=== PATIENT | male | born 1930 | race Caucasian/White ===

== ENCOUNTER 2018-08-14 20:34 | Inpatient (IN) | payer MEDICARE, MEDICAID ==
[~2018-08-14] VITALS: Ht 170.2 cm; Wt 67.6 kg
[2018-08-14] MEDS ORDERED: Cefepime HCl 2 GM in NS 110 ML IV SCH (20:45)
--- NOTE | 2018-08-14 20:48 | NUR ---
ED Nurse Note: Pt brought in by [facility] c/o increase sob and resp distress from home. pt family states he was recenty discharged from [facility] for UTI, pt o2sat 88% on field. Pt AA&ox1, confused, paralyzed on right side, -n/v/d, on bedrest, noted redness on posterior back, posterior buttock, and penile area. pt rec temp 101.8, ERMD notified, verbal order for tylenol 650mg suppository order received. Cooling measures done and pt cleaned and changed, will cont monitor. RT contacted.
[2018-08-14 21:00] VITALS: BP 129/87
[2018-08-14 21:10] LABS: APPEARANCE,URINE CLEAR; BILIRUBIN, URINE NEGATIVE (NEGATIVE); COLOR,URINE PALE YELLOW; GLUCOSE, URINE (UA) NEGATIVE (NEGATIVE); KETONES,URINE NEGATIVE (NEGATIVE); LEUKOCYTE ESTERASE ,URINE 2+ (NEGATIVE); NITRITE,URINE NEGATIVE (NEGATIVE); PH,URINE 5 (4.5-8.0); PROTEIN,URINE 3+ (NEGATIVE); UROBILINOGEN,URINE NORMAL MG/DL (0.0-1.0)
[2018-08-14 21:11] LABS: HEMATOCRIT 30.2 % (42.0-52.0); HEMOGLOBIN 9.6 G/DL (14.2-18.0); MEAN CORPUSCULAR VOLUME 90 FL (80-99); PLATELET COUNT 398 K/UL (150-450); RED BLOOD COUNT 3.37 M/UL (4.70-6.10); RED CELL DISTRIBUTION WIDTH 15.3 % (11.6-14.8); WHITE BLOOD COUNT 11.3 K/UL (4.8-10.8)
[2018-08-14 21:23] LABS: ANION GAP 11 mmol/L (5-15); BLOOD UREA NITROGEN 89 mg/dL (7-18); CARBON DIOXIDE 21 MMOL/L (21-32); CHLORIDE 101 MMOL/L (98-107); CREATININE 2.6 MG/DL (0.55-1.30); POTASSIUM 3.9 MMOL/L (3.5-5.1); SODIUM 133 MMOL/L (136-145)
[2018-08-14] MEDS ORDERED: Acetaminophen 650 MG SUPP RECTAL ONE (21:33)
[2018-08-14 22:00] VITALS: BP 130/67
--- NOTE | 2018-08-14 22:00 | NUR ---
ED Nurse Note: Pt o2sat 100% on CPAP. EPAP 5 IPAP 12 Rate 22 O2 100% PIP 12.
[2018-08-14 22:07] LABS: ALANINE AMINOTRANSFERASE 6 U/L (12-78); ALBUMIN 2.2 G/DL (3.4-5.0); ALBUMIN/GLOBULIN RATIO 0.5 (1.0-2.7); ALKALINE PHOSPHATASE 73 U/L (46-116); ASPARTATE AMINO TRANSFERASE 19 U/L (15-37); BILIRUBIN,TOTAL 0.2 MG/DL (0.2-1.0); CKMB 1.5 NG/ML (0.0-3.6); CREATINE KINASE 72 U/L (26-308); PHOSPHORUS 4.4 MG/DL (2.5-4.9)
[2018-08-14] MEDS ORDERED: Miralax 17gm pkt ORAL PRN (22:30)
[2018-08-14] MEDS ORDERED: Promethazine/Codeine 5ml UD ORAL PRN (22:30)
[2018-08-14] MEDS ORDERED: Nitroglycerin Subl 0.4mg tab SL PRN (22:30)
[2018-08-14] MEDS ORDERED: Mylanta II UD 30ml ORAL PRN (22:30)
[2018-08-14] MEDS ORDERED: Albuterol/Ipratropium 3ml neb HHN PRN (22:30)
--- NOTE | 2018-08-14 22:48 | NUR ---
ED Nurse Note: pt came with buckner cath.
--- NOTE | 2018-08-14 22:49 | Emergency Room Report ---
History of Present Illness General Chief Complaint: Dyspnea/Respdistress Source: EMS Present Illness HPI Patient is an 88-year-old female who presented after increased shortness of breath. Patient was noted to have increased fever starting today. Patient had been having some increased upper respiratory congestion for several days. Patient recently been released from the hospital after catheter associated urinary tract infection. Patient had been having increased nonproductive cough and had been noted to have some difficulty with swallowing. Patient's was concerned that he may have aspirated.Patient was noted to have fever up to 102 degrees. Patient was noted to have coronary chronic indwelling Isaac catheter. Allergies: Coded Allergies: No Known Allergies (Unverified , 08/14/18) Patient History Past Medical History: see triage record Reviewed Nursing Documentation: PMH: Agreed; PSxH: Agreed Nursing Documentation-PMH Past Medical History: No History, Except For Hx Diabetes: Yes Hx Cerebrovascular Accident: Yes - right side deficit Review of Systems All Other Systems: negative except mentioned in HPI Physical Exam Vital Signs Date Time Temp Pulse Resp B/P (MAP) Pulse Ox O2 Delivery O2 Flow Rate FiO2 08/14/18 20:27 103 24 115/63 90 Non-Rebreather 08/14/18 20:33 100 Sp02 EP Interpretation: abnormal General Appearance: alert, thin, Chronically Ill Head: normocephalic ENT: moist mucus membranes Neck: limited range of motion Respiratory: respiratory distress, decreased breath sounds - left side, right side crackles Cardiovascular #1: normal inspection, normal peripheral pulses, regular rate, rhythm Gastrointestinal: soft, no guarding Musculoskeletal: decreased range of motion, other - motor weakness Neurologic: alert, motor weakness Psychiatric: depressed affect Skin: other Procedures Critical Care Time Critical Care Time Patient had a critical medical condition which untreated could potentially result in life or limb threatening injury. Total critical care time excluding procedures approximately 45 minutes. Medical Decision Making Diagnostic Impression: Primary Impression: Acute respiratory failure Additional Impressions: Aspiration pneumonia Renal insufficiency ER Course Patient presented for shortness of breath. Differential included but was not limited to anemia, pneumonia, pneumothorax, myocardial infarction, pericardial effusion, congestive heart failure, acidosis. Because of complexity of patient' s case laboratory testing and imaging studies were ordered. Patient is noted to be markedly short of breath. Patient was initially on CPAP by EMS. Patient was started on BiPAP with improvement in his respiratory status. Chest x-ray 1 view interpreted by me showed pulmonary infiltrate in left lung with normal mediastinum and slight cardiomegaly. Patient was given IV antibiotics he was started on IV fluid. Laboratory testing was notable for slightly elevated white blood count as well as negative influenza study. Patient was noted to have fever and presumably septic. Patient was noted to have a chronic indwelling Isaac catheter. Dr. Madhu Juarez was contacted for inpatient management due to primary care. Labs Test 08/14/18 20:55 08/14/18 21:00 08/14/18 22:00 08/15/18 03:50 White Blood Count 11.3 K/UL (4.8-10.8) Red Blood Count 3.37 M/UL (4.70-6.10) Hemoglobin 9.6 G/DL (14.2-18.0) Hematocrit 30.2 % (42.0-52.0) Mean Corpuscular Volume 90 FL (80-99) Mean Corpuscular Hemoglobin 28.5 PG (27.0-31.0) Mean Corpuscular Hemoglobin Concent 31.9 G/DL (32.0-36.0) Red Cell Distribution Width 15.3 % (11.6-14.8) Platelet Count 398 K/UL (150-450) Mean Platelet Volume 7.0 FL (6.5-10.1) Neutrophils (%) (Auto) % (45.0-75.0) Lymphocytes (%) (Auto) % (20.0-45.0) Monocytes (%) (Auto) % (1.0-10.0) Eosinophils (%) (Auto) % (0.0-3.0) Basophils (%) (Auto) % (0.0-2.0) Differential Total Cells Counted 100 Neutrophils % (Manual) 80 % (45-75) Lymphocytes % (Manual) 9 % (20-45) Monocytes % (Manual) 6 % (1-10) Eosinophils % (Manual) 0 % (0-3) Basophils % (Manual) 0 % (0-2) Band Neutrophils 5 % (0-8) Platelet Estimate Adequate Platelet Morphology Normal Hypochromasia 1+ Anisocytosis 1+ Prothrombin Time 10.5 SEC (9.30-11.50) Prothromb Time International Ratio 1.0 (0.9-1.1) Activated Partial Thromboplast Time 33 SEC (23-33) Sodium Level 133 MMOL/L (136-145) Potassium Level 3.9 MMOL/L (3.5-5.1) Chloride Level 101 MMOL/L (98-107) Carbon Dioxide Level 21 MMOL/L (21-32) Anion Gap 11 mmol/L (5-15) Blood Urea Nitrogen 89 mg/dL (7-18) Creatinine 2.6 MG/DL (0.55-1.30) Estimat Glomerular Filtration Rate mL/min (>60) Glucose Level 189 MG/DL (74-106) Lactic Acid Level 1.40 mmol/L (0.4-2.0) Calcium Level 9.0 MG/DL (8.5-10.1) Phosphorus Level 4.4 MG/DL (2.5-4.9) Magnesium Level 2.5 MG/DL (1.8-2.4) Total Bilirubin 0.2 MG/DL (0.2-1.0) Aspartate Amino Transf (AST/SGOT) 19 U/L (15-37) Alanine Aminotransferase (ALT/SGPT) 6 U/L (12-78) Alkaline Phosphatase 73 U/L (46-116) Total Creatine Kinase 72 U/L (26-308) Creatine Kinase MB 1.5 NG/ML (0.0-3.6) Creatine Kinase MB Relative Index 2.0 Troponin I 0.128 ng/mL (0.000-0.056) Pro-B-Type Natriuretic Peptide 3210 pg/mL (0-125) Total Protein 6.6 G/DL (6.4-8.2) Albumin 2.2 G/DL (3.4-5.0) Globulin 4.4 g/dL Albumin/Globulin Ratio 0.5 (1.0-2.7) Urine Color Pale yellow Urine Appearance Slightly cloudy Urine pH 5 (4.5-8.0) Urine Specific [place] 1.020 (1.005-1.035) Urine Protein 3+ (NEGATIVE) Urine Glucose (UA) Negative (NEGATIVE) Urine Ketones Negative (NEGATIVE) Urine Blood 4+ (NEGATIVE) Urine Nitrite Negative (NEGATIVE) Urine Bilirubin Negative (NEGATIVE) Urine Urobilinogen Normal MG/DL (0.0-1.0) Urine Leukocyte Esterase 2+ (NEGATIVE) Urine RBC 20-30 /HPF (0 - 0) Urine WBC 10-15 /HPF (0 - 0) Urine Squamous Epithelial Cells None /LPF (NONE/OCC) Urine Amorphous Sediment Moderate /LPF (NONE) Urine Bacteria Moderate /HPF (NONE) Urine Coarse Granular Casts 2-4 /LPF (NONE) Urine Yeast Moderate /HPF (NONE) Urine Eosinophils Few seen (NONE SEEN) Urine Random Sodium < 20 mmol/L (20-110) Urine Creatinine 70.7 MG/DL (30.0-125.0) Urine Potassium Timed 24 mmol/L (12-62) Arterial Blood pH 7.313 (7.350-7.450) Arterial Blood Partial Pressure CO2 37.6 mmHg (35.0-45.0) Arterial Blood Partial Pressure O2 266.7 mmHg (75.0-100.0) Arterial Blood HCO3 18.8 mmol/L (22.0-26.0) Arterial Blood Oxygen Saturation 99.0 % (95-100) Arterial Blood Base Excess -6.7 (-2-2) Cole Test Positive Other Cell Type Erythrocyte Sedimentation Rate Reticulocyte Count Uric Acid Iron Level Total Iron Binding Capacity Percent Iron Saturation Unsaturated Iron Binding Lactate Dehydrogenase Vitamin B12 Level Folate Test 08/15/18 04:00 08/15/18 12:40 C-Reactive Protein, Quantitative 18.9 mg/dL (0.00-0.90) Urine Color Pale yellow Urine Appearance Clear Urine pH 5 (4.5-8.0) Urine Specific [place] 1.015 (1.005-1.035) Urine Protein 2+ (NEGATIVE) Urine Glucose (UA) Negative (NEGATIVE) Urine Ketones Negative (NEGATIVE) Urine Blood 3+ (NEGATIVE) Urine Nitrite Negative (NEGATIVE) Urine Bilirubin Negative (NEGATIVE) Urine Urobilinogen Normal MG/DL (0.0-1.0) Urine Leukocyte Esterase 2+ (NEGATIVE) Urine RBC 5-10 /HPF (0 - 0) Urine WBC 10-15 /HPF (0 - 0) Urine Squamous Epithelial Cells Occasional /LPF Urine Bacteria Occasional /HPF (NONE) Urine Yeast Occasional /HPF (NONE) Urine Eosinophils None seen (NONE SEEN) Urine Random Sodium 52 mmol/L (20-110) Urine Creatinine 36.4 MG/DL (30.0-125.0) Urine Potassium Timed 11 mmol/L (12-62) White Blood Count Red Blood Count Hemoglobin Hematocrit Mean Corpuscular Volume Mean Corpuscular Hemoglobin Mean Corpuscular Hemoglobin Concent Red Cell Distribution Width Platelet Count Mean Platelet Volume Neutrophils (%) (Auto) Lymphocytes (%) (Auto) Monocytes (%) (Auto) Eosinophils (%) (Auto) Basophils (%) (Auto) Sodium Level Potassium Level Chloride Level Carbon Dioxide Level Anion Gap Blood Urea Nitrogen Creatinine Estimat Glomerular Filtration Rate Glucose Level Hemoglobin A1c Uric Acid Calcium Level Phosphorus Level Magnesium Level Total Bilirubin Gamma Glutamyl Transpeptidase Aspartate Amino Transf (AST/SGOT) Alanine Aminotransferase (ALT/SGPT) Alkaline Phosphatase Ammonia Total Creatine Kinase Troponin I Pro-B-Type Natriuretic Peptide Total Protein Albumin Globulin Albumin/Globulin Ratio Triglycerides Level Cholesterol Level LDL Cholesterol HDL Cholesterol Cholesterol/HDL Ratio Vitamin B12 Level Thyroid Stimulating Hormone (TSH) Cortisol AM Sample Last Vital Signs Date Time Temp Pulse Resp B/P (MAP) Pulse Ox O2 Delivery O2 Flow Rate FiO2 08/14/18 20:33 95 36 100 Facial 100 08/14/18 20:27 115/63 Status: improved Disposition: ADMITTED INPATIENT Condition: Serious Referrals: Madhu Juarez MD (PCP) Marcus Heath MD Aug 14, 2018 22:49
[2018-08-14 23:00] VITALS: BP 131/70
[2018-08-15 00:26] LABS: BILIRUBIN, URINE NEGATIVE (NEGATIVE); COLOR,URINE PALE YELLOW; GLUCOSE, URINE (UA) NEGATIVE (NEGATIVE); KETONES,URINE NEGATIVE (NEGATIVE); NITRITE,URINE NEGATIVE (NEGATIVE); PH,URINE 5 (4.5-8.0); PROTEIN,URINE 3+ (NEGATIVE); UROBILINOGEN,URINE NORMAL MG/DL (0.0-1.0)
[2018-08-15 00:39] LABS: APPEARANCE,URINE SLIGHTLY CLOUDY
[2018-08-15 00:40] LABS: LEUKOCYTE ESTERASE ,URINE 2+ (NEGATIVE)
--- NOTE | 2018-08-15 01:09 | NUR ---
ED Nurse Note: Report given to RN Elvie to continue care, pt will be transferred to SDU.
--- NOTE | 2018-08-15 01:10 | NUR ---
ED Nurse Note: correction, LIA Darden.
[2018-08-15] MEDS ORDERED: VENLAFAXINE HCL75 M1 ORAL (01:13)
[2018-08-15] MEDS ORDERED: CELEXA10 MG ORAL (01:13)
[2018-08-15] MEDS ORDERED: METFORMIN HCL500 M3 ORAL (01:13)
[2018-08-15] MEDS ORDERED: SINEMET 25-1001 EAC1 ORAL (01:13)
[2018-08-15] MEDS ORDERED: NEURONTIN300 MG ORAL (01:13)
[2018-08-15] MEDS ORDERED: CLONAZEPAM0.5 MG PO (01:13)
[2018-08-15] MEDS ORDERED: QUETIAPINE FUM300 MG ORAL (01:13)
--- NOTE | 2018-08-15 01:15 | NUR ---
ED Nurse Note: pt transferred to SDU, no belongings. family at the bedside, vss, airway intact, o2sat 100% on cpap. RT at the bedside.
--- NOTE | 2018-08-15 01:23 | NUR ---
NURSE NOTES: Received a patient from ER from LIA Basilio.Patient stable,SR on director of cardiac rehabilitation,tolerated CPAP well,lungs diminished sound in an auscultation,BS active in all quadrants,IV asymptomatic,intact,bed secured ,call light within a reach,belongings list signed for no belongings,family at a bed side.Will continue to follow POC.
[2018-08-15] MEDS: Vancomycin 1gm in D5W 275ml IVPB SCH (02:20)
[2018-08-15 04:00] VITALS: BP 135/59
[2018-08-15 05:45] LABS: BASOPHILS % (AUTO) 0.5 % (0.0-2.0); EOSINOPHILS % (AUTO) 0.4 % (0.0-3.0); HEMATOCRIT 29.7 % (42.0-52.0); HEMOGLOBIN 9.3 G/DL (14.2-18.0); LYMPHOCYTES % (AUTO) 11.3 % (20.0-45.0); MEAN CORPUSCULAR VOLUME 89 FL (80-99); MONOCYTES % (AUTO) 4.7 % (1.0-10.0); NEUTROPHILS % (AUTO) 83.1 % (45.0-75.0); PLATELET COUNT 389 K/UL (150-450); RED BLOOD COUNT 3.34 M/UL (4.70-6.10); RED CELL DISTRIBUTION WIDTH 15.6 % (11.6-14.8); WHITE BLOOD COUNT 8.8 K/UL (4.8-10.8)
[2018-08-15 06:23] LABS: ANION GAP 12 mmol/L (5-15); BLOOD UREA NITROGEN 82 mg/dL (7-18); CALCIUM 8.8 MG/DL (8.5-10.1); CARBON DIOXIDE 20 MMOL/L (21-32); CHLORIDE 103 MMOL/L (98-107); CREATININE 2.3 MG/DL (0.55-1.30); PHOSPHORUS 3.9 MG/DL (2.5-4.9); POTASSIUM 3.2 MMOL/L (3.5-5.1); SODIUM 135 MMOL/L (136-145)
[2018-08-15 06:49] LABS: % IRON SATURATION 7 % (15-50); IRON 11 ug/dL (50-175); TOTAL IRON BINDING CAPACITY 164 ug/dL (250-450)
[2018-08-15 07:06] LABS: LACTATE DEHYDROGENASE 138 U/L (81-234)
--- NOTE | 2018-08-15 07:10 | NUR ---
HAND-OFF: Report given to LIA Agrawal.Patient stable.
--- NOTE | 2018-08-15 07:20 | NUR ---
HAND-OFF: Report given to LIA Viramontes Patient stable..
--- NOTE | 2018-08-15 07:43 | NUR ---
RESPIRATORY NOTE: Received pt. on BIPAP. BIPAP settings are: 12/5,PS, 7 rate of 16, FI02 50%. No respiratory distress noted, pt. Sp02 @ 100%. BIPAP plugged on red outlet. Ambu bag @ BS. Will continue to monitor pt.
--- NOTE | 2018-08-15 07:56 | NUR ---
NURSE NOTES: Report receive from LIA Darden. Observed patient in bed. Awake and verbally responsive. Family at bedside. On BIPAP with no acute distress noted. IV site intact and patent. No s/s of pain at this time. F/C intact and draining well. Bed in lowest position. Call light within reach. Will continue to monitor.
--- NOTE | 2018-08-15 07:58 | NUR ---
NURSE NOTES: Called and left message to Dr. Morgan regarding low potassium level. Awaiting for call back.
[2018-08-15 08:00] VITALS: BP 132/71
--- NOTE | 2018-08-15 08:29 | NUR ---
NURSE NOTES: Called back from Dr. Morgan and told me that he will come to see patient shortly.
--- NOTE | 2018-08-15 09:13 | NUR ---
ST NOTE: BEDSIDE SWALLOW EVAL RECEIVED BEDSIDE SWALLOW EVAL ORDER CHART REVIEWED PRIOR THE EVALUATION PT IS A 88-YEAR-OLD MALE WHO WAS ADMITTED DUE TO RESP DISTRESS. DYSPHAGIA RISK FACTORS: ADVANCED AGE, H/O CVA(7YRS AGO) W/ R-SIDED DEFICITS, RESP DISTRESS AND CONGESTION. PENDING CXR. PER ER REPORT: DECREASED BREATH SOUNDS ON BOTH SIDES. PT WAS ON BIPAP WITH FIO2: 50% AND RR: 26-32 PLOF: PT LIVES AT HOME WITH FAMILY. PER PT'S SON, PT WAS ABLE TO EAT/DRINK BY MOUTH. HOWEVER, PT'S DENTURES WERE NOT FIT VERY WELL. FOOD NEEDED TO BE BUT INTO SMALL PIECES. PER PT'S SON, NOT NOTICE ANY SWALLOWING DIFFICULTY. CURRENT STATUS: PT SEEN AT BEDSIDE IN AM. PT ALERT, TIRED. PT'S SON IS AT BEDSIDE. PT WITH VENTURI MASK(6L), OXYGEN LEVEL: 97-99. RR: 18. HOWEVER, SOME SHALLOW BREATHING WAS NOTED AND PT REQUIRED DEEP NASAL SUCTION TO CLEAR THE PHLEGM(MODERATE AMOUNT). 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 COMPLETED ORAL CARE. PT EDENTULOUS. PT REDUCED LARYNGEAL ELEVATION WHEN REQUESTED DRY SWALLOW RESPONSE. DUE TO PT HAS CURRENT RESP DISTRESS AND H/O CVA, PT HAS HIGH RISK FOR ASPIRATION. RECOMMENDATIONS: 1. STRICT NPO FOR NOW. 2. CONSIDER TEMPORARILY NONORAL FEEDING MEANS(PREFER 12 FR) TO MEET NUTRITION AND HYDRATION NEEDS AND MEDICATION PURPOSE. 3, ORAL CARE 4. VIDEOSWALLOW STUDY WHEN PT IS READY. D/W PT'S SON RE: PLAN OF CARE. PER SON, OKAY WITH NGT. POSTED NPO SIGN. D/W PT'S SON AND RN, QUANG AND NAPOLEON.
[2018-08-15] MEDS: Heparin 5000 units/ml inj SUBQ SCH ×2 (09:50→20:44)
--- NOTE | 2018-08-15 11:32 | History and Physical ---
History of Present Illness General Date patient seen: Aug 15, 2018 Reason for Hospitalization: Dyspnea/Respdistress Present Illness HPI 88-year-old male with hx of CVA 8 years ago, bed bound, residing at home who presented with CC of shortness of breath, nonproductive cough and fever for one day. Patient had been having some increased upper respiratory congestion for several days. He recently been released from the hospital after catheter associated urinary tract infection. Pt had a temperature of 101 in ER and had RLL infiltrate on CXR. He is admitted for further work up. Allergies: Coded Allergies: No Known Allergies (Unverified , 08/14/18) Medication History Scheduled Carbidopa/Levodopa 25-100 Mg* (Sinemet 25-100 Mg Tablet*), 1 TAB ORAL THREE TIMES A DAY, (Reported) Citalopram Hydrobromide (Celexa), Unknown Dose ORAL DAILY, (Reported) Metformin Hcl (Metformin Hcl Er), 850 MG ORAL DAILY, (Reported) Quetiapine Fumarate (Quetiapine Fumarate), Unknown Dose ORAL DAILY, (Reported) Venlafaxine Hcl* (Venlafaxine Hcl Er), 225 MG ORAL DAILY, (Reported) Miscellaneous Medications Clonazepam (Clonazepam), Unknown Dose PO, (Reported) Gabapentin (Neurontin), Unknown Dose ORAL, (Reported) Patient History Healthcare decision maker N/A Resuscitation status Full Code Advanced Directive on File No Past Medical/Surgical History Past Medical/Surgical History: (1) Family history of CVA (2) Parkinson disease (3) Diabetes mellitus Review of Systems Respiratory: Reports: shortness of breath, stridor Physical Exam General Appearance: cachetic Neck: non-tender, normal alignment Respiratory/Chest: chest wall non-tender, rhonchi - left, rhonchi - right Cardiovascular/Chest: normal peripheral pulses, normal rate Abdomen: non tender, no organomegaly Genitourinary/Rectal: normal genital exam Extremities: normal range of motion Last 24 Hour Vital Signs Date Time Temp Pulse Resp B/P (MAP) Pulse Ox O2 Delivery O2 Flow Rate FiO2 08/15/18 08:41 81 22 100 08/15/18 08:00 80 08/15/18 08:00 8.0 40 08/15/18 08:00 98.1 80 19 132/71 (91) 100 08/15/18 08:00 Venturi Mask 8.0 08/15/18 07:47 79 32 100 Facial 50 08/15/18 05:26 82 26 99 Facial 50 08/15/18 04:00 50 08/15/18 04:00 97.8 83 17 135/59 (84) 100 08/15/18 04:00 Bi-pap 08/15/18 03:55 80 08/15/18 03:28 81 21 100 Facial 50 08/15/18 02:30 Bi-pap 08/15/18 01:59 80 08/15/18 01:00 101.0 87 18 108/70 96 Bi-pap 08/15/18 00:55 84 21 99 Facial 50 08/14/18 23:00 99.9 87 20 131/70 98 Bi-pap 08/14/18 22:40 86 22 98 Facial 60 08/14/18 22:00 101.8 82 30 130/67 100 Bi-pap 100 08/14/18 21:00 101.8 103 36 129/87 100 Bi-pap 100 08/14/18 20:45 95 36 Bi-pap 100 08/14/18 20:33 95 36 100 Facial 100 08/14/18 20:27 103 24 115/63 90 Non-Rebreather Intake and Output 08/14/18 08/15/18 19:00 07:00 Output Total 600 ml Balance -600 ml Output Urine Total 600 ml Laboratory Tests Test 08/14/18 20:55 08/14/18 21:00 08/14/18 22:00 08/15/18 03:50 White Blood Count 11.3 K/UL (4.8-10.8) H 8.8 K/UL (4.8-10.8) Red Blood Count 3.37 M/UL (4.70-6.10) L 3.34 M/UL (4.70-6.10) L Hemoglobin 9.6 G/DL (14.2-18.0) L 9.3 G/DL (14.2-18.0) L Hematocrit 30.2 % (42.0-52.0) L 29.7 % (42.0-52.0) L Mean Corpuscular Volume 90 FL (80-99) 89 FL (80-99) Mean Corpuscular Hemoglobin 28.5 PG (27.0-31.0) 27.7 PG (27.0-31.0) Mean Corpuscular Hemoglobin Concent 31.9 G/DL (32.0-36.0) L 31.2 G/DL (32.0-36.0) L Red Cell Distribution Width 15.3 % (11.6-14.8) H 15.6 % (11.6-14.8) H Platelet Count 398 K/UL (150-450) 389 K/UL (150-450) Mean Platelet Volume 7.0 FL (6.5-10.1) 7.4 FL (6.5-10.1) Neutrophils (%) (Auto) % (45.0-75.0) 83.1 % (45.0-75.0) H Lymphocytes (%) (Auto) % (20.0-45.0) 11.3 % (20.0-45.0) L Monocytes (%) (Auto) % (1.0-10.0) 4.7 % (1.0-10.0) Eosinophils (%) (Auto) % (0.0-3.0) 0.4 % (0.0-3.0) Basophils (%) (Auto) % (0.0-2.0) 0.5 % (0.0-2.0) Differential Total Cells Counted 100 100 Neutrophils % (Manual) 80 % (45-75) H 78 % (45-75) H Lymphocytes % (Manual) 9 % (20-45) L 12 % (20-45) L Monocytes % (Manual) 6 % (1-10) 10 % (1-10) Eosinophils % (Manual) 0 % (0-3) 0 % (0-3) Basophils % (Manual) 0 % (0-2) 0 % (0-2) Band Neutrophils 5 % (0-8) 0 % (0-8) Platelet Estimate Adequate Adequate Platelet Morphology Normal Normal Hypochromasia 1+ 1+ Anisocytosis 1+ 1+ Prothrombin Time 10.5 SEC (9.30-11.50) 10.6 SEC (9.30-11.50) Prothromb Time International Ratio 1.0 (0.9-1.1) 1.0 (0.9-1.1) Activated Partial Thromboplast Time 33 SEC (23-33) 34 SEC (23-33) H Sodium Level 133 MMOL/L (136-145) L 135 MMOL/L (136-145) L Potassium Level 3.9 MMOL/L (3.5-5.1) 3.2 MMOL/L (3.5-5.1) L Chloride Level 101 MMOL/L (98-107) 103 MMOL/L (98-107) Carbon Dioxide Level 21 MMOL/L (21-32) 20 MMOL/L (21-32) L Anion Gap 11 mmol/L (5-15) 12 mmol/L (5-15) Blood Urea Nitrogen 89 mg/dL (7-18) H 82 mg/dL (7-18) H Creatinine 2.6 MG/DL (0.55-1.30) H 2.3 MG/DL (0.55-1.30) H Estimat Glomerular Filtration Rate mL/min (>60) mL/min (>60) Glucose Level 189 MG/DL (74-106) H 191 MG/DL (74-106) H Lactic Acid Level 1.40 mmol/L (0.4-2.0) Calcium Level 9.0 MG/DL (8.5-10.1) 8.8 MG/DL (8.5-10.1) Phosphorus Level 4.4 MG/DL (2.5-4.9) 3.9 MG/DL (2.5-4.9) Magnesium Level 2.5 MG/DL (1.8-2.4) H Total Bilirubin 0.2 MG/DL (0.2-1.0) Aspartate Amino Transf (AST/SGOT) 19 U/L (15-37) Alanine Aminotransferase (ALT/SGPT) 6 U/L (12-78) L Alkaline Phosphatase 73 U/L (46-116) Total Creatine Kinase 72 U/L (26-308) Creatine Kinase MB 1.5 NG/ML (0.0-3.6) Creatine Kinase MB Relative Index 2.0 Troponin I 0.128 ng/mL (0.000-0.056) Pro-B-Type Natriuretic Peptide 3210 pg/mL (0-125) H Total Protein 6.6 G/DL (6.4-8.2) Albumin 2.2 G/DL (3.4-5.0) L 2.0 G/DL (3.4-5.0) L Globulin 4.4 g/dL Albumin/Globulin Ratio 0.5 (1.0-2.7) L Urine Color Pale yellow Urine Appearance Slightly cloudy Urine pH 5 (4.5-8.0) Urine Specific [place] 1.020 (1.005-1.035) Urine Protein 3+ (NEGATIVE) H Urine Glucose (UA) Negative (NEGATIVE) Urine Ketones Negative (NEGATIVE) Urine Blood 4+ (NEGATIVE) H Urine Nitrite Negative (NEGATIVE) Urine Bilirubin Negative (NEGATIVE) Urine Urobilinogen Normal MG/DL (0.0-1.0) Urine Leukocyte Esterase 2+ (NEGATIVE) H Urine RBC 20-30 /HPF (0 - 0) H Urine WBC 10-15 /HPF (0 - 0) H Urine Squamous Epithelial Cells None /LPF (NONE/OCC) Urine Amorphous Sediment Moderate /LPF (NONE) H Urine Bacteria Moderate /HPF (NONE) H Urine Coarse Granular Casts 2-4 /LPF (NONE) H Urine Yeast Moderate /HPF (NONE) H Urine Eosinophils Few seen (NONE SEEN) Urine Random Creatinine Pending Urine Random Microalbumin Pending Urine Random Sodium < 20 mmol/L (20-110) L Urine Creatinine 70.7 MG/DL (30.0-125.0) Urine Microalbumin/Creatinine Ratio Pending Urine Potassium Timed 24 mmol/L (12-62) Arterial Blood pH 7.313 (7.350-7.450) Arterial Blood Partial Pressure CO2 37.6 mmHg (35.0-45.0) Arterial Blood Partial Pressure O2 266.7 mmHg (75.0-100.0) H Arterial Blood HCO3 18.8 mmol/L (22.0-26.0) L Arterial Blood Oxygen Saturation 99.0 % (95-100) Arterial Blood Base Excess -6.7 (-2-2) L Cole Test Positive Erythrocyte Sedimentation Rate 80 MM/HR (0-20) H Reticulocyte Count Pending Iron Level 11 ug/dL (50-175) L Total Iron Binding Capacity 164 ug/dL (250-450) L Percent Iron Saturation 7 % (15-50) L Unsaturated Iron Binding 153 ug/dL (112-346) Lactate Dehydrogenase 138 U/L (81-234) Carcinoembryonic Antigen Pending Vitamin B12 Level 912 PG/ML (193-986) Folate 50.6 NG/ML (8.6-58.9) Microbiology Date/Time Source Procedure Growth Status 08/14/18 22:35 Nasal Nares Influenza Types A,B Antigen (KYARA) - Final Complete 08/14/18 21:00 Urine,Clean Catch Urine Culture - Preliminary NO GROWTH Resulted Height (Feet): 5 Height (Inches): 7.00 Weight (Pounds): 122 Medications Current Medications Medications (Trade) Dose Ordered Sig/Jese Route PRN Reason Start Time Stop Time Status Last Admin Dose Admin Acetaminophen (Tylenol) 650 mg Q4H PRN ORAL fever 08/14/18 22:30 09/13/18 22:29 Al Hydroxide/Mg Hydroxide (Mylanta II) 30 ml Q6H PRN ORAL dyspepsia 08/14/18 22:30 09/13/18 22:29 Albuterol/ Ipratropium (Albuterol/ Ipratropium) 3 ml Q4H PRN HHN Shortness of Breath 08/14/18 22:30 08/19/18 22:29 Cefepime HCl 1 gm/ Dextrose 55 ml @ 110 mls/hr Q24H IV 08/15/18 21:00 08/22/18 20:59 Heparin Sodium (Porcine) (Heparin 5000 units/ml) 5,000 units EVERY 12 HOURS SUBQ 08/15/18 09:00 09/14/18 08:59 08/15/18 09:50 Nitroglycerin (Ntg) 0.4 mg Q5M PRN SL Prn Chest Pain 08/14/18 22:30 09/13/18 22:29 Ondansetron HCl (Zofran) 4 mg Q6H PRN IVP Nausea & Vomiting 08/14/18 22:30 09/13/18 22:29 Polyethylene Glycol (Miralax) 17 gm DAILYPRN PRN ORAL Constipation 08/14/18 22:30 09/13/18 22:29 Promethazine HCl/ Codeine (Phenergan with Codeine) 5 ml Q4H PRN ORAL For Cough 08/14/18 22:30 09/13/18 22:29 Temazepam (Restoril) 15 mg HSPRN PRN ORAL Insomnia 08/14/18 22:30 08/21/18 22:29 Vancomycin HCl (Vanco rx to dose) 1 ea DAILY PRN MISC Per rx protocol 08/14/18 22:30 09/13/18 22:29 Vancomycin HCl 1 gm/Dextrose 275 ml @ 183.708 mls/hr Q24H IVPB 08/15/18 02:00 08/20/18 01:59 08/15/18 02:20 Assessment/Plan Problem List: (1) Acute respiratory failure ICD Codes: J96.00 - Acute respiratory failure, unspecified whether with hypoxia or hypercapnia SNOMED: 94676554 (2) Aspiration pneumonia ICD Codes: J69.0 - Pneumonitis due to inhalation of food and vomit SNOMED: 006611629 (3) ATN (acute tubular necrosis) ICD Codes: N17.0 - Acute kidney failure with tubular necrosis SNOMED: 20375718 Assessment/Plan respiratory treatment titrate fio2 to sat of 92% check sputum iv abx check electrolytes renal studies and electrolytes echocardiogram f/u on increased troponin dvt prophylaxis Sade Morgan MD Aug 15, 2018 11:32
[2018-08-15 11:39] LABS: CREATINE KINASE 89 U/L (26-308)
[2018-08-15 12:00] VITALS: BP 156/80
--- NOTE | 2018-08-15 12:28 | NUR ---
RD ASSESSMENT & RECOMMENDATIONS SEE CARE ACTIVITY FOR COMPLETE ASSESSMENT DAILY ESTIMATED NEEDS: Needs based on Pulmonary, underweight 55.5kg 30-35 kcals/kg 1202-1974 total kcals 1-1.5 g protein/kg 56-83 g total protein 25-30ml/kcal mL/kg 4328-5633 total fluid mLs NUTRITION DIAGNOSIS: 1) Increased kcal and protein needs r/t underweight status as evidenced by pt w/ generalized moderate wasting, currently 82% of Idal Body Weight. 2) Swallowing difficulty r/t clinical status cardiac history as evidenced by pt w/ PNA, h/o CVA, seen by [employer] w/ recs for temp non oral feeds. CURRENT DIET: NPO ENTERAL NUTRITION RECOMMENDATIONS: Glucerna 1.2 @58ml/hr x24 hrs to provide 1392ml, 1670 kcal, 84g prot, 1121ml free H2O - If indicated, obtain GI access, initiate Glucerna 1.2 @18ml/hr for 6 hrs - Advance as tolerated 10ml/hr q4-6 hrs to goal - Flush per MD. HOB over 30 degrees ADDITIONAL RECOMMENDATIONS: 1) Weekly weights 2) NGT recs as above as needed 3) Monitor lytes, BG daily 4) Hypoglycemics PRN 5) Monitor renal labs/ need for TF recs change 6) F/up w/ WC eval
--- NOTE | 2018-08-15 12:33 | NUR ---
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 101.8 HR 103 RR 24 B/P 115/83 BIPAP FIO2 100% PH 7.313 PCO2 37.6 PO2 266.7 HCO3 18.8 02 SAT 99.0 BE -6.7 WBC 11.3 NA 133 BUN 89 CR 2.6 MG 2.5 TROP 0.125 BNP 3210 UA+ PROTEIN,BLOOD,LEUKOCYTE ESTERASE,RBC,WBC,BACTERIA IS: IV BOLUS NS X 1 LITER FLAGYL IV CEFEPIME IV ADMITTED TO STEP DOWN @ 0115 STEP DOWN STATUS DCP PENDING HOSPITAL STAY
--- NOTE | 2018-08-15 13:14 | Diagnostic Imaging Report ---
Indication: Shortness of breath Technique: One view of the chest Comparison: none Findings: Patient is rotated to the right. There is some atelectasis and infiltrate at the right lung base and in the right perihilar region. There is probably a small amount of pleural fluid on the right. There is chronic appearing interstitial prominence and central bronchial wall thickening bilaterally. The left lung and pleural spaces are otherwise clear. The heart size is upper limits normal. Impression: Right basilar infiltrate, atelectasis, and likely pleural fluid Other findings as noted
--- NOTE | 2018-08-15 14:50 | Consultation ---
Consult Note Consult Note asked to eval for renal failure HPI Patient is an 88-year-old female who presented after increased shortness of breath. Patient was noted to have increased fever starting today. Patient had been having some increased upper respiratory congestion for several days. Patient recently been released from the hospital after catheter associated urinary tract infection. Patient had been having increased nonproductive cough and had been noted to have some difficulty with swallowing. Patient's was concerned that he may have aspirated.Patient was noted to have fever up to 102 degrees. Patient was noted to have coronary chronic indwelling Isaac catheter. No Known Allergies (Unverified , 08/14/18) Past Medical History: No History, Except For Hx Diabetes: Yes Hx Cerebrovascular Accident: Yes - right side deficit examined data reviewed discussed with son . Assessment/Plan 88 Y old male, presents with resp distress and aspiration pneumonia Renal failure, Mainly dehydration ? Underlying CKD Low K , Low Na , Low Alb Parkinsons DM NPO Isaac Hydrate 2D Echo Antibiotics Avoid Nephrotoxics Per orders Hudson Huntley MD Aug 15, 2018 14:50
[2018-08-15 14:51] LABS: APPEARANCE,URINE CLEAR; BILIRUBIN, URINE NEGATIVE (NEGATIVE); COLOR,URINE PALE YELLOW; GLUCOSE, URINE (UA) NEGATIVE (NEGATIVE); KETONES,URINE NEGATIVE (NEGATIVE); LEUKOCYTE ESTERASE ,URINE 2+ (NEGATIVE); NITRITE,URINE NEGATIVE (NEGATIVE); PH,URINE 5 (4.5-8.0); PROTEIN,URINE 2+ (NEGATIVE); UROBILINOGEN,URINE NORMAL MG/DL (0.0-1.0)
--- NOTE | 2018-08-15 15:40 | Consultation ---
History of Present Illness General Date patient seen: Aug 15, 2018 Chief Complaint: Dyspnea/Respdistress Present Illness HPI 88 y/o M with hx of Dm2, CVA w/ R side deficit, bedbound, Parkinson's disease presented to ED on 08/14 with increased SOB, fever, congestion, dysphagia and non productive cough. Fever up to 102. Allergies: Coded Allergies: No Known Allergies (Unverified , 08/14/18) Medication History Scheduled Carbidopa/Levodopa 25-100 Mg* (Sinemet 25-100 Mg Tablet*), 1 TAB ORAL THREE TIMES A DAY, (Reported) Citalopram Hydrobromide (Celexa), Unknown Dose ORAL DAILY, (Reported) Clonazepam (Clonazepam), Unknown Dose PO EVERY 12 HOURS, (Reported) Quetiapine Fumarate (Quetiapine Fumarate), Unknown Dose ORAL QHS, (Reported) Venlafaxine Hcl* (Venlafaxine Hcl Er), 225 MG ORAL DAILY, (Reported) Miscellaneous Medications Gabapentin (Neurontin), Unknown Dose ORAL, (Reported) Discontinued Medications Metformin Hcl (Metformin Hcl Er), 850 MG ORAL DAILY, (Reported) Discontinued Reason: MD discontinued med Patient History Healthcare decision maker N/A Resuscitation status Full Code Advanced Directive on File No Patient History Narrative Pmhx: as above Shx: reviewed Fhx: non contributory Review of Systems All Other Systems: negative except mentioned in HPI Physical Exam Physical Exam Narrative General Appearance: alert, thin, Chronically Ill ENT: moist mucus membranes Neck: limited range of motion Respiratory: decreased breath sounds - left side, right side crackles Cardiovascular #1: normal inspection, normal peripheral pulses, regular rate, rhythm Musculoskeletal: decreased range of motion, other - motor weakness Neurologic: alert, motor weakness Psychiatric: depressed affect Skin: other Last 24 Hour Vital Signs Date Time Temp Pulse Resp B/P (MAP) Pulse Ox O2 Delivery O2 Flow Rate FiO2 08/15/18 12:00 Venturi Mask 8.0 08/15/18 12:00 87 08/15/18 12:00 8.0 40 08/15/18 12:00 98.1 88 24 156/80 (105) 97 08/15/18 08:41 81 22 100 08/15/18 08:00 80 08/15/18 08:00 8.0 40 08/15/18 08:00 98.1 80 19 132/71 (91) 100 08/15/18 08:00 Venturi Mask 8.0 08/15/18 07:47 79 32 100 Facial 50 08/15/18 05:26 82 26 99 Facial 50 08/15/18 04:00 50 08/15/18 04:00 97.8 83 17 135/59 (84) 100 08/15/18 04:00 Bi-pap 08/15/18 03:55 80 08/15/18 03:28 81 21 100 Facial 50 08/15/18 02:30 Bi-pap 08/15/18 01:59 80 08/15/18 01:00 101.0 87 18 108/70 96 Bi-pap 08/15/18 00:55 84 21 99 Facial 50 08/14/18 23:00 99.9 87 20 131/70 98 Bi-pap 08/14/18 22:40 86 22 98 Facial 60 08/14/18 22:00 101.8 82 30 130/67 100 Bi-pap 100 08/14/18 21:00 101.8 103 36 129/87 100 Bi-pap 100 08/14/18 20:45 95 36 Bi-pap 100 08/14/18 20:33 95 36 100 Facial 100 08/14/18 20:27 103 24 115/63 90 Non-Rebreather Intake and Output 08/14/18 08/15/18 19:00 07:00 Output Total 600 ml Balance -600 ml Output Urine Total 600 ml Laboratory Tests Test 08/14/18 20:55 08/14/18 21:00 08/14/18 22:00 08/15/18 03:50 White Blood Count 11.3 K/UL (4.8-10.8) H 8.8 K/UL (4.8-10.8) Red Blood Count 3.37 M/UL (4.70-6.10) L 3.34 M/UL (4.70-6.10) L Hemoglobin 9.6 G/DL (14.2-18.0) L 9.3 G/DL (14.2-18.0) L Hematocrit 30.2 % (42.0-52.0) L 29.7 % (42.0-52.0) L Mean Corpuscular Volume 90 FL (80-99) 89 FL (80-99) Mean Corpuscular Hemoglobin 28.5 PG (27.0-31.0) 27.7 PG (27.0-31.0) Mean Corpuscular Hemoglobin Concent 31.9 G/DL (32.0-36.0) L 31.2 G/DL (32.0-36.0) L Red Cell Distribution Width 15.3 % (11.6-14.8) H 15.6 % (11.6-14.8) H Platelet Count 398 K/UL (150-450) 389 K/UL (150-450) Mean Platelet Volume 7.0 FL (6.5-10.1) 7.4 FL (6.5-10.1) Neutrophils (%) (Auto) % (45.0-75.0) 83.1 % (45.0-75.0) H Lymphocytes (%) (Auto) % (20.0-45.0) 11.3 % (20.0-45.0) L Monocytes (%) (Auto) % (1.0-10.0) 4.7 % (1.0-10.0) Eosinophils (%) (Auto) % (0.0-3.0) 0.4 % (0.0-3.0) Basophils (%) (Auto) % (0.0-2.0) 0.5 % (0.0-2.0) Differential Total Cells Counted 100 100 Neutrophils % (Manual) 80 % (45-75) H 78 % (45-75) H Lymphocytes % (Manual) 9 % (20-45) L 12 % (20-45) L Monocytes % (Manual) 6 % (1-10) 10 % (1-10) Eosinophils % (Manual) 0 % (0-3) 0 % (0-3) Basophils % (Manual) 0 % (0-2) 0 % (0-2) Band Neutrophils 5 % (0-8) 0 % (0-8) Platelet Estimate Adequate Adequate Platelet Morphology Normal Normal Hypochromasia 1+ 1+ Anisocytosis 1+ 1+ Prothrombin Time 10.5 SEC (9.30-11.50) 10.6 SEC (9.30-11.50) Prothromb Time International Ratio 1.0 (0.9-1.1) 1.0 (0.9-1.1) Activated Partial Thromboplast Time 33 SEC (23-33) 34 SEC (23-33) H Sodium Level 133 MMOL/L (136-145) L 135 MMOL/L (136-145) L Potassium Level 3.9 MMOL/L (3.5-5.1) 3.2 MMOL/L (3.5-5.1) L Chloride Level 101 MMOL/L (98-107) 103 MMOL/L (98-107) Carbon Dioxide Level 21 MMOL/L (21-32) 20 MMOL/L (21-32) L Anion Gap 11 mmol/L (5-15) 12 mmol/L (5-15) Blood Urea Nitrogen 89 mg/dL (7-18) H 82 mg/dL (7-18) H Creatinine 2.6 MG/DL (0.55-1.30) H 2.3 MG/DL (0.55-1.30) H Estimat Glomerular Filtration Rate mL/min (>60) mL/min (>60) Glucose Level 189 MG/DL (74-106) H 191 MG/DL (74-106) H Lactic Acid Level 1.40 mmol/L (0.4-2.0) Calcium Level 9.0 MG/DL (8.5-10.1) 8.8 MG/DL (8.5-10.1) Phosphorus Level 4.4 MG/DL (2.5-4.9) 3.9 MG/DL (2.5-4.9) Magnesium Level 2.5 MG/DL (1.8-2.4) H Total Bilirubin 0.2 MG/DL (0.2-1.0) Aspartate Amino Transf (AST/SGOT) 19 U/L (15-37) Alanine Aminotransferase (ALT/SGPT) 6 U/L (12-78) L Alkaline Phosphatase 73 U/L (46-116) Total Creatine Kinase 72 U/L (26-308) 89 U/L (26-308) Creatine Kinase MB 1.5 NG/ML (0.0-3.6) Creatine Kinase MB Relative Index 2.0 Troponin I 0.128 ng/mL (0.000-0.056) Pro-B-Type Natriuretic Peptide 3210 pg/mL (0-125) H Total Protein 6.6 G/DL (6.4-8.2) Albumin 2.2 G/DL (3.4-5.0) L 2.0 G/DL (3.4-5.0) L Globulin 4.4 g/dL Albumin/Globulin Ratio 0.5 (1.0-2.7) L Urine Color Pale yellow Urine Appearance Slightly cloudy Urine pH 5 (4.5-8.0) Urine Specific [place] 1.020 (1.005-1.035) Urine Protein 3+ (NEGATIVE) H Urine Glucose (UA) Negative (NEGATIVE) Urine Ketones Negative (NEGATIVE) Urine Blood 4+ (NEGATIVE) H Urine Nitrite Negative (NEGATIVE) Urine Bilirubin Negative (NEGATIVE) Urine Urobilinogen Normal MG/DL (0.0-1.0) Urine Leukocyte Esterase 2+ (NEGATIVE) H Urine RBC 20-30 /HPF (0 - 0) H Urine WBC 10-15 /HPF (0 - 0) H Urine Squamous Epithelial Cells None /LPF (NONE/OCC) Urine Amorphous Sediment Moderate /LPF (NONE) H Urine Bacteria Moderate /HPF (NONE) H Urine Coarse Granular Casts 2-4 /LPF (NONE) H Urine Yeast Moderate /HPF (NONE) H Urine Eosinophils Few seen (NONE SEEN) Urine Random Creatinine Pending Urine Random Microalbumin Pending Urine Random Sodium < 20 mmol/L (20-110) L Urine Creatinine 70.7 MG/DL (30.0-125.0) Urine Microalbumin/Creatinine Ratio Pending Urine Potassium Timed 24 mmol/L (12-62) Arterial Blood pH 7.313 (7.350-7.450) Arterial Blood Partial Pressure CO2 37.6 mmHg (35.0-45.0) Arterial Blood Partial Pressure O2 266.7 mmHg (75.0-100.0) H Arterial Blood HCO3 18.8 mmol/L (22.0-26.0) L Arterial Blood Oxygen Saturation 99.0 % (95-100) Arterial Blood Base Excess -6.7 (-2-2) L Cole Test Positive Erythrocyte Sedimentation Rate 80 MM/HR (0-20) H Reticulocyte Count 1.4 % (0.0-2.0) Uric Acid 5.4 MG/DL (2.6-7.2) Iron Level 11 ug/dL (50-175) L Total Iron Binding Capacity 164 ug/dL (250-450) L Percent Iron Saturation 7 % (15-50) L Unsaturated Iron Binding 153 ug/dL (112-346) Lactate Dehydrogenase 138 U/L (81-234) Carcinoembryonic Antigen Pending Vitamin B12 Level 912 PG/ML (193-986) Folate 50.6 NG/ML (8.6-58.9) Test 08/15/18 04:00 08/15/18 12:40 C-Reactive Protein, Quantitative Pending Urine Color Pale yellow Urine Appearance Clear Urine pH 5 (4.5-8.0) Urine Specific [place] 1.015 (1.005-1.035) Urine Protein 2+ (NEGATIVE) H Urine Glucose (UA) Negative (NEGATIVE) Urine Ketones Negative (NEGATIVE) Urine Blood 3+ (NEGATIVE) H Urine Nitrite Negative (NEGATIVE) Urine Bilirubin Negative (NEGATIVE) Urine Urobilinogen Normal MG/DL (0.0-1.0) Urine Leukocyte Esterase 2+ (NEGATIVE) H Urine RBC 5-10 /HPF (0 - 0) H Urine WBC 10-15 /HPF (0 - 0) H Urine Squamous Epithelial Cells Occasional /LPF Urine Bacteria Occasional /HPF (NONE) Urine Yeast Occasional /HPF (NONE) H Urine Eosinophils Pending Urine Random Creatinine Pending Urine Random Microalbumin Pending Urine Random Sodium 52 mmol/L (20-110) Urine Creatinine 36.4 MG/DL (30.0-125.0) Urine Microalbumin/Creatinine Ratio Pending Urine Potassium Timed 11 mmol/L (12-62) L Microbiology Date/Time Source Procedure Growth Status 08/14/18 22:35 Nasal Nares Influenza Types A,B Antigen (KYARA) - Final Complete 08/14/18 21:00 Urine,Clean Catch Urine Culture - Preliminary NO GROWTH Resulted Height (Feet): 5 Height (Inches): 7.00 Weight (Pounds): 122 Medications Current Medications Medications (Trade) Dose Ordered Sig/Jese Route PRN Reason Start Time Stop Time Status Last Admin Dose Admin Acetaminophen (Tylenol) 650 mg Q4H PRN ORAL fever 08/14/18 22:30 09/13/18 22:29 Albuterol/ Ipratropium (Albuterol/ Ipratropium) 3 ml Q4H PRN HHN Shortness of Breath 08/14/18 22:30 08/19/18 22:29 Cefepime HCl 1 gm/ Dextrose 55 ml @ 110 mls/hr Q24H IV 08/15/18 21:00 08/22/18 20:59 Dextrose/ Electrolytes 1,000 ml @ 75 mls/hr [id number] IV 08/15/18 13:00 09/14/18 12:59 08/15/18 12:40 Heparin Sodium (Porcine) (Heparin 5000 units/ml) 5,000 units EVERY 12 HOURS SUBQ 08/15/18 09:00 09/14/18 08:59 08/15/18 09:50 Nitroglycerin (Ntg) 0.4 mg Q5M PRN SL Prn Chest Pain 08/14/18 22:30 09/13/18 22:29 Ondansetron HCl (Zofran) 4 mg Q6H PRN IVP Nausea & Vomiting 08/14/18 22:30 09/13/18 22:29 Pantoprazole (Protonix) 40 mg EVERY 12 HOURS IVP 08/15/18 21:00 09/14/18 20:59 Polyethylene Glycol (Miralax) 17 gm DAILYPRN PRN ORAL Constipation 08/14/18 22:30 09/13/18 22:29 Promethazine HCl/ Codeine (Phenergan with Codeine) 5 ml Q4H PRN ORAL For Cough 08/14/18 22:30 09/13/18 22:29 Temazepam (Restoril) 15 mg HSPRN PRN ORAL Insomnia 08/14/18 22:30 08/21/18 22:29 Vancomycin HCl (Vanco rx to dose) 1 ea DAILY PRN MISC Per rx protocol 08/14/18 22:30 09/13/18 22:29 Vancomycin HCl 1 gm/Dextrose 275 ml @ 183.708 mls/hr Q24H IVPB 08/15/18 02:00 08/20/18 01:59 08/15/18 02:20 Assessment/Plan Assessment/Plan Abx: IV Vancomycin 08/14- Cefepime 08/14- Flagyl x1 08/14 Assessment: Sepsis 2ry to PNA, ?FLu (despite neg screening test) -CXR: Right basilar infiltrate, atelectasis, and likely pleural fluid -sp cx p -u/a wbc 10-15, nit neg, leuk +2; ucx NTD -Bcx p -influenza sc neg Fever Leukocytosis, SP TONIO Hyponatremia/hypokalemia Dm2 CVA w/ R side deficit bedbound Parkinson's disease Plan: -Continue empiric IV Vancomycin and Cefepime -Add Tamiflu and Azithromycin for influenza and atypical coverage -f/u cx -Monitor CBC/CMP, temperatures -legionella ag urine -EKG am -aspiration precautions Thank you for your consultation. Will continue to follow along with you. Discussed with LIA. Nuria Marte M.D. Aug 15, 2018 15:40
[2018-08-15 16:00] VITALS: BP 139/83
--- NOTE | 2018-08-15 19:05 | NUR ---
HAND-OFF: Report given to LIA Darden. Stable condition.
--- NOTE | 2018-08-15 19:06 | NUR ---
NURSE NOTES: Received bedside report from LIA Viramontes.Patient stable,A&Ox1-2,confused,tolerated Ventury mask 40% 8 L,NPO,f/cath in place running toward gravity,BS active in all quadrants,IV asymptomatic,intact on L hand 20G running with D 5 NS w/20 KCL @75 ml/hr,no c/o pain,no respiratory distress noted,bed secured,call light within a reach,family at bedside.Will continue to monitor and follow POC.
--- NOTE | 2018-08-15 19:19 | History & Physical ---
History and Physical History & Physicial Dictated for Int Med-Dr Juarez no. [id number]. Jeremi Hayden MD Aug 15, 2018 19:19
[2018-08-15 20:00] VITALS: BP 137/60
[2018-08-15] MEDS: Pantoprazole Inj IVP SCH (20:43)
[2018-08-15] MEDS: Cefepime HCl 1 GM in D5W 55 ML IV SCH (20:43)
--- NOTE | 2018-08-15 21:45 | History and Physical Report ---
DATE OF ADMISSION: 08/14/2018 CHIEF COMPLAINT: The patient is an 88-year-old white male, presents with a chief complaint of shortness of breath and fever. HISTORY OF PRESENT ILLNESS: The patient has been having cough and increased congestion for several days. The patient began to have increasing shortness of breath. The patient was noted to have fever of 102 degrees Fahrenheit at home. The patient presented to [place] emergency room. The patient is admitted for shortness of breath and fever to rule out aspiration pneumonia. REVIEW OF SYSTEMS: CONSTITUTIONAL: The patient denies weight loss or weight gain. The patient denies fevers or chills. HEENT: The patient denies ear or throat pain. The patient denies headache. CARDIOVASCULAR: The patient denies palpitations or chest pain. CHEST: The patient complains of cough and congestion as above. The patient complains of shortness of breath as above. ABDOMEN: The patient denies nausea, vomiting, diarrhea, or constipation. GENITOURINARY: The patient denies dysuria or increased frequency of urination. NEUROMUSCULAR: The patient denies seizures or generalized weakness. PAST MEDICAL HISTORY: Significant for: 1. Diabetes type 2. 2. Parkinson disease. 3. Cerebrovascular disease, status post cerebrovascular accident in 2010. PAST SURGICAL HISTORY: The patient denies. CURRENT MEDICATIONS: 1. Sinemet 25/100 one tablet p.o. three times daily. 2. Celexa 10 mg p.o. daily. 3. Klonopin 0.5 mg p.o. twice daily. 4. Gabapentin 300 mg p.o. three times daily. 5. Seroquel 300 mg p.o. nightly. 6. Venlafaxine ER 225 mg p.o. daily. ALLERGIES: No known drug allergies. SOCIAL HISTORY: The patient is single. The patient denies tobacco or alcohol use. PHYSICAL EXAMINATION: VITAL SIGNS: Temperature febrile at 101.8, pulse 103, blood pressure 129/87, and respiratory rate 36. The patient is currently on BiPAP. GENERAL: The patient is well-developed and well-nourished thin-appearing white male, who is currently on BiPAP. HEENT: Eyes - pupils are equal and responsive to light and accommodation. Extraocular movements are intact. NECK: Supple without lymphadenopathy. CHEST: Crackles bilaterally with expiratory wheezes. ABDOMEN: Soft, nontender, and nondistended. Positive bowel sounds. No evidence of hepatosplenomegaly. Currently, no rebound or guarding noted. EXTREMITIES: Negative for clubbing, cyanosis, or edema. RECTAL/GENITAL: Not performed. NEUROLOGIC: Cranial nerves II through XII are grossly intact without focal deficits. LABORATORY AND DIAGNOSTIC DATA: WBC 11.3, hemoglobin 9.6, hematocrit 30.2, platelets 298,000. Sodium 135, potassium 3.3, chloride 103, CO2 20, BUN 82, creatinine 2.3, and glucose 191. Urinalysis showed 3+ blood, leukocyte esterase 2+, rbc's 5 to 10, and wbc's 10 to 15. Chest x-ray revealed right lower lobe infiltrate. ASSESSMENT: This is an 88-year-old white male. 1. Right lower lobe pneumonia. 2. Shortness of breath. 3. Fever. 4. Cerebrovascular disease. 5. Diabetes. 6. Parkinson disease. TREATMENT: 1. Right lower lobe pneumonia/shortness of breath. A Pulmonary consultation has been obtained with Dr. Sade Morgan. The patient has been started empirically on cefepime and azithromycin. The patient has also been started on vancomycin. An Infectious Disease consultation has been obtained with Dr. Marte. 2. History of cerebrovascular disease. Continue aspirin as above. 3. Diabetes type 2. The patient has been started on NovoLog sliding scale. 4. Parkinson disease. Continue Sinemet as above. Jeremi Hayden M.D. DR: LEATHA JOB#: [id number] CC:
[2018-08-16] VITALS: BP 145/71
[2018-08-16] MEDS: Vancomycin 1gm in D5W 275ml IVPB SCH (02:49)
[2018-08-16 04:00] VITALS: BP 155/72
[2018-08-16 06:15] LABS: BASOPHILS % (AUTO) 0.6 % (0.0-2.0); EOSINOPHILS % (AUTO) 0.2 % (0.0-3.0); HEMATOCRIT 32.4 % (42.0-52.0); HEMOGLOBIN 10.5 G/DL (14.2-18.0); LYMPHOCYTES % (AUTO) 9.5 % (20.0-45.0); MEAN CORPUSCULAR VOLUME 88 FL (80-99); MONOCYTES % (AUTO) 6.4 % (1.0-10.0); NEUTROPHILS % (AUTO) 83.3 % (45.0-75.0); PLATELET COUNT 440 K/UL (150-450); RED BLOOD COUNT 3.69 M/UL (4.70-6.10); RED CELL DISTRIBUTION WIDTH 15.8 % (11.6-14.8); WHITE BLOOD COUNT 9.1 K/UL (4.8-10.8)
[2018-08-16 06:39] LABS: CREATINE KINASE 93 U/L (26-308); GAMMA GLUTAMYL TRANSPEPTIDASE 13 U/L (5-85); PHOSPHORUS 2.6 MG/DL (2.5-4.9)
[2018-08-16 06:57] LABS: AMMONIA 41 umol/L (11-32)
--- NOTE | 2018-08-16 07:14 | NUR ---
HAND-OFF: Report given to LIA Viramontes.Patient stable.
--- NOTE | 2018-08-16 07:20 | NUR ---
NURSE NOTES: Received Pt from Nicolasa Jain RN. Pt is AAOx2. On Venturi mask with 8L O2 SaO2 94%. No cardiopulmonary distress noted. Pt is SR hooked to monitor. F/C noted draining urine. Skin alterations noted. 20 g L forearm IV noted running at 75 mL/hr. Bed in lowest position. Side rails up x 2. Call light within reach. Will continue to monitor pt.
[2018-08-16 07:24] LABS: ALANINE AMINOTRANSFERASE 9 U/L (12-78); ALBUMIN 1.9 G/DL (3.4-5.0); ALBUMIN/GLOBULIN RATIO 0.4 (1.0-2.7); ALKALINE PHOSPHATASE 68 U/L (46-116); ANION GAP 15 mmol/L (5-15); ASPARTATE AMINO TRANSFERASE 14 U/L (15-37); BILIRUBIN,TOTAL 0.3 MG/DL (0.2-1.0); BLOOD UREA NITROGEN 53 mg/dL (7-18); CALCIUM 8.7 MG/DL (8.5-10.1); CARBON DIOXIDE 17 MMOL/L (21-32); CHLORIDE 111 MMOL/L (98-107); CHOLESTEROL 113 MG/DL (< 200); CREATININE 1.4 MG/DL (0.55-1.30); HDL CHOLESTEROL 45 MG/DL (40-60); POTASSIUM 2.8 MMOL/L (3.5-5.1); SODIUM 143 MMOL/L (136-145); TRIGLYCERIDES 97 MG/DL (30-150)
[2018-08-16 08:00] VITALS: BP 162/75
[2018-08-16] MEDS ORDERED: Azithromycin 250mg tab ORAL SCH (09:00)
[2018-08-16] MEDS: Pantoprazole Inj IVP SCH ×2 (09:09→21:00)
[2018-08-16] MEDS: Heparin 5000 units/ml inj SUBQ SCH ×2 (09:09→21:11)
--- NOTE | 2018-08-16 09:39 | NUR ---
RADIOLOGY DEPT CHEST X-RAY DONE.-P.DYE
--- NOTE | 2018-08-16 11:07 | Pulmonology Progress Note ---
Assessment/Plan Problems: (1) Acute respiratory failure (2) Aspiration pneumonia (3) ATN (acute tubular necrosis) Assessment/Plan improving bun/creatine decreasing didn't pass swallow study start NG tube feeding check electrolytes respiratory treatment check echocardiogram f/u troponin level Subjective Interval Events: on nasal cannula now, didn't pass swallow study Allergies: Coded Allergies: No Known Allergies (Unverified , 08/14/18) Objective Last 24 Hour Vital Signs Date Time Temp Pulse Resp B/P (MAP) Pulse Ox O2 Delivery O2 Flow Rate FiO2 08/16/18 08:00 98.2 83 22 162/75 (104) 93 08/16/18 08:00 4.0 08/16/18 08:00 84 08/16/18 08:00 Nasal Cannula 4.0 08/16/18 04:00 Venturi Mask 8.0 08/16/18 04:00 8.0 40 08/16/18 04:00 98.4 94 20 155/72 (99) 98 08/16/18 03:40 84 08/16/18 00:00 8.0 40 08/16/18 00:00 99.0 85 21 145/71 (95) 91 08/16/18 00:00 Venturi Mask 8.0 08/15/18 23:36 86 08/15/18 20:00 Venturi Mask 8.0 08/15/18 20:00 8.0 40 08/15/18 20:00 98.8 90 21 137/60 (85) 94 08/15/18 19:29 92 20 97 14.0 08/15/18 19:09 93 08/15/18 16:00 Venturi Mask 8.0 08/15/18 16:00 98.7 91 23 139/83 (101) 95 08/15/18 16:00 8.0 40 08/15/18 16:00 93 08/15/18 12:00 Venturi Mask 8.0 08/15/18 12:00 87 08/15/18 12:00 8.0 40 08/15/18 12:00 98.1 88 24 156/80 (105) 97 Intake and Output 08/15/18 08/16/18 19:00 07:00 Intake Total 525 ml 1037.387 ml Output Total 950 ml 1100 ml Balance -425 ml -62.613 ml Intake IV Total 525 ml 1037.387 ml Output Urine Total 950 ml 1100 ml # Bowel Movements 2 2 General Appearance: cachetic HEENT: normocephalic, atraumatic Respiratory/Chest: chest wall non-tender, normal breath sounds Cardiovascular: normal peripheral pulses, normal rate Abdomen: normal bowel sounds, soft, non tender Genitourinary: normal external genitalia Extremities: no cyanosis Skin: no rash Neurologic/Psychiatric: lye boiler II-XII grossly normal Lymphatic: no neck adenopathy Microbiology Date/Time Source Procedure Growth Status 08/14/18 22:35 Blood Blood Culture - Preliminary Resulted 08/14/18 22:30 Blood Blood Culture - Preliminary NO GROWTH AFTER 24 HOURS Resulted 08/14/18 22:35 Nasal Nares Influenza Types A,B Antigen (KYARA) - Final Complete 08/15/18 12:40 Urine,Clean Catch Urine Culture - Preliminary NO GROWTH Resulted 08/14/18 21:00 Urine,Clean Catch Urine Culture - Final NO GROWTH AFTER 48 HOURS Complete Laboratory Tests 08/15/18 12:40: Urine Color Pale yellow, Urine Appearance Clear, Urine pH 5, Urine Specific [place] 1.015, Urine Protein 2+H, Urine Glucose (UA) Negative, Urine Ketones Negative, Urine Blood 3+H, Urine Nitrite Negative, Urine Bilirubin Negative, Urine Urobilinogen Normal, Urine Leukocyte Esterase 2+H, Urine RBC 5-10H, Urine WBC 10-15H, Urine Squamous Epithelial Cells Occasional, Urine Bacteria Occasional, Urine Yeast OccasionalH, Urine Eosinophils None seen, Urine Random Creatinine [Pending], Urine Random Microalbumin [Pending], Urine Random Sodium 52, Urine Creatinine 36.4, Urine Microalbumin/Creatinine Ratio [Pending], Urine Potassium Timed 11L, Urine Legionella Antigen [Pending] 08/16/18 03:20: White Blood Count 9.1, Red Blood Count 3.69L, Hemoglobin 10.5L, Hematocrit 32.4L , Mean Corpuscular Volume 88, Mean Corpuscular Hemoglobin 28.4, Mean Corpuscular Hemoglobin Concent 32.4, Red Cell Distribution Width 15.8H, Platelet Count 440, Mean Platelet Volume 7.1, Neutrophils (%) (Auto) 83.3H, Lymphocytes (%) (Auto) 9.5L, Monocytes (%) (Auto) 6.4, Eosinophils (%) (Auto) 0.2, Basophils (%) (Auto) 0.6, Sodium Level 143, Potassium Level 2.8L, Chloride Level 111H, Carbon Dioxide Level 17L, Anion Gap 15, Blood Urea Nitrogen 53H, Creatinine 1.4H, Estimat Glomerular Filtration Rate , Glucose Level 190H, Hemoglobin A1c 6.0, Uric Acid 7.8H, Calcium Level 8.7, Phosphorus Level 2.6, Magnesium Level 2.0, Total Bilirubin 0.3, Gamma Glutamyl Transpeptidase 13, Aspartate Amino Transf (AST/SGOT) 14L, Alanine Aminotransferase (ALT/SGPT) 9L, Alkaline Phosphatase 68, Ammonia 41H, Total Creatine Kinase 93, Troponin I 0.101H, Pro-B-Type Natriuretic Peptide 94235Q, Total Protein 6.2L, Albumin 1.9L , Globulin 4.3, Albumin/Globulin Ratio 0.4L, Triglycerides Level 97, Cholesterol Level 113, LDL Cholesterol 47, HDL Cholesterol 45, Cholesterol/HDL Ratio 2.5L, Vitamin B12 Level 1073H, Thyroid Stimulating Hormone (TSH) 0.036L, Cortisol AM Sample [Pending] Current Medications Medications (Trade) Dose Ordered Sig/Jese Route PRN Reason Start Time Stop Time Status Last Admin Dose Admin Acetaminophen (Tylenol) 650 mg Q4H PRN ORAL fever 08/14/18 22:30 09/13/18 22:29 Albuterol/ Ipratropium (Albuterol/ Ipratropium) 3 ml Q4H PRN HHN Shortness of Breath 08/14/18 22:30 08/19/18 22:29 Azithromycin 500 mg/Dextrose 275 ml @ 275 mls/hr Q24H IV 08/16/18 09:00 08/22/18 09:59 Cefepime HCl 1 gm/ Dextrose 55 ml @ 110 mls/hr Q24H IV 08/15/18 21:00 08/22/18 20:59 08/15/18 20:43 Dextrose/ Electrolytes 1,000 ml @ 75 mls/hr [id number] IV 08/15/18 13:00 09/14/18 12:59 08/16/18 02:48 Heparin Sodium (Porcine) (Heparin 5000 units/ml) 5,000 units EVERY 12 HOURS SUBQ 08/15/18 09:00 09/14/18 08:59 08/16/18 09:09 Nitroglycerin (Ntg) 0.4 mg Q5M PRN SL Prn Chest Pain 08/14/18 22:30 09/13/18 22:29 Ondansetron HCl (Zofran) 4 mg Q6H PRN IVP Nausea & Vomiting 08/14/18 22:30 09/13/18 22:29 Oseltamivir Phosphate (Tamiflu) 30 mg DAILY ORAL 08/16/18 09:00 08/21/18 08:59 Pantoprazole (Protonix) 40 mg EVERY 12 HOURS IVP 08/15/18 21:00 09/14/18 20:59 08/16/18 09:09 Polyethylene Glycol (Miralax) 17 gm DAILYPRN PRN ORAL Constipation 08/14/18 22:30 09/13/18 22:29 Potassium Chloride 100 ml @ 100 mls/hr Q1HR IVPB 08/16/18 10:00 08/16/18 13:59 08/16/18 09:22 Promethazine HCl/ Codeine (Phenergan with Codeine) 5 ml Q4H PRN ORAL For Cough 08/14/18 22:30 09/13/18 22:29 Temazepam (Restoril) 15 mg HSPRN PRN ORAL Insomnia 08/14/18 22:30 08/21/18 22:29 Vancomycin HCl (Vanco rx to dose) 1 ea DAILY PRN MISC Per rx protocol 08/14/18 22:30 09/13/18 22:29 Vancomycin HCl 1 gm/Dextrose 275 ml @ 183.708 mls/hr Q24H IVPB 08/15/18 02:00 08/20/18 01:59 08/16/18 02:49 Sade Morgan MD Aug 16, 2018 11:07
[2018-08-16] MEDS: Azithromycin 500 MG in D5W 275 ML IV SCH (11:36)
--- NOTE | 2018-08-16 11:46 | NUR ---
ST NOTE: MODIFIED BARIUM SWALLOW STUDY COMPLETED BARIUM SWALLOW STUDY FULL REPORT WILL FOLLOW UNDER ST NOTE IN CARE ACTIVITY PT ALERT, COOPERATIVE, FOLLOW SIMPLE DIRECTIONS INCONSISTENTLY. PT WITH NC(4L). 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 THIN LIQUIDS: TRACE AUDIBLE ASPIRATION WITH THIN(STRAW) DURING THE SWALLOW NOT EJECTED DESPITE EFFORT SECONDARY TO DELAYED SWALLOW, REDUCED TONGUE BASE RETRACTION, REDUCED HYO-LARYNGEAL ELEVATION; AND INCOMPLETE LARYNGEAL VESTIBULE CLOSURE. DEEP TRACE SILENT LARYNGEAL PENETRATION(LP) AFTER SWALLOW WITH THIN(TSP), CONTACTED THE VOCAL FOLDS AND NOT EJECTED DUE TO SPILLAGE FROM PYRIFORM SINUSES. NECTAR THICK: TRACE SILENT LP AT TSP AND MED CUP LEVEL DURING SWALLOW, CONTACTED THE VOCAL FOLDS AND EJECTED DUE TO DELAYED SWALLOW, REDUCED TONGUE BASE RETRACTION, REDUCED/INADEQUATE HYO-LARYNGEAL ELEVATION; AND INCOMPLETE LARYNGEAL VESTIBULE CLOSURE. NO SIGNIFICANT ASPIRATION WAS NOTED. MILD TO MODERATE TONGUE BASE AND VALLECULAR RESIDUE DUE TO REDUCED TONGUE BASE RETRACTION. REDUCED/INADEQUATE HYO-LARYNGEAL ELEVATION WAS NOTED RESULTING IN PYRIFORM SINUSES RESIDUE. POOR PHARYNGEAL SENSATION AND PT INCREASED DIFFICULTY FOR A DRY SWALLOW(WITH CUES) TO CLEAR PHARYNGEAL RESIDUE. PT HAS HIGH RISK FOR CHRONIC ASPIRATION IF PO IS GIVEN AT THIS TIME. ORAL AND OROPHARYNGEAL SUCTION WAS PERFORMED THE END OF VIDEOSWALLOW STUDY. RECOMMENDATIONS: 1. CONTINUE STRICT NPO WITH ORAL CARE 2. SLOWLY INITIATE TEMPORARILY NONORAL FEEDING MEANS(NGT) TO MEET NUTRITION AND HYDRATION NEEDS. 3. SWALLOW TX AND WILL RE-ASSESS PT'S SWALLOWING FUNCTION D/W PT'S AND RN, QUANG; , DR. YEAGER WAS INFORMED.
[2018-08-16 12:00] VITALS: BP 167/89
--- NOTE | 2018-08-16 12:00 | NUR ---
Called Dr. Robles to inform him about positive blood culture. Left message with Rosa. Awaiting call back.
--- NOTE | 2018-08-16 12:13 | Diagnostic Imaging Report ---
Indication: Dyspnea Comparison: 08/14/2018 A single view chest radiograph was obtained. Findings: Patchy infiltrates demonstrated bilaterally. This may be slightly worse compared to the previous study. Correlate clinically. The heart is enlarged. IMPRESSION: Slightly worsening patchy bilateral infiltrates.
--- NOTE | 2018-08-16 12:30 | NUR ---
NURSE NOTES: Pt pulled out IV from L hand. IV restarted in R hand by Roxy Soliman RN. IV was flushed and patent, reconnected to IV fluids. IV site wrapped with krilix to avoid pt removal. Pt is in no cardiopulmonary distress. Repositioned and cleaned pt. Notified Dr. Massey about pt's blood pressure. Instructed to wait until NGT is inserted for a BP med order. is at the bed with pt at the moment. Pt is stable. bed in lowest position. Side rails up x 3. Call light within reach. Will continue to monitor pt. Awaiting NGT from central supply.
--- NOTE | 2018-08-16 13:56 | Internal Med Progress Note ---
Subjective Physician Name Madhu Juarez Attending Physician Madhu Juarez MD Current Medications Medications (Trade) Dose Ordered Sig/Jese Route PRN Reason Start Time Stop Time Status Last Admin Dose Admin Acetaminophen (Tylenol) 650 mg Q4H PRN ORAL fever 08/14/18 22:30 09/13/18 22:29 Albuterol/ Ipratropium (Albuterol/ Ipratropium) 3 ml Q4H PRN HHN Shortness of Breath 08/14/18 22:30 08/19/18 22:29 Azithromycin 500 mg/Dextrose 275 ml @ 275 mls/hr Q24H IV 08/16/18 09:00 08/22/18 09:59 08/16/18 11:36 Cefepime HCl 1 gm/ Dextrose 55 ml @ 110 mls/hr Q24H IV 08/15/18 21:00 08/22/18 20:59 08/15/18 20:43 Dextrose/ Electrolytes 1,000 ml @ 75 mls/hr [id number] IV 08/15/18 13:00 09/14/18 12:59 08/16/18 02:48 Heparin Sodium (Porcine) (Heparin 5000 units/ml) 5,000 units EVERY 12 HOURS SUBQ 08/15/18 09:00 09/14/18 08:59 08/16/18 09:09 Nitroglycerin (Ntg) 0.4 mg Q5M PRN SL Prn Chest Pain 08/14/18 22:30 09/13/18 22:29 Ondansetron HCl (Zofran) 4 mg Q6H PRN IVP Nausea & Vomiting 08/14/18 22:30 09/13/18 22:29 Oseltamivir Phosphate (Tamiflu) 30 mg DAILY ORAL 08/16/18 09:00 08/21/18 08:59 Pantoprazole (Protonix) 40 mg EVERY 12 HOURS IVP 08/15/18 21:00 09/14/18 20:59 08/16/18 09:09 Polyethylene Glycol (Miralax) 17 gm DAILYPRN PRN ORAL Constipation 08/14/18 22:30 09/13/18 22:29 Potassium Chloride 100 ml @ 100 mls/hr Q1HR IVPB 08/16/18 10:00 08/16/18 13:59 08/16/18 13:26 Promethazine HCl/ Codeine (Phenergan with Codeine) 5 ml Q4H PRN ORAL For Cough 08/14/18 22:30 09/13/18 22:29 Temazepam (Restoril) 15 mg HSPRN PRN ORAL Insomnia 08/14/18 22:30 08/21/18 22:29 Vancomycin HCl (Vanco rx to dose) 1 ea DAILY PRN MISC Per rx protocol 08/14/18 22:30 09/13/18 22:29 Vancomycin HCl 1 gm/Dextrose 275 ml @ 183.708 mls/hr Q24H IVPB 08/15/18 02:00 08/20/18 01:59 08/16/18 02:49 Allergies: Coded Allergies: No Known Allergies (Unverified , 08/14/18) Subjective Awake, responsive, no acute distress, in AILEEN is at the bedside, denies any chest pain, denies any shortness of breath. Objective Last Vital Signs Date Time Temp Pulse Resp B/P (MAP) Pulse Ox O2 Delivery O2 Flow Rate FiO2 08/16/18 12:00 Nasal Cannula 4.0 08/16/18 12:00 97.9 88 24 167/89 (115) 97 08/16/18 04:00 40 Laboratory Tests Test 08/16/18 03:20 White Blood Count 9.1 K/UL (4.8-10.8) Red Blood Count 3.69 M/UL (4.70-6.10) L Hemoglobin 10.5 G/DL (14.2-18.0) L Hematocrit 32.4 % (42.0-52.0) L Mean Corpuscular Volume 88 FL (80-99) Mean Corpuscular Hemoglobin 28.4 PG (27.0-31.0) Mean Corpuscular Hemoglobin Concent 32.4 G/DL (32.0-36.0) Red Cell Distribution Width 15.8 % (11.6-14.8) H Platelet Count 440 K/UL (150-450) Mean Platelet Volume 7.1 FL (6.5-10.1) Neutrophils (%) (Auto) 83.3 % (45.0-75.0) H Lymphocytes (%) (Auto) 9.5 % (20.0-45.0) L Monocytes (%) (Auto) 6.4 % (1.0-10.0) Eosinophils (%) (Auto) 0.2 % (0.0-3.0) Basophils (%) (Auto) 0.6 % (0.0-2.0) Sodium Level 143 MMOL/L (136-145) Potassium Level 2.8 MMOL/L (3.5-5.1) L Chloride Level 111 MMOL/L (98-107) H Carbon Dioxide Level 17 MMOL/L (21-32) L Anion Gap 15 mmol/L (5-15) Blood Urea Nitrogen 53 mg/dL (7-18) H Creatinine 1.4 MG/DL (0.55-1.30) H Estimat Glomerular Filtration Rate mL/min (>60) Glucose Level 190 MG/DL (74-106) H Hemoglobin A1c 6.0 % (4.3-6.0) Uric Acid 7.8 MG/DL (2.6-7.2) H Calcium Level 8.7 MG/DL (8.5-10.1) Phosphorus Level 2.6 MG/DL (2.5-4.9) Magnesium Level 2.0 MG/DL (1.8-2.4) Total Bilirubin 0.3 MG/DL (0.2-1.0) Gamma Glutamyl Transpeptidase 13 U/L (5-85) Aspartate Amino Transf (AST/SGOT) 14 U/L (15-37) L Alanine Aminotransferase (ALT/SGPT) 9 U/L (12-78) L Alkaline Phosphatase 68 U/L (46-116) Ammonia 41 umol/L (11-32) H Total Creatine Kinase 93 U/L (26-308) Troponin I 0.101 ng/mL (0.000-0.056) Pro-B-Type Natriuretic Peptide 21953 pg/mL (0-125) H Total Protein 6.2 G/DL (6.4-8.2) L Albumin 1.9 G/DL (3.4-5.0) L Globulin 4.3 g/dL Albumin/Globulin Ratio 0.4 (1.0-2.7) L Triglycerides Level 97 MG/DL (30-150) Cholesterol Level 113 MG/DL (< 200) LDL Cholesterol 47 mg/dL (<100) HDL Cholesterol 45 MG/DL (40-60) Cholesterol/HDL Ratio 2.5 (3.3-4.4) L Vitamin B12 Level 1073 PG/ML (193-986) H Thyroid Stimulating Hormone (TSH) 0.036 uiU/mL (0.358-3.740) Cortisol AM Sample Pending Microbiology Date/Time Source Procedure Growth Status 08/14/18 22:35 Blood Blood Culture - Preliminary Resulted 08/14/18 22:30 Blood Blood Culture - Preliminary NO GROWTH AFTER 24 HOURS Resulted 08/14/18 22:35 Nasal Nares Influenza Types A,B Antigen (KYARA) - Final Complete 08/15/18 12:40 Urine,Clean Catch Urine Culture - Preliminary NO GROWTH Resulted 08/14/18 21:00 Urine,Clean Catch Urine Culture - Final NO GROWTH AFTER 48 HOURS Complete Intake and Output 08/15/18 08/16/18 19:00 07:00 Intake Total 525 ml 1037.387 ml Output Total 950 ml 1100 ml Balance -425 ml -62.613 ml Intake IV Total 525 ml 1037.387 ml Output Urine Total 950 ml 1100 ml # Bowel Movements 2 2 Objective General: No acute distress, awake and alert HEENT: NCAT, sclera anicteric, PERRL, EOMI. Neck: Supple, no significant jugular venous distention, Lungs: Fair inspiratory effort, decreased bilateral air entry in the bases, clear to auscultation bilaterally, no Wheeze or Rales. Heart: Regular rate and rhythm, normal S1/S2, no murmurs/gallops Abdomen: soft, nontender, nondistended. Normoactive bowel sounds. : Isaac cath Extremities: No Cyanosis , clubbing or edema. Neuro: A&O x 3, Able to move all extremities Skin: warm, no rashes. Assessment/Plan Assessment/Plan 1. Aspiration pneumonia with right lower lobe pneumonia. 2. Dehydration 3. Acute kidney injury 4. 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 5. Diabetes type II. 6. Parkinson disease. 7. History of C. diff colitis. 8. BPH. TREATMENT: 1. Right lower lobe pneumonia/Aspiration Pneumonia. A Pulmonary consultation has been obtained with Dr. Sade Morgan. Abx: cefepime and azithromycin, Start Flagyl. An Infectious Disease consultation has been obtained with Dr. Marte. 2. History of cerebrovascular disease. Continue aspirin as above. 3. Diabetes type 2. The patient has been started on NovoLog sliding scale. 4. Parkinson disease. Continue Sinemet as above. The swallow study considered to start the patient on NG tube placement feeding, discussed with the extensively at the bedside. Will monitor laboratory as well as culture. CODE STATUS is full code, DVT prophylaxis heparin subcu. Madhu Juarez MD Aug 16, 2018 13:56
--- NOTE | 2018-08-16 15:38 | Nephrology Progress Note ---
Assessment/Plan Problem List: (1) ATN (acute tubular necrosis) (2) Acute respiratory failure (3) Diabetes mellitus (4) Parkinson disease (5) Respiratory distress (6) Aspiration pneumonia Assessment 88 Y old male, presents with resp distress and aspiration pneumonia Renal failure, Mainly dehydration resolving ? Underlying CKD Low K , Low Na , Low Alb Parkinsons DM Plan NPO NGT Isaac Hydrate 2D Echo pending Antibiotics Avoid Nephrotoxics Per orders Subjective ROS Limited/Unobtainable: Yes Objective Objective Last 24 Hour Vital Signs Date Time Temp Pulse Resp B/P (MAP) Pulse Ox O2 Delivery O2 Flow Rate FiO2 08/16/18 12:00 Nasal Cannula 4.0 08/16/18 12:00 97.9 88 24 167/89 (115) 97 08/16/18 12:00 82 08/16/18 12:00 4.0 08/16/18 08:00 98.2 83 22 162/75 (104) 93 08/16/18 08:00 4.0 08/16/18 08:00 84 08/16/18 08:00 Nasal Cannula 4.0 08/16/18 04:00 Venturi Mask 8.0 08/16/18 04:00 8.0 40 08/16/18 04:00 98.4 94 20 155/72 (99) 98 08/16/18 03:40 84 08/16/18 00:00 8.0 40 08/16/18 00:00 99.0 85 21 145/71 (95) 91 08/16/18 00:00 Venturi Mask 8.0 08/15/18 23:36 86 08/15/18 20:00 Venturi Mask 8.0 08/15/18 20:00 8.0 40 08/15/18 20:00 98.8 90 21 137/60 (85) 94 08/15/18 19:29 92 20 97 14.0 08/15/18 19:09 93 08/15/18 16:00 Venturi Mask 8.0 08/15/18 16:00 98.7 91 23 139/83 (101) 95 08/15/18 16:00 8.0 40 08/15/18 16:00 93 Intake and Output 08/15/18 08/16/18 19:00 07:00 Intake Total 525 ml 1037.387 ml Output Total 950 ml 1100 ml Balance -425 ml -62.613 ml Intake IV Total 525 ml 1037.387 ml Output Urine Total 950 ml 1100 ml # Bowel Movements 2 2 Laboratory Tests 08/16/18 03:20: White Blood Count 9.1, Red Blood Count 3.69L, Hemoglobin 10.5L, Hematocrit 32.4L , Mean Corpuscular Volume 88, Mean Corpuscular Hemoglobin 28.4, Mean Corpuscular Hemoglobin Concent 32.4, Red Cell Distribution Width 15.8H, Platelet Count 440, Mean Platelet Volume 7.1, Neutrophils (%) (Auto) 83.3H, Lymphocytes (%) (Auto) 9.5L, Monocytes (%) (Auto) 6.4, Eosinophils (%) (Auto) 0.2, Basophils (%) (Auto) 0.6, Sodium Level 143, Potassium Level 2.8L, Chloride Level 111H, Carbon Dioxide Level 17L, Anion Gap 15, Blood Urea Nitrogen 53H, Creatinine 1.4H, Estimat Glomerular Filtration Rate , Glucose Level 190H, Hemoglobin A1c 6.0, Uric Acid 7.8H, Calcium Level 8.7, Phosphorus Level 2.6, Magnesium Level 2.0, Total Bilirubin 0.3, Gamma Glutamyl Transpeptidase 13, Aspartate Amino Transf (AST/SGOT) 14L, Alanine Aminotransferase (ALT/SGPT) 9L, Alkaline Phosphatase 68, Ammonia 41H, Total Creatine Kinase 93, Troponin I 0.101H, Pro-B-Type Natriuretic Peptide 12316L, Total Protein 6.2L, Albumin 1.9L , Globulin 4.3, Albumin/Globulin Ratio 0.4L, Triglycerides Level 97, Cholesterol Level 113, LDL Cholesterol 47, HDL Cholesterol 45, Cholesterol/HDL Ratio 2.5L, Vitamin B12 Level 1073H, Thyroid Stimulating Hormone (TSH) 0.036L, Cortisol AM Sample 23.5 Height (Feet): 5 Height (Inches): 7.00 Weight (Pounds): 122 General Appearance: mild distress Respiratory/Chest: decreased breath sounds, rhonchi - bilaterally Abdomen: soft, distended Hudson Huntley MD Aug 16, 2018 15:38
[2018-08-16 16:00] VITALS: BP 150/79
[2018-08-16] MEDS: Nitroglycerin Patch 0.4mg TDERMAL SCH (16:48)
--- NOTE | 2018-08-16 18:03 | NUR ---
NURSE NOTES: Total of 4 bags of Potassium was ordered. Last bag was scheduled for 1300 but was delayed because ABX in between potassium doses. Informed Alexander, Pharmacist, and was instructed to input non-admin for 1300 potassium order and put in a one time order for Potassium at this time.
--- NOTE | 2018-08-16 18:05 | Infectious Diseases Prog Note ---
Assessment/Plan Assessment/Plan Abx: IV Vancomycin 08/14- Cefepime 08/14- Flagyl x1 08/14 Assessment: Sepsis 2ry to PNA, ?FLu (despite neg screening test) -CXR: Right basilar infiltrate, atelectasis, and likely pleural fluid -sp cx p -u/a wbc 10-15, nit neg, leuk +2; ucx NTD -influenza sc neg Gram positive bacteremia- contaminant vs real -08/14 Bcx 1/4 GPC clusters Fever, improving Leukocytosis, SP TONIO, improving Hyponatremia/hypokalemia Dm2 CVA w/ R side deficit bedbound Parkinson's disease Plan: -Continue empiric IV Vancomycin and Cefepime #3 -08/14 SP Flagyl x1 -Continue Tamiflu and Azithromycin #2 for influenza and atypical coverage -f/u cx -Monitor CBC/CMP, temperatures -f/u legionella ag urine -aspiration precautions Thank you for your consultation. Will continue to follow along with you. Discussed with RN. Subjective Allergies: Coded Allergies: No Known Allergies (Unverified , 08/14/18) Subjective afebrile 36hrs leukocytosis rseolved bacteremic Objective Vital Signs Last 24 Hour Vital Signs Date Time Temp Pulse Resp B/P (MAP) Pulse Ox O2 Delivery O2 Flow Rate FiO2 08/16/18 16:48 150/79 08/16/18 16:00 97.7 83 18 150/79 (102) 97 08/16/18 16:00 4.0 08/16/18 16:00 83 08/16/18 16:00 Nasal Cannula 4.0 08/16/18 12:00 Nasal Cannula 4.0 08/16/18 12:00 97.9 88 24 167/89 (115) 97 08/16/18 12:00 82 08/16/18 12:00 4.0 08/16/18 08:00 98.2 83 22 162/75 (104) 93 08/16/18 08:00 4.0 08/16/18 08:00 84 08/16/18 08:00 Nasal Cannula 4.0 08/16/18 04:00 Venturi Mask 8.0 08/16/18 04:00 8.0 40 08/16/18 04:00 98.4 94 20 155/72 (99) 98 08/16/18 03:40 84 08/16/18 00:00 8.0 40 08/16/18 00:00 99.0 85 21 145/71 (95) 91 08/16/18 00:00 Venturi Mask 8.0 08/15/18 23:36 86 08/15/18 20:00 Venturi Mask 8.0 08/15/18 20:00 8.0 40 08/15/18 20:00 98.8 90 21 137/60 (85) 94 08/15/18 19:29 92 20 97 14.0 08/15/18 19:09 93 Height (Feet): 5 Height (Inches): 7.00 Weight (Pounds): 122 Objective General Appearance: alert, thin, Chronically Ill ENT: moist mucus membranes Neck: limited range of motion Respiratory: decreased breath sounds - left side, right side crackles Cardiovascular #1: normal inspection, normal peripheral pulses, regular rate, rhythm Musculoskeletal: decreased range of motion, other - motor weakness Neurologic: alert, motor weakness Psychiatric: depressed affect Skin: other Microbiology Date/Time Source Procedure Growth Status 08/14/18 22:35 Blood Blood Culture - Preliminary Resulted 08/14/18 22:30 Blood Blood Culture - Preliminary NO GROWTH AFTER 24 HOURS Resulted 08/14/18 22:35 Nasal Nares Influenza Types A,B Antigen (KYARA) - Final Complete 08/15/18 12:40 Urine,Clean Catch Urine Culture - Preliminary NO GROWTH Resulted 08/14/18 21:00 Urine,Clean Catch Urine Culture - Final NO GROWTH AFTER 48 HOURS Complete Laboratory Tests Test 08/16/18 03:20 White Blood Count 9.1 K/UL (4.8-10.8) Red Blood Count 3.69 M/UL (4.70-6.10) L Hemoglobin 10.5 G/DL (14.2-18.0) L Hematocrit 32.4 % (42.0-52.0) L Mean Corpuscular Volume 88 FL (80-99) Mean Corpuscular Hemoglobin 28.4 PG (27.0-31.0) Mean Corpuscular Hemoglobin Concent 32.4 G/DL (32.0-36.0) Red Cell Distribution Width 15.8 % (11.6-14.8) H Platelet Count 440 K/UL (150-450) Mean Platelet Volume 7.1 FL (6.5-10.1) Neutrophils (%) (Auto) 83.3 % (45.0-75.0) H Lymphocytes (%) (Auto) 9.5 % (20.0-45.0) L Monocytes (%) (Auto) 6.4 % (1.0-10.0) Eosinophils (%) (Auto) 0.2 % (0.0-3.0) Basophils (%) (Auto) 0.6 % (0.0-2.0) Sodium Level 143 MMOL/L (136-145) Potassium Level 2.8 MMOL/L (3.5-5.1) L Chloride Level 111 MMOL/L (98-107) H Carbon Dioxide Level 17 MMOL/L (21-32) L Anion Gap 15 mmol/L (5-15) Blood Urea Nitrogen 53 mg/dL (7-18) H Creatinine 1.4 MG/DL (0.55-1.30) H Estimat Glomerular Filtration Rate mL/min (>60) Glucose Level 190 MG/DL (74-106) H Hemoglobin A1c 6.0 % (4.3-6.0) Uric Acid 7.8 MG/DL (2.6-7.2) H Calcium Level 8.7 MG/DL (8.5-10.1) Phosphorus Level 2.6 MG/DL (2.5-4.9) Magnesium Level 2.0 MG/DL (1.8-2.4) Total Bilirubin 0.3 MG/DL (0.2-1.0) Gamma Glutamyl Transpeptidase 13 U/L (5-85) Aspartate Amino Transf (AST/SGOT) 14 U/L (15-37) L Alanine Aminotransferase (ALT/SGPT) 9 U/L (12-78) L Alkaline Phosphatase 68 U/L (46-116) Ammonia 41 umol/L (11-32) H Total Creatine Kinase 93 U/L (26-308) Troponin I 0.101 ng/mL (0.000-0.056) Pro-B-Type Natriuretic Peptide 99661 pg/mL (0-125) H Total Protein 6.2 G/DL (6.4-8.2) L Albumin 1.9 G/DL (3.4-5.0) L Globulin 4.3 g/dL Albumin/Globulin Ratio 0.4 (1.0-2.7) L Triglycerides Level 97 MG/DL (30-150) Cholesterol Level 113 MG/DL (< 200) LDL Cholesterol 47 mg/dL (<100) HDL Cholesterol 45 MG/DL (40-60) Cholesterol/HDL Ratio 2.5 (3.3-4.4) L Vitamin B12 Level 1073 PG/ML (193-986) H Thyroid Stimulating Hormone (TSH) 0.036 uiU/mL (0.358-3.740) Cortisol AM Sample 23.5 UG/DL Current Medications Medications (Trade) Dose Ordered Sig/Jese Route PRN Reason Start Time Stop Time Status Last Admin Dose Admin Acetaminophen (Tylenol) 650 mg Q4H PRN ORAL fever 08/14/18 22:30 09/13/18 22:29 Albuterol/ Ipratropium (Albuterol/ Ipratropium) 3 ml Q4H PRN HHN Shortness of Breath 08/14/18 22:30 08/19/18 22:29 Amlodipine Besylate (Norvasc) 5 mg BID NG 08/16/18 18:00 09/15/18 17:59 Azithromycin 500 mg/Dextrose 275 ml @ 275 mls/hr Q24H IV 08/16/18 09:00 08/22/18 09:59 08/16/18 11:36 Cefepime HCl 1 gm/ Dextrose 55 ml @ 110 mls/hr Q24H IV 08/15/18 21:00 08/22/18 20:59 08/15/18 20:43 Dextrose/ Electrolytes 1,000 ml @ 50 mls/hr Q20H IV 08/16/18 16:00 09/15/18 15:59 Heparin Sodium (Porcine) (Heparin 5000 units/ml) 5,000 units EVERY 12 HOURS SUBQ 08/15/18 09:00 09/14/18 08:59 08/16/18 09:09 Metronidazole 100 ml @ 100 mls/hr Q8HR IVPB 08/16/18 15:00 08/23/18 14:59 08/16/18 16:48 Nitroglycerin (Ntg) 0.4 mg Q5M PRN SL Prn Chest Pain 08/14/18 22:30 09/13/18 22:29 Nitroglycerin (Ntg) 1 patch Q24H TDERMAL 08/16/18 16:00 09/15/18 15:59 08/16/18 16:48 Ondansetron HCl (Zofran) 4 mg Q6H PRN IVP Nausea & Vomiting 08/14/18 22:30 09/13/18 22:29 Oseltamivir Phosphate (Tamiflu) 30 mg DAILY ORAL 08/16/18 09:00 08/21/18 08:59 Pantoprazole (Protonix) 40 mg EVERY 12 HOURS IVP 08/15/18 21:00 09/14/18 20:59 08/16/18 09:09 Polyethylene Glycol (Miralax) 17 gm DAILYPRN PRN ORAL Constipation 08/14/18 22:30 09/13/18 22:29 Promethazine HCl/ Codeine (Phenergan with Codeine) 5 ml Q4H PRN ORAL For Cough 08/14/18 22:30 09/13/18 22:29 Temazepam (Restoril) 15 mg HSPRN PRN ORAL Insomnia 08/14/18 22:30 08/21/18 22:29 Vancomycin HCl (Vanco rx to dose) 1 ea DAILY PRN MISC Per rx protocol 08/14/18 22:30 09/13/18 22:29 Vancomycin HCl 1 gm/Dextrose 275 ml @ 183.708 mls/hr Q24H IVPB 08/15/18 02:00 08/20/18 01:59 08/16/18 02:49 Nuria Marte M.D. Aug 16, 2018 18:05
--- NOTE | 2018-08-16 19:18 | NUR ---
HAND-OFF: Copy of the report handed to Nghia, charge nurse. Stable condition.
[2018-08-16 20:00] VITALS: BP 147/84
[2018-08-16] MEDS ORDERED: Tubing IV Secondary IV ONE (20:21)
[2018-08-16] MEDS ORDERED: NS 275ml ONE (20:21)
[2018-08-16] MEDS ORDERED: D5W 275ml ONE (20:21)
[2018-08-16] MEDS: Cefepime HCl 1 GM in D5W 55 ML IV SCH (21:09)
[2018-08-17] VITALS: BP 149/79
[2018-08-17] MEDS: Vancomycin 1gm in D5W 275ml IVPB SCH (02:01)
[2018-08-17 04:00] VITALS: BP 153/87
[2018-08-17 07:05] LABS: BASOPHILS % (AUTO) 0.5 % (0.0-2.0); EOSINOPHILS % (AUTO) 0.6 % (0.0-3.0); HEMATOCRIT 34.2 % (42.0-52.0); HEMOGLOBIN 10.8 G/DL (14.2-18.0); LYMPHOCYTES % (AUTO) 14.3 % (20.0-45.0); MEAN CORPUSCULAR VOLUME 88 FL (80-99); MONOCYTES % (AUTO) 5.2 % (1.0-10.0); NEUTROPHILS % (AUTO) 79.3 % (45.0-75.0); PLATELET COUNT 452 K/UL (150-450); RED BLOOD COUNT 3.87 M/UL (4.70-6.10); RED CELL DISTRIBUTION WIDTH 15.6 % (11.6-14.8); WHITE BLOOD COUNT 8.8 K/UL (4.8-10.8)
--- NOTE | 2018-08-17 07:28 | NUR ---
HAND-OFF: Report given to LIA Blanco.
--- NOTE | 2018-08-17 07:29 | NUR ---
NURSE NOTES: RECEIVED PATIENT FROM Don LAGUNA RN. PATIENT IS LYING IN BED, AWAKE BUT CONFUSED. HOOKED TO MACHINE [employer]. ON 3L NC. NO SIGNS OF DISTRESS. NGT ON R NARE WITH TUBE FEEDING RUNNING GLUCERNA 1.2 AT 38CC/HR. LANTIGUA FOR RETENTION. ON OVERLAY MATTRESS. IV ON L FA G20 WITH IVF RUNNING D5 NS + 20MEQS KCL AT 50CC/HR. CALL LIGHT WITHIN REACH. BED AT LOWEST POSITION. SIDE RAILS UP. WILL CONTINUE TO MONITOR.
[2018-08-17 07:32] LABS: ALANINE AMINOTRANSFERASE 12 U/L (12-78); ALBUMIN 2.1 G/DL (3.4-5.0); ALBUMIN/GLOBULIN RATIO 0.5 (1.0-2.7); ALKALINE PHOSPHATASE 73 U/L (46-116); ANION GAP 11 mmol/L (5-15); ASPARTATE AMINO TRANSFERASE 12 U/L (15-37); BILIRUBIN,TOTAL 0.2 MG/DL (0.2-1.0); BLOOD UREA NITROGEN 35 mg/dL (7-18); CALCIUM 9.5 MG/DL (8.5-10.1); CARBON DIOXIDE 22 MMOL/L (21-32); CHLORIDE 113 MMOL/L (98-107); CREATININE 1.2 MG/DL (0.55-1.30); PHOSPHORUS 1.8 MG/DL (2.5-4.9); POTASSIUM 2.9 MMOL/L (3.5-5.1); SODIUM 146 MMOL/L (136-145)
--- NOTE | 2018-08-17 07:33 | Pulmonology Progress Note ---
Assessment/Plan Assessment/Plan ASSESSMENT Sepsis likely due to PNA Acute resp failure Aspiration pneumonia Bacteremia GPC Dysphagia with high aspiration risk TONIO likely due to dehydration, ? CKD Hx of CVA with RSW DM type 2 BPH Parkinson disease Hx of C dif colitis PLAN OF CARE AILEEN titrate O2 to keep pulse os above 92%, pulmonary toilet prn fup with CXR abx as per ID recs urine cx negative, blood cx 1 out of 4 staph coag negative, real vs contaminant? influenza negative , however patient started on Tamiflu despite negative rapid influenza test as per ID recs repeated urine cx negative leukocytosis resolved, remains afebrile failed BSSE and VSSE, NG tube feeding with strict aspiration precaution DVT prophylaxis antitussive prn BP management with CCB and optimize as needed TONIO resolved , creat down to normal, likely due to dehydration monitor renal parameters and electrolytes , replace electrolytes as needed / today replaceK and P, avoid nephrotoxic pain management bowel regimen supportive care GI prophylaxis monitor blood sugar, hemoglobin A1c 6.0, SSI prn case discussed and evaluated by supervising physician Subjective Allergies: Coded Allergies: No Known Allergies (Unverified , 08/14/18) Subjective leukocytosis resolved , remained afebrile K 2.9 Objective Last 24 Hour Vital Signs Date Time Temp Pulse Resp B/P (MAP) Pulse Ox O2 Delivery O2 Flow Rate FiO2 08/17/18 04:00 97.7 84 18 153/87 (109) 99 08/17/18 04:00 3.0 08/17/18 04:00 Nasal Cannula 4.0 Nasal Cannula 3.0 08/17/18 03:56 85 08/17/18 00:00 3.0 08/17/18 00:00 97.9 83 18 149/79 (102) 99 08/17/18 00:00 Nasal Cannula 4.0 Nasal Cannula 3.0 08/16/18 23:43 81 08/16/18 20:25 98 Nasal Cannula 3.0 32 08/16/18 20:25 Nasal Cannula 3.0 32 08/16/18 20:25 85 20 Nasal Cannula 3.0 32 08/16/18 20:00 3.0 08/16/18 20:00 Nasal Cannula 4.0 08/16/18 20:00 98.1 86 17 147/84 (105) 99 08/16/18 19:47 86 08/16/18 18:15 89 149/84 08/16/18 17:58 96 Nasal Cannula 3.0 32 08/16/18 17:58 Nasal Cannula 3.0 32 08/16/18 16:48 150/79 08/16/18 16:00 97.7 83 18 150/79 (102) 97 08/16/18 16:00 4.0 08/16/18 16:00 83 08/16/18 16:00 Nasal Cannula 4.0 08/16/18 12:00 Nasal Cannula 4.0 08/16/18 12:00 97.9 88 24 167/89 (115) 97 08/16/18 12:00 82 08/16/18 12:00 4.0 08/16/18 08:00 98.2 83 22 162/75 (104) 93 08/16/18 08:00 4.0 08/16/18 08:00 84 08/16/18 08:00 Nasal Cannula 4.0 Intake and Output 08/16/18 08/17/18 18:59 06:59 Intake Total 1219.25 ml 1418.000 ml Output Total 700 ml 700 ml Balance 519.25 ml 718.000 ml Intake Free Water 60 ml IV Total 1141.25 ml 1130.000 ml Tube Feeding 18 ml 288 ml Output Urine Total 700 ml 700 ml # Bowel Movements 4 2 General Appearance: no acute distress, other - bedridden, awake, confsued, responsive male HEENT: anicteric, other - O2 via NC , NGT with TF Respiratory/Chest: lungs clear, no accessory muscle use Cardiovascular: normal rate, regular rhythm - SR on tele Abdomen: soft, non tender, non distended Extremities: no edema, pedal pulses normal Neurologic/Psychiatric: abnormal gait - bedridden , other - awake, vwerbally responsive, confused Musculoskeletal: atrophy - BLE Microbiology Date/Time Source Procedure Growth Status 08/14/18 22:35 Blood Blood Culture - Preliminary Staphylococcus Sp Coag Neg Resulted 08/14/18 22:30 Blood Blood Culture - Preliminary NO GROWTH AFTER 48 HOURS Resulted 08/14/18 22:35 Nasal Nares MRSA Culture - Final NO METHICILLIN RESISTANT STAPH AUREUS... Complete 08/14/18 22:35 Nasal Nares Influenza Types A,B Antigen (KYARA) - Final Complete 08/15/18 12:40 Urine,Clean Catch Urine Culture - Final NO GROWTH AFTER 48 HOURS Complete 08/14/18 21:00 Urine,Clean Catch Urine Culture - Final NO GROWTH AFTER 48 HOURS Complete Laboratory Tests 08/17/18 03:45: White Blood Count 8.8, Red Blood Count 3.87L, Hemoglobin 10.8L, Hematocrit 34.2L , Mean Corpuscular Volume 88, Mean Corpuscular Hemoglobin 28.0, Mean Corpuscular Hemoglobin Concent 31.7L, Red Cell Distribution Width 15.6H, Platelet Count 452H, Mean Platelet Volume 7.1, Neutrophils (%) (Auto) 79.3H, Lymphocytes (%) (Auto) 14.3L, Monocytes (%) (Auto) 5.2, Eosinophils (%) (Auto) 0.6, Basophils (%) (Auto) 0.5, Sodium Level [Pending], Potassium Level [Pending] , Chloride Level [Pending], Carbon Dioxide Level [Pending], Blood Urea Nitrogen [Pending], Creatinine [Pending], Estimat Glomerular Filtration Rate [Pending], Glucose Level [Pending], Uric Acid [Pending], Calcium Level [Pending], Phosphorus Level [Pending], Magnesium Level [Pending], Total Bilirubin [Pending] , Aspartate Amino Transf (AST/SGOT) [Pending], Alanine Aminotransferase (ALT/ SGPT) [Pending], Alkaline Phosphatase [Pending], Troponin I [Pending], C- Reactive Protein, Quantitative [Pending], Pro-B-Type Natriuretic Peptide [ Pending], Total Protein [Pending], Albumin [Pending], Globulin [Pending] Current Medications Medications (Trade) Dose Ordered Sig/Jese Route PRN Reason Start Time Stop Time Status Last Admin Dose Admin Acetaminophen (Tylenol) 650 mg Q4H PRN ORAL fever 08/14/18 22:30 09/13/18 22:29 Albuterol/ Ipratropium (Albuterol/ Ipratropium) 3 ml Q4H PRN HHN Shortness of Breath 08/14/18 22:30 08/19/18 22:29 Amlodipine Besylate (Norvasc) 5 mg BID NG 08/16/18 18:00 09/15/18 17:59 08/16/18 18:15 Azithromycin 500 mg/Dextrose 275 ml @ 275 mls/hr Q24H IV 08/16/18 09:00 08/22/18 09:59 08/16/18 11:36 Cefepime HCl 1 gm/ Dextrose 55 ml @ 110 mls/hr Q24H IV 08/15/18 21:00 08/22/18 20:59 08/16/18 21:09 Dextrose/ Electrolytes 1,000 ml @ 50 mls/hr Q20H IV 08/16/18 16:00 09/15/18 15:59 08/16/18 18:20 Heparin Sodium (Porcine) (Heparin 5000 units/ml) 5,000 units EVERY 12 HOURS SUBQ 08/15/18 09:00 09/14/18 08:59 08/16/18 21:11 Metronidazole 100 ml @ 100 mls/hr Q8HR IVPB 08/16/18 15:00 08/23/18 14:59 08/17/18 05:05 Nitroglycerin (Ntg) 0.4 mg Q5M PRN SL Prn Chest Pain 08/14/18 22:30 09/13/18 22:29 Nitroglycerin (Ntg) 1 patch Q24H TDERMAL 08/16/18 16:00 09/15/18 15:59 08/16/18 16:48 Ondansetron HCl (Zofran) 4 mg Q6H PRN IVP Nausea & Vomiting 08/14/18 22:30 09/13/18 22:29 Oseltamivir Phosphate (Tamiflu) 30 mg DAILY ORAL 08/16/18 09:00 08/21/18 08:59 Pantoprazole (Protonix) 40 mg EVERY 12 HOURS IVP 08/15/18 21:00 09/14/18 20:59 08/16/18 21:00 Polyethylene Glycol (Miralax) 17 gm DAILYPRN PRN ORAL Constipation 08/14/18 22:30 09/13/18 22:29 Promethazine HCl/ Codeine (Phenergan with Codeine) 5 ml Q4H PRN ORAL For Cough 08/14/18 22:30 09/13/18 22:29 Temazepam (Restoril) 15 mg HSPRN PRN ORAL Insomnia 08/14/18 22:30 08/21/18 22:29 Vancomycin HCl (Vanco rx to dose) 1 ea DAILY PRN MISC Per rx protocol 08/14/18 22:30 09/13/18 22:29 Vancomycin HCl 1 gm/Dextrose 275 ml @ 183.708 mls/hr Q24H IVPB 08/15/18 02:00 08/20/18 01:59 08/17/18 02:01 Keily Masters NP Aug 17, 2018 07:33
[2018-08-17 08:00] VITALS: BP 136/66
[2018-08-17] MEDS: Pantoprazole Inj IVP SCH ×2 (08:16→21:16)
[2018-08-17] MEDS: Azithromycin 500 MG in D5W 275 ML IV SCH (08:16)
[2018-08-17] MEDS: Heparin 5000 units/ml inj SUBQ SCH ×2 (08:18→21:18)
--- NOTE | 2018-08-17 09:30 | NUR ---
NURSE NOTES: PATIENT NOTED TO BE PULLING OBJECT. NO SIGNS OF DISTRESS. WILL CONTINUE TO MONITOR.
[2018-08-17] MEDS ORDERED: Albuterol/Ipratropium 3ml neb HHN PRN (10:30)
--- NOTE | 2018-08-17 10:38 | Infectious Diseases Prog Note ---
Assessment/Plan Assessment/Plan Abx: IV Vancomycin 08/14- Cefepime 08/14- Flagyl x1 08/14 Assessment: Sepsis 2ry to PNA, ?FLu (despite neg screening test) -CXR: Right basilar infiltrate, atelectasis, and likely pleural fluid -sp cx p -u/a wbc 10-15, nit neg, leuk +2; ucx Neg -influenza sc neg Gram positive bacteremia- likely contaminant = -08/14 Bcx 1/4 CONS; 08/16 p Fever, improving Leukocytosis, SP TONIO, improving Hyponatremia/hypokalemia Dm2 CVA w/ R side deficit bedbound Parkinson's disease Plan: -Continue empiric IV Vancomycin and Cefepime #4 pending cultures -08/14 SP Flagyl x1 -Continue Tamiflu and Azithromycin #3/ for influenza and atypical coverage -f/u cx -Monitor CBC/CMP, temperatures -f/u legionella ag urine -aspiration precautions Thank you for your consultation. Will continue to follow along with you. Discussed with RN. Subjective Allergies: Coded Allergies: No Known Allergies (Unverified , 08/14/18) Subjective afebrile >48 hrs no leukocytosis bacteremic CONS; repeat Bcx p Objective Vital Signs Last 24 Hour Vital Signs Date Time Temp Pulse Resp B/P (MAP) Pulse Ox O2 Delivery O2 Flow Rate FiO2 08/17/18 08:21 87 136/66 08/17/18 08:00 85 08/17/18 08:00 97.7 84 15 136/66 (89) 98 89 08/17/18 08:00 Nasal Cannula 3.0 08/17/18 04:00 97.7 84 18 153/87 (109) 99 08/17/18 04:00 3.0 08/17/18 04:00 Nasal Cannula 4.0 Nasal Cannula 3.0 08/17/18 03:56 85 08/17/18 00:00 3.0 08/17/18 00:00 97.9 83 18 149/79 (102) 99 08/17/18 00:00 Nasal Cannula 4.0 Nasal Cannula 3.0 08/16/18 23:43 81 08/16/18 20:25 98 Nasal Cannula 3.0 32 08/16/18 20:25 Nasal Cannula 3.0 32 08/16/18 20:25 85 20 Nasal Cannula 3.0 32 08/16/18 20:00 3.0 08/16/18 20:00 Nasal Cannula 4.0 08/16/18 20:00 98.1 86 17 147/84 (105) 99 08/16/18 19:47 86 08/16/18 18:15 89 149/84 08/16/18 17:58 96 Nasal Cannula 3.0 32 08/16/18 17:58 Nasal Cannula 3.0 32 08/16/18 16:48 150/79 08/16/18 16:00 97.7 83 18 150/79 (102) 97 08/16/18 16:00 4.0 08/16/18 16:00 83 08/16/18 16:00 Nasal Cannula 4.0 08/16/18 12:00 Nasal Cannula 4.0 08/16/18 12:00 97.9 88 24 167/89 (115) 97 08/16/18 12:00 82 08/16/18 12:00 4.0 Height (Feet): 5 Height (Inches): 7.00 Weight (Pounds): 121 Objective General Appearance: alert, thin, Chronically Ill ENT: moist mucus membranes Neck: limited range of motion Respiratory: decreased breath sounds - left side, right side crackles Cardiovascular #1: normal inspection, normal peripheral pulses, regular rate, rhythm Musculoskeletal: decreased range of motion, other - motor weakness Neurologic: alert, motor weakness Psychiatric: depressed affect Skin: other Microbiology Date/Time Source Procedure Growth Status 08/14/18 22:35 Blood Blood Culture - Preliminary Staphylococcus Sp Coag Neg Resulted 08/14/18 22:30 Blood Blood Culture - Preliminary NO GROWTH AFTER 48 HOURS Resulted 08/14/18 22:35 Nasal Nares MRSA Culture - Final NO METHICILLIN RESISTANT STAPH AUREUS... Complete 08/14/18 22:35 Nasal Nares Influenza Types A,B Antigen (KYARA) - Final Complete 08/15/18 12:40 Urine,Clean Catch Urine Culture - Final NO GROWTH AFTER 48 HOURS Complete 08/14/18 21:00 Urine,Clean Catch Urine Culture - Final NO GROWTH AFTER 48 HOURS Complete 08/14/18 22:35 Rectum VRE Culture - Final NO VANCOMYCIN RESISTANT ENTEROCOCCUS ... Complete 08/14/18 22:25 Rectum - Final NO CARBAPENEM-RESISTANT ENTEROBACTERI... Complete Laboratory Tests Test 08/17/18 03:45 White Blood Count 8.8 K/UL (4.8-10.8) Red Blood Count 3.87 M/UL (4.70-6.10) L Hemoglobin 10.8 G/DL (14.2-18.0) L Hematocrit 34.2 % (42.0-52.0) L Mean Corpuscular Volume 88 FL (80-99) Mean Corpuscular Hemoglobin 28.0 PG (27.0-31.0) Mean Corpuscular Hemoglobin Concent 31.7 G/DL (32.0-36.0) L Red Cell Distribution Width 15.6 % (11.6-14.8) H Platelet Count 452 K/UL (150-450) H Mean Platelet Volume 7.1 FL (6.5-10.1) Neutrophils (%) (Auto) 79.3 % (45.0-75.0) H Lymphocytes (%) (Auto) 14.3 % (20.0-45.0) L Monocytes (%) (Auto) 5.2 % (1.0-10.0) Eosinophils (%) (Auto) 0.6 % (0.0-3.0) Basophils (%) (Auto) 0.5 % (0.0-2.0) Sodium Level 146 MMOL/L (136-145) H Potassium Level 2.9 MMOL/L (3.5-5.1) L Chloride Level 113 MMOL/L (98-107) H Carbon Dioxide Level 22 MMOL/L (21-32) Anion Gap 11 mmol/L (5-15) Blood Urea Nitrogen 35 mg/dL (7-18) H Creatinine 1.2 MG/DL (0.55-1.30) Estimat Glomerular Filtration Rate mL/min (>60) Glucose Level 221 MG/DL (74-106) H Uric Acid 6.6 MG/DL (2.6-7.2) Calcium Level 9.5 MG/DL (8.5-10.1) Phosphorus Level 1.8 MG/DL (2.5-4.9) L Magnesium Level 1.8 MG/DL (1.8-2.4) Total Bilirubin 0.2 MG/DL (0.2-1.0) Aspartate Amino Transf (AST/SGOT) 12 U/L (15-37) L Alanine Aminotransferase (ALT/SGPT) 12 U/L (12-78) Alkaline Phosphatase 73 U/L (46-116) Troponin I 0.028 ng/mL (0.000-0.056) C-Reactive Protein, Quantitative 13.0 mg/dL (0.00-0.90) H Pro-B-Type Natriuretic Peptide 80386 pg/mL (0-125) H Total Protein 6.7 G/DL (6.4-8.2) Albumin 2.1 G/DL (3.4-5.0) L Globulin 4.6 g/dL Albumin/Globulin Ratio 0.5 (1.0-2.7) L Current Medications Medications (Trade) Dose Ordered Sig/Jese Route PRN Reason Start Time Stop Time Status Last Admin Dose Admin Acetaminophen (Tylenol) 650 mg Q4H PRN ORAL fever 08/14/18 22:30 09/13/18 22:29 Albuterol/ Ipratropium (Albuterol/ Ipratropium) 3 ml Q4H PRN HHN Shortness of Breath 08/17/18 10:30 08/22/18 10:29 Amlodipine Besylate (Norvasc) 5 mg BID NG 08/16/18 18:00 09/15/18 17:59 08/17/18 08:21 Azithromycin 500 mg/Dextrose 275 ml @ 275 mls/hr Q24H IV 08/16/18 09:00 08/22/18 09:59 08/17/18 08:16 Cefepime HCl 1 gm/ Dextrose 55 ml @ 110 mls/hr Q24H IV 08/15/18 21:00 08/22/18 20:59 08/16/18 21:09 Dextrose/ Electrolytes 1,000 ml @ 50 mls/hr Q20H IV 08/16/18 16:00 09/15/18 15:59 08/16/18 18:20 Heparin Sodium (Porcine) (Heparin 5000 units/ml) 5,000 units EVERY 12 HOURS SUBQ 08/15/18 09:00 09/14/18 08:59 08/17/18 08:18 Metronidazole 100 ml @ 100 mls/hr Q8HR IVPB 08/16/18 15:00 08/23/18 14:59 08/17/18 05:05 Nitroglycerin (Ntg) 0.4 mg Q5M PRN SL Prn Chest Pain 08/14/18 22:30 09/13/18 22:29 Nitroglycerin (Ntg) 1 patch Q24H TDERMAL 08/16/18 16:00 09/15/18 15:59 08/16/18 16:48 Ondansetron HCl (Zofran) 4 mg Q6H PRN IVP Nausea & Vomiting 08/14/18 22:30 09/13/18 22:29 Oseltamivir Phosphate (Tamiflu) 30 mg DAILY ORAL 08/16/18 09:00 08/21/18 08:59 08/17/18 08:18 Pantoprazole (Protonix) 40 mg EVERY 12 HOURS IVP 08/15/18 21:00 09/14/18 20:59 08/17/18 08:16 Polyethylene Glycol (Miralax) 17 gm DAILYPRN PRN ORAL Constipation 08/14/18 22:30 09/13/18 22:29 Potassium Phosphate 30 mm/ Sodium Chloride 285 ml @ 47.5 mls/hr ONCE ONCE IV 08/17/18 11:30 08/17/18 17:29 Promethazine HCl/ Codeine (Phenergan with Codeine) 5 ml Q4H PRN ORAL For Cough 08/14/18 22:30 09/13/18 22:29 Temazepam (Restoril) 15 mg HSPRN PRN ORAL Insomnia 08/14/18 22:30 08/21/18 22:29 Vancomycin HCl (Vanco rx to dose) 1 ea DAILY PRN MISC Per rx protocol 08/14/18 22:30 09/13/18 22:29 Vancomycin HCl 1 gm/Dextrose 275 ml @ 183.708 mls/hr Q24H IVPB 08/15/18 02:00 08/20/18 01:59 08/17/18 02:01 Nuria Marte M.D. Aug 17, 2018 10:38
[2018-08-17] MEDS ORDERED: Potassium Phosphate 30 MM in NS 275 ML IV ONE (11:30)
[2018-08-17 12:00] VITALS: BP 159/80
[2018-08-17] MEDS: NovoLOG Insulin Flexpen SUBQ SCH ×3 (12:12→21:18)
--- NOTE | 2018-08-17 12:23 | NUR ---
CASE MANAGEMENT: REVIEW SI: SEPSIS 97.7 HR 84 RR 15 BP 153/87 SAT 99% NC/4L H/H 10.8/34.2 NA 146 CR 2.9 IS: TAMIFLU PO BID K-DUR NG TID K-PHOS IV @47.5ML/HR FLAGYL IV Q8HR STEP DOWN UNIT STATUS DCP: PATIENT IS FROM HOME
--- NOTE | 2018-08-17 14:00 | NUR ---
NURSE NOTES: SPOKE WITH DR MELVIN LANTIGUA. STILL WITH RESTRAINTS ON THE LEFT WRIST. NO SIGNS OF DISTRESS. WILL CONTINUE TO MONITOR.
--- NOTE | 2018-08-17 15:06 | Nephrology Progress Note ---
Assessment/Plan Problem List: (1) ATN (acute tubular necrosis) (2) Acute respiratory failure (3) Diabetes mellitus (4) Parkinson disease (5) Respiratory distress (6) Aspiration pneumonia Assessment 88 Y old male, presents with resp distress and aspiration pneumonia Renal failure, Mainly dehydration resolving ? Underlying CKD Low K , Low Na , Low Alb Parkinsons DM Plan NPO NGT Isaac Hydrate 2D Echo pending Antibiotics Avoid Nephrotoxics Per orders Objective Objective Last 24 Hour Vital Signs Date Time Temp Pulse Resp B/P (MAP) Pulse Ox O2 Delivery O2 Flow Rate FiO2 08/17/18 12:00 97.7 93 18 159/80 (106) 96 08/17/18 12:00 Nasal Cannula 3.0 08/17/18 08:21 87 136/66 08/17/18 08:00 85 08/17/18 08:00 97.7 89 15 136/66 (89) 98 08/17/18 08:00 Nasal Cannula 3.0 08/17/18 04:00 97.7 84 18 153/87 (109) 99 08/17/18 04:00 3.0 08/17/18 04:00 Nasal Cannula 4.0 Nasal Cannula 3.0 08/17/18 03:56 85 08/17/18 00:00 3.0 08/17/18 00:00 97.9 83 18 149/79 (102) 99 08/17/18 00:00 Nasal Cannula 4.0 Nasal Cannula 3.0 08/16/18 23:43 81 08/16/18 20:25 98 Nasal Cannula 3.0 32 08/16/18 20:25 Nasal Cannula 3.0 32 08/16/18 20:25 85 20 Nasal Cannula 3.0 32 08/16/18 20:00 3.0 08/16/18 20:00 Nasal Cannula 4.0 08/16/18 20:00 98.1 86 17 147/84 (105) 99 08/16/18 19:47 86 08/16/18 18:15 89 149/84 08/16/18 17:58 96 Nasal Cannula 3.0 32 08/16/18 17:58 Nasal Cannula 3.0 32 08/16/18 16:48 150/79 08/16/18 16:00 97.7 83 18 150/79 (102) 97 08/16/18 16:00 4.0 08/16/18 16:00 83 08/16/18 16:00 Nasal Cannula 4.0 Intake and Output 08/16/18 08/17/18 19:00 07:00 Intake Total 994.25 ml 1506.000 ml Output Total 700 ml 700 ml Balance 294.25 ml 806.000 ml Intake Free Water 60 ml IV Total 916.25 ml 1180.000 ml Tube Feeding 18 ml 326 ml Output Urine Total 700 ml 700 ml # Bowel Movements 4 2 Laboratory Tests 08/17/18 03:45: White Blood Count 8.8, Red Blood Count 3.87L, Hemoglobin 10.8L, Hematocrit 34.2L , Mean Corpuscular Volume 88, Mean Corpuscular Hemoglobin 28.0, Mean Corpuscular Hemoglobin Concent 31.7L, Red Cell Distribution Width 15.6H, Platelet Count 452H, Mean Platelet Volume 7.1, Neutrophils (%) (Auto) 79.3H, Lymphocytes (%) (Auto) 14.3L, Monocytes (%) (Auto) 5.2, Eosinophils (%) (Auto) 0.6, Basophils (%) (Auto) 0.5, Sodium Level 146H, Potassium Level 2.9L, Chloride Level 113H, Carbon Dioxide Level 22, Anion Gap 11, Blood Urea Nitrogen 35H, Creatinine 1.2, Estimat Glomerular Filtration Rate , Glucose Level 221H, Uric Acid 6.6, Calcium Level 9.5, Phosphorus Level 1.8L, Magnesium Level 1.8, Total Bilirubin 0.2, Aspartate Amino Transf (AST/SGOT) 12L, Alanine Aminotransferase (ALT/SGPT) 12, Alkaline Phosphatase 73, Troponin I 0.028, C- Reactive Protein, Quantitative 13.0H, Pro-B-Type Natriuretic Peptide 72992B, Total Protein 6.7, Albumin 2.1L, Globulin 4.6, Albumin/Globulin Ratio 0.5L Height (Feet): 5 Height (Inches): 7.00 Weight (Pounds): 121 Hudson Huntley MD Aug 17, 2018 15:06
--- NOTE | 2018-08-17 15:06 | Nephrology Progress Note ---
Assessment/Plan Problem List: (1) ATN (acute tubular necrosis) (2) Acute respiratory failure (3) Diabetes mellitus (4) Parkinson disease (5) Respiratory distress (6) Aspiration pneumonia Assessment 88 Y old male, presents with resp distress and aspiration pneumonia Renal failure, Mainly dehydration resolving ? Underlying CKD Low K , Low Na , Low Alb Parkinsons DM Plan NGT Isaac Hydrate 2D Echo pending Antibiotics Avoid Nephrotoxics Per orders Subjective ROS Limited/Unobtainable: No Constitutional: Reports: malaise, weakness Objective Objective Last 24 Hour Vital Signs Date Time Temp Pulse Resp B/P (MAP) Pulse Ox O2 Delivery O2 Flow Rate FiO2 08/17/18 12:00 97.7 93 18 159/80 (106) 96 08/17/18 12:00 Nasal Cannula 3.0 08/17/18 08:21 87 136/66 08/17/18 08:00 85 08/17/18 08:00 97.7 89 15 136/66 (89) 98 08/17/18 08:00 Nasal Cannula 3.0 08/17/18 04:00 97.7 84 18 153/87 (109) 99 08/17/18 04:00 3.0 08/17/18 04:00 Nasal Cannula 4.0 Nasal Cannula 3.0 08/17/18 03:56 85 08/17/18 00:00 3.0 08/17/18 00:00 97.9 83 18 149/79 (102) 99 08/17/18 00:00 Nasal Cannula 4.0 Nasal Cannula 3.0 08/16/18 23:43 81 08/16/18 20:25 98 Nasal Cannula 3.0 32 08/16/18 20:25 Nasal Cannula 3.0 32 08/16/18 20:25 85 20 Nasal Cannula 3.0 32 08/16/18 20:00 3.0 08/16/18 20:00 Nasal Cannula 4.0 08/16/18 20:00 98.1 86 17 147/84 (105) 99 08/16/18 19:47 86 08/16/18 18:15 89 149/84 08/16/18 17:58 96 Nasal Cannula 3.0 32 08/16/18 17:58 Nasal Cannula 3.0 32 08/16/18 16:48 150/79 08/16/18 16:00 97.7 83 18 150/79 (102) 97 08/16/18 16:00 4.0 08/16/18 16:00 83 08/16/18 16:00 Nasal Cannula 4.0 Intake and Output 08/16/18 08/17/18 19:00 07:00 Intake Total 994.25 ml 1506.000 ml Output Total 700 ml 700 ml Balance 294.25 ml 806.000 ml Intake Free Water 60 ml IV Total 916.25 ml 1180.000 ml Tube Feeding 18 ml 326 ml Output Urine Total 700 ml 700 ml # Bowel Movements 4 2 Laboratory Tests 08/17/18 03:45: White Blood Count 8.8, Red Blood Count 3.87L, Hemoglobin 10.8L, Hematocrit 34.2L , Mean Corpuscular Volume 88, Mean Corpuscular Hemoglobin 28.0, Mean Corpuscular Hemoglobin Concent 31.7L, Red Cell Distribution Width 15.6H, Platelet Count 452H, Mean Platelet Volume 7.1, Neutrophils (%) (Auto) 79.3H, Lymphocytes (%) (Auto) 14.3L, Monocytes (%) (Auto) 5.2, Eosinophils (%) (Auto) 0.6, Basophils (%) (Auto) 0.5, Sodium Level 146H, Potassium Level 2.9L, Chloride Level 113H, Carbon Dioxide Level 22, Anion Gap 11, Blood Urea Nitrogen 35H, Creatinine 1.2, Estimat Glomerular Filtration Rate , Glucose Level 221H, Uric Acid 6.6, Calcium Level 9.5, Phosphorus Level 1.8L, Magnesium Level 1.8, Total Bilirubin 0.2, Aspartate Amino Transf (AST/SGOT) 12L, Alanine Aminotransferase (ALT/SGPT) 12, Alkaline Phosphatase 73, Troponin I 0.028, C- Reactive Protein, Quantitative 13.0H, Pro-B-Type Natriuretic Peptide 70190H, Total Protein 6.7, Albumin 2.1L, Globulin 4.6, Albumin/Globulin Ratio 0.5L Height (Feet): 5 Height (Inches): 7.00 Weight (Pounds): 121 General Appearance: no apparent distress EENT: other - NGT Cardiovascular: tachycardia Respiratory/Chest: decreased breath sounds Abdomen: soft Hudson Huntley MD Aug 17, 2018 15:06
[2018-08-17 16:00] VITALS: BP 142/80
[2018-08-17] MEDS: Nitroglycerin Patch 0.4mg TDERMAL SCH (17:31)
--- NOTE | 2018-08-17 17:54 | Internal Med Progress Note ---
Subjective Date of Service: Aug 17, 2018 Physician Name Jeremi Hayden Attending Physician Madhu Juarez MD Current Medications Medications (Trade) Dose Ordered Sig/Jese Route PRN Reason Start Time Stop Time Status Last Admin Dose Admin Acetaminophen (Tylenol) 650 mg Q4H PRN ORAL fever 08/14/18 22:30 09/13/18 22:29 Albuterol/ Ipratropium (Albuterol/ Ipratropium) 3 ml Q4H PRN HHN Shortness of Breath 08/17/18 10:30 08/22/18 10:29 Amlodipine Besylate (Norvasc) 5 mg BID NG 08/16/18 18:00 09/15/18 17:59 08/17/18 17:31 Azithromycin 500 mg/Dextrose 275 ml @ 275 mls/hr Q24H IV 08/16/18 09:00 08/22/18 09:59 08/17/18 08:16 Cefepime HCl 1 gm/ Dextrose 55 ml @ 110 mls/hr Q24H IV 08/15/18 21:00 08/22/18 20:59 08/16/18 21:09 Dextrose (Dextrose 50%) 25 ml Q30M PRN IV Hypoglycemia 08/17/18 10:30 09/16/18 10:29 Dextrose (Dextrose 50%) 50 ml Q30M PRN IV Hypoglycemia 08/17/18 10:30 09/16/18 10:29 Dextrose/ Electrolytes 1,000 ml @ 50 mls/hr Q20H IV 08/16/18 16:00 09/15/18 15:59 08/17/18 12:11 Heparin Sodium (Porcine) (Heparin 5000 units/ml) 5,000 units EVERY 12 HOURS SUBQ 08/15/18 09:00 09/14/18 08:59 08/17/18 08:18 Insulin Aspart (NovoLOG) BEFORE MEALS AND HS SUBQ 08/17/18 11:30 09/16/18 11:29 08/17/18 17:34 Metronidazole 100 ml @ 100 mls/hr Q8HR IVPB 08/16/18 15:00 08/23/18 14:59 08/17/18 14:11 Nitroglycerin (Ntg) 0.4 mg Q5M PRN SL Prn Chest Pain 08/14/18 22:30 09/13/18 22:29 Nitroglycerin (Ntg) 1 patch Q24H TDERMAL 08/16/18 16:00 09/15/18 15:59 08/17/18 17:31 Ondansetron HCl (Zofran) 4 mg Q6H PRN IVP Nausea & Vomiting 08/14/18 22:30 09/13/18 22:29 Oseltamivir Phosphate (Tamiflu) 30 mg BID ORAL 08/17/18 18:00 08/21/18 09:01 08/17/18 17:31 Pantoprazole (Protonix) 40 mg EVERY 12 HOURS IVP 08/15/18 21:00 09/14/18 20:59 08/17/18 08:16 Polyethylene Glycol (Miralax) 17 gm DAILYPRN PRN ORAL Constipation 08/14/18 22:30 09/13/18 22:29 Potassium Chloride (K-Dur) 20 meq THREE TIMES A DAY NG 08/17/18 13:00 09/16/18 12:59 08/17/18 17:37 Promethazine HCl/ Codeine (Phenergan with Codeine) 5 ml Q4H PRN ORAL For Cough 08/14/18 22:30 09/13/18 22:29 Temazepam (Restoril) 15 mg HSPRN PRN ORAL Insomnia 08/14/18 22:30 08/21/18 22:29 Vancomycin HCl (Vanco rx to dose) 1 ea DAILY PRN MISC Per rx protocol 08/14/18 22:30 09/13/18 22:29 Vancomycin HCl 1 gm/Dextrose 275 ml @ 183.708 mls/hr Q24H IVPB 08/15/18 02:00 08/20/18 01:59 08/17/18 02:01 Allergies: Coded Allergies: No Known Allergies (Unverified , 08/14/18) ROS Limited/Unobtainable: Yes Subjective 88 YO M admitted with shortness of breath. Now aspiration pneumonia. Cover for Int Med-Dr Juarez. AILEEN. Tolerating nasal canula Objective Last Vital Signs Date Time Temp Pulse Resp B/P (MAP) Pulse Ox O2 Delivery O2 Flow Rate FiO2 08/17/18 17:31 142/80 08/17/18 17:31 96 08/17/18 16:00 98.1 22 99 08/17/18 16:00 Nasal Cannula 3.0 08/16/18 20:25 32 Laboratory Tests Test 08/17/18 03:45 White Blood Count 8.8 K/UL (4.8-10.8) Red Blood Count 3.87 M/UL (4.70-6.10) L Hemoglobin 10.8 G/DL (14.2-18.0) L Hematocrit 34.2 % (42.0-52.0) L Mean Corpuscular Volume 88 FL (80-99) Mean Corpuscular Hemoglobin 28.0 PG (27.0-31.0) Mean Corpuscular Hemoglobin Concent 31.7 G/DL (32.0-36.0) L Red Cell Distribution Width 15.6 % (11.6-14.8) H Platelet Count 452 K/UL (150-450) H Mean Platelet Volume 7.1 FL (6.5-10.1) Neutrophils (%) (Auto) 79.3 % (45.0-75.0) H Lymphocytes (%) (Auto) 14.3 % (20.0-45.0) L Monocytes (%) (Auto) 5.2 % (1.0-10.0) Eosinophils (%) (Auto) 0.6 % (0.0-3.0) Basophils (%) (Auto) 0.5 % (0.0-2.0) Sodium Level 146 MMOL/L (136-145) H Potassium Level 2.9 MMOL/L (3.5-5.1) L Chloride Level 113 MMOL/L (98-107) H Carbon Dioxide Level 22 MMOL/L (21-32) Anion Gap 11 mmol/L (5-15) Blood Urea Nitrogen 35 mg/dL (7-18) H Creatinine 1.2 MG/DL (0.55-1.30) Estimat Glomerular Filtration Rate mL/min (>60) Glucose Level 221 MG/DL (74-106) H Uric Acid 6.6 MG/DL (2.6-7.2) Calcium Level 9.5 MG/DL (8.5-10.1) Phosphorus Level 1.8 MG/DL (2.5-4.9) L Magnesium Level 1.8 MG/DL (1.8-2.4) Total Bilirubin 0.2 MG/DL (0.2-1.0) Aspartate Amino Transf (AST/SGOT) 12 U/L (15-37) L Alanine Aminotransferase (ALT/SGPT) 12 U/L (12-78) Alkaline Phosphatase 73 U/L (46-116) Troponin I 0.028 ng/mL (0.000-0.056) C-Reactive Protein, Quantitative 13.0 mg/dL (0.00-0.90) H Pro-B-Type Natriuretic Peptide 16501 pg/mL (0-125) H Total Protein 6.7 G/DL (6.4-8.2) Albumin 2.1 G/DL (3.4-5.0) L Globulin 4.6 g/dL Albumin/Globulin Ratio 0.5 (1.0-2.7) L Microbiology Date/Time Source Procedure Growth Status 08/14/18 22:35 Blood Blood Culture - Preliminary Staphylococcus Sp Coag Neg Resulted 08/14/18 22:30 Blood Blood Culture - Preliminary NO GROWTH AFTER 48 HOURS Resulted 08/14/18 22:35 Nasal Nares MRSA Culture - Final NO METHICILLIN RESISTANT STAPH AUREUS... Complete 08/14/18 22:35 Nasal Nares Influenza Types A,B Antigen (KYARA) - Final Complete 08/15/18 12:40 Urine,Clean Catch Urine Culture - Final NO GROWTH AFTER 48 HOURS Complete 08/14/18 21:00 Urine,Clean Catch Urine Culture - Final NO GROWTH AFTER 48 HOURS Complete 08/14/18 22:35 Rectum VRE Culture - Final NO VANCOMYCIN RESISTANT ENTEROCOCCUS ... Complete 08/14/18 22:25 Rectum - Final NO CARBAPENEM-RESISTANT ENTEROBACTERI... Complete Intake and Output 08/16/18 08/17/18 19:00 07:00 Intake Total 994.25 ml 1506.000 ml Output Total 700 ml 700 ml Balance 294.25 ml 806.000 ml Intake Free Water 60 ml IV Total 916.25 ml 1180.000 ml Tube Feeding 18 ml 326 ml Output Urine Total 700 ml 700 ml # Bowel Movements 4 2 Objective PHYSICAL EXAMINATION: GENERAL: The patient is well-developed and well-nourished thin-appearing white male, who is currently on BiPAP. HEENT: Eyes - pupils are equal and responsive to light and accommodation. Extraocular movements are intact. NECK: Supple without lymphadenopathy. CHEST: Crackles bilaterally with expiratory wheezes. ABDOMEN: Soft, nontender, and nondistended. Positive bowel sounds. No evidence of hepatosplenomegaly. Currently, no rebound or guarding noted. EXTREMITIES: Negative for clubbing, cyanosis, or edema. RECTAL/GENITAL: Not performed. NEUROLOGIC: Cranial nerves II through XII are grossly intact without focal deficits. Assessment/Plan Assessment/Plan ASSESSMENT: This is an 88-year-old white male. 1. Right lower lobe pneumonia. 2. Shortness of breath. 3. Fever. 4. Cerebrovascular disease. 5. Diabetes. 6. Parkinson disease. TREATMENT: 1. Right lower lobe pneumonia/shortness of breath. ?aspiration? A Pulmonary consultation has been obtained with Dr. Sade Morgan. Continue cefepime, flagyl and vancomycin per ID. See Infectious Disease consultation by Dr. Marte. 2. History of cerebrovascular disease. Continue aspirin as above. 3. Diabetes type 2. The patient has been started on NovoLog sliding scale. 4. Parkinson disease. Continue Sinemet as above. Jeremi Hayden MD Aug 17, 2018 17:54
--- NOTE | 2018-08-17 19:15 | NUR ---
HAND-OFF: Report given to Dno Verdugo RN.
--- NOTE | 2018-08-17 19:16 | NUR ---
NURSE NOTES: Received patient from LIA Blanco. Will continue plan of care.
[2018-08-17 20:00] VITALS: BP 143/76
[2018-08-17] MEDS: Cefepime HCl 1 GM in D5W 55 ML IV SCH (21:16)
--- NOTE | 2018-08-17 22:08 | Cardiology Progress Note ---
Subjective Subjective [id number] Objective Last 24 Hour Vital Signs Date Time Temp Pulse Resp B/P (MAP) Pulse Ox O2 Delivery O2 Flow Rate FiO2 08/17/18 20:05 98 Nasal Cannula 3.0 32 08/17/18 20:05 Nasal Cannula 3.0 32 08/17/18 20:05 81 20 Nasal Cannula 3.0 32 08/17/18 20:00 Nasal Cannula 3.0 08/17/18 20:00 97.2 93 18 143/76 (98) 97 08/17/18 19:42 96 08/17/18 17:31 142/80 08/17/18 17:31 96 142/80 08/17/18 16:00 98.1 96 22 142/80 (100) 99 08/17/18 16:00 84 08/17/18 16:00 Nasal Cannula 3.0 08/17/18 12:00 97.7 93 18 159/80 (106) 96 08/17/18 12:00 Nasal Cannula 3.0 08/17/18 12:00 91 08/17/18 08:21 87 136/66 08/17/18 08:00 85 08/17/18 08:00 97.7 89 15 136/66 (89) 98 08/17/18 08:00 Nasal Cannula 3.0 08/17/18 04:00 97.7 84 18 153/87 (109) 99 08/17/18 04:00 3.0 08/17/18 04:00 Nasal Cannula 4.0 Nasal Cannula 3.0 08/17/18 03:56 85 08/17/18 00:00 3.0 08/17/18 00:00 97.9 83 18 149/79 (102) 99 08/17/18 00:00 Nasal Cannula 4.0 Nasal Cannula 3.0 08/16/18 23:43 81 Intake and Output 08/16/18 08/17/18 19:00 07:00 Intake Total 994.25 ml 1506.000 ml Output Total 700 ml 700 ml Balance 294.25 ml 806.000 ml Intake Free Water 60 ml IV Total 916.25 ml 1180.000 ml Tube Feeding 18 ml 326 ml Output Urine Total 700 ml 700 ml # Bowel Movements 4 2 Laboratory Tests Test 08/17/18 03:45 White Blood Count 8.8 K/UL (4.8-10.8) Red Blood Count 3.87 M/UL (4.70-6.10) L Hemoglobin 10.8 G/DL (14.2-18.0) L Hematocrit 34.2 % (42.0-52.0) L Mean Corpuscular Volume 88 FL (80-99) Mean Corpuscular Hemoglobin 28.0 PG (27.0-31.0) Mean Corpuscular Hemoglobin Concent 31.7 G/DL (32.0-36.0) L Red Cell Distribution Width 15.6 % (11.6-14.8) H Platelet Count 452 K/UL (150-450) H Mean Platelet Volume 7.1 FL (6.5-10.1) Neutrophils (%) (Auto) 79.3 % (45.0-75.0) H Lymphocytes (%) (Auto) 14.3 % (20.0-45.0) L Monocytes (%) (Auto) 5.2 % (1.0-10.0) Eosinophils (%) (Auto) 0.6 % (0.0-3.0) Basophils (%) (Auto) 0.5 % (0.0-2.0) Sodium Level 146 MMOL/L (136-145) H Potassium Level 2.9 MMOL/L (3.5-5.1) L Chloride Level 113 MMOL/L (98-107) H Carbon Dioxide Level 22 MMOL/L (21-32) Anion Gap 11 mmol/L (5-15) Blood Urea Nitrogen 35 mg/dL (7-18) H Creatinine 1.2 MG/DL (0.55-1.30) Estimat Glomerular Filtration Rate mL/min (>60) Glucose Level 221 MG/DL (74-106) H Uric Acid 6.6 MG/DL (2.6-7.2) Calcium Level 9.5 MG/DL (8.5-10.1) Phosphorus Level 1.8 MG/DL (2.5-4.9) L Magnesium Level 1.8 MG/DL (1.8-2.4) Total Bilirubin 0.2 MG/DL (0.2-1.0) Aspartate Amino Transf (AST/SGOT) 12 U/L (15-37) L Alanine Aminotransferase (ALT/SGPT) 12 U/L (12-78) Alkaline Phosphatase 73 U/L (46-116) Troponin I 0.028 ng/mL (0.000-0.056) C-Reactive Protein, Quantitative 13.0 mg/dL (0.00-0.90) H Pro-B-Type Natriuretic Peptide 07617 pg/mL (0-125) H Total Protein 6.7 G/DL (6.4-8.2) Albumin 2.1 G/DL (3.4-5.0) L Globulin 4.6 g/dL Albumin/Globulin Ratio 0.5 (1.0-2.7) L Microbiology Date/Time Source Procedure Growth Status 08/14/18 22:35 Blood Blood Culture - Preliminary Staphylococcus Sp Coag Neg Resulted 08/14/18 22:30 Blood Blood Culture - Preliminary NO GROWTH AFTER 48 HOURS Resulted 08/14/18 22:35 Nasal Nares MRSA Culture - Final NO METHICILLIN RESISTANT STAPH AUREUS... Complete 08/14/18 22:35 Nasal Nares Influenza Types A,B Antigen (KYARA) - Final Complete 08/15/18 12:40 Urine,Clean Catch Urine Culture - Final NO GROWTH AFTER 48 HOURS Complete 08/14/18 22:35 Rectum VRE Culture - Final NO VANCOMYCIN RESISTANT ENTEROCOCCUS ... Complete 08/14/18 22:25 Rectum - Final NO CARBAPENEM-RESISTANT ENTEROBACTERI... Complete Ella Love MD Aug 17, 2018 22:08
--- NOTE | 2018-08-17 23:15 | Consultation ---
DATE OF CONSULTATION: 08/17/2018 CARDIOLOGY CONSULTATION This consultation is done as a coverage for Dr. Javier Corona. CONSULTING PHYSICIAN: Ella Love M.D. REFERRING PHYSICIAN: Madhu Juarez M.D. REASON FOR EVALUATION: Respiratory insufficiency. PATIENT IDENTIFICATION: This is 88-year-old male. HISTORY OF PRESENT ILLNESS: The patient came into emergency department with respiratory distress and fever. He had evidence of pneumonia and he was treated accordingly. He was admitted to telemetry bed. His condition slightly improved. The patient had history of hypertension and stroke in the past. He also has history of diabetes, Parkinson disease, and dementia. ALLERGIES: Not reported. HABITS: There is no history of drinking, smoking, or drug abuse. SOCIAL HISTORY: He lives at home. He is dependent after the stroke. REVIEW OF SYSTEMS: Partial as the patient is lethargic and he does not answer all the questions. PHYSICAL EXAMINATION: GENERAL: This is elderly gentleman, resting in bed. He is in mild respiratory distress. VITAL SIGNS: His blood pressure the last one was 140/80, his heart rate was 96, his temperature 98.1, and his oxygen saturation on 2 L of oxygen is 99%. HEENT: There is mild facial droop on the left. Pupils are equal to light and accommodation. NECK: Supple. Jugular venous pressure is not elevated. He has palpable carotid upstroke with a bruit, more on the left side. LUNGS: He has scattered rales and rhonchi. HEART: Regular with accentuated A2. ABDOMEN: Soft. Slightly distended. Positive bowel sounds. EXTREMITIES: Lower extremities, no edema and he has mild weakness on the right side. There is some muscle wasting noted on his lower extremities. LABORATORY AND DIAGNOSTIC DATA: His EKG shows sinus rhythm with evidence of LVH with strain. His chest x-ray revealed pneumonia. His laboratory data revealed elevated white count initially, but now it is normal. Hemoglobin 10.8 and platelets 452,000. His creatinine is 1.2, potassium today is 2.9, and sodium 146. His troponin was 0.101 and is down to 0.028. His urine output is noted. His echo showed LVH with preserved left ventricular function. IMPRESSION AND RECOMMENDATION: The patient has most likely aspiration pneumonia. He is on appropriate medications and his WBC is improving. His troponin could be elevated due to secondary damage with sepsis and fever. At present time, he is on appropriate medical management and the patient is on a blood pressure control medication. I would also recommend to start him on statin and aspirin because of history of stroke and hypertension. Coronary artery disease could be ruled out when his condition is more stable from pulmonary standpoint. Thank you very much for your consultation. I will follow this patient with you until Dr. Corona comes back. Ella Love M.D. DR: RANDOLPH JOB#: [id number] CC: EKN
[2018-08-18] VITALS: BP 144/77
[2018-08-18] MEDS: Vancomycin 1gm in D5W 275ml IVPB SCH (01:50)
[2018-08-18 04:00] VITALS: BP 152/80
[2018-08-18 04:51] LABS: BASOPHILS % (AUTO) 0.5 % (0.0-2.0); EOSINOPHILS % (AUTO) 0.8 % (0.0-3.0); HEMATOCRIT 29.4 % (42.0-52.0); HEMOGLOBIN 9.4 G/DL (14.2-18.0); LYMPHOCYTES % (AUTO) 13.1 % (20.0-45.0); MEAN CORPUSCULAR VOLUME 88 FL (80-99); MONOCYTES % (AUTO) 6.8 % (1.0-10.0); NEUTROPHILS % (AUTO) 78.9 % (45.0-75.0); PLATELET COUNT 411 K/UL (150-450); RED BLOOD COUNT 3.34 M/UL (4.70-6.10); RED CELL DISTRIBUTION WIDTH 16.1 % (11.6-14.8); WHITE BLOOD COUNT 9.9 K/UL (4.8-10.8)
[2018-08-18 05:04] LABS: ANION GAP 10 mmol/L (5-15); BLOOD UREA NITROGEN 29 mg/dL (7-18); CARBON DIOXIDE 23 MMOL/L (21-32); CHLORIDE 117 MMOL/L (98-107); CREATININE 1.1 MG/DL (0.55-1.30); POTASSIUM 3.4 MMOL/L (3.5-5.1); SODIUM 150 MMOL/L (136-145)
[2018-08-18] MEDS: NovoLOG Insulin Flexpen SUBQ SCH ×4 (05:45→20:59)
--- NOTE | 2018-08-18 07:09 | NUR ---
HAND-OFF: Report given to LIA Blanco and LIA Johnson.
--- NOTE | 2018-08-18 07:10 | NUR ---
NURSE NOTES: Received report from Sanaz Verdugo RN. Pt is AAOx2. No cardiopulmonary distress noted. Pt on 3L O2 NC. NGT noted in right nare running Glucerna 1.2 at 58 cc/Hr. F/C noted draining urine. L 20g forearm IV noted running fluids at 50 cc/Hr. Left soft wrist restraint noted. Pt reported to be pulling out IV. Skin color normal. L radial Pulse palpable. Pt is laying on over lay mattress. Skin alterations noted. Bed is in lowest position. Side rails up x 3. Call light within reach. Will continue to monitor pt.
[2018-08-18 08:00] VITALS: BP 158/79
[2018-08-18] MEDS: Pantoprazole Inj IVP SCH ×2 (08:11→20:57)
[2018-08-18] MEDS: Heparin 5000 units/ml inj SUBQ SCH ×2 (08:14→20:57)
--- NOTE | 2018-08-18 08:24 | Pulmonology Progress Note ---
Assessment/Plan Assessment/Plan ASSESSMENT Sepsis likely due to PNA Acute resp failure Aspiration pneumonia Bacteremia GPC Dysphagia with high aspiration risk TONIO likely due to dehydration, ? CKD Hx of CVA with RSW DM type 2 BPH Parkinson disease Hx of C dif colitis PLAN OF CARE AILEEN titrate O2 to keep pulse os above 92%, pulmonary toilet prn fup with CXR in am abx as per ID recs urine cx negative, blood cx 1 out of 4 staph coag negative, real vs contaminant? , repeated blood cx pending influenza negative , however patient started on Tamiflu despite negative rapid influenza test -as per ID recs repeated urine cx negative leukocytosis resolved, remains afebrile failed BSSE and VSSE, NG tube feeding with strict aspiration precaution consider GI eval if family desires G tube, full code - per PMD DVT prophylaxis antitussive prn BP management with CCB and optimize as needed TONIO resolved , creat down to normal, likely due to dehydration monitor renal parameters and electrolytes , replace electrolytes as needed, P stable after replacement, on routine K , avoid nephrotoxic pain management bowel regimen supportive care GI prophylaxis monitor blood sugar, hemoglobin A1c 6.0, SSI prn case discussed and evaluated by supervising physician Subjective Allergies: Coded Allergies: No Known Allergies (Unverified , 08/14/18) Subjective leukocytosis resolved , remained afebrile no signs of resp distress K- 3.4, Na up Objective Last 24 Hour Vital Signs Date Time Temp Pulse Resp B/P (MAP) Pulse Ox O2 Delivery O2 Flow Rate FiO2 08/18/18 08:00 98.1 91 15 158/79 (105) 91 08/18/18 04:00 Nasal Cannula 3.0 08/18/18 04:00 97.5 92 19 152/80 (104) 97 08/18/18 03:33 83 08/18/18 00:00 97.5 92 19 144/77 (99) 93 08/18/18 00:00 Nasal Cannula 3.0 08/17/18 23:41 86 08/17/18 20:05 98 Nasal Cannula 3.0 32 08/17/18 20:05 Nasal Cannula 3.0 32 08/17/18 20:05 81 20 Nasal Cannula 3.0 32 08/17/18 20:00 Nasal Cannula 3.0 08/17/18 20:00 97.2 93 18 143/76 (98) 97 08/17/18 19:42 96 08/17/18 17:31 142/80 08/17/18 17:31 96 142/80 08/17/18 16:00 98.1 96 22 142/80 (100) 99 08/17/18 16:00 84 08/17/18 16:00 Nasal Cannula 3.0 08/17/18 12:00 97.7 93 18 159/80 (106) 96 08/17/18 12:00 Nasal Cannula 3.0 08/17/18 12:00 91 Intake and Output 08/17/18 08/18/18 19:00 07:00 Intake Total 1941.0 ml 1926.000 ml Output Total 750 ml 950 ml Balance 1191.0 ml 976.000 ml Intake Free Water 90 ml 100 ml IV Total 1275.0 ml 1130.000 ml Tube Feeding 576 ml 696 ml Output Urine Total 750 ml 950 ml # Bowel Movements 1 4 Objective General Appearance: no acute distress, bedridden, awake, confused, responsive male HEENT: anicteric, O2 via NC , NGT with TF Respiratory/Chest: lungs clear, no accessory muscle use Cardiovascular: normal rate, regular rhythm - SR on tele Abdomen: soft, non tender, non distended Extremities: no edema, pedal pulses normal Neurologic/Psychiatric: abnormal gait - bedridden , wake, verbally responsive , confused Musculoskeletal: atrophy - BLE Microbiology Date/Time Source Procedure Growth Status 08/15/18 12:40 Urine,Clean Catch Urine Culture - Final NO GROWTH AFTER 48 HOURS Complete Laboratory Tests 08/17/18 20:15: Stool Occult Blood [Pending] 08/18/18 01:00: Vancomycin Level Trough 14.0H 08/18/18 04:05: White Blood Count 9.9, Red Blood Count 3.34L, Hemoglobin 9.4L, Hematocrit 29.4L , Mean Corpuscular Volume 88, Mean Corpuscular Hemoglobin 28.1, Mean Corpuscular Hemoglobin Concent 31.9L, Red Cell Distribution Width 16.1H, Platelet Count 411, Mean Platelet Volume 7.1, Neutrophils (%) (Auto) 78.9H, Lymphocytes (%) (Auto) 13.1L, Monocytes (%) (Auto) 6.8, Eosinophils (%) (Auto) 0.8, Basophils (%) (Auto) 0.5, Sodium Level 150H, Potassium Level 3.4L, Chloride Level 117H, Carbon Dioxide Level 23, Anion Gap 10, Blood Urea Nitrogen 29H, Creatinine 1.1, Estimat Glomerular Filtration Rate , Glucose Level 216H, Calcium Level 9.0, Phosphorus Level 4.0 Current Medications Medications (Trade) Dose Ordered Sig/Jese Route PRN Reason Start Time Stop Time Status Last Admin Dose Admin Acetaminophen (Tylenol) 650 mg Q4H PRN ORAL fever 08/14/18 22:30 09/13/18 22:29 Albuterol/ Ipratropium (Albuterol/ Ipratropium) 3 ml Q4H PRN HHN Shortness of Breath 08/17/18 10:30 08/22/18 10:29 Amlodipine Besylate (Norvasc) 5 mg BID NG 08/16/18 18:00 09/15/18 17:59 08/17/18 17:31 Azithromycin 500 mg/Dextrose 275 ml @ 275 mls/hr Q24H IV 08/16/18 09:00 08/22/18 09:59 08/17/18 08:16 Cefepime HCl 1 gm/ Dextrose 55 ml @ 110 mls/hr Q24H IV 08/15/18 21:00 08/22/18 20:59 08/17/18 21:16 Dextrose (Dextrose 50%) 25 ml Q30M PRN IV Hypoglycemia 08/17/18 10:30 09/16/18 10:29 Dextrose (Dextrose 50%) 50 ml Q30M PRN IV Hypoglycemia 08/17/18 10:30 09/16/18 10:29 Dextrose/ Electrolytes 1,000 ml @ 50 mls/hr Q20H IV 08/16/18 16:00 09/15/18 15:59 08/17/18 12:11 Heparin Sodium (Porcine) (Heparin 5000 units/ml) 5,000 units EVERY 12 HOURS SUBQ 08/15/18 09:00 09/14/18 08:59 08/17/18 21:18 Insulin Aspart (NovoLOG) BEFORE MEALS AND HS SUBQ 08/17/18 11:30 09/16/18 11:29 08/18/18 05:45 Metronidazole 100 ml @ 100 mls/hr Q8HR IVPB 08/16/18 15:00 08/23/18 14:59 08/18/18 05:44 Nitroglycerin (Ntg) 0.4 mg Q5M PRN SL Prn Chest Pain 08/14/18 22:30 09/13/18 22:29 Nitroglycerin (Ntg) 1 patch Q24H TDERMAL 08/16/18 16:00 09/15/18 15:59 08/17/18 17:31 Ondansetron HCl (Zofran) 4 mg Q6H PRN IVP Nausea & Vomiting 08/14/18 22:30 09/13/18 22:29 Oseltamivir Phosphate (Tamiflu) 30 mg BID ORAL 08/17/18 18:00 08/21/18 09:01 08/17/18 17:31 Pantoprazole (Protonix) 40 mg EVERY 12 HOURS IVP 08/15/18 21:00 09/14/18 20:59 08/17/18 21:16 Polyethylene Glycol (Miralax) 17 gm DAILYPRN PRN ORAL Constipation 08/14/18 22:30 09/13/18 22:29 Potassium Chloride (K-Dur) 20 meq THREE TIMES A DAY NG 08/17/18 13:00 09/16/18 12:59 08/17/18 17:37 Promethazine HCl/ Codeine (Phenergan with Codeine) 5 ml Q4H PRN ORAL For Cough 08/14/18 22:30 09/13/18 22:29 Temazepam (Restoril) 15 mg HSPRN PRN ORAL Insomnia 08/14/18 22:30 08/21/18 22:29 Vancomycin HCl (Vanco rx to dose) 1 ea DAILY PRN MISC Per rx protocol 08/14/18 22:30 09/13/18 22:29 Vancomycin HCl 1 gm/Dextrose 275 ml @ 183.708 mls/hr Q24H IVPB 08/15/18 02:00 08/20/18 01:59 08/18/18 01:50 Keily Masters NP Aug 18, 2018 08:24
[2018-08-18] MEDS: Azithromycin 500 MG in D5W 275 ML IV SCH (09:39)
[2018-08-18 12:00] VITALS: BP 142/87
[2018-08-18 16:00] VITALS: BP 155/82
[2018-08-18] MEDS: Nitroglycerin Patch 0.4mg TDERMAL SCH (17:03)
[2018-08-18] MEDS ORDERED: 1/2NS w/KCl 20mEq 1000ml 1,000 ML IV SCH (17:30)
--- NOTE | 2018-08-18 18:04 | Nephrology Progress Note ---
Assessment/Plan Problem List: (1) ATN (acute tubular necrosis) (2) Acute respiratory failure (3) Diabetes mellitus (4) Parkinson disease (5) Respiratory distress (6) Aspiration pneumonia Assessment 88 Y old male, presents with resp distress and aspiration pneumonia Renal failure, Mainly dehydration resolving ? Underlying CKD Low K , Low Na , Low Alb Parkinsons DM Plan repeat ua and u c/s discussed with Trial of DC buckner in am NGT Buckner Hydrate 2D Echo pending Antibiotics Avoid Nephrotoxics Per orders Subjective ROS Limited/Unobtainable: No Constitutional: Reports: malaise, weakness Objective Objective Last 24 Hour Vital Signs Date Time Temp Pulse Resp B/P (MAP) Pulse Ox O2 Delivery O2 Flow Rate FiO2 08/18/18 17:04 93 155/82 08/18/18 17:03 155/82 08/18/18 16:00 Nasal Cannula 3.0 08/18/18 16:00 98.1 93 18 155/82 (106) 98 08/18/18 16:00 94 08/18/18 12:00 Nasal Cannula 3.0 08/18/18 12:00 96 08/18/18 12:00 98.2 98 22 142/87 (105) 97 08/18/18 08:11 91 158/79 08/18/18 08:00 Nasal Cannula 3.0 08/18/18 08:00 105 08/18/18 08:00 98.1 91 15 158/79 (105) 91 08/18/18 07:50 98 Nasal Cannula 3.0 32 08/18/18 07:50 Nasal Cannula 3.0 32 08/18/18 07:50 84 20 Nasal Cannula 3.0 32 08/18/18 04:00 Nasal Cannula 3.0 08/18/18 04:00 97.5 92 19 152/80 (104) 97 08/18/18 03:33 83 08/18/18 00:00 97.5 92 19 144/77 (99) 93 08/18/18 00:00 Nasal Cannula 3.0 08/17/18 23:41 86 08/17/18 20:05 98 Nasal Cannula 3.0 32 08/17/18 20:05 Nasal Cannula 3.0 32 08/17/18 20:05 81 20 Nasal Cannula 3.0 32 08/17/18 20:00 Nasal Cannula 3.0 08/17/18 20:00 97.2 93 18 143/76 (98) 97 08/17/18 19:42 96 Intake and Output 08/17/18 08/18/18 19:00 07:00 Intake Total 1941.0 ml 1926.000 ml Output Total 750 ml 950 ml Balance 1191.0 ml 976.000 ml Intake Free Water 90 ml 100 ml IV Total 1275.0 ml 1130.000 ml Tube Feeding 576 ml 696 ml Output Urine Total 750 ml 950 ml # Bowel Movements 1 4 Laboratory Tests 08/17/18 20:15: Stool Occult Blood Positive 08/18/18 01:00: Vancomycin Level Trough 14.0H 08/18/18 04:05: White Blood Count 9.9, Red Blood Count 3.34L, Hemoglobin 9.4L, Hematocrit 29.4L , Mean Corpuscular Volume 88, Mean Corpuscular Hemoglobin 28.1, Mean Corpuscular Hemoglobin Concent 31.9L, Red Cell Distribution Width 16.1H, Platelet Count 411, Mean Platelet Volume 7.1, Neutrophils (%) (Auto) 78.9H, Lymphocytes (%) (Auto) 13.1L, Monocytes (%) (Auto) 6.8, Eosinophils (%) (Auto) 0.8, Basophils (%) (Auto) 0.5, Sodium Level 150H, Potassium Level 3.4L, Chloride Level 117H, Carbon Dioxide Level 23, Anion Gap 10, Blood Urea Nitrogen 29H, Creatinine 1.1, Estimat Glomerular Filtration Rate , Glucose Level 216H, Calcium Level 9.0, Phosphorus Level 4.0 Height (Feet): 5 Height (Inches): 7.00 Weight (Pounds): 121 EENT: other - NGT+ Cardiovascular: tachycardia Respiratory/Chest: decreased breath sounds Abdomen: soft Genitourinary/Rectal: other - Hudson Shelley MD Aug 18, 2018 18:04
--- NOTE | 2018-08-18 18:28 | Internal Med Progress Note ---
Subjective Date of Service: Aug 18, 2018 Physician Name HaydenJeremi zuñiga Attending Physician Madhu Juarez MD Current Medications Medications (Trade) Dose Ordered Sig/Jese Route PRN Reason Start Time Stop Time Status Last Admin Dose Admin Acetaminophen (Tylenol) 650 mg Q4H PRN ORAL fever 08/14/18 22:30 09/13/18 22:29 Albuterol/ Ipratropium (Albuterol/ Ipratropium) 3 ml Q4H PRN HHN Shortness of Breath 08/17/18 10:30 08/22/18 10:29 Amlodipine Besylate (Norvasc) 5 mg BID NG 08/16/18 18:00 09/15/18 17:59 08/18/18 17:04 Azithromycin 500 mg/Dextrose 275 ml @ 275 mls/hr Q24H IV 08/16/18 09:00 08/22/18 09:59 08/18/18 09:39 Cefepime HCl 1 gm/ Dextrose 55 ml @ 110 mls/hr Q24H IV 08/15/18 21:00 08/22/18 20:59 08/17/18 21:16 Dextrose (Dextrose 50%) 25 ml Q30M PRN IV Hypoglycemia 08/17/18 10:30 09/16/18 10:29 Dextrose (Dextrose 50%) 50 ml Q30M PRN IV Hypoglycemia 08/17/18 10:30 09/16/18 10:29 Heparin Sodium (Porcine) (Heparin 5000 units/ml) 5,000 units EVERY 12 HOURS SUBQ 08/15/18 09:00 09/14/18 08:59 08/18/18 08:14 Insulin Aspart (NovoLOG) BEFORE MEALS AND HS SUBQ 08/17/18 11:30 09/16/18 11:29 08/18/18 17:20 Metronidazole 100 ml @ 100 mls/hr Q8HR IVPB 08/16/18 15:00 08/23/18 14:59 08/18/18 14:03 Nitroglycerin (Ntg) 0.4 mg Q5M PRN SL Prn Chest Pain 08/14/18 22:30 09/13/18 22:29 Nitroglycerin (Ntg) 1 patch Q24H TDERMAL 08/16/18 16:00 09/15/18 15:59 08/18/18 17:03 Ondansetron HCl (Zofran) 4 mg Q6H PRN IVP Nausea & Vomiting 08/14/18 22:30 09/13/18 22:29 Oseltamivir Phosphate (Tamiflu) 30 mg BID ORAL 08/17/18 18:00 08/21/18 09:01 08/18/18 17:05 Pantoprazole (Protonix) 40 mg EVERY 12 HOURS IVP 08/15/18 21:00 09/14/18 20:59 08/18/18 08:11 Polyethylene Glycol (Miralax) 17 gm DAILYPRN PRN ORAL Constipation 08/14/18 22:30 09/13/18 22:29 Potassium Chloride (K-Dur) 20 meq THREE TIMES A DAY NG 08/17/18 13:00 09/16/18 12:59 08/18/18 17:04 Promethazine HCl/ Codeine (Phenergan with Codeine) 5 ml Q4H PRN ORAL For Cough 08/14/18 22:30 09/13/18 22:29 Sodium 1,000 ml @ 50 mls/hr Q20H IV 08/18/18 17:30 09/17/18 17:29 08/18/18 17:02 Temazepam (Restoril) 15 mg HSPRN PRN ORAL Insomnia 08/14/18 22:30 08/21/18 22:29 Vancomycin HCl (Vanco rx to dose) 1 ea DAILY PRN MISC Per rx protocol 08/14/18 22:30 09/13/18 22:29 Vancomycin HCl 1 gm/Dextrose 275 ml @ 183.708 mls/hr Q24H IVPB 08/15/18 02:00 08/20/18 01:59 08/18/18 01:50 Allergies: Coded Allergies: No Known Allergies (Unverified , 08/14/18) ROS Limited/Unobtainable: Yes Subjective 88 YO M admitted with shortness of breath. Now aspiration pneumonia. Cover for Int Med-Dr Juarez. AILEEN. Tolerating nasal canula Objective Last Vital Signs Date Time Temp Pulse Resp B/P (MAP) Pulse Ox O2 Delivery O2 Flow Rate FiO2 08/18/18 17:04 93 155/82 08/18/18 16:00 Nasal Cannula 3.0 08/18/18 16:00 98.1 18 98 08/18/18 07:50 32 Laboratory Tests Test 2/23/19 20:15 08/18/18 01:00 08/18/18 04:05 Stool Occult Blood Positive (NEGATIVE) Vancomycin Level Trough 14.0 ug/mL (5.0-12.0) H White Blood Count 9.9 K/UL (4.8-10.8) Red Blood Count 3.34 M/UL (4.70-6.10) L Hemoglobin 9.4 G/DL (14.2-18.0) L Hematocrit 29.4 % (42.0-52.0) L Mean Corpuscular Volume 88 FL (80-99) Mean Corpuscular Hemoglobin 28.1 PG (27.0-31.0) Mean Corpuscular Hemoglobin Concent 31.9 G/DL (32.0-36.0) L Red Cell Distribution Width 16.1 % (11.6-14.8) H Platelet Count 411 K/UL (150-450) Mean Platelet Volume 7.1 FL (6.5-10.1) Neutrophils (%) (Auto) 78.9 % (45.0-75.0) H Lymphocytes (%) (Auto) 13.1 % (20.0-45.0) L Monocytes (%) (Auto) 6.8 % (1.0-10.0) Eosinophils (%) (Auto) 0.8 % (0.0-3.0) Basophils (%) (Auto) 0.5 % (0.0-2.0) Sodium Level 150 MMOL/L (136-145) H Potassium Level 3.4 MMOL/L (3.5-5.1) L Chloride Level 117 MMOL/L (98-107) H Carbon Dioxide Level 23 MMOL/L (21-32) Anion Gap 10 mmol/L (5-15) Blood Urea Nitrogen 29 mg/dL (7-18) H Creatinine 1.1 MG/DL (0.55-1.30) Estimat Glomerular Filtration Rate mL/min (>60) Glucose Level 216 MG/DL (74-106) H Calcium Level 9.0 MG/DL (8.5-10.1) Phosphorus Level 4.0 MG/DL (2.5-4.9) C-Reactive Protein, Quantitative Pending Intake and Output 08/17/18 08/18/18 19:00 07:00 Intake Total 1941.0 ml 1926.000 ml Output Total 750 ml 950 ml Balance 1191.0 ml 976.000 ml Intake Free Water 90 ml 100 ml IV Total 1275.0 ml 1130.000 ml Tube Feeding 576 ml 696 ml Output Urine Total 750 ml 950 ml # Bowel Movements 1 4 Objective PHYSICAL EXAMINATION: GENERAL: The patient is well-developed and well-nourished thin-appearing white male, who is currently tolerating nasal canula. HEENT: Eyes - pupils are equal and responsive to light and accommodation. Extraocular movements are intact. NECK: Supple without lymphadenopathy. CHEST: Crackles bilaterally with expiratory wheezes. ABDOMEN: Soft, nontender, and nondistended. Positive bowel sounds. No evidence of hepatosplenomegaly. Currently, no rebound or guarding noted. EXTREMITIES: Negative for clubbing, cyanosis, or edema. RECTAL/GENITAL: Not performed. NEUROLOGIC: Cranial nerves II through XII are grossly intact without focal deficits. Assessment/Plan Assessment/Plan ASSESSMENT: This is an 88-year-old white male. 1. Right lower lobe pneumonia. 2. Shortness of breath. 3. Fever. 4. Cerebrovascular disease. 5. Diabetes. 6. Parkinson disease. TREATMENT: 1. Right lower lobe pneumonia/shortness of breath. ?aspiration? A Pulmonary consultation has been obtained with Dr. Sade Morgan. Continue cefepime, flagyl and vancomycin per ID. See Infectious Disease consultation by Dr. Marte. 2. History of cerebrovascular disease. Continue aspirin as above. 3. Diabetes type 2. The patient has been started on NovoLog sliding scale. 4. Parkinson disease. Continue Sinemet as above. Jeremi Hayden MD Aug 18, 2018 18:28
--- NOTE | 2018-08-18 18:54 | Cardiology Progress Note ---
Assessment/Plan Assessment/Plan history of stroke pneumonia hypertension, abx for pneumonia, cardiac stable Subjective Subjective the patient is not verbal, no communication, slighlty more agitated Objective Last 24 Hour Vital Signs Date Time Temp Pulse Resp B/P (MAP) Pulse Ox O2 Delivery O2 Flow Rate FiO2 08/18/18 17:04 93 155/82 08/18/18 17:03 155/82 08/18/18 16:00 Nasal Cannula 3.0 08/18/18 16:00 98.1 93 18 155/82 (106) 98 08/18/18 16:00 94 08/18/18 12:00 Nasal Cannula 3.0 08/18/18 12:00 96 08/18/18 12:00 98.2 98 22 142/87 (105) 97 08/18/18 08:11 91 158/79 08/18/18 08:00 Nasal Cannula 3.0 08/18/18 08:00 105 08/18/18 08:00 98.1 91 15 158/79 (105) 91 08/18/18 07:50 98 Nasal Cannula 3.0 32 08/18/18 07:50 Nasal Cannula 3.0 32 08/18/18 07:50 84 20 Nasal Cannula 3.0 32 08/18/18 04:00 Nasal Cannula 3.0 08/18/18 04:00 97.5 92 19 152/80 (104) 97 08/18/18 03:33 83 08/18/18 00:00 97.5 92 19 144/77 (99) 93 08/18/18 00:00 Nasal Cannula 3.0 08/17/18 23:41 86 08/17/18 20:05 98 Nasal Cannula 3.0 32 08/17/18 20:05 Nasal Cannula 3.0 32 08/17/18 20:05 81 20 Nasal Cannula 3.0 32 08/17/18 20:00 Nasal Cannula 3.0 08/17/18 20:00 97.2 93 18 143/76 (98) 97 08/17/18 19:42 96 General Appearance: agitated EENT: PERRL/EOMI Neck: no JVD Rhythm: NSR Cardiovascular: normal rate Respiratory/Chest: rhonchi - right Abdomen: soft Extremities: other Neurologic: aphasia, other - right hemiplegia Intake and Output 08/17/18 08/18/18 19:00 07:00 Intake Total 1941.0 ml 1926.000 ml Output Total 750 ml 950 ml Balance 1191.0 ml 976.000 ml Intake Free Water 90 ml 100 ml IV Total 1275.0 ml 1130.000 ml Tube Feeding 576 ml 696 ml Output Urine Total 750 ml 950 ml # Bowel Movements 1 4 Laboratory Tests Test 08/17/18 20:15 08/18/18 01:00 08/18/18 04:05 Stool Occult Blood Positive (NEGATIVE) Vancomycin Level Trough 14.0 ug/mL (5.0-12.0) H White Blood Count 9.9 K/UL (4.8-10.8) Red Blood Count 3.34 M/UL (4.70-6.10) L Hemoglobin 9.4 G/DL (14.2-18.0) L Hematocrit 29.4 % (42.0-52.0) L Mean Corpuscular Volume 88 FL (80-99) Mean Corpuscular Hemoglobin 28.1 PG (27.0-31.0) Mean Corpuscular Hemoglobin Concent 31.9 G/DL (32.0-36.0) L Red Cell Distribution Width 16.1 % (11.6-14.8) H Platelet Count 411 K/UL (150-450) Mean Platelet Volume 7.1 FL (6.5-10.1) Neutrophils (%) (Auto) 78.9 % (45.0-75.0) H Lymphocytes (%) (Auto) 13.1 % (20.0-45.0) L Monocytes (%) (Auto) 6.8 % (1.0-10.0) Eosinophils (%) (Auto) 0.8 % (0.0-3.0) Basophils (%) (Auto) 0.5 % (0.0-2.0) Sodium Level 150 MMOL/L (136-145) H Potassium Level 3.4 MMOL/L (3.5-5.1) L Chloride Level 117 MMOL/L (98-107) H Carbon Dioxide Level 23 MMOL/L (21-32) Anion Gap 10 mmol/L (5-15) Blood Urea Nitrogen 29 mg/dL (7-18) H Creatinine 1.1 MG/DL (0.55-1.30) Estimat Glomerular Filtration Rate mL/min (>60) Glucose Level 216 MG/DL (74-106) H Calcium Level 9.0 MG/DL (8.5-10.1) Phosphorus Level 4.0 MG/DL (2.5-4.9) C-Reactive Protein, Quantitative 6.0 mg/dL (0.00-0.90) H Ella Love MD Aug 18, 2018 18:54
[2018-08-18 18:59] LABS: APPEARANCE,URINE CLOUDY; BILIRUBIN, URINE NEGATIVE (NEGATIVE); COLOR,URINE PALE YELLOW; GLUCOSE, URINE (UA) NEGATIVE (NEGATIVE); KETONES,URINE NEGATIVE (NEGATIVE); LEUKOCYTE ESTERASE ,URINE 3+ (NEGATIVE); NITRITE,URINE NEGATIVE (NEGATIVE); PH,URINE 5 (4.5-8.0); PROTEIN,URINE 2+ (NEGATIVE); UROBILINOGEN,URINE NORMAL MG/DL (0.0-1.0)
--- NOTE | 2018-08-18 19:34 | NUR ---
HAND-OFF: Report given to Radha Ellis RN. Pt in stable condition. No cardiopulmonary distress noted. Pt cleaned and turned. Oral care performed. Pt stable at this time. Bed in lowest position. Side rails up x 3. Call light within reach.
--- NOTE | 2018-08-18 19:40 | NUR ---
NURSE NOTES: Report received from LIA Donis. Pt A/Ox1. composition instructor shows SR. Pt currently on 3LNC. Shows no signs of cardiac or respiratory distress. Pt has an NGT present on the R nare with glucerna 1.2 running at 58 ml/hr. Isaac catheter present for retention, patent and draining appropriately. Accuchecks ACHS. See WCP for skin alteration. Pt has a LH20g with 1/2 [id number] running at 50 ml/hr. Left wrist restraints present. Skin is intact around area and no swelling or redness noted. Bed in lowest position, bed alarms placed, call light within reach. Will continue to monitor and with patients plan of care.
[2018-08-18 20:00] VITALS: BP 160/100
[2018-08-18] MEDS: Cefepime HCl 1 GM in D5W 55 ML IV SCH (20:57)
[2018-08-19] VITALS: BP 153/85
[2018-08-19] MEDS: Vancomycin 1gm in D5W 275ml IVPB SCH (01:08)
[2018-08-19 04:00] VITALS: BP 147/92
[2018-08-19 04:48] LABS: BASOPHILS % (AUTO) 0.6 % (0.0-2.0); HEMATOCRIT 27.9 % (42.0-52.0); HEMOGLOBIN 8.6 G/DL (14.2-18.0); LYMPHOCYTES % (AUTO) 13.6 % (20.0-45.0); MEAN CORPUSCULAR VOLUME 89 FL (80-99); MONOCYTES % (AUTO) 6.5 % (1.0-10.0); NEUTROPHILS % (AUTO) 78.2 % (45.0-75.0); PLATELET COUNT 343 K/UL (150-450); RED BLOOD COUNT 3.14 M/UL (4.70-6.10); WHITE BLOOD COUNT 11.2 K/UL (4.8-10.8)
[2018-08-19 05:27] LABS: ALANINE AMINOTRANSFERASE 18 U/L (12-78); ALBUMIN/GLOBULIN RATIO 0.5 (1.0-2.7); ALKALINE PHOSPHATASE 61 U/L (46-116); ANION GAP 7 mmol/L (5-15); ASPARTATE AMINO TRANSFERASE 23 U/L (15-37); BILIRUBIN,TOTAL 0.2 MG/DL (0.2-1.0); BLOOD UREA NITROGEN 27 mg/dL (7-18); CALCIUM 8.9 MG/DL (8.5-10.1); CARBON DIOXIDE 25 MMOL/L (21-32); CHLORIDE 118 MMOL/L (98-107); PHOSPHORUS 2.1 MG/DL (2.5-4.9); POTASSIUM 3.5 MMOL/L (3.5-5.1); SODIUM 150 MMOL/L (136-145)
[2018-08-19] MEDS: NovoLOG Insulin Flexpen SUBQ SCH ×4 (05:32→20:27)
--- NOTE | 2018-08-19 07:20 | NUR ---
NURSE NOTES: RECEIVED PATIENT FROM Elda WHITE RN. PATIENT IS LYING IN BED, AWAKE BUT CONFUSED. HOOKED TO FRONT OFFICE SUPERVISOR. ON 3L NC. NO SIGNS OF DISTRESS. NGT ON R NARE WITH TUBE FEEDING RUNNING GLUCERNA 1.2 AT 58CC/HR. LANTIGUA FOR RETENTION. ON OVERLAY MATTRESS. IV ON L FA G20 WITH IVF RUNNING 1/2NS + 20MEQS KCL AT 50CC/HR. CALL LIGHT WITHIN REACH. BED AT LOWEST POSITION. SIDE RAILS UP. WILL CONTINUE TO MONITOR.
[2018-08-19 08:00] VITALS: BP 146/81
[2018-08-19] MEDS: Pantoprazole Inj IVP SCH ×2 (08:06→20:24)
[2018-08-19] MEDS: Azithromycin 500 MG in D5W 275 ML IV SCH (08:06)
[2018-08-19] MEDS: Heparin 5000 units/ml inj SUBQ SCH (08:07)
--- NOTE | 2018-08-19 09:00 | NUR ---
NURSE NOTES: SEEN AND EXAMINED BY DR CHARLES AND DR YEAGER WITH NEW ORDERS. WILL CONTINUE TO MONITOR.
--- NOTE | 2018-08-19 10:28 | NUR ---
RADIOLOGY DEPT CHEST X-RAY DONE.-P.DYE
[2018-08-19] MEDS ORDERED: Potassium Phosphate 20 MM in NS 275 ML IV ONE ×2 (11:00→14:00)
--- NOTE | 2018-08-19 11:08 | Pulmonology Progress Note ---
Assessment/Plan Problems: (1) Acute respiratory failure (2) Aspiration pneumonia (3) ATN (acute tubular necrosis) Assessment/Plan improving bun/creatine decreasing, almost normal didn't pass swallow study continue NG tube feeding check electrolytes respiratory treatment check echocardiogram f/u troponin level failed swallow study, doesn't want Gtube GI called for positive OB Subjective ROS Limited/Unobtainable: Yes Interval Events: open eyes, comfortable, has NG tube feeding Allergies: Coded Allergies: No Known Allergies (Unverified , 08/14/18) Objective Last 24 Hour Vital Signs Date Time Temp Pulse Resp B/P (MAP) Pulse Ox O2 Delivery O2 Flow Rate FiO2 08/19/18 08:04 91 141/81 08/19/18 08:00 98.5 90 17 146/81 (102) 98 08/19/18 08:00 Nasal Cannula 3.0 08/19/18 06:48 99 Nasal Cannula 2.0 28 08/19/18 06:48 Nasal Cannula 2.0 28 08/19/18 06:48 94 18 Nasal Cannula 2.0 28 08/19/18 04:00 84 08/19/18 04:00 98.6 98 22 147/92 (110) 100 08/19/18 04:00 Nasal Cannula 3.0 08/19/18 00:00 96 08/19/18 00:00 Nasal Cannula 3.0 08/19/18 00:00 98.6 95 19 153/85 (107) 96 08/18/18 21:30 Nasal Cannula 3.0 32 08/18/18 21:29 79 20 Nasal Cannula 3.0 32 08/18/18 21:29 97 Nasal Cannula 3.0 32 08/18/18 20:00 98.1 93 26 160/100 (120) 98 08/18/18 20:00 94 08/18/18 20:00 Nasal Cannula 3.0 08/18/18 17:04 93 155/82 08/18/18 17:03 155/82 08/18/18 16:00 Nasal Cannula 3.0 08/18/18 16:00 98.1 93 18 155/82 (106) 98 08/18/18 16:00 94 08/18/18 12:00 Nasal Cannula 3.0 08/18/18 12:00 96 08/18/18 12:00 98.2 98 22 142/87 (105) 97 Intake and Output 08/18/18 08/19/18 19:00 07:00 Intake Total 1521 ml 1668.000 ml Output Total 850 ml 650 ml Balance 671 ml 1018.000 ml Intake Free Water 300 ml 100 ml IV Total 525 ml 930.000 ml Tube Feeding 696 ml 638 ml Output Urine Total 850 ml 650 ml # Bowel Movements 9 2 General Appearance: cachetic HEENT: normocephalic, atraumatic Respiratory/Chest: chest wall non-tender, lungs clear Cardiovascular: normal peripheral pulses, normal rate Abdomen: normal bowel sounds, soft, non tender Genitourinary: normal external genitalia Skin: no rash Neurologic/Psychiatric: director of respiratory therapy II-XII grossly normal Lymphatic: no neck adenopathy Microbiology Date/Time Source Procedure Growth Status 08/17/18 03:45 Blood Blood Culture - Preliminary NO GROWTH AFTER 24 HOURS Resulted 08/17/18 03:40 Blood Blood Culture - Preliminary NO GROWTH AFTER 24 HOURS Resulted 08/18/18 03:10 Sputum Gram Stain Pending Resulted 08/18/18 03:10 Sputum Culture - Preliminary Gram Negative Bacillus 1 Resulted 08/18/18 18:00 Indwelling Cath Urine Culture - Preliminary NO GROWTH Resulted Laboratory Tests 08/18/18 18:00: Urine Color Pale yellow, Urine Appearance Cloudy, Urine pH 5, Urine Specific [place] 1.015, Urine Protein 2+H, Urine Glucose (UA) Negative, Urine Ketones Negative, Urine Blood 3+H, Urine Nitrite Negative, Urine Bilirubin Negative, Urine Urobilinogen Normal, Urine Leukocyte Esterase 3+H, Urine RBC 0-2H, Urine WBC 30-40H, Urine Squamous Epithelial Cells Occasional, Urine Amorphous Sediment ManyH, Urine Bacteria Few, Urine Yeast ManyH 08/19/18 03:15: White Blood Count 11.2H, Red Blood Count 3.14L, Hemoglobin 8.6L, Hematocrit 27.9L, Mean Corpuscular Volume 89, Mean Corpuscular Hemoglobin 27.6, Mean Corpuscular Hemoglobin Concent 30.9L, Red Cell Distribution Width 16.0H, Platelet Count 343, Mean Platelet Volume 6.4L, Neutrophils (%) (Auto) 78.2H, Lymphocytes (%) (Auto) 13.6L, Monocytes (%) (Auto) 6.5, Eosinophils (%) (Auto) 1.0, Basophils (%) (Auto) 0.6, Sodium Level 150H, Potassium Level 3.5, Chloride Level 118H, Carbon Dioxide Level 25, Anion Gap 7, Blood Urea Nitrogen 27H, Creatinine 1.0, Estimat Glomerular Filtration Rate , Glucose Level 256H, Calcium Level 8.9, Phosphorus Level 2.1L, Magnesium Level 1.7L, Total Bilirubin 0.2, Aspartate Amino Transf (AST/SGOT) 23, Alanine Aminotransferase (ALT/SGPT) 18, Alkaline Phosphatase 61, Pro-B-Type Natriuretic Peptide 48441U, Total Protein 5.7L, Albumin 2.0L, Globulin 3.7, Albumin/Globulin Ratio 0.5L, Prostate Specific Antigen < 0.10L Current Medications Medications (Trade) Dose Ordered Sig/Jese Route PRN Reason Start Time Stop Time Status Last Admin Dose Admin Acetaminophen (Tylenol) 650 mg Q4H PRN ORAL fever 08/14/18 22:30 09/13/18 22:29 Albuterol/ Ipratropium (Albuterol/ Ipratropium) 3 ml Q4H PRN HHN Shortness of Breath 08/17/18 10:30 08/22/18 10:29 Amlodipine Besylate (Norvasc) 5 mg BID NG 08/16/18 18:00 09/15/18 17:59 08/19/18 08:04 Azithromycin 500 mg/Dextrose 275 ml @ 275 mls/hr Q24H IV 08/16/18 09:00 08/22/18 09:59 08/19/18 08:06 Cefepime HCl 1 gm/ Dextrose 55 ml @ 110 mls/hr Q24H IV 08/15/18 21:00 08/22/18 20:59 08/18/18 20:57 Dextrose (Dextrose 50%) 25 ml Q30M PRN IV Hypoglycemia 08/17/18 10:30 09/16/18 10:29 Dextrose (Dextrose 50%) 50 ml Q30M PRN IV Hypoglycemia 08/17/18 10:30 09/16/18 10:29 Heparin Sodium (Porcine) (Heparin 5000 units/ml) 5,000 units EVERY 12 HOURS SUBQ 08/15/18 09:00 09/14/18 08:59 08/18/18 08:14 Insulin Aspart (NovoLOG) BEFORE MEALS AND HS SUBQ 08/17/18 11:30 09/16/18 11:29 08/19/18 05:32 Magnesium Sulfate 100 ml @ 100 mls/hr Q1H IVPB 08/19/18 10:00 08/19/18 13:59 Metronidazole 100 ml @ 100 mls/hr Q8HR IVPB 08/16/18 15:00 08/23/18 14:59 08/19/18 05:30 Nitroglycerin (Ntg) 0.4 mg Q5M PRN SL Prn Chest Pain 08/14/18 22:30 09/13/18 22:29 Nitroglycerin (Ntg) 1 patch Q24H TDERMAL 08/16/18 16:00 09/15/18 15:59 08/18/18 17:03 Ondansetron HCl (Zofran) 4 mg Q6H PRN IVP Nausea & Vomiting 08/14/18 22:30 09/13/18 22:29 Oseltamivir Phosphate (Tamiflu) 30 mg BID ORAL 08/17/18 18:00 08/21/18 09:01 08/19/18 08:06 Pantoprazole (Protonix) 40 mg EVERY 12 HOURS IVP 08/15/18 21:00 09/14/18 20:59 08/19/18 08:06 Polyethylene Glycol (Miralax) 17 gm DAILYPRN PRN ORAL Constipation 08/14/18 22:30 09/13/18 22:29 Potassium Phosphate 20 mm/ Sodium Chloride 281.6667 ml @ 46.944 m... ONCE ONCE IV 08/19/18 11:00 08/19/18 16:59 Potassium Chloride (K-Dur) 20 meq THREE TIMES A DAY NG 08/17/18 13:00 09/16/18 12:59 08/19/18 08:06 Promethazine HCl/ Codeine (Phenergan with Codeine) 5 ml Q4H PRN ORAL For Cough 08/14/18 22:30 09/13/18 22:29 Sodium 1,000 ml @ 50 mls/hr Q20H IV 08/18/18 17:30 09/17/18 17:29 08/18/18 17:02 Temazepam (Restoril) 15 mg HSPRN PRN ORAL Insomnia 08/14/18 22:30 08/21/18 22:29 Vancomycin HCl (Vanco rx to dose) 1 ea DAILY PRN MISC Per rx protocol 08/14/18 22:30 09/13/18 22:29 Vancomycin HCl 1 gm/Dextrose 275 ml @ 183.708 mls/hr Q24H IVPB 08/15/18 02:00 08/20/18 23:59 08/19/18 01:08 Sade Morgan MD Aug 19, 2018 11:08
--- NOTE | 2018-08-19 11:51 | NUR ---
RD ASSESSMENT & RECOMMENDATIONS SEE CARE ACTIVITY FOR COMPLETE ASSESSMENT DAILY ESTIMATED NEEDS: Needs based on Pulmonary, underweight 55.5kg 30-35 kcals/kg 1758-5677 total kcals 1-1.5 g protein/kg 56-83 g total protein 25-30ml/kcal mL/kg 9556-4355 total fluid mLs NUTRITION DIAGNOSIS: 1) Increased kcal and protein needs r/t underweight status as evidenced by pt w/ generalized moderate wasting, currently 82% of Idal Body Weight. 2) Swallowing difficulty r/t clinical status cardiac history as evidenced by pt w/ PNA, h/o CVA, seen by OIL HOUSE ATTENDANT w/ recs for temp non oral feeds, on NGT feeding. 3) Altered nutrition related lab values R/T clinical condition, h/o DM as evidenced by elev Na (150), elev BNP (22821), low phos (2.1), low mag (1.7), elev BGs (200's). CURRENT TF:Glucerna 1.2 @58ml/hr x24 hrs ENTERAL NUTRITION RECOMMENDATIONS: Glucerna 1.2 @58ml/hr x24 hrs to provide 1392ml, 1670 kcal, 84g prot, 1121ml free H2O - Maintain current TF order - Flush per MD. HOB over 30 degrees ADDITIONAL RECOMMENDATIONS: 1) Weekly weights 2) Rec long acting insulin for improved BG control (BGs in 200's) 3) Monitor lytes, replete as needed (low K and mag) 4) Rec to DC 1/2NS IVF-> NA trending up .
--- NOTE | 2018-08-19 11:57 | NUR ---
NURSE NOTES:WOUND CARE NOTES:Pt noted to have incontinence associated dermatitis; Erythema with scattered satellite lesions and moisture denudements noted to suprapubis, scrotum and cleft of buttocks. Both heels are dry and easily blanchable.Pt is frail and all wound prevention protocols have been initiated.Pt has an APM with Paulette mattress on his bed .Positioned with pillows in bed with heels floated. Tx.Plan:Apply Triad to suprapubic area,scrotum and buttocks with each perineal care. Apply Moisture barrier paste to sacrum .Cover with Optifoam drsg .Change Q3days and prn. Apply Cavilon SKin Barrier to Thoracic Spine. Cover with Optifoam drsg Q7days and prn. Apply CavilonSkin Barrier to Heels.Cover with Optifoam drsg Q7days and prn. Reposition at least every 2hours or as tolerated. Off-load heels with pillow. APM/PAULETTE mattress.
[2018-08-19 12:00] VITALS: BP 155/89
--- NOTE | 2018-08-19 12:35 | Diagnostic Imaging Report ---
Indication: NG tube placement Comparison: None Single view of the abdomen obtained Findings: The proximal port and tip of the NG tube are both projected over the stomach lumen. Bowel gas pattern appears nonspecific. IMPRESSION: NG tube satisfactory position
--- NOTE | 2018-08-19 12:46 | NUR ---
TRANSFER TO FLOOR: Patient transferred to [facility] [place]. Report given to LIA Montero. No belongings and medications given to NOD. is seen at the bedside. Still with restraints on L wrist. No signs of distress. All questions answered. Endorsed accordingly.
--- NOTE | 2018-08-19 12:51 | Nephrology Progress Note ---
Assessment/Plan Problem List: (1) ATN (acute tubular necrosis) (2) Acute respiratory failure (3) Diabetes mellitus (4) Parkinson disease (5) Respiratory distress (6) Aspiration pneumonia Assessment 88 Y old male, presents with resp distress and aspiration pneumonia Renal failure, Mainly dehydration resolving ? Underlying CKD Low K , Low Na , Low Alb Parkinsons DM Plan Uro eval and trial to DC buckner? repeat ua and u c/s discussed with NGT Hydrate 2D Echo pending Antibiotics Avoid Nephrotoxics Per orders Subjective ROS Limited/Unobtainable: No Constitutional: Reports: malaise Objective Objective Last 24 Hour Vital Signs Date Time Temp Pulse Resp B/P (MAP) Pulse Ox O2 Delivery O2 Flow Rate FiO2 08/19/18 08:04 91 141/81 08/19/18 08:00 98.5 90 17 146/81 (102) 98 08/19/18 08:00 Nasal Cannula 3.0 08/19/18 06:48 99 Nasal Cannula 2.0 28 08/19/18 06:48 Nasal Cannula 2.0 28 08/19/18 06:48 94 18 Nasal Cannula 2.0 28 08/19/18 04:00 84 08/19/18 04:00 98.6 98 22 147/92 (110) 100 08/19/18 04:00 Nasal Cannula 3.0 08/19/18 00:00 96 08/19/18 00:00 Nasal Cannula 3.0 08/19/18 00:00 98.6 95 19 153/85 (107) 96 08/18/18 21:30 Nasal Cannula 3.0 32 08/18/18 21:29 79 20 Nasal Cannula 3.0 32 08/18/18 21:29 97 Nasal Cannula 3.0 32 08/18/18 20:00 98.1 93 26 160/100 (120) 98 08/18/18 20:00 94 08/18/18 20:00 Nasal Cannula 3.0 08/18/18 17:04 93 155/82 08/18/18 17:03 155/82 08/18/18 16:00 Nasal Cannula 3.0 08/18/18 16:00 98.1 93 18 155/82 (106) 98 08/18/18 16:00 94 Intake and Output 08/18/18 08/19/18 18:59 06:59 Intake Total 1571 ml 1726.000 ml Output Total 850 ml 650 ml Balance 721 ml 1076.000 ml Intake Free Water 300 ml 100 ml IV Total 575 ml 930.000 ml Tube Feeding 696 ml 696 ml Output Urine Total 850 ml 650 ml # Bowel Movements 9 2 Laboratory Tests 08/18/18 18:00: Urine Color Pale yellow, Urine Appearance Cloudy, Urine pH 5, Urine Specific [place] 1.015, Urine Protein 2+H, Urine Glucose (UA) Negative, Urine Ketones Negative, Urine Blood 3+H, Urine Nitrite Negative, Urine Bilirubin Negative, Urine Urobilinogen Normal, Urine Leukocyte Esterase 3+H, Urine RBC 0-2H, Urine WBC 30-40H, Urine Squamous Epithelial Cells Occasional, Urine Amorphous Sediment ManyH, Urine Bacteria Few, Urine Yeast ManyH 08/19/18 03:15: White Blood Count 11.2H, Red Blood Count 3.14L, Hemoglobin 8.6L, Hematocrit 27.9L, Mean Corpuscular Volume 89, Mean Corpuscular Hemoglobin 27.6, Mean Corpuscular Hemoglobin Concent 30.9L, Red Cell Distribution Width 16.0H, Platelet Count 343, Mean Platelet Volume 6.4L, Neutrophils (%) (Auto) 78.2H, Lymphocytes (%) (Auto) 13.6L, Monocytes (%) (Auto) 6.5, Eosinophils (%) (Auto) 1.0, Basophils (%) (Auto) 0.6, Sodium Level 150H, Potassium Level 3.5, Chloride Level 118H, Carbon Dioxide Level 25, Anion Gap 7, Blood Urea Nitrogen 27H, Creatinine 1.0, Estimat Glomerular Filtration Rate , Glucose Level 256H, Calcium Level 8.9, Phosphorus Level 2.1L, Magnesium Level 1.7L, Total Bilirubin 0.2, Aspartate Amino Transf (AST/SGOT) 23, Alanine Aminotransferase (ALT/SGPT) 18, Alkaline Phosphatase 61, Pro-B-Type Natriuretic Peptide 40393J, Total Protein 5.7L, Albumin 2.0L, Globulin 3.7, Albumin/Globulin Ratio 0.5L, Prostate Specific Antigen < 0.10L Height (Feet): 5 Height (Inches): 7.00 Weight (Pounds): 121 General Appearance: no apparent distress Cardiovascular: tachycardia Respiratory/Chest: decreased breath sounds Abdomen: distended Hudson Huntley MD Aug 19, 2018 12:51
--- NOTE | 2018-08-19 12:52 | Infectious Diseases Prog Note ---
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 Will continue to follow along with you. Discussed with RN. Subjective Allergies: Coded Allergies: No Known Allergies (Unverified , 08/14/18) Subjective afebrile >48 hrs no leukocytosis bacteremic CONS; repeat Bcx p Objective Vital Signs Last 24 Hour Vital Signs Date Time Temp Pulse Resp B/P (MAP) Pulse Ox O2 Delivery O2 Flow Rate FiO2 08/19/18 08:04 91 141/81 08/19/18 08:00 98.5 90 17 146/81 (102) 98 08/19/18 08:00 Nasal Cannula 3.0 08/19/18 06:48 99 Nasal Cannula 2.0 28 08/19/18 06:48 Nasal Cannula 2.0 28 08/19/18 06:48 94 18 Nasal Cannula 2.0 28 08/19/18 04:00 84 08/19/18 04:00 98.6 98 22 147/92 (110) 100 08/19/18 04:00 Nasal Cannula 3.0 08/19/18 00:00 96 08/19/18 00:00 Nasal Cannula 3.0 08/19/18 00:00 98.6 95 19 153/85 (107) 96 08/18/18 21:30 Nasal Cannula 3.0 32 08/18/18 21:29 79 20 Nasal Cannula 3.0 32 08/18/18 21:29 97 Nasal Cannula 3.0 32 08/18/18 20:00 98.1 93 26 160/100 (120) 98 08/18/18 20:00 94 08/18/18 20:00 Nasal Cannula 3.0 08/18/18 17:04 93 155/82 08/18/18 17:03 155/82 08/18/18 16:00 Nasal Cannula 3.0 08/18/18 16:00 98.1 93 18 155/82 (106) 98 08/18/18 16:00 94 Height (Feet): 5 Height (Inches): 7.00 Weight (Pounds): 121 Objective General Appearance: alert, thin, Chronically Ill ENT: moist mucus membranes Neck: limited range of motion Respiratory: decreased breath sounds - left side, right side crackles Cardiovascular #1: normal inspection, normal peripheral pulses, regular rate, rhythm Musculoskeletal: decreased range of motion, other - motor weakness Neurologic: alert, motor weakness Psychiatric: depressed affect Skin: other Microbiology Date/Time Source Procedure Growth Status 08/17/18 03:45 Blood Blood Culture - Preliminary NO GROWTH AFTER 24 HOURS Resulted 08/17/18 03:40 Blood Blood Culture - Preliminary NO GROWTH AFTER 24 HOURS Resulted 08/18/18 03:10 Sputum Gram Stain Pending Resulted 08/18/18 03:10 Sputum Culture - Preliminary Gram Negative Bacillus 1 Resulted 08/18/18 18:00 Indwelling Cath Urine Culture - Preliminary NO GROWTH Resulted Laboratory Tests Test 08/18/18 18:00 08/19/18 03:15 Urine Color Pale yellow Urine Appearance Cloudy Urine pH 5 (4.5-8.0) Urine Specific [place] 1.015 (1.005-1.035) Urine Protein 2+ (NEGATIVE) H Urine Glucose (UA) Negative (NEGATIVE) Urine Ketones Negative (NEGATIVE) Urine Blood 3+ (NEGATIVE) H Urine Nitrite Negative (NEGATIVE) Urine Bilirubin Negative (NEGATIVE) Urine Urobilinogen Normal MG/DL (0.0-1.0) Urine Leukocyte Esterase 3+ (NEGATIVE) H Urine RBC 0-2 /HPF (0 - 0) H Urine WBC 30-40 /HPF (0 - 0) H Urine Squamous Epithelial Cells Occasional /LPF Urine Amorphous Sediment Many /LPF (NONE) H Urine Bacteria Few /HPF (NONE) Urine Yeast Many /HPF (NONE) H White Blood Count 11.2 K/UL (4.8-10.8) H Red Blood Count 3.14 M/UL (4.70-6.10) L Hemoglobin 8.6 G/DL (14.2-18.0) L Hematocrit 27.9 % (42.0-52.0) L Mean Corpuscular Volume 89 FL (80-99) Mean Corpuscular Hemoglobin 27.6 PG (27.0-31.0) Mean Corpuscular Hemoglobin Concent 30.9 G/DL (32.0-36.0) L Red Cell Distribution Width 16.0 % (11.6-14.8) H Platelet Count 343 K/UL (150-450) Mean Platelet Volume 6.4 FL (6.5-10.1) L Neutrophils (%) (Auto) 78.2 % (45.0-75.0) H Lymphocytes (%) (Auto) 13.6 % (20.0-45.0) L Monocytes (%) (Auto) 6.5 % (1.0-10.0) Eosinophils (%) (Auto) 1.0 % (0.0-3.0) Basophils (%) (Auto) 0.6 % (0.0-2.0) Sodium Level 150 MMOL/L (136-145) H Potassium Level 3.5 MMOL/L (3.5-5.1) Chloride Level 118 MMOL/L (98-107) H Carbon Dioxide Level 25 MMOL/L (21-32) Anion Gap 7 mmol/L (5-15) Blood Urea Nitrogen 27 mg/dL (7-18) H Creatinine 1.0 MG/DL (0.55-1.30) Estimat Glomerular Filtration Rate mL/min (>60) Glucose Level 256 MG/DL (74-106) H Calcium Level 8.9 MG/DL (8.5-10.1) Phosphorus Level 2.1 MG/DL (2.5-4.9) L Magnesium Level 1.7 MG/DL (1.8-2.4) L Total Bilirubin 0.2 MG/DL (0.2-1.0) Aspartate Amino Transf (AST/SGOT) 23 U/L (15-37) Alanine Aminotransferase (ALT/SGPT) 18 U/L (12-78) Alkaline Phosphatase 61 U/L (46-116) Pro-B-Type Natriuretic Peptide 50206 pg/mL (0-125) H Total Protein 5.7 G/DL (6.4-8.2) L Albumin 2.0 G/DL (3.4-5.0) L Globulin 3.7 g/dL Albumin/Globulin Ratio 0.5 (1.0-2.7) L Prostate Specific Antigen < 0.10 ng/mL (0.13-4.0) L Current Medications Medications (Trade) Dose Ordered Sig/Jese Route PRN Reason Start Time Stop Time Status Last Admin Dose Admin Acetaminophen (Tylenol) 650 mg Q4H PRN ORAL fever 08/14/18 22:30 09/13/18 22:29 Albuterol/ Ipratropium (Albuterol/ Ipratropium) 3 ml Q4H PRN HHN Shortness of Breath 08/17/18 10:30 08/22/18 10:29 Amlodipine Besylate (Norvasc) 5 mg BID NG 08/16/18 18:00 09/15/18 17:59 08/19/18 08:04 Azithromycin 500 mg/Dextrose 275 ml @ 275 mls/hr Q24H IV 08/16/18 09:00 08/22/18 09:59 08/19/18 08:06 Cefepime HCl 1 gm/ Dextrose 55 ml @ 110 mls/hr Q24H IV 08/15/18 21:00 08/22/18 20:59 08/18/18 20:57 Dextrose (Dextrose 50%) 25 ml Q30M PRN IV Hypoglycemia 08/17/18 10:30 09/16/18 10:29 Dextrose (Dextrose 50%) 50 ml Q30M PRN IV Hypoglycemia 08/17/18 10:30 09/16/18 10:29 Insulin Aspart (NovoLOG) BEFORE MEALS AND HS SUBQ 08/17/18 11:30 09/16/18 11:29 08/19/18 12:07 Magnesium Sulfate 100 ml @ 100 mls/hr Q1H IVPB 08/19/18 10:00 08/19/18 13:59 08/19/18 11:55 Metronidazole 100 ml @ 100 mls/hr Q8HR IVPB 08/16/18 15:00 08/23/18 14:59 08/19/18 05:30 Nitroglycerin (Ntg) 1 patch Q24H TDERMAL 08/16/18 16:00 09/15/18 15:59 08/18/18 17:03 Ondansetron HCl (Zofran) 4 mg Q6H PRN IVP Nausea & Vomiting 08/14/18 22:30 09/13/18 22:29 Oseltamivir Phosphate (Tamiflu) 30 mg BID ORAL 08/17/18 18:00 08/21/18 09:01 08/19/18 08:06 Pantoprazole (Protonix) 40 mg EVERY 12 HOURS IVP 08/15/18 21:00 09/14/18 20:59 08/19/18 08:06 Potassium Phosphate 20 mm/ Sodium Chloride 281.6667 ml @ 46.944 m... ONCE ONCE IV 08/19/18 14:00 08/19/18 19:59 Potassium Chloride (K-Dur) 20 meq THREE TIMES A DAY NG 08/17/18 13:00 09/16/18 12:59 08/19/18 12:03 Sodium 1,000 ml @ 50 mls/hr Q20H IV 08/18/18 17:30 09/17/18 17:29 08/18/18 17:02 Vancomycin HCl (Vanco rx to dose) 1 ea DAILY PRN MISC Per rx protocol 08/14/18 22:30 09/13/18 22:29 Vancomycin HCl 1 gm/Dextrose 275 ml @ 183.708 mls/hr Q24H IVPB 08/15/18 02:00 08/20/18 23:59 08/19/18 01:08 Nuria Marte M.D. Aug 19, 2018 12:52
--- NOTE | 2018-08-19 13:04 | Diagnostic Imaging Report ---
Indication: Dyspnea Comparison: 08/16/2018 A single view chest radiograph was obtained. Findings: Lung volumes are low. Patchy interstitial pneumonitis versus interstitial edema demonstrated. Heart size is stable. NG tube is in the midesophagus and the tube should be removed or advanced into the stomach. There is an old fracture of the right humerus. IMPRESSION: Interstitial edema versus pneumonitis. Nasogastric tube is in the midesophagus and should be removed
--- NOTE | 2018-08-19 13:07 | NUR ---
NURSE NOTES: Patient transferred from [facility]. Report received from [facility]. Patient has no belongings. Patient is on p200 mattress. HOB is elevated. Tube feeding is at goal rate 58 ml/hr. Will continue to monitor.
[2018-08-19] MEDS ORDERED: Albuterol/Ipratropium 3ml neb HHN PRN (13:12)
--- NOTE | 2018-08-19 14:35 | NUR ---
NURSE NOTES: Patient noted to have left soft wrist restraint r/t patient trying to remove NG tube and IV catheter.
--- NOTE | 2018-08-19 14:50 | GI Initial Consult Note ---
History of Present Illness General Date patient seen: Aug 19, 2018 Time patient seen: 14:45 Reason for Hospitalization: Dyspnea/Respdistress Referring physician: CLAUDIA HARTLEY Reason for Consultation: OB STOOL POSITIVE Present Illness HPI The patient is an 88-year-old white male, presents with a chief complaint of shortness of breath and fever. The patient has been having cough and increased congestion for several days. The patient began to have increasing shortness of breath. The patient was noted to have fever of 102 degrees Fahrenheit at home. The patient presented to [place] emergency room. The patient is admitted for shortness of breath and fever to rule out aspiration pneumonia. GI consulted for occult blood stool positive. Patient seen, awake alert no apparent distress with no active signs or symptoms of nausea or vomiting. Patient currently on nasal cannula. Labs are reviewed, the patient presents with normocytic anemia with hemoglobin 8.6. Has been downtrending for the past couple days, hemoglobin 10.5 approximately 3 days ago. Unknown history of endoscopic or colonoscopy at this time. Home Meds Reported Medications Venlafaxine Hcl* (VENLAFAXINE HCL ER) 75 Mg Cap.er.24h, 225 MG ORAL DAILY, CAP 08/15/18 Quetiapine Fumarate (QUETIAPINE FUMARATE) 300 Mg Tablet, ORAL QHS, TAB 08/15/18 Carbidopa/Levodopa 25-100 Mg* (SINEMET 25-100 MG TABLET*) 1 Each Tablet, 1 TAB ORAL THREE TIMES A DAY, TAB 08/15/18 Citalopram Hydrobromide (CELEXA) 10 Mg Tablet, ORAL DAILY, TAB 08/15/18 Clonazepam (CLONAZEPAM) 0.5 Mg Tablet, PO EVERY 12 HOURS, TAB 08/15/18 Gabapentin (Neurontin) 300 Mg Capsule, ORAL, #7 CAP 0 Refills 08/15/18 Discontinued Reported Medications Metformin Hcl (METFORMIN HCL ER) 500 Mg Tab.er.24h, 850 MG ORAL DAILY, TAB 08/15/18 Allergies: Coded Allergies: No Known Allergies (Unverified , 08/14/18) Patient History History Provided By: Patient, Medical Record [facility] Narrative PAST MEDICAL HISTORY: Significant for: 1. Diabetes type 2. 2. Parkinson disease. 3. Cerebrovascular disease, status post cerebrovascular accident in 2010. PAST SURGICAL HISTORY: The patient denies. Social History: Denies: smoking, alcohol use, drug use, other Review of Systems All Other Systems: limited Physical Exam Vital Signs Date Time Temp Pulse Resp B/P (MAP) Pulse Ox O2 Delivery O2 Flow Rate FiO2 08/15/18 07:47 79 32 100 Facial 50 08/15/18 08:00 8.0 08/15/18 08:00 98.1 132/71 (91) Sp02 EP Interpretation: reviewed, normal Labs Laboratory Tests Test 08/18/18 18:00 08/19/18 03:15 Urine Color Pale yellow Urine Appearance Cloudy Urine pH 5 (4.5-8.0) Urine Specific [place] 1.015 (1.005-1.035) Urine Protein 2+ (NEGATIVE) H Urine Glucose (UA) Negative (NEGATIVE) Urine Ketones Negative (NEGATIVE) Urine Blood 3+ (NEGATIVE) H Urine Nitrite Negative (NEGATIVE) Urine Bilirubin Negative (NEGATIVE) Urine Urobilinogen Normal MG/DL (0.0-1.0) Urine Leukocyte Esterase 3+ (NEGATIVE) H Urine RBC 0-2 /HPF (0 - 0) H Urine WBC 30-40 /HPF (0 - 0) H Urine Squamous Epithelial Cells Occasional /LPF Urine Amorphous Sediment Many /LPF (NONE) H Urine Bacteria Few /HPF (NONE) Urine Yeast Many /HPF (NONE) H White Blood Count 11.2 K/UL (4.8-10.8) H Red Blood Count 3.14 M/UL (4.70-6.10) L Hemoglobin 8.6 G/DL (14.2-18.0) L Hematocrit 27.9 % (42.0-52.0) L Mean Corpuscular Volume 89 FL (80-99) Mean Corpuscular Hemoglobin 27.6 PG (27.0-31.0) Mean Corpuscular Hemoglobin Concent 30.9 G/DL (32.0-36.0) L Red Cell Distribution Width 16.0 % (11.6-14.8) H Platelet Count 343 K/UL (150-450) Mean Platelet Volume 6.4 FL (6.5-10.1) L Neutrophils (%) (Auto) 78.2 % (45.0-75.0) H Lymphocytes (%) (Auto) 13.6 % (20.0-45.0) L Monocytes (%) (Auto) 6.5 % (1.0-10.0) Eosinophils (%) (Auto) 1.0 % (0.0-3.0) Basophils (%) (Auto) 0.6 % (0.0-2.0) Sodium Level 150 MMOL/L (136-145) H Potassium Level 3.5 MMOL/L (3.5-5.1) Chloride Level 118 MMOL/L (98-107) H Carbon Dioxide Level 25 MMOL/L (21-32) Anion Gap 7 mmol/L (5-15) Blood Urea Nitrogen 27 mg/dL (7-18) H Creatinine 1.0 MG/DL (0.55-1.30) Estimat Glomerular Filtration Rate mL/min (>60) Glucose Level 256 MG/DL (74-106) H Calcium Level 8.9 MG/DL (8.5-10.1) Phosphorus Level 2.1 MG/DL (2.5-4.9) L Magnesium Level 1.7 MG/DL (1.8-2.4) L Total Bilirubin 0.2 MG/DL (0.2-1.0) Aspartate Amino Transf (AST/SGOT) 23 U/L (15-37) Alanine Aminotransferase (ALT/SGPT) 18 U/L (12-78) Alkaline Phosphatase 61 U/L (46-116) Pro-B-Type Natriuretic Peptide 97103 pg/mL (0-125) H Total Protein 5.7 G/DL (6.4-8.2) L Albumin 2.0 G/DL (3.4-5.0) L Globulin 3.7 g/dL Albumin/Globulin Ratio 0.5 (1.0-2.7) L Prostate Specific Antigen < 0.10 ng/mL (0.13-4.0) L General Appearance: well appearing, no apparent distress, alert Head: normocephalic EENT: PERRL/EOMI, normal ENT inspection Neck: supple Respiratory: normal breath sounds, no respiratory distress Cardiovascular: normal rate Gastrointestinal: normal inspection, non tender, soft, normal bowel sounds, non -distended Rectal: deferred Genitourinary: deferred Musculoskeletal: normal inspection, back normal Neurologic: normal inspection, alert, oriented x3, responsive Psychiatric: normal inspection, judgement/insight normal, memory normal Skin: normal inspection, normal color, no rash, warm/dry, palpation normal, well hydrated Lymphatic: normal inspection, no adenopathy Current Medications Current Medications Medications (Trade) Dose Ordered Sig/Jese Route PRN Reason Start Time Stop Time Status Last Admin Dose Admin Acetaminophen (Tylenol) 650 mg Q4H PRN ORAL fever 08/19/18 13:11 09/13/18 13:10 Albuterol/ Ipratropium (Albuterol/ Ipratropium) 3 ml Q4H PRN HHN Shortness of Breath 08/19/18 13:12 08/22/18 13:11 Amlodipine Besylate (Norvasc) 5 mg BID NG 08/19/18 18:00 09/15/18 17:59 Azithromycin 500 mg/Dextrose 275 ml @ 275 mls/hr Q24H IV 08/20/18 09:00 08/22/18 09:59 Cefepime HCl 1 gm/ Dextrose 55 ml @ 110 mls/hr Q24H IV 08/19/18 21:00 08/22/18 20:59 Dextrose (Dextrose 50%) 25 ml Q30M PRN IV Hypoglycemia 08/19/18 13:00 09/16/18 10:29 Dextrose (Dextrose 50%) 50 ml Q30M PRN IV Hypoglycemia 08/19/18 13:00 09/16/18 10:29 Insulin Aspart (NovoLOG) BEFORE MEALS AND HS SUBQ 08/19/18 16:30 09/16/18 11:29 Magnesium Sulfate 100 ml @ 100 mls/hr Q1H IVPB 08/19/18 13:30 08/19/18 15:29 08/19/18 14:29 Metronidazole 100 ml @ 100 mls/hr Q8HR IVPB 08/19/18 14:00 08/23/18 14:59 Nitroglycerin (Ntg) 1 patch Q24H TDERMAL 08/19/18 16:00 09/15/18 15:59 Ondansetron HCl (Zofran) 4 mg Q6H PRN IVP Nausea & Vomiting 08/19/18 16:30 09/13/18 22:29 Oseltamivir Phosphate (Tamiflu) 30 mg BID ORAL 08/19/18 18:00 08/21/18 09:01 Pantoprazole (Protonix) 40 mg EVERY 12 HOURS IVP 08/19/18 21:00 09/14/18 20:59 Potassium Phosphate 20 mm/ Sodium Chloride 281.6667 ml @ 46.944 m... ONCE IV 08/19/18 18:00 08/19/18 23:59 Potassium Chloride (K-Dur) 20 meq THREE TIMES A DAY NG 08/19/18 18:00 09/16/18 17:59 Sodium 1,000 ml @ 50 mls/hr Q20H IV 08/19/18 13:00 09/17/18 17:29 Vancomycin HCl (Vanco rx to dose) 1 ea DAILY PRN MISC Per rx protocol 08/20/18 09:00 09/19/18 08:59 Vancomycin HCl 1 gm/Dextrose 275 ml @ 183.708 mls/hr Q24H IVPB 08/20/18 02:00 08/25/18 01:59 GI: Plan Problems: (1) Anemia (2) Family history of CVA (3) GI bleed Plan anemia work up reviewed EGD scheduled for tomorrow given positive occult blood stool and downtrending hemoglobin. Maintain the patient n.p.o. at midnight Hold all blood thinners tonight ST evaluation to remove NGT monitor H&H, prn transfusions bowel regime ppi fu labs We will follow with additional recommendations postprocedure Discussed with Dr. Og. Thank you for this patient referral, we will follow. The patient was seen and examined at bedside and all new and available data was reviewed in the patients chart. I agree with the above findings, impression and plan. (Patient seen earlier today. Signature stamp does not reflect patient encounter time.). - MD Hannah Hernandez,[facility] Aug 19, 2018 14:50
--- NOTE | 2018-08-19 15:33 | NUR ---
P.T Note: P.T evaluation completed and treatment initiated. Please refer to P.T evaluation for current functional status. Pt is alert, expressively aphasic, inconsistently follow simple one step commands with demonstrational cues. 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 Pt required MAX A X 2 to bed mobilities and sit to/from stand transfer mobility. Pt able to sit min MOD support and able to partially stand with MAX support x 2. Skilled P.T service is warranted to improve strength, balance, endurance to improve increase activity tolerance, safety and mobility independence. Recommend DC to SNF for further rehab or home with home P.T and 24 hr CG at DC. Thank you for this referral.
[2018-08-19 16:00] VITALS: BP 154/69
--- NOTE | 2018-08-19 17:04 | NUR ---
NURSE NOTES: Patient pulled NGT out. Michael CAMPAIGN COORDINATOR notified, no need to reinsert. New diet order received.
--- NOTE | 2018-08-19 17:21 | NUR ---
CASE MANAGEMENT: REVIEW 08/19/2018 SI: SEPSIS T 98.5 HR 93 RR 18 B/P 155/89 SATS 98% ON 3L/NC WBC 11.2 NA 150 CL 118 BUN 27 GLU 256 PHOS 2.1 MG 1.7 IS: TAMIFLU PO BID K-DUR NG TID K-PHOS IV @47.5ML/HR FLAGYL IV Q8HR STEP DOWN UNIT STATUS DCP: PATIENT IS FROM HOME
[2018-08-19] MEDS: 1/2NS w/KCl 20mEq 1000ml 1,000 ML IV SCH (17:43)
[2018-08-19] MEDS: Nitroglycerin Patch 0.4mg TDERMAL SCH (17:52)
[2018-08-19] MEDS ORDERED: Potassium Phosphate 20 MM in NS 275 ML IV SCH (18:00)
--- NOTE | 2018-08-19 19:17 | Internal Med Progress Note ---
Subjective Date of Service: Aug 19, 2018 Physician Name Jeremi Hayden Attending Physician Madhu Juarez MD Current Medications Medications (Trade) Dose Ordered Sig/Jese Route PRN Reason Start Time Stop Time Status Last Admin Dose Admin Acetaminophen (Tylenol) 650 mg Q4H PRN ORAL fever 08/19/18 13:11 09/13/18 13:10 Albuterol/ Ipratropium (Albuterol/ Ipratropium) 3 ml Q4H PRN HHN Shortness of Breath 08/19/18 13:12 08/22/18 13:11 Amlodipine Besylate (Norvasc) 5 mg BID NG 08/19/18 18:00 09/15/18 17:59 08/19/18 17:52 Azithromycin 500 mg/Dextrose 275 ml @ 275 mls/hr Q24H IV 08/20/18 09:00 08/22/18 09:59 Cefepime HCl 1 gm/ Dextrose 55 ml @ 110 mls/hr Q24H IV 08/19/18 21:00 08/22/18 20:59 Dextrose (Dextrose 50%) 25 ml Q30M PRN IV Hypoglycemia 08/19/18 13:00 09/16/18 10:29 Dextrose (Dextrose 50%) 50 ml Q30M PRN IV Hypoglycemia 08/19/18 13:00 09/16/18 10:29 Insulin Aspart (NovoLOG) BEFORE MEALS AND HS SUBQ 08/19/18 16:30 09/16/18 11:29 Metronidazole 100 ml @ 100 mls/hr Q8HR IVPB 08/19/18 14:00 08/23/18 14:59 08/19/18 17:42 Nitroglycerin (Ntg) 1 patch Q24H TDERMAL 08/19/18 16:00 09/15/18 15:59 08/19/18 17:52 Ondansetron HCl (Zofran) 4 mg Q6H PRN IVP Nausea & Vomiting 08/19/18 16:30 09/13/18 22:29 Oseltamivir Phosphate (Tamiflu) 30 mg BID ORAL 08/19/18 18:00 08/21/18 09:01 08/19/18 17:50 Pantoprazole (Protonix) 40 mg EVERY 12 HOURS IVP 08/19/18 21:00 09/14/18 20:59 Potassium Phosphate 20 mm/ Sodium Chloride 281.6667 ml @ 46.944 m... ONCE IV 08/19/18 18:00 08/19/18 23:59 08/19/18 18:52 Potassium Chloride (K-Dur) 20 meq THREE TIMES A DAY NG 08/19/18 18:00 09/16/18 17:59 08/19/18 17:50 Sodium 1,000 ml @ 50 mls/hr Q20H IV 08/19/18 13:00 09/17/18 17:29 08/19/18 17:43 Vancomycin HCl (Vanco rx to dose) 1 ea DAILY PRN MISC Per rx protocol 08/20/18 09:00 09/19/18 08:59 Vancomycin HCl 1 gm/Dextrose 275 ml @ 183.708 mls/hr Q24H IVPB 08/20/18 02:00 08/25/18 01:59 Allergies: Coded Allergies: No Known Allergies (Unverified , 08/14/18) ROS Limited/Unobtainable: Yes Subjective 88 YO M admitted with shortness of breath. Now aspiration pneumonia. Cover for Int Med-Dr Juarez. Tolerating nasal canula Objective Last Vital Signs Date Time Temp Pulse Resp B/P (MAP) Pulse Ox O2 Delivery O2 Flow Rate FiO2 08/19/18 17:52 146/77 08/19/18 17:52 86 08/19/18 16:00 97.1 20 97 08/19/18 12:00 Nasal Cannula 3.0 08/19/18 06:48 28 Laboratory Tests Test 08/19/18 03:15 White Blood Count 11.2 K/UL (4.8-10.8) H Red Blood Count 3.14 M/UL (4.70-6.10) L Hemoglobin 8.6 G/DL (14.2-18.0) L Hematocrit 27.9 % (42.0-52.0) L Mean Corpuscular Volume 89 FL (80-99) Mean Corpuscular Hemoglobin 27.6 PG (27.0-31.0) Mean Corpuscular Hemoglobin Concent 30.9 G/DL (32.0-36.0) L Red Cell Distribution Width 16.0 % (11.6-14.8) H Platelet Count 343 K/UL (150-450) Mean Platelet Volume 6.4 FL (6.5-10.1) L Neutrophils (%) (Auto) 78.2 % (45.0-75.0) H Lymphocytes (%) (Auto) 13.6 % (20.0-45.0) L Monocytes (%) (Auto) 6.5 % (1.0-10.0) Eosinophils (%) (Auto) 1.0 % (0.0-3.0) Basophils (%) (Auto) 0.6 % (0.0-2.0) Sodium Level 150 MMOL/L (136-145) H Potassium Level 3.5 MMOL/L (3.5-5.1) Chloride Level 118 MMOL/L (98-107) H Carbon Dioxide Level 25 MMOL/L (21-32) Anion Gap 7 mmol/L (5-15) Blood Urea Nitrogen 27 mg/dL (7-18) H Creatinine 1.0 MG/DL (0.55-1.30) Estimat Glomerular Filtration Rate mL/min (>60) Glucose Level 256 MG/DL (74-106) H Calcium Level 8.9 MG/DL (8.5-10.1) Phosphorus Level 2.1 MG/DL (2.5-4.9) L Magnesium Level 1.7 MG/DL (1.8-2.4) L Total Bilirubin 0.2 MG/DL (0.2-1.0) Aspartate Amino Transf (AST/SGOT) 23 U/L (15-37) Alanine Aminotransferase (ALT/SGPT) 18 U/L (12-78) Alkaline Phosphatase 61 U/L (46-116) Pro-B-Type Natriuretic Peptide 61198 pg/mL (0-125) H Total Protein 5.7 G/DL (6.4-8.2) L Albumin 2.0 G/DL (3.4-5.0) L Globulin 3.7 g/dL Albumin/Globulin Ratio 0.5 (1.0-2.7) L Prostate Specific Antigen < 0.10 ng/mL (0.13-4.0) L Microbiology Date/Time Source Procedure Growth Status 08/17/18 03:45 Blood Blood Culture - Preliminary NO GROWTH AFTER 24 HOURS Resulted 08/17/18 03:40 Blood Blood Culture - Preliminary NO GROWTH AFTER 24 HOURS Resulted 08/18/18 03:10 Sputum Gram Stain - Final Resulted 08/18/18 03:10 Sputum Culture - Preliminary Gram Negative Bacillus 1 Resulted 08/18/18 18:00 Indwelling Cath Urine Culture - Preliminary NO GROWTH Resulted Intake and Output 08/18/18 08/19/18 18:59 06:59 Intake Total 1571 ml 1726.000 ml Output Total 850 ml 650 ml Balance 721 ml 1076.000 ml Intake Free Water 300 ml 100 ml IV Total 575 ml 930.000 ml Tube Feeding 696 ml 696 ml Output Urine Total 850 ml 650 ml # Bowel Movements 9 2 Objective PHYSICAL EXAMINATION: GENERAL: The patient is well-developed and well-nourished thin-appearing white male, who is currently tolerating nasal canula. HEENT: Eyes - pupils are equal and responsive to light and accommodation. Extraocular movements are intact. NECK: Supple without lymphadenopathy. CHEST: Crackles bilaterally with expiratory wheezes. ABDOMEN: Soft, nontender, and nondistended. Positive bowel sounds. No evidence of hepatosplenomegaly. Currently, no rebound or guarding noted. EXTREMITIES: Negative for clubbing, cyanosis, or edema. RECTAL/GENITAL: Not performed. NEUROLOGIC: Cranial nerves II through XII are grossly intact without focal deficits. Assessment/Plan Assessment/Plan ASSESSMENT: This is an 88-year-old white male. 1. Right lower lobe pneumonia. 2. Shortness of breath. 3. Fever. 4. Cerebrovascular disease. 5. Diabetes. 6. Parkinson disease. TREATMENT: 1. Right lower lobe pneumonia/shortness of breath. ?aspiration? A Pulmonary consultation has been obtained with Dr. Sade Morgan. Continue cefepime, flagyl and vancomycin per ID. See Infectious Disease consultation by Dr. Marte. 2. History of cerebrovascular disease. Continue aspirin as above. 3. Diabetes type 2. The patient has been started on NovoLog sliding scale. 4. Parkinson disease. Continue Sinemet as above. Jeremi Hayden MD Aug 19, 2018 19:17
--- NOTE | 2018-08-19 19:31 | NUR ---
HAND-OFF: Report given to LIA Ordoñez.
--- NOTE | 2018-08-19 19:40 | NUR ---
NURSE NOTES: patient received. patient in no acute distress at this time. patient appears to be in no pain at this time. patient resting. patient confused. non verbal. IV intact and asymptomatic. Isaac draining and intact. soft restraint on left wrist and renewal was done. patient NPO after midnight. sign was put above bed. bed in lowest position and locked. call light within reach. will continue to monitor.
[2018-08-19 20:00] VITALS: BP 132/80
[2018-08-19] MEDS ORDERED: Cefepime HCl 1 GM in D5W 55 ML IV SCH (21:00)
--- NOTE | 2018-08-19 22:00 | Consultation ---
DATE OF CONSULTATION: 08/19/2018 CONSULTING PHYSICIAN: Salbador Yanez M.D. REFERRING PHYSICIANS: 1. Madhu Juarez M.D. 2. Hudson Huntley M.D. REASON FOR CONSULTATION: For evaluation of Isaac catheter. HISTORY OF PRESENT ILLNESS: This is an 88-year-old male. He was admitted to the hospital originally because of shortness of breath and fever. The patient has a history of BPH with indwelling Isaac and Urology evaluation was requested. Apparently, he has been followed at [facility] by another urologist and the patient does have a history of urethral stricture disease and difficult catheterization earlier this month. He had to have cystoscopy with dilation and placement of a Isaac in the hospital, which was apparently very difficult. Most of the history was obtained from the chart. PAST MEDICAL HISTORY: Significant for diabetes, Parkinson disease, and CVA. PAST SURGICAL HISTORY: Unknown. CURRENT MEDICATIONS: Here in the hospital, the patient is on azithromycin, vancomycin, cefepime, Protonix, potassium, Norvasc, Tamiflu, K-Dur, NovoLog, Zofran, nitroglycerin, metronidazole, albuterol, Tylenol, and dextrose. ALLERGIES: No known drug allergies. SOCIAL HISTORY: Smoking history is unknown. FAMILY HISTORY: Unable to obtain. PHYSICAL EXAMINATION: GENERAL: An elderly male. He does not appear in acute distress and nonverbal. VITAL SIGNS: Temperature is 97.1 and blood pressure 146/77. HEENT: Normocephalic. NECK: Supple. ABDOMEN: Soft. Isaac is in place. There is a 16-Croatian Isaac, appears to be a Councill tip catheter. Urine is grossly yellow with some debris. LABORATORY DATA: His last UA showed 2+ protein, 5 to 10 rbc's, 10 to 15 wbc's. His urine culture from 08/18/2018 was negative at 24 hours. His white count is 11.2, hemoglobin 8.6, and platelets are 343,000. BUN is 27 and creatinine 1.0. DIAGNOSTIC IMAGING STUDIES: The patient had an abdominal x-ray and chest x-ray, which were reviewed. IMPRESSION: 1. Urinary retention. 2. Benign prostatic hypertrophy history. 3. Probable neurogenic bladder. 4. History of urethral stricture and difficult catheterization. 5. Proteinuria. 6. Hematuria. 7. Pyuria. PLAN AND DISCUSSION: Again as noted above, the patient does have a chronic Isaac. Apparently, he has a very difficult catheterization with urethral stricture disease, which required dilation recently. At this time, I will start him on Flomax and Proscar with hopefully a voiding trial in the near future. Ideally, I would prefer for him to have a voiding trial as an outpatient on the controlled settings where he can have a cystoscopy if needed and to place the Isaac back if needed. I will discuss this with the primary service and the family. Thank you for this consultation. Salbador Yanez M.D. DR: AYAN JOB#: [id number] CC:
[2018-08-20] VITALS: BP 124/74
[2018-08-20] MEDS ORDERED: Vancomycin 1 GM in D5W 275 ML IVPB SCH (02:00)
[2018-08-20 04:00] VITALS: BP 160/80
[2018-08-20] MEDS: NovoLOG Insulin Flexpen SUBQ SCH ×4 (06:06→20:55)
[2018-08-20 06:54] LABS: INR 1.1 (0.9-1.1)
[2018-08-20 07:23] LABS: ALANINE AMINOTRANSFERASE 37 U/L (12-78); ALBUMIN 2.3 G/DL (3.4-5.0); ALBUMIN/GLOBULIN RATIO 0.6 (1.0-2.7); ALKALINE PHOSPHATASE 60 U/L (46-116); ANION GAP 8 mmol/L (5-15); ASPARTATE AMINO TRANSFERASE 58 U/L (15-37); BILIRUBIN,TOTAL 0.2 MG/DL (0.2-1.0); BLOOD UREA NITROGEN 24 mg/dL (7-18); CALCIUM 8.8 MG/DL (8.5-10.1); CARBON DIOXIDE 26 MMOL/L (21-32); CHLORIDE 117 MMOL/L (98-107); PHOSPHORUS 2.6 MG/DL (2.5-4.9); POTASSIUM 3.5 MMOL/L (3.5-5.1); SODIUM 151 MMOL/L (136-145)
--- NOTE | 2018-08-20 07:23 | NUR ---
HAND-OFF: Report given to oscar alfaro.
[2018-08-20 07:44] LABS: BASOPHILS % (AUTO) 0.6 % (0.0-2.0); EOSINOPHILS % (AUTO) 1.6 % (0.0-3.0); HEMATOCRIT 31.9 % (42.0-52.0); HEMOGLOBIN 9.9 G/DL (14.2-18.0); LYMPHOCYTES % (AUTO) 15.6 % (20.0-45.0); MEAN CORPUSCULAR VOLUME 90 FL (80-99); MONOCYTES % (AUTO) 6.2 % (1.0-10.0); PLATELET COUNT 325 K/UL (150-450); RED BLOOD COUNT 3.56 M/UL (4.70-6.10); RED CELL DISTRIBUTION WIDTH 16.1 % (11.6-14.8); WHITE BLOOD COUNT 13.2 K/UL (4.8-10.8)
[2018-08-20 08:00] VITALS: BP 153/89
[2018-08-20] MEDS ORDERED: clonazePAM 0.5mg tab ORAL PRN (08:30)
[2018-08-20] MEDS: Azithromycin 500 MG in D5W 275 ML IV SCH (08:49)
[2018-08-20] MEDS: Pantoprazole Inj IVP SCH ×2 (08:51→20:24)
[2018-08-20] MEDS: 1/2NS w/KCl 20mEq 1000ml 1,000 ML IV SCH ×2 (09:00→20:24)
--- NOTE | 2018-08-20 10:42 | Consultation ---
History of Present Illness General Chief Complaint: Dyspnea/Respdistress Reason for Consultation: OB STOOL POSITIVE Present Illness HPI 88-year-old male, with hx of mmp and bipolar do who presents with a chief complaint of shortness of breath and fever. The pt pw more confusion and altered consciousness. The pt has been agitated and is currently in soft restraints. the pts was in the room and reported that the pt has been agitated and pulled out his NG. the pts family asking to restart all meds. the family was explained about the aspiration risk and benzodiazepines. the pts family insists to restart meds. the pt was arousable however was disoriented to date. The pts has fed him last night and this morning. the pt is currently calm. Allergies: Coded Allergies: No Known Allergies (Unverified , 08/14/18) Medication History Scheduled Carbidopa/Levodopa 25-100 Mg* (Sinemet 25-100 Mg Tablet*), 1 TAB ORAL THREE TIMES A DAY, (Reported) Citalopram Hydrobromide (Celexa), Unknown Dose ORAL DAILY, (Reported) Clonazepam (Clonazepam), Unknown Dose PO EVERY 12 HOURS, (Reported) Quetiapine Fumarate (Quetiapine Fumarate), Unknown Dose ORAL QHS, (Reported) Venlafaxine Hcl* (Venlafaxine Hcl Er), 225 MG ORAL DAILY, (Reported) Miscellaneous Medications Gabapentin (Neurontin), Unknown Dose ORAL, (Reported) Discontinued Medications Metformin Hcl (Metformin Hcl Er), 850 MG ORAL DAILY, (Reported) Discontinued Reason: MD discontinued med Patient History Limited by: medical condition History Provided By: Family Member, Medical Record, PMD Healthcare decision maker N/A Resuscitation status Full Code Advanced Directive on File No Past Medical/Surgical History Past Medical/Surgical History: (1) Anemia (2) Respiratory distress (3) Diabetes mellitus (4) Parkinson disease (5) ATN (acute tubular necrosis) (6) Renal insufficiency (7) Acute respiratory failure (8) Aspiration pneumonia (9) GI bleed Review of Systems Psychiatric: Reports: prior hx, anxiety, depressed feelings, emotional problems , hallucinations Physical Exam General Appearance: WD/WN, no apparent distress, alert, agitated Last 24 Hour Vital Signs Date Time Temp Pulse Resp B/P (MAP) Pulse Ox O2 Delivery O2 Flow Rate FiO2 08/20/18 08:51 87 153/89 08/20/18 08:00 Nasal Cannula 3.0 08/20/18 08:00 97.7 87 18 153/89 (110) 96 08/20/18 06:45 80 16 Room Air 21 08/20/18 06:45 99 Room Air 21 08/20/18 06:45 Room Air 21 08/20/18 04:00 98.8 88 16 160/80 (106) 96 08/20/18 00:00 98.6 62 18 124/74 (91) 99 08/19/18 21:12 92 18 Nasal Cannula 3.0 32 08/19/18 21:12 97 Nasal Cannula 3.0 32 08/19/18 21:12 Nasal Cannula 2.0 28 08/19/18 21:00 Nasal Cannula 3.0 08/19/18 20:00 97.9 90 18 132/80 (97) 95 08/19/18 17:52 146/77 08/19/18 17:52 86 146/77 08/19/18 16:00 97.1 84 20 154/69 (97) 97 08/19/18 12:00 98.5 93 15 155/89 (111) 98 08/19/18 12:00 Nasal Cannula 3.0 08/19/18 12:00 93 Intake and Output 08/19/18 08/20/18 19:00 07:00 Intake Total 1065 ml Output Total 350 ml 2000 ml Balance 715 ml -2000 ml Intake Free Water 50 ml IV Total 725 ml Tube Feeding 290 ml Output Urine Total 350 ml 2000 ml # Bowel Movements 4 1 Laboratory Tests Test 08/20/18 05:35 White Blood Count 13.2 K/UL (4.8-10.8) H Red Blood Count 3.56 M/UL (4.70-6.10) L Hemoglobin 9.9 G/DL (14.2-18.0) L Hematocrit 31.9 % (42.0-52.0) L Mean Corpuscular Volume 90 FL (80-99) Mean Corpuscular Hemoglobin 27.9 PG (27.0-31.0) Mean Corpuscular Hemoglobin Concent 31.1 G/DL (32.0-36.0) L Red Cell Distribution Width 16.1 % (11.6-14.8) H Platelet Count 325 K/UL (150-450) Mean Platelet Volume 6.5 FL (6.5-10.1) Neutrophils (%) (Auto) 76.0 % (45.0-75.0) H Lymphocytes (%) (Auto) 15.6 % (20.0-45.0) L Monocytes (%) (Auto) 6.2 % (1.0-10.0) Eosinophils (%) (Auto) 1.6 % (0.0-3.0) Basophils (%) (Auto) 0.6 % (0.0-2.0) Prothrombin Time 12.0 SEC (9.30-11.50) H Prothromb Time International Ratio 1.1 (0.9-1.1) Activated Partial Thromboplast Time 27 SEC (23-33) Sodium Level 151 MMOL/L (136-145) H Potassium Level 3.5 MMOL/L (3.5-5.1) Chloride Level 117 MMOL/L (98-107) H Carbon Dioxide Level 26 MMOL/L (21-32) Anion Gap 8 mmol/L (5-15) Blood Urea Nitrogen 24 mg/dL (7-18) H Creatinine 1.0 MG/DL (0.55-1.30) Estimat Glomerular Filtration Rate mL/min (>60) Glucose Level 170 MG/DL (74-106) H Calcium Level 8.8 MG/DL (8.5-10.1) Phosphorus Level 2.6 MG/DL (2.5-4.9) Magnesium Level 2.4 MG/DL (1.8-2.4) Total Bilirubin 0.2 MG/DL (0.2-1.0) Aspartate Amino Transf (AST/SGOT) 58 U/L (15-37) H Alanine Aminotransferase (ALT/SGPT) 37 U/L (12-78) Alkaline Phosphatase 60 U/L (46-116) Total Protein 6.1 G/DL (6.4-8.2) L Albumin 2.3 G/DL (3.4-5.0) L Globulin 3.8 g/dL Albumin/Globulin Ratio 0.6 (1.0-2.7) L Height (Feet): 5 Height (Inches): 7.00 Weight (Pounds): 121 Medications Current Medications Medications (Trade) Dose Ordered Sig/Jese Route PRN Reason Start Time Stop Time Status Last Admin Dose Admin Acetaminophen (Tylenol) 650 mg Q4H PRN ORAL fever 08/19/18 13:11 09/13/18 13:10 Albuterol/ Ipratropium (Albuterol/ Ipratropium) 3 ml Q4H PRN HHN Shortness of Breath 08/19/18 13:12 08/22/18 13:11 Amlodipine Besylate (Norvasc) 5 mg BID NG 08/19/18 18:00 09/15/18 17:59 08/20/18 08:51 Azithromycin 500 mg/Dextrose 275 ml @ 275 mls/hr Q24H IV 08/20/18 09:00 08/22/18 09:59 08/20/18 08:49 Cefepime HCl 1 gm/ Dextrose 55 ml @ 110 mls/hr Q24H IV 08/19/18 21:00 08/22/18 20:59 08/19/18 20:24 Clonazepam (KlonoPIN) 0.5 mg Q12H PRN ORAL For Anxiety 08/20/18 08:30 08/27/18 08:29 08/20/18 08:51 Dextrose (Dextrose 50%) 25 ml Q30M PRN IV Hypoglycemia 08/19/18 13:00 09/16/18 10:29 Dextrose (Dextrose 50%) 50 ml Q30M PRN IV Hypoglycemia 08/19/18 13:00 09/16/18 10:29 Finasteride (Proscar) 5 mg DAILY ORAL 08/20/18 09:00 09/19/18 08:59 08/20/18 08:50 Insulin Aspart (NovoLOG) BEFORE MEALS AND HS SUBQ 08/19/18 16:30 09/16/18 11:29 08/20/18 06:06 Metronidazole 100 ml @ 100 mls/hr Q8HR IVPB 08/19/18 14:00 08/23/18 14:59 08/20/18 05:58 Nitroglycerin (Ntg) 1 patch Q24H TDERMAL 08/19/18 16:00 09/15/18 15:59 08/19/18 17:52 Ondansetron HCl (Zofran) 4 mg Q6H PRN IVP Nausea & Vomiting 08/19/18 16:30 09/13/18 22:29 Oseltamivir Phosphate (Tamiflu) 30 mg BID ORAL 08/19/18 18:00 08/21/18 09:01 08/20/18 08:51 Pantoprazole (Protonix) 40 mg EVERY 12 HOURS IVP 08/19/18 21:00 09/14/18 20:59 08/20/18 08:51 Potassium Chloride (K-Dur) 20 meq THREE TIMES A DAY NG 08/19/18 18:00 09/16/18 17:59 08/20/18 08:51 Sodium 1,000 ml @ 50 mls/hr Q20H IV 08/19/18 13:00 09/17/18 17:29 08/19/18 17:43 Tamsulosin HCl (Flomax) 0.4 mg BEDTIME ORAL 08/20/18 21:00 09/19/18 20:59 Vancomycin HCl (Vanco rx to dose) 1 ea DAILY PRN MISC Per rx protocol 08/20/18 09:00 09/19/18 08:59 Vancomycin HCl 1 gm/Dextrose 275 ml @ 183.708 mls/hr Q24H IVPB 08/20/18 02:00 08/25/18 01:59 08/20/18 02:00 Assessment/Plan Problem List: (1) Acute metabolic encephalopathy ICD Codes: G93.41 - Metabolic encephalopathy SNOMED: 44055005, 003587811 (2) Major depressive disorder, recurrent ICD Codes: F33.9 - Major depressive disorder, recurrent, unspecified SNOMED: 67847945 (3) Anxiety disorder ICD Codes: F41.9 - Anxiety disorder, unspecified SNOMED: 877770598 Assessment/Plan Klonopin .5mg po qhs Klonopin .5mg po qam Seroquel 50mg po qhs will restart ad when pts ms is improved farideh rn and Jorge Mars MD Aug 20, 2018 10:42
--- NOTE | 2018-08-20 11:22 | Urology Progress Note ---
Assessment/Plan Assessment/Plan 1. Urinary retention. 2. Benign prostatic hypertrophy history. 3. Probable neurogenic bladder. 4. History of urethral stricture and difficult catheterization. 5. Proteinuria. 6. Hematuria. 7. Pyuria. monitor clinically cedars recs reviewed hx of diff cath, requiring cysto case d/w pt's family: , daughter and son they want to keep buckner indwelling for now flomax and proscar added voiding trial later, preferably as outpt in the office abx as ordered d/w 'chaz Juarez and [place] Subjective Allergies: Coded Allergies: No Known Allergies (Unverified , 08/14/18) Subjective all noted, looks comfortable Objective Last 24 Hour Vital Signs Date Time Temp Pulse Resp B/P (MAP) Pulse Ox O2 Delivery O2 Flow Rate FiO2 08/20/18 08:51 87 153/89 08/20/18 08:00 Nasal Cannula 3.0 08/20/18 08:00 97.7 87 18 153/89 (110) 96 08/20/18 06:45 80 16 Room Air 21 08/20/18 06:45 99 Room Air 21 08/20/18 06:45 Room Air 21 08/20/18 04:00 98.8 88 16 160/80 (106) 96 08/20/18 00:00 98.6 62 18 124/74 (91) 99 08/19/18 21:12 92 18 Nasal Cannula 3.0 32 08/19/18 21:12 97 Nasal Cannula 3.0 32 08/19/18 21:12 Nasal Cannula 2.0 28 08/19/18 21:00 Nasal Cannula 3.0 08/19/18 20:00 97.9 90 18 132/80 (97) 95 08/19/18 17:52 146/77 08/19/18 17:52 86 146/77 08/19/18 16:00 97.1 84 20 154/69 (97) 97 08/19/18 12:00 98.5 93 15 155/89 (111) 98 08/19/18 12:00 Nasal Cannula 3.0 08/19/18 12:00 93 Intake and Output 08/19/18 08/20/18 19:00 07:00 Intake Total 1065 ml Output Total 350 ml 2000 ml Balance 715 ml -2000 ml Intake Free Water 50 ml IV Total 725 ml Tube Feeding 290 ml Output Urine Total 350 ml 2000 ml # Bowel Movements 4 1 Microbiology Date/Time Source Procedure Growth Status 08/17/18 03:45 Blood Blood Culture - Preliminary NO GROWTH AFTER 48 HOURS Resulted 08/18/18 03:10 Sputum Gram Stain - Final Complete 08/18/18 03:10 Sputum Culture - Final Klebsiella Pneumoniae Usual Respiratory Yoselin Complete 08/18/18 18:00 Indwelling Cath Urine Culture - Preliminary Resulted 08/14/18 22:35 Rectum VRE Culture - Final NO VANCOMYCIN RESISTANT ENTEROCOCCUS ... Complete Current Medications Medications (Trade) Dose Ordered Sig/Jese Route PRN Reason Start Time Stop Time Status Last Admin Dose Admin Acetaminophen (Tylenol) 650 mg Q4H PRN ORAL fever 08/19/18 13:11 09/13/18 13:10 Albuterol/ Ipratropium (Albuterol/ Ipratropium) 3 ml Q4H PRN HHN Shortness of Breath 08/19/18 13:12 08/22/18 13:11 Amlodipine Besylate (Norvasc) 5 mg BID NG 08/19/18 18:00 09/15/18 17:59 08/20/18 08:51 Azithromycin 500 mg/Dextrose 275 ml @ 275 mls/hr Q24H IV 08/20/18 09:00 08/22/18 09:59 08/20/18 08:49 Cefepime HCl 1 gm/ Dextrose 55 ml @ 110 mls/hr Q24H IV 08/19/18 21:00 08/22/18 20:59 08/19/18 20:24 Clonazepam (KlonoPIN) 0.25 mg DAILY ORAL 08/21/18 09:00 08/28/18 08:59 UNV Clonazepam (KlonoPIN) 0.5 mg BEDTIME ORAL 08/20/18 21:00 08/27/18 20:59 UNV Dextrose (Dextrose 50%) 25 ml Q30M PRN IV Hypoglycemia 08/19/18 13:00 09/16/18 10:29 Dextrose (Dextrose 50%) 50 ml Q30M PRN IV Hypoglycemia 08/19/18 13:00 09/16/18 10:29 Finasteride (Proscar) 5 mg DAILY ORAL 08/20/18 09:00 09/19/18 08:59 08/20/18 08:50 Insulin Aspart (NovoLOG) BEFORE MEALS AND HS SUBQ 08/19/18 16:30 09/16/18 11:29 08/20/18 06:06 Metronidazole 100 ml @ 100 mls/hr Q8HR IVPB 08/19/18 14:00 08/23/18 14:59 08/20/18 05:58 Nitroglycerin (Ntg) 1 patch Q24H TDERMAL 08/19/18 16:00 09/15/18 15:59 08/19/18 17:52 Ondansetron HCl (Zofran) 4 mg Q6H PRN IVP Nausea & Vomiting 08/19/18 16:30 09/13/18 22:29 Oseltamivir Phosphate (Tamiflu) 30 mg BID ORAL 08/19/18 18:00 08/21/18 09:01 08/20/18 08:51 Pantoprazole (Protonix) 40 mg EVERY 12 HOURS IVP 08/19/18 21:00 09/14/18 20:59 08/20/18 08:51 Potassium Chloride (K-Dur) 20 meq THREE TIMES A DAY NG 08/19/18 18:00 09/16/18 17:59 08/20/18 08:51 Quetiapine Fumarate (SEROquel) 25 mg EVERY 6 HOURS PRN ORAL agitation 08/20/18 11:00 09/19/18 10:59 UNV Quetiapine Fumarate (SEROquel) 50 mg BEDTIME ORAL 08/20/18 21:00 09/19/18 20:59 UNV Sodium 1,000 ml @ 50 mls/hr Q20H IV 08/19/18 13:00 09/17/18 17:29 08/19/18 17:43 Tamsulosin HCl (Flomax) 0.4 mg BEDTIME ORAL 08/20/18 21:00 09/19/18 20:59 Vancomycin HCl (Vanco rx to dose) 1 ea DAILY PRN MISC Per rx protocol 08/20/18 09:00 09/19/18 08:59 Vancomycin HCl 1 gm/Dextrose 275 ml @ 183.708 mls/hr Q24H IVPB 08/20/18 02:00 08/25/18 01:59 08/20/18 02:00 Laboratory Tests 08/20/18 05:35: White Blood Count 13.2H, Red Blood Count 3.56L, Hemoglobin 9.9L, Hematocrit 31.9L, Mean Corpuscular Volume 90, Mean Corpuscular Hemoglobin 27.9, Mean Corpuscular Hemoglobin Concent 31.1L, Red Cell Distribution Width 16.1H, Platelet Count 325, Mean Platelet Volume 6.5, Neutrophils (%) (Auto) 76.0H, Lymphocytes (%) (Auto) 15.6L, Monocytes (%) (Auto) 6.2, Eosinophils (%) (Auto) 1.6, Basophils (%) (Auto) 0.6, Prothrombin Time 12.0H, Prothromb Time International Ratio 1.1, Activated Partial Thromboplast Time 27, Sodium Level 151H, Potassium Level 3.5, Chloride Level 117H, Carbon Dioxide Level 26, Anion Gap 8, Blood Urea Nitrogen 24H, Creatinine 1.0, Estimat Glomerular Filtration Rate , Glucose Level 170H, Calcium Level 8.8, Phosphorus Level 2.6, Magnesium Level 2.4, Total Bilirubin 0.2, Aspartate Amino Transf (AST/SGOT) 58H, Alanine Aminotransferase (ALT/SGPT) 37, Alkaline Phosphatase 60, Total Protein 6.1L, Albumin 2.3L, Globulin 3.8, Albumin/Globulin Ratio 0.6L Height (Feet): 5 Height (Inches): 7.00 Weight (Pounds): 121 Objective exam stable, urine venu Bamshad,Salbador Lvoing MD Aug 20, 2018 11:22
--- NOTE | 2018-08-20 11:41 | GI Progress Note ---
Assessment/Plan Problems: (1) GI bleed ICD Codes: K92.2 - Gastrointestinal hemorrhage, unspecified SNOMED: 07628893 (2) Anemia ICD Codes: D64.9 - Anemia, unspecified SNOMED: 555548325 Status: stable Status Narrative Discussed with Dr. Og. Assessment/Plan anemia work up reviewed patient removed NGT stable H&H today advanced to puree diet, tolerating EGD if family agrees Maintain the patient n.p.o. at midnight monitor H&H, prn transfusions bowel regime ppi fu labs The patient was seen and examined at bedside and all new and available data was reviewed in the patients chart. I agree with the above findings, impression and plan. (Patient seen earlier today. Signature stamp does not reflect patient encounter time.). - Antnoy Og MD Subjective Subjective Tolerating pured diet Objective Last 24 Hour Vital Signs Date Time Temp Pulse Resp B/P (MAP) Pulse Ox O2 Delivery O2 Flow Rate FiO2 08/20/18 08:51 87 153/89 08/20/18 08:00 Nasal Cannula 3.0 08/20/18 08:00 97.7 87 18 153/89 (110) 96 08/20/18 06:45 80 16 Room Air 21 08/20/18 06:45 99 Room Air 21 08/20/18 06:45 Room Air 21 08/20/18 04:00 98.8 88 16 160/80 (106) 96 08/20/18 00:00 98.6 62 18 124/74 (91) 99 08/19/18 21:12 92 18 Nasal Cannula 3.0 32 08/19/18 21:12 97 Nasal Cannula 3.0 32 08/19/18 21:12 Nasal Cannula 2.0 28 08/19/18 21:00 Nasal Cannula 3.0 08/19/18 20:00 97.9 90 18 132/80 (97) 95 08/19/18 17:52 146/77 08/19/18 17:52 86 146/77 08/19/18 16:00 97.1 84 20 154/69 (97) 97 08/19/18 12:00 98.5 93 15 155/89 (111) 98 08/19/18 12:00 Nasal Cannula 3.0 08/19/18 12:00 93 Intake and Output 08/19/18 08/20/18 19:00 07:00 Intake Total 1065 ml Output Total 350 ml 2000 ml Balance 715 ml -2000 ml Intake Free Water 50 ml IV Total 725 ml Tube Feeding 290 ml Output Urine Total 350 ml 2000 ml # Bowel Movements 4 1 Laboratory Tests Test 08/20/18 05:35 White Blood Count 13.2 K/UL (4.8-10.8) H Red Blood Count 3.56 M/UL (4.70-6.10) L Hemoglobin 9.9 G/DL (14.2-18.0) L Hematocrit 31.9 % (42.0-52.0) L Mean Corpuscular Volume 90 FL (80-99) Mean Corpuscular Hemoglobin 27.9 PG (27.0-31.0) Mean Corpuscular Hemoglobin Concent 31.1 G/DL (32.0-36.0) L Red Cell Distribution Width 16.1 % (11.6-14.8) H Platelet Count 325 K/UL (150-450) Mean Platelet Volume 6.5 FL (6.5-10.1) Neutrophils (%) (Auto) 76.0 % (45.0-75.0) H Lymphocytes (%) (Auto) 15.6 % (20.0-45.0) L Monocytes (%) (Auto) 6.2 % (1.0-10.0) Eosinophils (%) (Auto) 1.6 % (0.0-3.0) Basophils (%) (Auto) 0.6 % (0.0-2.0) Prothrombin Time 12.0 SEC (9.30-11.50) H Prothromb Time International Ratio 1.1 (0.9-1.1) Activated Partial Thromboplast Time 27 SEC (23-33) Sodium Level 151 MMOL/L (136-145) H Potassium Level 3.5 MMOL/L (3.5-5.1) Chloride Level 117 MMOL/L (98-107) H Carbon Dioxide Level 26 MMOL/L (21-32) Anion Gap 8 mmol/L (5-15) Blood Urea Nitrogen 24 mg/dL (7-18) H Creatinine 1.0 MG/DL (0.55-1.30) Estimat Glomerular Filtration Rate mL/min (>60) Glucose Level 170 MG/DL (74-106) H Calcium Level 8.8 MG/DL (8.5-10.1) Phosphorus Level 2.6 MG/DL (2.5-4.9) Magnesium Level 2.4 MG/DL (1.8-2.4) Total Bilirubin 0.2 MG/DL (0.2-1.0) Aspartate Amino Transf (AST/SGOT) 58 U/L (15-37) H Alanine Aminotransferase (ALT/SGPT) 37 U/L (12-78) Alkaline Phosphatase 60 U/L (46-116) Total Protein 6.1 G/DL (6.4-8.2) L Albumin 2.3 G/DL (3.4-5.0) L Globulin 3.8 g/dL Albumin/Globulin Ratio 0.6 (1.0-2.7) L Height (Feet): 5 Height (Inches): 7.00 Weight (Pounds): 121 General Appearance: WD/WN, no apparent distress, alert Cardiovascular: normal rate Respiratory/Chest: normal breath sounds, no respiratory distress Abdominal Exam: normal bowel sounds, non tender, soft Extremities: non-tender Lisa Young NP Aug 20, 2018 11:41
[2018-08-20 12:00] VITALS: BP 137/77
--- NOTE | 2018-08-20 13:34 | Pulmonology Progress Note ---
Assessment/Plan Problems: (1) Acute respiratory failure (2) Aspiration pneumonia (3) ATN (acute tubular necrosis) Assessment/Plan improving bun/creatine decreasing, almost normal didn't pass swallow study continue NG tube feeding check electrolytes respiratory treatment check echocardiogram f/u troponin level failed swallow study, doesn't want Gtube eating, family wants oral feeding Subjective Interval Events: pulled NG tube, eating well according to Allergies: Coded Allergies: No Known Allergies (Unverified , 08/14/18) Objective Last 24 Hour Vital Signs Date Time Temp Pulse Resp B/P (MAP) Pulse Ox O2 Delivery O2 Flow Rate FiO2 08/20/18 08:51 87 153/89 08/20/18 08:00 Nasal Cannula 3.0 08/20/18 08:00 97.7 87 18 153/89 (110) 96 08/20/18 06:45 80 16 Room Air 21 08/20/18 06:45 99 Room Air 21 08/20/18 06:45 Room Air 21 08/20/18 04:00 98.8 88 16 160/80 (106) 96 08/20/18 00:00 98.6 62 18 124/74 (91) 99 08/19/18 21:12 92 18 Nasal Cannula 3.0 32 08/19/18 21:12 97 Nasal Cannula 3.0 32 08/19/18 21:12 Nasal Cannula 2.0 28 08/19/18 21:00 Nasal Cannula 3.0 08/19/18 20:00 97.9 90 18 132/80 (97) 95 08/19/18 17:52 146/77 08/19/18 17:52 86 146/77 08/19/18 16:00 97.1 84 20 154/69 (97) 97 Intake and Output 08/19/18 08/20/18 19:00 07:00 Intake Total 1065 ml Output Total 350 ml 2000 ml Balance 715 ml -2000 ml Intake Free Water 50 ml IV Total 725 ml Tube Feeding 290 ml Output Urine Total 350 ml 2000 ml # Bowel Movements 4 1 Objective General Appearance: cachectic HEENT: normocephalic Respiratory/Chest: chest wall non-tender, lungs clear, normal breath sounds Breasts: no masses Cardiovascular: normal peripheral pulses, normal rate Abdomen: normal bowel sounds, soft, non tender Extremities: no cyanosis Skin: no rash General Appearance: cachetic HEENT: normocephalic Microbiology Date/Time Source Procedure Growth Status 08/18/18 03:10 Sputum Gram Stain - Final Complete 08/18/18 03:10 Sputum Culture - Final Klebsiella Pneumoniae Usual Respiratory Yoselin Complete 08/18/18 18:00 Indwelling Cath Urine Culture - Preliminary Resulted Laboratory Tests 08/20/18 05:35: White Blood Count 13.2H, Red Blood Count 3.56L, Hemoglobin 9.9L, Hematocrit 31.9L, Mean Corpuscular Volume 90, Mean Corpuscular Hemoglobin 27.9, Mean Corpuscular Hemoglobin Concent 31.1L, Red Cell Distribution Width 16.1H, Platelet Count 325, Mean Platelet Volume 6.5, Neutrophils (%) (Auto) 76.0H, Lymphocytes (%) (Auto) 15.6L, Monocytes (%) (Auto) 6.2, Eosinophils (%) (Auto) 1.6, Basophils (%) (Auto) 0.6, Prothrombin Time 12.0H, Prothromb Time International Ratio 1.1, Activated Partial Thromboplast Time 27, Sodium Level 151H, Potassium Level 3.5, Chloride Level 117H, Carbon Dioxide Level 26, Anion Gap 8, Blood Urea Nitrogen 24H, Creatinine 1.0, Estimat Glomerular Filtration Rate , Glucose Level 170H, Calcium Level 8.8, Phosphorus Level 2.6, Magnesium Level 2.4, Total Bilirubin 0.2, Aspartate Amino Transf (AST/SGOT) 58H, Alanine Aminotransferase (ALT/SGPT) 37, Alkaline Phosphatase 60, Total Protein 6.1L, Albumin 2.3L, Globulin 3.8, Albumin/Globulin Ratio 0.6L Current Medications Medications (Trade) Dose Ordered Sig/Jese Route PRN Reason Start Time Stop Time Status Last Admin Dose Admin Acetaminophen (Tylenol) 650 mg Q4H PRN ORAL fever 08/19/18 13:11 09/13/18 13:10 Albuterol/ Ipratropium (Albuterol/ Ipratropium) 3 ml Q4H PRN HHN Shortness of Breath 08/19/18 13:12 08/22/18 13:11 Amlodipine Besylate (Norvasc) 5 mg BID NG 08/19/18 18:00 09/15/18 17:59 08/20/18 08:51 Azithromycin 500 mg/Dextrose 275 ml @ 275 mls/hr Q24H IV 08/20/18 09:00 08/22/18 09:59 08/20/18 08:49 Cefepime HCl 1 gm/ Dextrose 55 ml @ 110 mls/hr Q24H IV 08/19/18 21:00 08/22/18 20:59 08/19/18 20:24 Clonazepam (KlonoPIN) 0.25 mg DAILY ORAL 08/21/18 09:00 08/28/18 08:59 Clonazepam (KlonoPIN) 0.5 mg BEDTIME ORAL 08/20/18 21:00 08/27/18 20:59 Dextrose (Dextrose 50%) 25 ml Q30M PRN IV Hypoglycemia 08/19/18 13:00 09/16/18 10:29 Dextrose (Dextrose 50%) 50 ml Q30M PRN IV Hypoglycemia 08/19/18 13:00 09/16/18 10:29 Finasteride (Proscar) 5 mg DAILY ORAL 08/20/18 09:00 09/19/18 08:59 08/20/18 08:50 Insulin Aspart (NovoLOG) BEFORE MEALS AND HS SUBQ 08/19/18 16:30 09/16/18 11:29 08/20/18 12:51 Metronidazole 100 ml @ 100 mls/hr Q8HR IVPB 08/19/18 14:00 08/23/18 14:59 08/20/18 05:58 Nitroglycerin (Ntg) 1 patch Q24H TDERMAL 08/19/18 16:00 09/15/18 15:59 08/19/18 17:52 Ondansetron HCl (Zofran) 4 mg Q6H PRN IVP Nausea & Vomiting 08/19/18 16:30 09/13/18 22:29 Oseltamivir Phosphate (Tamiflu) 30 mg BID ORAL 08/19/18 18:00 08/21/18 09:01 08/20/18 08:51 Pantoprazole (Protonix) 40 mg EVERY 12 HOURS IVP 08/19/18 21:00 09/14/18 20:59 08/20/18 08:51 Potassium Chloride (K-Dur) 20 meq THREE TIMES A DAY NG 08/19/18 18:00 09/16/18 17:59 08/20/18 12:52 Quetiapine Fumarate (SEROquel) 25 mg Q6H PRN ORAL agitation 08/20/18 11:00 09/19/18 10:59 Quetiapine Fumarate (SEROquel) 50 mg BEDTIME ORAL 08/20/18 21:00 09/19/18 20:59 Sodium 1,000 ml @ 50 mls/hr Q20H IV 08/19/18 13:00 09/17/18 17:29 08/19/18 17:43 Tamsulosin HCl (Flomax) 0.4 mg BEDTIME ORAL 08/20/18 21:00 09/19/18 20:59 Vancomycin HCl (Vanco rx to dose) 1 ea DAILY PRN MISC Per rx protocol 08/20/18 09:00 09/19/18 08:59 Vancomycin HCl 1 gm/Dextrose 275 ml @ 183.708 mls/hr Q24H IVPB 08/20/18 02:00 08/25/18 01:59 08/20/18 02:00 Sade Morgan MD Aug 20, 2018 13:34
--- NOTE | 2018-08-20 13:41 | Infectious Diseases Prog Note ---
Assessment/Plan Assessment/Plan Assessment: Sepsis 2ry to PNA, ?FLu (despite neg screening test) -08/19 CXR: Patchy interstitial pneumonitis versus interstitial edema demonstrated. 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 pna PNA -Flagyl #5/5 -Azithromycin resumed by pulm; abx d#6/7 -08/19 SP IV Vancomycin #6 , Tamiflu #5 -08/14 SP Flagyl x1 -f/u cx -Monitor CBC/CMP, temperatures -aspiration precautions -Cdiff Thank you for your consultation. Will continue to follow along with you. Discussed with RN. Subjective Allergies: Coded Allergies: No Known Allergies (Unverified , 08/14/18) Subjective afebrile leukocytosis increasing bacteremic CONS; repeat Bcx NTD Objective Vital Signs Last 24 Hour Vital Signs Date Time Temp Pulse Resp B/P (MAP) Pulse Ox O2 Delivery O2 Flow Rate FiO2 08/20/18 08:51 87 153/89 08/20/18 08:00 Nasal Cannula 3.0 08/20/18 08:00 97.7 87 18 153/89 (110) 96 08/20/18 06:45 80 16 Room Air 21 08/20/18 06:45 99 Room Air 21 08/20/18 06:45 Room Air 21 08/20/18 04:00 98.8 88 16 160/80 (106) 96 08/20/18 00:00 98.6 62 18 124/74 (91) 99 08/19/18 21:12 92 18 Nasal Cannula 3.0 32 08/19/18 21:12 97 Nasal Cannula 3.0 32 08/19/18 21:12 Nasal Cannula 2.0 28 08/19/18 21:00 Nasal Cannula 3.0 08/19/18 20:00 97.9 90 18 132/80 (97) 95 08/19/18 17:52 146/77 08/19/18 17:52 86 146/77 08/19/18 16:00 97.1 84 20 154/69 (97) 97 Height (Feet): 5 Height (Inches): 7.00 Weight (Pounds): 121 Objective General Appearance: alert, thin, Chronically Ill ENT: moist mucus membranes Neck: limited range of motion Respiratory: decreased breath sounds - left side, right side crackles Cardiovascular #1: normal inspection, normal peripheral pulses, regular rate, rhythm Musculoskeletal: decreased range of motion, other - motor weakness Neurologic: alert, motor weakness Psychiatric: depressed affect Skin: other Microbiology Date/Time Source Procedure Growth Status 08/18/18 03:10 Sputum Gram Stain - Final Complete 08/18/18 03:10 Sputum Culture - Final Klebsiella Pneumoniae Usual Respiratory Yoselin Complete 08/18/18 18:00 Indwelling Cath Urine Culture - Preliminary Resulted Laboratory Tests Test 08/20/18 05:35 White Blood Count 13.2 K/UL (4.8-10.8) H Red Blood Count 3.56 M/UL (4.70-6.10) L Hemoglobin 9.9 G/DL (14.2-18.0) L Hematocrit 31.9 % (42.0-52.0) L Mean Corpuscular Volume 90 FL (80-99) Mean Corpuscular Hemoglobin 27.9 PG (27.0-31.0) Mean Corpuscular Hemoglobin Concent 31.1 G/DL (32.0-36.0) L Red Cell Distribution Width 16.1 % (11.6-14.8) H Platelet Count 325 K/UL (150-450) Mean Platelet Volume 6.5 FL (6.5-10.1) Neutrophils (%) (Auto) 76.0 % (45.0-75.0) H Lymphocytes (%) (Auto) 15.6 % (20.0-45.0) L Monocytes (%) (Auto) 6.2 % (1.0-10.0) Eosinophils (%) (Auto) 1.6 % (0.0-3.0) Basophils (%) (Auto) 0.6 % (0.0-2.0) Prothrombin Time 12.0 SEC (9.30-11.50) H Prothromb Time International Ratio 1.1 (0.9-1.1) Activated Partial Thromboplast Time 27 SEC (23-33) Sodium Level 151 MMOL/L (136-145) H Potassium Level 3.5 MMOL/L (3.5-5.1) Chloride Level 117 MMOL/L (98-107) H Carbon Dioxide Level 26 MMOL/L (21-32) Anion Gap 8 mmol/L (5-15) Blood Urea Nitrogen 24 mg/dL (7-18) H Creatinine 1.0 MG/DL (0.55-1.30) Estimat Glomerular Filtration Rate mL/min (>60) Glucose Level 170 MG/DL (74-106) H Calcium Level 8.8 MG/DL (8.5-10.1) Phosphorus Level 2.6 MG/DL (2.5-4.9) Magnesium Level 2.4 MG/DL (1.8-2.4) Total Bilirubin 0.2 MG/DL (0.2-1.0) Aspartate Amino Transf (AST/SGOT) 58 U/L (15-37) H Alanine Aminotransferase (ALT/SGPT) 37 U/L (12-78) Alkaline Phosphatase 60 U/L (46-116) Total Protein 6.1 G/DL (6.4-8.2) L Albumin 2.3 G/DL (3.4-5.0) L Globulin 3.8 g/dL Albumin/Globulin Ratio 0.6 (1.0-2.7) L Current Medications Medications (Trade) Dose Ordered Sig/Jese Route PRN Reason Start Time Stop Time Status Last Admin Dose Admin Acetaminophen (Tylenol) 650 mg Q4H PRN ORAL fever 08/19/18 13:11 09/13/18 13:10 Albuterol/ Ipratropium (Albuterol/ Ipratropium) 3 ml Q4H PRN HHN Shortness of Breath 08/19/18 13:12 08/22/18 13:11 Amlodipine Besylate (Norvasc) 5 mg BID NG 08/19/18 18:00 09/15/18 17:59 08/20/18 08:51 Azithromycin 500 mg/Dextrose 275 ml @ 275 mls/hr Q24H IV 08/20/18 09:00 08/22/18 09:59 08/20/18 08:49 Cefepime HCl 1 gm/ Dextrose 55 ml @ 110 mls/hr Q24H IV 08/19/18 21:00 08/22/18 20:59 08/19/18 20:24 Clonazepam (KlonoPIN) 0.25 mg DAILY ORAL 08/21/18 09:00 08/28/18 08:59 Clonazepam (KlonoPIN) 0.5 mg BEDTIME ORAL 08/20/18 21:00 08/27/18 20:59 Dextrose (Dextrose 50%) 25 ml Q30M PRN IV Hypoglycemia 08/19/18 13:00 09/16/18 10:29 Dextrose (Dextrose 50%) 50 ml Q30M PRN IV Hypoglycemia 08/19/18 13:00 09/16/18 10:29 Finasteride (Proscar) 5 mg DAILY ORAL 08/20/18 09:00 09/19/18 08:59 08/20/18 08:50 Insulin Aspart (NovoLOG) BEFORE MEALS AND HS SUBQ 08/19/18 16:30 09/16/18 11:29 08/20/18 12:51 Metronidazole 100 ml @ 100 mls/hr Q8HR IVPB 08/19/18 14:00 08/23/18 14:59 08/20/18 05:58 Nitroglycerin (Ntg) 1 patch Q24H TDERMAL 08/19/18 16:00 09/15/18 15:59 08/19/18 17:52 Ondansetron HCl (Zofran) 4 mg Q6H PRN IVP Nausea & Vomiting 08/19/18 16:30 09/13/18 22:29 Oseltamivir Phosphate (Tamiflu) 30 mg BID ORAL 08/19/18 18:00 08/21/18 09:01 08/20/18 08:51 Pantoprazole (Protonix) 40 mg EVERY 12 HOURS IVP 08/19/18 21:00 09/14/18 20:59 08/20/18 08:51 Potassium Chloride (K-Dur) 20 meq THREE TIMES A DAY NG 08/19/18 18:00 09/16/18 17:59 08/20/18 12:52 Quetiapine Fumarate (SEROquel) 25 mg Q6H PRN ORAL agitation 08/20/18 11:00 09/19/18 10:59 Quetiapine Fumarate (SEROquel) 50 mg BEDTIME ORAL 08/20/18 21:00 09/19/18 20:59 Sodium 1,000 ml @ 50 mls/hr Q20H IV 08/19/18 13:00 09/17/18 17:29 08/19/18 17:43 Tamsulosin HCl (Flomax) 0.4 mg BEDTIME ORAL 08/20/18 21:00 09/19/18 20:59 Vancomycin HCl (Vanco rx to dose) 1 ea DAILY PRN MISC Per rx protocol 08/20/18 09:00 09/19/18 08:59 Vancomycin HCl 1 gm/Dextrose 275 ml @ 183.708 mls/hr Q24H IVPB 08/20/18 02:00 08/25/18 01:59 08/20/18 02:00 Nuria Marte M.D. Aug 20, 2018 13:41
--- NOTE | 2018-08-20 14:37 | NUR ---
BUSINESS DEVELOPMENT OFFICERSUPERVISOR PRE WAVE SI; GI BLEED,DYSPNEA T. 98.7 HR 87 RR 18 B/P 153/89 3L NC WBC 13.2 NA 151 BUN 24 IS: IVF NS @ 50ML/HR FLAGYL IV AZITHROMYCIN IV ROCEPHIN IV PROTONIX IV MED/SURG STATUS
--- NOTE | 2018-08-20 15:11 | NUR ---
NURSE NOTES: Patient received this AM. Son at bedside, requesting patient continue seroquel and Klonopin. Dr. Juarez notified. new order received and entered. Side rails up X2. Patient on p 200 mattress. Bed is in lowest position and call light is within reach. Will continue to monitor.
--- NOTE | 2018-08-20 15:47 | NUR ---
ST NOTE: SWALLOW STATUS FOLLOWED UP PT'S CONDITIONS. PER N.PMODESTO Dong, PT'S FAMILY DOESN'T WANT PEG PLACEMENT. AND PT WAS PUT BACK ON PUREE WITH HONEY THICK LIQUIDS DIET DUE TO PT PULLED OUT THE NGT. PER DUY FITZGERALD, PT ATE 100% DINNER YESTERDAY AND NO OVERT S/S OF ASPIRATION. PT'S SON IS ON BEDSIDE IN AM. PT IS RESTLESS, AND PENDING FOR HIS MEDICATION. DISCUSSED WITH PT'S SON RE:PT'S CONDITIONS. PER PT'S SON, PT DOESN'T HAVE PARKINSON'S DZ, HOWEVER, PT HAS BEEN TAKING ANTIPSYCHOTIC MEDICATION(SEROQUEL) AND PT DEVELOPED TARDIVE DYSKINESIA, THEREFORE, PT WAS PUT ON SINEMET MEDICATION. FOR QUALITY OF LIFE, CONTINUE MOIST PUREE WITH HONEY THICK LIQUIDS DIET WITH STRICT ASPIRATION PRECAUTIONS WITH [address] SERVICE TO FOLLOW UP D/W DUY FITZGERALD AND PT'S SON.
[2018-08-20 16:00] VITALS: BP 125/63
[2018-08-20] MEDS: Nitroglycerin Patch 0.4mg TDERMAL SCH (18:32)
--- NOTE | 2018-08-20 19:16 | Internal Med Progress Note ---
Subjective Date of Service: Aug 20, 2018 Physician Name Jeremi Hayden Attending Physician Madhu Juarez MD Current Medications Medications (Trade) Dose Ordered Sig/Jese Route PRN Reason Start Time Stop Time Status Last Admin Dose Admin Acetaminophen (Tylenol) 650 mg Q4H PRN ORAL fever 08/19/18 13:11 09/13/18 13:10 Albuterol/ Ipratropium (Albuterol/ Ipratropium) 3 ml Q4H PRN HHN Shortness of Breath 08/19/18 13:12 08/22/18 13:11 Amlodipine Besylate (Norvasc) 5 mg BID NG 08/19/18 18:00 09/15/18 17:59 08/20/18 18:32 Azithromycin 500 mg/Dextrose 275 ml @ 275 mls/hr Q24H IV 08/20/18 09:00 08/22/18 09:59 08/20/18 08:49 Ceftriaxone Sodium 1 gm/ Dextrose 55 ml @ 110 mls/hr Q24H IVPB 08/20/18 20:00 08/27/18 19:59 Clonazepam (KlonoPIN) 0.25 mg DAILY ORAL 08/21/18 09:00 08/28/18 08:59 Clonazepam (KlonoPIN) 0.5 mg BEDTIME ORAL 08/20/18 21:00 08/27/18 20:59 Dextrose (Dextrose 50%) 25 ml Q30M PRN IV Hypoglycemia 08/19/18 13:00 09/16/18 10:29 Dextrose (Dextrose 50%) 50 ml Q30M PRN IV Hypoglycemia 08/19/18 13:00 09/16/18 10:29 Diphenoxylate HCl/ Atropine (Lomotil) 2.5 mg Q4H PRN ORAL Diarrhea 08/20/18 13:45 09/19/18 13:44 Finasteride (Proscar) 5 mg DAILY ORAL 08/20/18 09:00 09/19/18 08:59 08/20/18 08:50 Insulin Aspart (NovoLOG) BEFORE MEALS AND HS SUBQ 08/19/18 16:30 09/16/18 11:29 08/20/18 18:30 Metronidazole 100 ml @ 100 mls/hr Q8HR IVPB 08/19/18 14:00 08/23/18 14:59 08/20/18 14:33 Nitroglycerin (Ntg) 1 patch Q24H TDERMAL 08/19/18 16:00 09/15/18 15:59 08/20/18 18:32 Ondansetron HCl (Zofran) 4 mg Q6H PRN IVP Nausea & Vomiting 08/19/18 16:30 09/13/18 22:29 Oseltamivir Phosphate (Tamiflu) 30 mg BID ORAL 08/19/18 18:00 08/21/18 09:01 08/20/18 18:30 Pantoprazole (Protonix) 40 mg EVERY 12 HOURS IVP 08/19/18 21:00 09/14/18 20:59 08/20/18 08:51 Potassium Chloride (K-Dur) 20 meq THREE TIMES A DAY NG 08/19/18 18:00 09/16/18 17:59 08/20/18 18:31 Quetiapine Fumarate (SEROquel) 25 mg Q6H PRN ORAL agitation 08/20/18 11:00 09/19/18 10:59 Quetiapine Fumarate (SEROquel) 50 mg BEDTIME ORAL 08/20/18 21:00 09/19/18 20:59 Sodium 1,000 ml @ 50 mls/hr Q20H IV 08/19/18 13:00 09/17/18 17:29 08/19/18 17:43 Tamsulosin HCl (Flomax) 0.4 mg BEDTIME ORAL 08/20/18 21:00 09/19/18 20:59 Allergies: Coded Allergies: No Known Allergies (Unverified , 08/14/18) ROS Limited/Unobtainable: Yes Subjective 88 YO M admitted with shortness of breath. Now aspiration pneumonia. Cover for Int Swapnil-Dr Juarez. Tolerating nasal canula Objective Last Vital Signs Date Time Temp Pulse Resp B/P (MAP) Pulse Ox O2 Delivery O2 Flow Rate FiO2 08/20/18 18:32 136/76 08/20/18 18:32 84 08/20/18 16:00 97.2 20 91 08/20/18 08:00 Nasal Cannula 3.0 08/20/18 06:45 21 Laboratory Tests Test 08/20/18 05:35 White Blood Count 13.2 K/UL (4.8-10.8) H Red Blood Count 3.56 M/UL (4.70-6.10) L Hemoglobin 9.9 G/DL (14.2-18.0) L Hematocrit 31.9 % (42.0-52.0) L Mean Corpuscular Volume 90 FL (80-99) Mean Corpuscular Hemoglobin 27.9 PG (27.0-31.0) Mean Corpuscular Hemoglobin Concent 31.1 G/DL (32.0-36.0) L Red Cell Distribution Width 16.1 % (11.6-14.8) H Platelet Count 325 K/UL (150-450) Mean Platelet Volume 6.5 FL (6.5-10.1) Neutrophils (%) (Auto) 76.0 % (45.0-75.0) H Lymphocytes (%) (Auto) 15.6 % (20.0-45.0) L Monocytes (%) (Auto) 6.2 % (1.0-10.0) Eosinophils (%) (Auto) 1.6 % (0.0-3.0) Basophils (%) (Auto) 0.6 % (0.0-2.0) Prothrombin Time 12.0 SEC (9.30-11.50) H Prothromb Time International Ratio 1.1 (0.9-1.1) Activated Partial Thromboplast Time 27 SEC (23-33) Sodium Level 151 MMOL/L (136-145) H Potassium Level 3.5 MMOL/L (3.5-5.1) Chloride Level 117 MMOL/L (98-107) H Carbon Dioxide Level 26 MMOL/L (21-32) Anion Gap 8 mmol/L (5-15) Blood Urea Nitrogen 24 mg/dL (7-18) H Creatinine 1.0 MG/DL (0.55-1.30) Estimat Glomerular Filtration Rate mL/min (>60) Glucose Level 170 MG/DL (74-106) H Calcium Level 8.8 MG/DL (8.5-10.1) Phosphorus Level 2.6 MG/DL (2.5-4.9) Magnesium Level 2.4 MG/DL (1.8-2.4) Total Bilirubin 0.2 MG/DL (0.2-1.0) Aspartate Amino Transf (AST/SGOT) 58 U/L (15-37) H Alanine Aminotransferase (ALT/SGPT) 37 U/L (12-78) Alkaline Phosphatase 60 U/L (46-116) Total Protein 6.1 G/DL (6.4-8.2) L Albumin 2.3 G/DL (3.4-5.0) L Globulin 3.8 g/dL Albumin/Globulin Ratio 0.6 (1.0-2.7) L Microbiology Date/Time Source Procedure Growth Status 08/18/18 03:10 Sputum Gram Stain - Final Complete 08/18/18 03:10 Sputum Culture - Final Klebsiella Pneumoniae Usual Respiratory Yoselin Complete 08/18/18 18:00 Indwelling Cath Urine Culture - Preliminary Resulted Intake and Output 08/19/18 08/20/18 18:59 06:59 Intake Total 1173 ml Output Total 350 ml 2000 ml Balance 823 ml -2000 ml Free Water 50 ml IV Total 775 ml Tube Feeding 348 ml Output Urine Total 350 ml 2000 ml # Bowel Movements 4 1 Objective PHYSICAL EXAMINATION: GENERAL: The patient is well-developed and well-nourished thin-appearing white male, who is currently tolerating nasal canula. HEENT: Eyes - pupils are equal and responsive to light and accommodation. Extraocular movements are intact. NECK: Supple without lymphadenopathy. CHEST: Crackles bilaterally with expiratory wheezes. ABDOMEN: Soft, nontender, and nondistended. Positive bowel sounds. No evidence of hepatosplenomegaly. Currently, no rebound or guarding noted. EXTREMITIES: Negative for clubbing, cyanosis, or edema. RECTAL/GENITAL: Not performed. NEUROLOGIC: Cranial nerves II through XII are grossly intact without focal deficits. Assessment/Plan Assessment/Plan ASSESSMENT: This is an 88-year-old white male. 1. Right lower lobe pneumonia. 2. Shortness of breath. 3. Fever. 4. Cerebrovascular disease. 5. Diabetes. 6. Parkinson disease. 7. Renal failure TREATMENT: 1. Right lower lobe pneumonia/shortness of breath. ?aspiration? A Pulmonary consultation has been obtained with Dr. Sade Morgan. Continue cefepime, flagyl and vancomycin per ID. See Infectious Disease consultation by Dr. Marte. 2. History of cerebrovascular disease. Continue aspirin as above. 3. Diabetes type 2. The patient has been started on NovoLog sliding scale. 4. Parkinson disease. Continue Sinemet as above. 5. See nephrology note. Jeremi Hayden MD Aug 20, 2018 19:16
--- NOTE | 2018-08-20 19:30 | NUR ---
HAND-OFF: Report given to LIA Carter.
--- NOTE | 2018-08-20 19:30 | NUR ---
NURSE NOTES: Received patient on bed awake, confused, no s/s of any distress, IV line patent and intact, FC patent and intact and draining to gravity, Bed in low position and locked, will continue to monitor. Addendum: 08/21/18 at 0138 by Marcelino Cuadra RN NURSE NOTES: Patient noted to have left soft wrist restraint related to pulling out IV line.
[2018-08-20 20:00] VITALS: BP 149/64
[2018-08-20] MEDS: clonazePAM 0.5mg tab ORAL SCH (20:24)
[2018-08-20] MEDS: Tamsulosin 0.4mg cap ORAL SCH (20:24)
[2018-08-20] MEDS: cefTRIAXone 1 GM in D5W 55 ML IVPB SCH (20:24)
[2018-08-20] MEDS: Lomotil 2.5mg tab ORAL PRN (20:25)
--- NOTE | 2018-08-20 20:30 | NUR ---
NURSE NOTES: Patient has been coughing non productive cough, breathing treatment given by RT, Dr. Morgan notified, ordered phenergan w/ codeine q6 hrs.
--- NOTE | 2018-08-20 21:30 | Nephrology Progress Note ---
Assessment/Plan Problem List: (1) ATN (acute tubular necrosis) (2) Acute respiratory failure (3) Diabetes mellitus (4) Parkinson disease (5) Respiratory distress (6) Aspiration pneumonia Assessment 88 Y old male, presents with resp distress and aspiration pneumonia Renal failure, Mainly dehydration resolving ? Underlying CKD Low K , Low Na , Low Alb Parkinsons DM Plan change IV to D5w Uro eval and trial to DC buckner? repeat ua and u c/s discussed with NGT Hydrate 2D Echo pending Antibiotics Avoid Nephrotoxics Per orders Subjective ROS Limited/Unobtainable: No Constitutional: Reports: malaise Objective Objective Last 24 Hour Vital Signs Date Time Temp Pulse Resp B/P (MAP) Pulse Ox O2 Delivery O2 Flow Rate FiO2 08/20/18 18:32 136/76 08/20/18 18:32 84 136/76 08/20/18 16:00 97.2 83 20 125/63 (83) 91 08/20/18 12:00 98.1 80 18 137/77 (97) 98 08/20/18 08:51 87 153/89 08/20/18 08:00 Nasal Cannula 3.0 08/20/18 08:00 97.7 87 18 153/89 (110) 96 08/20/18 06:45 80 16 Room Air 21 08/20/18 06:45 99 Room Air 21 08/20/18 06:45 Room Air 21 08/20/18 04:00 98.8 88 16 160/80 (106) 96 08/20/18 00:00 98.6 62 18 124/74 (91) 99 Intake and Output 08/19/18 08/20/18 18:59 06:59 Intake Total 1173 ml Output Total 350 ml 2000 ml Balance 823 ml -2000 ml Free Water 50 ml IV Total 775 ml Tube Feeding 348 ml Output Urine Total 350 ml 2000 ml # Bowel Movements 4 1 Laboratory Tests 08/20/18 05:35: White Blood Count 13.2H, Red Blood Count 3.56L, Hemoglobin 9.9L, Hematocrit 31.9L, Mean Corpuscular Volume 90, Mean Corpuscular Hemoglobin 27.9, Mean Corpuscular Hemoglobin Concent 31.1L, Red Cell Distribution Width 16.1H, Platelet Count 325, Mean Platelet Volume 6.5, Neutrophils (%) (Auto) 76.0H, Lymphocytes (%) (Auto) 15.6L, Monocytes (%) (Auto) 6.2, Eosinophils (%) (Auto) 1.6, Basophils (%) (Auto) 0.6, Prothrombin Time 12.0H, Prothromb Time International Ratio 1.1, Activated Partial Thromboplast Time 27, Sodium Level 151H, Potassium Level 3.5, Chloride Level 117H, Carbon Dioxide Level 26, Anion Gap 8, Blood Urea Nitrogen 24H, Creatinine 1.0, Estimat Glomerular Filtration Rate , Glucose Level 170H, Calcium Level 8.8, Phosphorus Level 2.6, Magnesium Level 2.4, Total Bilirubin 0.2, Aspartate Amino Transf (AST/SGOT) 58H, Alanine Aminotransferase (ALT/SGPT) 37, Alkaline Phosphatase 60, Total Protein 6.1L, Albumin 2.3L, Globulin 3.8, Albumin/Globulin Ratio 0.6L Height (Feet): 5 Height (Inches): 7.00 Weight (Pounds): 121 General Appearance: no apparent distress Cardiovascular: normal rate Respiratory/Chest: decreased breath sounds Hudson Huntley MD Aug 20, 2018 21:30
[2018-08-20] MEDS ORDERED: Promethazine/Codeine 5ml UD ORAL PRN (21:45)
[2018-08-20] MEDS ORDERED: NS 275ml ONE (22:22)
[2018-08-20] MEDS ORDERED: Tubing IV Secondary IV ONE (22:22)
[2018-08-20] MEDS ORDERED: NS 500ML ONE (22:22)
[2018-08-21] VITALS: BP 132/70
[2018-08-21 04:00] VITALS: BP 143/73
[2018-08-21] MEDS: NovoLOG Insulin Flexpen SUBQ SCH ×4 (06:07→21:24)
[2018-08-21 07:06] LABS: BASOPHILS % (AUTO) 0.5 % (0.0-2.0); EOSINOPHILS % (AUTO) 3.6 % (0.0-3.0); HEMATOCRIT 29.4 % (42.0-52.0); HEMOGLOBIN 9.2 G/DL (14.2-18.0); LYMPHOCYTES % (AUTO) 17.9 % (20.0-45.0); MEAN CORPUSCULAR VOLUME 90 FL (80-99); MONOCYTES % (AUTO) 4.8 % (1.0-10.0); NEUTROPHILS % (AUTO) 73.2 % (45.0-75.0); PLATELET COUNT 283 K/UL (150-450); RED BLOOD COUNT 3.25 M/UL (4.70-6.10); RED CELL DISTRIBUTION WIDTH 16.8 % (11.6-14.8); WHITE BLOOD COUNT 12.7 K/UL (4.8-10.8)
--- NOTE | 2018-08-21 07:15 | NUR ---
HAND-OFF: Report given to Zee FITZGERALD.
[2018-08-21 07:21] LABS: ANION GAP 9 mmol/L (5-15); BLOOD UREA NITROGEN 19 mg/dL (7-18); CALCIUM 8.7 MG/DL (8.5-10.1); CARBON DIOXIDE 27 MMOL/L (21-32); CHLORIDE 112 MMOL/L (98-107); CREATININE 0.9 MG/DL (0.55-1.30); POTASSIUM 3.3 MMOL/L (3.5-5.1); SODIUM 148 MMOL/L (136-145)
[2018-08-21 08:00] VITALS: BP 140/70
[2018-08-21] MEDS: Azithromycin 500 MG in D5W 275 ML IV SCH (08:51)
[2018-08-21] MEDS: Pantoprazole Inj IVP SCH (08:53)
[2018-08-21] MEDS ORDERED: clonazePAM 0.5mg tab ORAL SCH (09:00)
--- NOTE | 2018-08-21 10:39 | GI Progress Note ---
Assessment/Plan Problems: (1) GI bleed ICD Codes: K92.2 - Gastrointestinal hemorrhage, unspecified SNOMED: 45780535 (2) Anemia ICD Codes: D64.9 - Anemia, unspecified SNOMED: 879091525 Status: progressing Status Narrative Discussed with Dr. Og Assessment/Plan anemia work up reviewed patient removed NGT stable H&H family Refused EGD C. difficile negative advanced to puree diet, tolerating EGD if family agrees monitor H&H, prn transfusions bowel regime ppi Imodium as needed fu labs The patient was seen and examined at bedside and all new and available data was reviewed in the patients chart. I agree with the above findings, impression and plan. (Patient seen earlier today. Signature stamp does not reflect patient encounter time.). - Antony Og MD Subjective Subjective Tolerating pured diet Objective Last 24 Hour Vital Signs Date Time Temp Pulse Resp B/P (MAP) Pulse Ox O2 Delivery O2 Flow Rate FiO2 08/21/18 08:52 86 140/70 08/21/18 08:35 86 20 Nasal Cannula 2.0 28 08/21/18 08:30 96 Nasal Cannula 2.0 28 08/21/18 08:30 Nasal Cannula 2.0 28 08/21/18 08:00 97.9 86 19 140/70 (93) 96 08/21/18 04:00 97.2 77 18 143/73 (96) 99 08/21/18 00:00 97.8 86 17 132/70 (90) 99 08/20/18 21:07 91 22 100 Nasal Cannula 2.0 28 08/20/18 21:00 Nasal Cannula 3.0 08/20/18 20:57 87 22 100 Nasal Cannula 2.0 28 08/20/18 20:55 Nasal Cannula 2.0 28 08/20/18 20:55 100 Nasal Cannula 2.0 28 08/20/18 20:53 87 22 Nasal Cannula 2.0 28 08/20/18 20:00 97.9 69 17 149/64 (92) 97 08/20/18 18:32 136/76 08/20/18 18:32 84 136/76 08/20/18 16:00 97.2 83 20 125/63 (83) 91 08/20/18 12:00 98.1 80 18 137/77 (97) 98 Intake and Output 08/20/18 08/21/18 19:00 07:00 Intake Total 150 ml 510 ml Output Total 600 ml Balance -450 ml 510 ml Intake Oral 150 ml IV Total 510 ml Output Urine Total 600 ml # Voids 2 # Bowel Movements 3 2 Laboratory Tests Test 08/21/18 06:00 White Blood Count 12.7 K/UL (4.8-10.8) H Red Blood Count 3.25 M/UL (4.70-6.10) L Hemoglobin 9.2 G/DL (14.2-18.0) L Hematocrit 29.4 % (42.0-52.0) L Mean Corpuscular Volume 90 FL (80-99) Mean Corpuscular Hemoglobin 28.2 PG (27.0-31.0) Mean Corpuscular Hemoglobin Concent 31.1 G/DL (32.0-36.0) L Red Cell Distribution Width 16.8 % (11.6-14.8) H Platelet Count 283 K/UL (150-450) Mean Platelet Volume 6.7 FL (6.5-10.1) Neutrophils (%) (Auto) 73.2 % (45.0-75.0) Lymphocytes (%) (Auto) 17.9 % (20.0-45.0) L Monocytes (%) (Auto) 4.8 % (1.0-10.0) Eosinophils (%) (Auto) 3.6 % (0.0-3.0) H Basophils (%) (Auto) 0.5 % (0.0-2.0) Sodium Level 148 MMOL/L (136-145) H Potassium Level 3.3 MMOL/L (3.5-5.1) L Chloride Level 112 MMOL/L (98-107) H Carbon Dioxide Level 27 MMOL/L (21-32) Anion Gap 9 mmol/L (5-15) Blood Urea Nitrogen 19 mg/dL (7-18) H Creatinine 0.9 MG/DL (0.55-1.30) Estimat Glomerular Filtration Rate mL/min (>60) Glucose Level 165 MG/DL (74-106) H Calcium Level 8.7 MG/DL (8.5-10.1) Microbiology Date/Time Source Procedure Growth Status 08/20/18 20:00 Stool Clostridium difficile Toxin Assay - Final Complete Height (Feet): 5 Height (Inches): 7.00 Weight (Pounds): 149 General Appearance: WD/WN, no apparent distress, alert Cardiovascular: normal rate Respiratory/Chest: normal breath sounds, no respiratory distress Abdominal Exam: normal bowel sounds, non tender, soft Extremities: normal range of motion, non-tender Lisa Young NP Aug 21, 2018 10:39
--- NOTE | 2018-08-21 10:41 | Urology Progress Note ---
Assessment/Plan Assessment/Plan 1. Urinary retention. 2. Benign prostatic hypertrophy history. 3. Probable neurogenic bladder. 4. History of urethral stricture and difficult catheterization. 5. Proteinuria. 6. Hematuria. 7. Pyuria. monitor clinically hx of diff cath, requiring cysto keep buckner indwelling for now flomax and proscar added voiding trial later, preferably as outpt in the office abx as ordered f/u on blood cx Subjective Allergies: Coded Allergies: No Known Allergies (Unverified , 08/14/18) Subjective all noted, looks comfortable Objective Last 24 Hour Vital Signs Date Time Temp Pulse Resp B/P (MAP) Pulse Ox O2 Delivery O2 Flow Rate FiO2 08/21/18 08:52 86 140/70 08/21/18 08:35 86 20 Nasal Cannula 2.0 28 08/21/18 08:30 96 Nasal Cannula 2.0 28 08/21/18 08:30 Nasal Cannula 2.0 28 08/21/18 08:00 97.9 86 19 140/70 (93) 96 08/21/18 04:00 97.2 77 18 143/73 (96) 99 08/21/18 00:00 97.8 86 17 132/70 (90) 99 08/20/18 21:07 91 22 100 Nasal Cannula 2.0 28 08/20/18 21:00 Nasal Cannula 3.0 08/20/18 20:57 87 22 100 Nasal Cannula 2.0 28 08/20/18 20:55 Nasal Cannula 2.0 28 08/20/18 20:55 100 Nasal Cannula 2.0 28 08/20/18 20:53 87 22 Nasal Cannula 2.0 28 08/20/18 20:00 97.9 69 17 149/64 (92) 97 08/20/18 18:32 136/76 08/20/18 18:32 84 136/76 08/20/18 16:00 97.2 83 20 125/63 (83) 91 08/20/18 12:00 98.1 80 18 137/77 (97) 98 Intake and Output 08/20/18 08/21/18 19:00 07:00 Intake Total 150 ml 510 ml Output Total 600 ml Balance -450 ml 510 ml Intake Oral 150 ml IV Total 510 ml Output Urine Total 600 ml # Voids 2 # Bowel Movements 3 2 Microbiology Date/Time Source Procedure Growth Status 08/17/18 03:45 Blood Blood Culture - Preliminary NO GROWTH AFTER 72 HOURS Resulted 08/18/18 03:10 Sputum Gram Stain - Final Complete 08/18/18 03:10 Sputum Culture - Final Klebsiella Pneumoniae Usual Respiratory Yoselin Complete 08/20/18 20:00 Stool Clostridium difficile Toxin Assay - Final Complete 08/18/18 18:00 Indwelling Cath Urine Culture - Preliminary YEAST Resulted 08/14/18 22:35 Rectum VRE Culture - Final NO VANCOMYCIN RESISTANT ENTEROCOCCUS ... Complete Current Medications Medications (Trade) Dose Ordered Sig/Jese Route PRN Reason Start Time Stop Time Status Last Admin Dose Admin Acetaminophen (Tylenol) 650 mg Q4H PRN ORAL fever 08/19/18 13:11 09/13/18 13:10 Albuterol/ Ipratropium (Albuterol/ Ipratropium) 3 ml Q4H PRN HHN Shortness of Breath 08/19/18 13:12 08/22/18 13:11 08/20/18 20:57 Amlodipine Besylate (Norvasc) 5 mg BID NG 08/19/18 18:00 09/15/18 17:59 08/21/18 08:52 Azithromycin 500 mg/Dextrose 275 ml @ 275 mls/hr Q24H IV 08/20/18 09:00 08/22/18 09:59 08/21/18 08:51 Ceftriaxone Sodium 1 gm/ Dextrose 55 ml @ 110 mls/hr Q24H IVPB 08/20/18 20:00 08/27/18 19:59 08/20/18 20:24 Clonazepam (KlonoPIN) 0.25 mg DAILY ORAL 08/21/18 09:00 08/28/18 08:59 08/21/18 08:52 Clonazepam (KlonoPIN) 0.5 mg BEDTIME ORAL 08/20/18 21:00 08/27/18 20:59 08/20/18 20:24 Dextrose 1,000 ml @ 50 mls/hr Q20H IV 08/20/18 21:30 09/19/18 21:29 08/20/18 21:55 Dextrose (Dextrose 50%) 25 ml Q30M PRN IV Hypoglycemia 08/19/18 13:00 09/16/18 10:29 Dextrose (Dextrose 50%) 50 ml Q30M PRN IV Hypoglycemia 08/19/18 13:00 09/16/18 10:29 Diphenoxylate HCl/ Atropine (Lomotil) 2.5 mg Q4H PRN ORAL Diarrhea 08/20/18 13:45 09/19/18 13:44 08/20/18 20:25 Docusate Sodium (Colace) 100 mg THREE TIMES A DAY ORAL 08/21/18 13:00 09/20/18 12:59 UNV Finasteride (Proscar) 5 mg DAILY ORAL 08/20/18 09:00 09/19/18 08:59 08/21/18 08:51 Insulin Aspart (NovoLOG) BEFORE MEALS AND HS SUBQ 08/19/18 16:30 09/16/18 11:29 08/21/18 06:07 Metronidazole 100 ml @ 100 mls/hr Q8HR IVPB 08/19/18 14:00 08/23/18 14:59 08/21/18 05:14 Nitroglycerin (Ntg) 1 patch Q24H TDERMAL 08/19/18 16:00 09/15/18 15:59 08/20/18 18:32 Ondansetron HCl (Zofran) 4 mg Q6H PRN IVP Nausea & Vomiting 08/19/18 16:30 09/13/18 22:29 Pantoprazole (Protonix) 40 mg DAILY ORAL 08/22/18 09:00 09/21/18 08:59 UNV Potassium Chloride (K-Dur) 20 meq THREE TIMES A DAY NG 08/19/18 18:00 09/16/18 17:59 08/21/18 08:52 Promethazine HCl/ Codeine (Phenergan with Codeine) 5 ml Q6H PRN ORAL For Cough 08/20/18 21:45 09/19/18 21:44 Quetiapine Fumarate (SEROquel) 25 mg Q6H PRN ORAL agitation 08/20/18 11:00 09/19/18 10:59 Quetiapine Fumarate (SEROquel) 50 mg BEDTIME ORAL 08/20/18 21:00 09/19/18 20:59 Tamsulosin HCl (Flomax) 0.4 mg BEDTIME ORAL 08/20/18 21:00 09/19/18 20:59 08/20/18 20:24 Laboratory Tests 08/21/18 06:00: White Blood Count 12.7H, Red Blood Count 3.25L, Hemoglobin 9.2L, Hematocrit 29.4L, Mean Corpuscular Volume 90, Mean Corpuscular Hemoglobin 28.2, Mean Corpuscular Hemoglobin Concent 31.1L, Red Cell Distribution Width 16.8H, Platelet Count 283, Mean Platelet Volume 6.7, Neutrophils (%) (Auto) 73.2, Lymphocytes (%) (Auto) 17.9L, Monocytes (%) (Auto) 4.8, Eosinophils (%) (Auto) 3.6H, Basophils (%) (Auto) 0.5, Sodium Level 148H, Potassium Level 3.3L, Chloride Level 112H, Carbon Dioxide Level 27, Anion Gap 9, Blood Urea Nitrogen 19H, Creatinine 0.9, Estimat Glomerular Filtration Rate , Glucose Level 165H, Calcium Level 8.7 Height (Feet): 5 Height (Inches): 7.00 Weight (Pounds): 149 Objective exam stable, urine venu Salbador Yanez MD Aug 21, 2018 10:41
--- NOTE | 2018-08-21 10:41 | NUR ---
NURSE NOTES: Dr carnes visited pt and he is aware K 3.3 will do all orders. will continue to monitor.
--- NOTE | 2018-08-21 11:06 | NUR ---
NURSE NOTES: Received pt from [facility]. Pt is nonverbal. pt has NC 3LMP. No SOB or acute respiratory distress noted. pt has intact iv access RFA 24g is running well. pt has Isaac cath in place is running well. all needs attended, bed is locked and is in the lowest position. call light within easy reach. will continue to monitor.
--- NOTE | 2018-08-21 11:10 | Internal Med Progress Note ---
Subjective Date of Service: Aug 21, 2018 Physician Name Jeremi Hayden Attending Physician Madhu Juarez MD Current Medications Medications (Trade) Dose Ordered Sig/Jese Route PRN Reason Start Time Stop Time Status Last Admin Dose Admin Acetaminophen (Tylenol) 650 mg Q4H PRN ORAL fever 08/19/18 13:11 09/13/18 13:10 Albuterol/ Ipratropium (Albuterol/ Ipratropium) 3 ml Q4H PRN HHN Shortness of Breath 08/19/18 13:12 08/22/18 13:11 08/20/18 20:57 Amlodipine Besylate (Norvasc) 5 mg BID NG 08/19/18 18:00 09/15/18 17:59 08/21/18 08:52 Azithromycin 500 mg/Dextrose 275 ml @ 275 mls/hr Q24H IV 08/20/18 09:00 08/22/18 09:59 08/21/18 08:51 Ceftriaxone Sodium 1 gm/ Dextrose 55 ml @ 110 mls/hr Q24H IVPB 08/20/18 20:00 08/27/18 19:59 08/20/18 20:24 Clonazepam (KlonoPIN) 0.25 mg DAILY ORAL 08/21/18 09:00 08/28/18 08:59 08/21/18 08:52 Clonazepam (KlonoPIN) 0.5 mg BEDTIME ORAL 08/20/18 21:00 08/27/18 20:59 08/20/18 20:24 Dextrose 1,000 ml @ 50 mls/hr Q20H IV 08/20/18 21:30 09/19/18 21:29 08/20/18 21:55 Dextrose (Dextrose 50%) 25 ml Q30M PRN IV Hypoglycemia 08/19/18 13:00 09/16/18 10:29 Dextrose (Dextrose 50%) 50 ml Q30M PRN IV Hypoglycemia 08/19/18 13:00 09/16/18 10:29 Diphenoxylate HCl/ Atropine (Lomotil) 2.5 mg Q4H PRN ORAL Diarrhea 08/20/18 13:45 09/19/18 13:44 08/20/18 20:25 Finasteride (Proscar) 5 mg DAILY ORAL 08/20/18 09:00 09/19/18 08:59 08/21/18 08:51 Insulin Aspart (NovoLOG) BEFORE MEALS AND HS SUBQ 08/19/18 16:30 09/16/18 11:29 08/21/18 06:07 Loperamide HCl (Imodium) 2 mg Q4H PRN ORAL Diarrhea 08/21/18 10:45 09/20/18 10:44 Metronidazole 100 ml @ 100 mls/hr Q8HR IVPB 08/19/18 14:00 08/23/18 14:59 08/21/18 05:14 Nitroglycerin (Ntg) 1 patch Q24H TDERMAL 08/19/18 16:00 09/15/18 15:59 08/20/18 18:32 Ondansetron HCl (Zofran) 4 mg Q6H PRN IVP Nausea & Vomiting 08/19/18 16:30 09/13/18 22:29 Pantoprazole (Protonix) 40 mg DAILY ORAL 08/22/18 09:00 09/21/18 08:59 Potassium Chloride (K-Dur) 20 meq THREE TIMES A DAY NG 08/19/18 18:00 09/16/18 17:59 08/21/18 08:52 Promethazine HCl/ Codeine (Phenergan with Codeine) 5 ml Q6H PRN ORAL For Cough 08/20/18 21:45 09/19/18 21:44 Quetiapine Fumarate (SEROquel) 25 mg Q6H PRN ORAL agitation 08/20/18 11:00 09/19/18 10:59 Quetiapine Fumarate (SEROquel) 50 mg BEDTIME ORAL 08/20/18 21:00 09/19/18 20:59 Tamsulosin HCl (Flomax) 0.4 mg BEDTIME ORAL 08/20/18 21:00 09/19/18 20:59 08/20/18 20:24 Allergies: Coded Allergies: No Known Allergies (Unverified , 08/14/18) ROS Limited/Unobtainable: Yes Subjective 88 YO M admitted with shortness of breath. Now aspiration pneumonia. Cover for Int Swapnil-Dr Juarez. Tolerating nasal canula Objective Last Vital Signs Date Time Temp Pulse Resp B/P (MAP) Pulse Ox O2 Delivery O2 Flow Rate FiO2 08/21/18 08:52 86 140/70 08/21/18 08:35 20 Nasal Cannula 2.0 28 08/21/18 08:30 96 08/21/18 08:00 97.9 Laboratory Tests Test 08/21/18 06:00 White Blood Count 12.7 K/UL (4.8-10.8) H Red Blood Count 3.25 M/UL (4.70-6.10) L Hemoglobin 9.2 G/DL (14.2-18.0) L Hematocrit 29.4 % (42.0-52.0) L Mean Corpuscular Volume 90 FL (80-99) Mean Corpuscular Hemoglobin 28.2 PG (27.0-31.0) Mean Corpuscular Hemoglobin Concent 31.1 G/DL (32.0-36.0) L Red Cell Distribution Width 16.8 % (11.6-14.8) H Platelet Count 283 K/UL (150-450) Mean Platelet Volume 6.7 FL (6.5-10.1) Neutrophils (%) (Auto) 73.2 % (45.0-75.0) Lymphocytes (%) (Auto) 17.9 % (20.0-45.0) L Monocytes (%) (Auto) 4.8 % (1.0-10.0) Eosinophils (%) (Auto) 3.6 % (0.0-3.0) H Basophils (%) (Auto) 0.5 % (0.0-2.0) Sodium Level 148 MMOL/L (136-145) H Potassium Level 3.3 MMOL/L (3.5-5.1) L Chloride Level 112 MMOL/L (98-107) H Carbon Dioxide Level 27 MMOL/L (21-32) Anion Gap 9 mmol/L (5-15) Blood Urea Nitrogen 19 mg/dL (7-18) H Creatinine 0.9 MG/DL (0.55-1.30) Estimat Glomerular Filtration Rate mL/min (>60) Glucose Level 165 MG/DL (74-106) H Calcium Level 8.7 MG/DL (8.5-10.1) Microbiology Date/Time Source Procedure Growth Status 08/20/18 20:00 Stool Clostridium difficile Toxin Assay - Final Complete 08/18/18 18:00 Indwelling Cath Urine Culture - Preliminary YEAST Resulted Intake and Output 08/20/18 08/21/18 19:00 07:00 Intake Total 150 ml 510 ml Output Total 600 ml Balance -450 ml 510 ml Intake Oral 150 ml IV Total 510 ml Output Urine Total 600 ml # Voids 2 # Bowel Movements 3 2 Objective PHYSICAL EXAMINATION: GENERAL: The patient is well-developed and well-nourished thin-appearing white male, who is currently tolerating nasal canula. HEENT: Eyes - pupils are equal and responsive to light and accommodation. Extraocular movements are intact. NECK: Supple without lymphadenopathy. CHEST: Crackles bilaterally with expiratory wheezes. ABDOMEN: Soft, nontender, and nondistended. Positive bowel sounds. No evidence of hepatosplenomegaly. Currently, no rebound or guarding noted. EXTREMITIES: Negative for clubbing, cyanosis, or edema. RECTAL/GENITAL: Not performed. NEUROLOGIC: Cranial nerves II through XII are grossly intact without focal deficits. Assessment/Plan Assessment/Plan ASSESSMENT: This is an 88-year-old white male. 1. Right lower lobe pneumonia-klebsiella. 2. Shortness of breath. 3. Fever. 4. Cerebrovascular disease. 5. Diabetes. 6. Parkinson disease. 7. Renal failure 8. Sepsis-staph epi TREATMENT: 1. Right lower lobe pneumonia/shortness of breath. ?aspiration? A Pulmonary consultation has been obtained with Dr. Sade Morgan. Continue cefepime, flagyl and vancomycin per ID. See Infectious Disease consultation by Dr. Marte. 2. History of cerebrovascular disease. Continue aspirin as above. 3. Diabetes type 2. The patient has been started on NovoLog sliding scale. 4. Parkinson disease. Continue Sinemet as above. 5. See nephrology note. Jeremi Hayden MD Aug 21, 2018 11:10
[2018-08-21 12:00] VITALS: BP 130/62
--- NOTE | 2018-08-21 12:23 | General Progress Note ---
Assessment/Plan Problem List: (1) Acute metabolic encephalopathy ICD Codes: G93.41 - Metabolic encephalopathy SNOMED: 30903352, 604884374 (2) Major depressive disorder, recurrent ICD Codes: F33.9 - Major depressive disorder, recurrent, unspecified SNOMED: 39356395 (3) Anxiety disorder ICD Codes: F41.9 - Anxiety disorder, unspecified SNOMED: 260947153 Status: deteriorating Assessment/Plan Klonopin .5mg po qhs Klonopin .5mg po qam Seroquel 50mg po qhs will restart ad when pts ms is improved dw rn and Subjective Neurologic/Psychiatric: Reports: anxiety, depressed, emotional problems Allergies: Coded Allergies: No Known Allergies (Unverified , 08/14/18) Subjective the stated that the pt was agitated and restless today the pt was unable to follow direction the pt was mumbling and incoherent the pts was very concern Objective Last 24 Hour Vital Signs Date Time Temp Pulse Resp B/P (MAP) Pulse Ox O2 Delivery O2 Flow Rate FiO2 08/21/18 08:52 86 140/70 08/21/18 08:35 86 20 Nasal Cannula 2.0 28 08/21/18 08:30 96 Nasal Cannula 2.0 28 08/21/18 08:30 Nasal Cannula 2.0 28 08/21/18 08:00 97.9 86 19 140/70 (93) 96 08/21/18 04:00 97.2 77 18 143/73 (96) 99 08/21/18 00:00 97.8 86 17 132/70 (90) 99 08/20/18 21:07 91 22 100 Nasal Cannula 2.0 28 08/20/18 21:00 Nasal Cannula 3.0 08/20/18 20:57 87 22 100 Nasal Cannula 2.0 28 08/20/18 20:55 Nasal Cannula 2.0 28 08/20/18 20:55 100 Nasal Cannula 2.0 28 08/20/18 20:53 87 22 Nasal Cannula 2.0 28 08/20/18 20:00 97.9 69 17 149/64 (92) 97 08/20/18 18:32 136/76 08/20/18 18:32 84 136/76 08/20/18 16:00 97.2 83 20 125/63 (83) 91 Intake and Output 08/20/18 08/21/18 19:00 07:00 Intake Total 150 ml 510 ml Output Total 600 ml Balance -450 ml 510 ml Intake Oral 150 ml IV Total 510 ml Output Urine Total 600 ml # Voids 2 # Bowel Movements 3 2 Laboratory Tests 08/21/18 06:00: White Blood Count 12.7H, Red Blood Count 3.25L, Hemoglobin 9.2L, Hematocrit 29.4L, Mean Corpuscular Volume 90, Mean Corpuscular Hemoglobin 28.2, Mean Corpuscular Hemoglobin Concent 31.1L, Red Cell Distribution Width 16.8H, Platelet Count 283, Mean Platelet Volume 6.7, Neutrophils (%) (Auto) 73.2, Lymphocytes (%) (Auto) 17.9L, Monocytes (%) (Auto) 4.8, Eosinophils (%) (Auto) 3.6H, Basophils (%) (Auto) 0.5, Sodium Level 148H, Potassium Level 3.3L, Chloride Level 112H, Carbon Dioxide Level 27, Anion Gap 9, Blood Urea Nitrogen 19H, Creatinine 0.9, Estimat Glomerular Filtration Rate , Glucose Level 165H, Calcium Level 8.7 Height (Feet): 5 Height (Inches): 7.00 Weight (Pounds): 149 General Appearance: WD/WN, alert, confused, moderate distress, agitated Neurologic: disoriented Jorge Mars MD Aug 21, 2018 12:23
[2018-08-21] MEDS ORDERED: Docusate 100mg cap ORAL SCH (13:00)
--- NOTE | 2018-08-21 13:06 | Infectious Diseases Prog Note ---
Assessment/Plan Assessment/Plan Assessment: Sepsis 2ry to PNA, ?FLu (despite neg screening test) -08/19 CXR: Patchy interstitial pneumonitis versus interstitial edema demonstrated. -CXR: Right basilar infiltrate, atelectasis, and likely pleural fluid -sp cx K.pna (R amp, otherwise S) -u/a wbc 10-15, nit neg, leuk +2; ucx Neg; 08/18 u/a wbc 20-40,nit neg, leuk +3 ; ucx NTD -influenza sc, legionella ag neg Gram positive bacteremia- likely contaminant = -08/14 Bcx 06/28 CONS; 08/16 NTD Fever, SP Leukocytosis, mild recurrent, increased -Cdiff neg TONIO, improving Hyponatremia/hypokalemia Dm2 CVA w/ R side deficit bedbound Parkinson's disease Plan: -Continue Ceftriaxone #2 (abx d#8/10) for K. pna PNA -08/20 SP Cefepime #7 -D/c Flagyl #6/5 -Azithromycin resumed by pulm; abx d#7/7 -08/19 SP IV Vancomycin #6 , Tamiflu #5 -08/14 SP Flagyl x1 -f/u cx -Monitor CBC/CMP, temperatures -aspiration precautions Thank you for your consultation. Will continue to follow along with you. Discussed with RN. Subjective Allergies: Coded Allergies: No Known Allergies (Unverified , 08/14/18) Subjective afebrile leukocytosis increasing bacteremic CONS; repeat Bcx NTD Objective Vital Signs Last 24 Hour Vital Signs Date Time Temp Pulse Resp B/P (MAP) Pulse Ox O2 Delivery O2 Flow Rate FiO2 08/21/18 08:52 86 140/70 08/21/18 08:35 86 20 Nasal Cannula 2.0 28 08/21/18 08:30 96 Nasal Cannula 2.0 28 08/21/18 08:30 Nasal Cannula 2.0 28 08/21/18 08:00 97.9 86 19 140/70 (93) 96 08/21/18 04:00 97.2 77 18 143/73 (96) 99 08/21/18 00:00 97.8 86 17 132/70 (90) 99 08/20/18 21:07 91 22 100 Nasal Cannula 2.0 28 08/20/18 21:00 Nasal Cannula 3.0 08/20/18 20:57 87 22 100 Nasal Cannula 2.0 28 08/20/18 20:55 Nasal Cannula 2.0 28 08/20/18 20:55 100 Nasal Cannula 2.0 28 08/20/18 20:53 87 22 Nasal Cannula 2.0 28 08/20/18 20:00 97.9 69 17 149/64 (92) 97 08/20/18 18:32 136/76 08/20/18 18:32 84 136/76 08/20/18 16:00 97.2 83 20 125/63 (83) 91 Height (Feet): 5 Height (Inches): 7.00 Weight (Pounds): 149 Objective General Appearance: alert, thin, Chronically Ill ENT: moist mucus membranes Neck: limited range of motion Respiratory: decreased breath sounds - left side, right side crackles Cardiovascular #1: normal inspection, normal peripheral pulses, regular rate, rhythm Musculoskeletal: decreased range of motion, other - motor weakness Neurologic: alert, motor weakness Psychiatric: depressed affect Skin: other Microbiology Date/Time Source Procedure Growth Status 08/20/18 20:00 Stool Clostridium difficile Toxin Assay - Final Complete 08/18/18 18:00 Indwelling Cath Urine Culture - Preliminary YEAST Resulted Laboratory Tests Test 08/21/18 06:00 White Blood Count 12.7 K/UL (4.8-10.8) H Red Blood Count 3.25 M/UL (4.70-6.10) L Hemoglobin 9.2 G/DL (14.2-18.0) L Hematocrit 29.4 % (42.0-52.0) L Mean Corpuscular Volume 90 FL (80-99) Mean Corpuscular Hemoglobin 28.2 PG (27.0-31.0) Mean Corpuscular Hemoglobin Concent 31.1 G/DL (32.0-36.0) L Red Cell Distribution Width 16.8 % (11.6-14.8) H Platelet Count 283 K/UL (150-450) Mean Platelet Volume 6.7 FL (6.5-10.1) Neutrophils (%) (Auto) 73.2 % (45.0-75.0) Lymphocytes (%) (Auto) 17.9 % (20.0-45.0) L Monocytes (%) (Auto) 4.8 % (1.0-10.0) Eosinophils (%) (Auto) 3.6 % (0.0-3.0) H Basophils (%) (Auto) 0.5 % (0.0-2.0) Sodium Level 148 MMOL/L (136-145) H Potassium Level 3.3 MMOL/L (3.5-5.1) L Chloride Level 112 MMOL/L (98-107) H Carbon Dioxide Level 27 MMOL/L (21-32) Anion Gap 9 mmol/L (5-15) Blood Urea Nitrogen 19 mg/dL (7-18) H Creatinine 0.9 MG/DL (0.55-1.30) Estimat Glomerular Filtration Rate mL/min (>60) Glucose Level 165 MG/DL (74-106) H Calcium Level 8.7 MG/DL (8.5-10.1) Current Medications Medications (Trade) Dose Ordered Sig/Jese Route PRN Reason Start Time Stop Time Status Last Admin Dose Admin Acetaminophen (Tylenol) 650 mg Q4H PRN ORAL fever 08/19/18 13:11 09/13/18 13:10 Albuterol/ Ipratropium (Albuterol/ Ipratropium) 3 ml Q4H PRN HHN Shortness of Breath 08/19/18 13:12 08/22/18 13:11 08/20/18 20:57 Amlodipine Besylate (Norvasc) 5 mg BID NG 08/19/18 18:00 09/15/18 17:59 08/21/18 08:52 Azithromycin 500 mg/Dextrose 275 ml @ 275 mls/hr Q24H IV 08/20/18 09:00 08/22/18 09:59 08/21/18 08:51 Ceftriaxone Sodium 1 gm/ Dextrose 55 ml @ 110 mls/hr Q24H IVPB 08/20/18 20:00 08/27/18 19:59 08/20/18 20:24 Clonazepam (KlonoPIN) 0.5 mg BEDTIME ORAL 08/20/18 21:00 08/27/18 20:59 08/20/18 20:24 Clonazepam (KlonoPIN) 0.5 mg DAILY ORAL 08/22/18 09:00 08/29/18 08:59 Dextrose 1,000 ml @ 50 mls/hr Q20H IV 08/20/18 21:30 09/19/18 21:29 08/20/18 21:55 Dextrose (Dextrose 50%) 25 ml Q30M PRN IV Hypoglycemia 08/19/18 13:00 09/16/18 10:29 Dextrose (Dextrose 50%) 50 ml Q30M PRN IV Hypoglycemia 08/19/18 13:00 09/16/18 10:29 Diphenoxylate HCl/ Atropine (Lomotil) 2.5 mg Q4H PRN ORAL Diarrhea 08/20/18 13:45 09/19/18 13:44 08/20/18 20:25 Finasteride (Proscar) 5 mg DAILY ORAL 08/20/18 09:00 09/19/18 08:59 08/21/18 08:51 Insulin Aspart (NovoLOG) BEFORE MEALS AND HS SUBQ 08/19/18 16:30 09/16/18 11:29 08/21/18 12:26 Loperamide HCl (Imodium) 2 mg Q4H PRN ORAL Diarrhea 08/21/18 10:45 09/20/18 10:44 Metronidazole 100 ml @ 100 mls/hr Q8HR IVPB 08/19/18 14:00 08/23/18 14:59 08/21/18 05:14 Nitroglycerin (Ntg) 1 patch Q24H TDERMAL 08/19/18 16:00 09/15/18 15:59 08/20/18 18:32 Ondansetron HCl (Zofran) 4 mg Q6H PRN IVP Nausea & Vomiting 08/19/18 16:30 09/13/18 22:29 Pantoprazole (Protonix) 40 mg DAILY ORAL 08/22/18 09:00 09/21/18 08:59 Potassium Chloride (K-Dur) 20 meq THREE TIMES A DAY NG 08/19/18 18:00 09/16/18 17:59 08/21/18 12:26 Promethazine HCl/ Codeine (Phenergan with Codeine) 5 ml Q6H PRN ORAL For Cough 08/20/18 21:45 09/19/18 21:44 Quetiapine Fumarate (SEROquel) 25 mg Q6H PRN ORAL agitation 08/20/18 11:00 09/19/18 10:59 08/21/18 12:17 Quetiapine Fumarate (SEROquel) 50 mg BEDTIME ORAL 08/20/18 21:00 09/19/18 20:59 Tamsulosin HCl (Flomax) 0.4 mg BEDTIME ORAL 08/20/18 21:00 09/19/18 20:59 08/20/18 20:24 Nuria Marte M.D. Aug 21, 2018 13:06
--- NOTE | 2018-08-21 14:03 | Pulmonology Progress Note ---
Assessment/Plan Problems: (1) Acute respiratory failure (2) Aspiration pneumonia (3) ATN (acute tubular necrosis) Assessment/Plan CT of head ordered, concerned that pt might have had another episode of stroke bun/creatine decreasing, almost normal didn't pass swallow study continue NG tube feeding check electrolytes respiratory treatment check echocardiogram f/u troponin level failed swallow study, doesn't want Gtube eating, family wants oral feeding Subjective ROS Limited/Unobtainable: No Constitutional: Reports: no symptoms HEENT: Repors: no symptoms Respiratory: Reports: no symptoms Allergies: Coded Allergies: No Known Allergies (Unverified , 08/14/18) Objective Last 24 Hour Vital Signs Date Time Temp Pulse Resp B/P (MAP) Pulse Ox O2 Delivery O2 Flow Rate FiO2 08/21/18 12:00 97.9 81 20 130/62 (84) 95 08/21/18 09:00 Nasal Cannula 3.0 08/21/18 08:52 86 140/70 08/21/18 08:35 86 20 Nasal Cannula 2.0 28 08/21/18 08:30 96 Nasal Cannula 2.0 28 08/21/18 08:30 Nasal Cannula 2.0 28 08/21/18 08:00 97.9 86 19 140/70 (93) 96 08/21/18 04:00 97.2 77 18 143/73 (96) 99 08/21/18 00:00 97.8 86 17 132/70 (90) 99 08/20/18 21:07 91 22 100 Nasal Cannula 2.0 28 08/20/18 21:00 Nasal Cannula 3.0 08/20/18 20:57 87 22 100 Nasal Cannula 2.0 28 08/20/18 20:55 Nasal Cannula 2.0 28 08/20/18 20:55 100 Nasal Cannula 2.0 28 08/20/18 20:53 87 22 Nasal Cannula 2.0 28 08/20/18 20:00 97.9 69 17 149/64 (92) 97 08/20/18 18:32 136/76 08/20/18 18:32 84 136/76 08/20/18 16:00 97.2 83 20 125/63 (83) 91 Intake and Output 08/20/18 08/21/18 19:00 07:00 Intake Total 150 ml 510 ml Output Total 600 ml Balance -450 ml 510 ml Intake Oral 150 ml IV Total 510 ml Output Urine Total 600 ml # Voids 2 # Bowel Movements 3 2 Objective General Appearance: cachectic HEENT: normocephalic Respiratory/Chest: chest wall non-tender, lungs clear, normal breath sounds Breasts: no masses Cardiovascular: normal peripheral pulses, normal rate Abdomen: normal bowel sounds, soft, non tender Extremities: no cyanosis Skin: no rash Microbiology Date/Time Source Procedure Growth Status 08/20/18 20:00 Stool Clostridium difficile Toxin Assay - Final Complete 08/18/18 18:00 Indwelling Cath Urine Culture - Preliminary YEAST Resulted Laboratory Tests 08/21/18 06:00: White Blood Count 12.7H, Red Blood Count 3.25L, Hemoglobin 9.2L, Hematocrit 29.4L, Mean Corpuscular Volume 90, Mean Corpuscular Hemoglobin 28.2, Mean Corpuscular Hemoglobin Concent 31.1L, Red Cell Distribution Width 16.8H, Platelet Count 283, Mean Platelet Volume 6.7, Neutrophils (%) (Auto) 73.2, Lymphocytes (%) (Auto) 17.9L, Monocytes (%) (Auto) 4.8, Eosinophils (%) (Auto) 3.6H, Basophils (%) (Auto) 0.5, Sodium Level 148H, Potassium Level 3.3L, Chloride Level 112H, Carbon Dioxide Level 27, Anion Gap 9, Blood Urea Nitrogen 19H, Creatinine 0.9, Estimat Glomerular Filtration Rate , Glucose Level 165H, Calcium Level 8.7 Current Medications Medications (Trade) Dose Ordered Sig/Jese Route PRN Reason Start Time Stop Time Status Last Admin Dose Admin Acetaminophen (Tylenol) 650 mg Q4H PRN ORAL fever 08/19/18 13:11 09/13/18 13:10 Albuterol/ Ipratropium (Albuterol/ Ipratropium) 3 ml Q4H PRN HHN Shortness of Breath 08/19/18 13:12 08/22/18 13:11 08/20/18 20:57 Amlodipine Besylate (Norvasc) 5 mg BID NG 08/19/18 18:00 09/15/18 17:59 08/21/18 08:52 Ceftriaxone Sodium 1 gm/ Dextrose 55 ml @ 110 mls/hr Q24H IVPB 08/20/18 20:00 08/27/18 19:59 08/20/18 20:24 Clonazepam (KlonoPIN) 0.5 mg BEDTIME ORAL 08/20/18 21:00 08/27/18 20:59 08/20/18 20:24 Clonazepam (KlonoPIN) 0.5 mg DAILY ORAL 08/22/18 09:00 08/29/18 08:59 Dextrose 1,000 ml @ 50 mls/hr Q20H IV 08/20/18 21:30 09/19/18 21:29 08/20/18 21:55 Dextrose (Dextrose 50%) 25 ml Q30M PRN IV Hypoglycemia 08/19/18 13:00 09/16/18 10:29 Dextrose (Dextrose 50%) 50 ml Q30M PRN IV Hypoglycemia 08/19/18 13:00 09/16/18 10:29 Diphenoxylate HCl/ Atropine (Lomotil) 2.5 mg Q4H PRN ORAL Diarrhea 08/20/18 13:45 09/19/18 13:44 08/20/18 20:25 Finasteride (Proscar) 5 mg DAILY ORAL 08/20/18 09:00 09/19/18 08:59 08/21/18 08:51 Insulin Aspart (NovoLOG) BEFORE MEALS AND HS SUBQ 08/19/18 16:30 09/16/18 11:29 08/21/18 12:26 Loperamide HCl (Imodium) 2 mg Q4H PRN ORAL Diarrhea 08/21/18 10:45 09/20/18 10:44 Nitroglycerin (Ntg) 1 patch Q24H TDERMAL 08/19/18 16:00 09/15/18 15:59 08/20/18 18:32 Ondansetron HCl (Zofran) 4 mg Q6H PRN IVP Nausea & Vomiting 08/19/18 16:30 09/13/18 22:29 Pantoprazole (Protonix) 40 mg DAILY ORAL 08/22/18 09:00 09/21/18 08:59 Potassium Chloride (K-Dur) 20 meq THREE TIMES A DAY NG 08/19/18 18:00 09/16/18 17:59 08/21/18 12:26 Promethazine HCl/ Codeine (Phenergan with Codeine) 5 ml Q6H PRN ORAL For Cough 08/20/18 21:45 09/19/18 21:44 Quetiapine Fumarate (SEROquel) 25 mg Q6H PRN ORAL agitation 08/20/18 11:00 09/19/18 10:59 08/21/18 12:17 Quetiapine Fumarate (SEROquel) 50 mg BEDTIME ORAL 08/20/18 21:00 09/19/18 20:59 Tamsulosin HCl (Flomax) 0.4 mg BEDTIME ORAL 08/20/18 21:00 09/19/18 20:59 08/20/18 20:24 Sade Morgan MD Aug 21, 2018 14:03
[2018-08-21] MEDS ORDERED: Tubing IV Secondary IV ONE (15:59)
[2018-08-21 16:00] VITALS: BP 131/70
--- NOTE | 2018-08-21 16:35 | Diagnostic Imaging Report ---
Indication: Headache Technique: Contiguous 5 mm thick transaxial imaging of the head obtained in a Siemens Sensation [address] scanner. Soft tissue and bone windows generated. Automatic Exposure Control was utilized. Total Dose length Product (DLP): 1763.[address] Dose Index Volume (CTDIvol): 70.38,70.38 mGy Comparison: none Findings: There is moderate to severe atrophy of the cerebrum and cerebellum characterized by prominence of the sulci ventricles and basal cisterns. In addition there is a focus of the cortical encephalomalacia in the left occipital lobe and subcortical encephalomalacia in the right frontal lobe and subcortical/cortical parenchymal loss in the left frontal lobe consistent with old infarcts. Extensive white matter low attenuation demonstrated throughout the brain. Suggestion of lacunar infarcts within the right basal ganglia and brainstem also demonstrated. There is no evidence of acute hemorrhage, mass effect or edema definitely seen. The bones are unremarkable. 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 Moderate to severe atrophy of the brain. Extensive white matter low-attenuation mainly periventricular in distribution consistent with chronic small vessel disease. The CT scanner at [facility] is accredited by the [employer] and the scans are performed using dose optimization techniques as appropriate to a performed exam including Automatic Exposure control.
[2018-08-21] MEDS: Nitroglycerin Patch 0.4mg TDERMAL SCH (16:53)
--- NOTE | 2018-08-21 17:20 | Nephrology Progress Note ---
Assessment/Plan Problem List: (1) ATN (acute tubular necrosis) Assessment: resolved (2) Acute respiratory failure (3) Diabetes mellitus (4) Parkinson disease (5) Respiratory distress (6) Aspiration pneumonia Assessment 88 Y old male, presents with resp distress and aspiration pneumonia Renal failure, Mainly dehydration resolving ? Underlying CKD Low K , Low Na , Low Alb Parkinsons DM Plan change IV to D5w , Na lower Uro eval and trial to DC buckner? repeat ua and u c/s discussed with NGT Hydrate 2D Echo Noted Antibiotics Avoid Nephrotoxics Per orders Subjective ROS Limited/Unobtainable: No Constitutional: Reports: malaise Objective Objective Last 24 Hour Vital Signs Date Time Temp Pulse Resp B/P (MAP) Pulse Ox O2 Delivery O2 Flow Rate FiO2 08/21/18 17:06 86 131/70 08/21/18 16:53 131/70 08/21/18 16:00 98.5 86 19 131/70 (90) 96 08/21/18 12:00 97.9 81 20 130/62 (84) 95 08/21/18 09:00 Nasal Cannula 3.0 08/21/18 08:52 86 140/70 08/21/18 08:35 86 20 Nasal Cannula 2.0 28 08/21/18 08:30 96 Nasal Cannula 2.0 28 08/21/18 08:30 Nasal Cannula 2.0 28 08/21/18 08:00 97.9 86 19 140/70 (93) 96 08/21/18 04:00 97.2 77 18 143/73 (96) 99 08/21/18 00:00 97.8 86 17 132/70 (90) 99 08/20/18 21:07 91 22 100 Nasal Cannula 2.0 28 08/20/18 21:00 Nasal Cannula 3.0 08/20/18 20:57 87 22 100 Nasal Cannula 2.0 28 08/20/18 20:55 Nasal Cannula 2.0 28 08/20/18 20:55 100 Nasal Cannula 2.0 28 08/20/18 20:53 87 22 Nasal Cannula 2.0 28 08/20/18 20:00 97.9 69 17 149/64 (92) 97 08/20/18 18:32 136/76 08/20/18 18:32 84 136/76 Intake and Output 08/20/18 08/21/18 19:00 07:00 Intake Total 150 ml 510 ml Output Total 600 ml Balance -450 ml 510 ml Intake Oral 150 ml IV Total 510 ml Output Urine Total 600 ml # Voids 2 # Bowel Movements 3 2 Laboratory Tests 08/21/18 06:00: White Blood Count 12.7H, Red Blood Count 3.25L, Hemoglobin 9.2L, Hematocrit 29.4L, Mean Corpuscular Volume 90, Mean Corpuscular Hemoglobin 28.2, Mean Corpuscular Hemoglobin Concent 31.1L, Red Cell Distribution Width 16.8H, Platelet Count 283, Mean Platelet Volume 6.7, Neutrophils (%) (Auto) 73.2, Lymphocytes (%) (Auto) 17.9L, Monocytes (%) (Auto) 4.8, Eosinophils (%) (Auto) 3.6H, Basophils (%) (Auto) 0.5, Sodium Level 148H, Potassium Level 3.3L, Chloride Level 112H, Carbon Dioxide Level 27, Anion Gap 9, Blood Urea Nitrogen 19H, Creatinine 0.9, Estimat Glomerular Filtration Rate , Glucose Level 165H, Calcium Level 8.7 Height (Feet): 5 Height (Inches): 7.00 Weight (Pounds): 149 General Appearance: no apparent distress Cardiovascular: normal rate Respiratory/Chest: decreased breath sounds Abdomen: soft Hudson Huntley MD Aug 21, 2018 17:20
--- NOTE | 2018-08-21 18:46 | NUR ---
CASE MANAGEMENT: REVIEW 08/21/2018 SI: SEPSIS T 98.5 HR 86 RR 19 B/P 131/70 SATS 96% ON 3L/NC WBC 12.7 NA 148 K 3.3 BUN 19 GLU 165 IS: K-DUR NG TID CEFTRIAXONE IV Q24H FLAGYL IV Q8HR IVF @ 50 mL/HR NORVASC NG BID KLONOPIN PO QD STEP DOWN UNIT STATUS DCP: PATIENT IS FROM HOME
--- NOTE | 2018-08-21 19:30 | NUR ---
NURSE NOTES: Received patient on bed sleeping, no s/s of any distress, IV line intact, FC intact and draining to gravity, Bed in low position and locked, will continue to monitor. Addendum: 08/22/18 at 0042 by Marcelino Cuadra RN NURSE NOTES: Patient has left soft wrist restraint related to pulling out IV line.
--- NOTE | 2018-08-21 19:54 | NUR ---
HAND-OFF: Report given to LIA SCHULTZ.
[2018-08-21 20:00] VITALS: BP 129/75
[2018-08-21] MEDS: clonazePAM 0.5mg tab ORAL SCH (20:36)
[2018-08-21] MEDS: cefTRIAXone 1 GM in D5W 55 ML IVPB SCH (20:36)
[2018-08-21] MEDS: Tamsulosin 0.4mg cap ORAL SCH (20:36)
[2018-08-22] VITALS: BP 116/78
[2018-08-22 04:00] VITALS: BP 108/72
[2018-08-22] MEDS: NovoLOG Insulin Flexpen SUBQ SCH ×4 (05:59→21:16)
[2018-08-22] MEDS: Lomotil 2.5mg tab ORAL PRN (06:15)
--- NOTE | 2018-08-22 07:23 | NUR ---
HAND-OFF: Report given to Chanelle FITZGERALD.
[2018-08-22 07:28] LABS: BASOPHILS % (AUTO) 0.5 % (0.0-2.0); EOSINOPHILS % (AUTO) 4.3 % (0.0-3.0); HEMOGLOBIN 9.1 G/DL (14.2-18.0); LYMPHOCYTES % (AUTO) 20.4 % (20.0-45.0); MEAN CORPUSCULAR VOLUME 91 FL (80-99); MONOCYTES % (AUTO) 5.9 % (1.0-10.0); PLATELET COUNT 220 K/UL (150-450); RED BLOOD COUNT 3.19 M/UL (4.70-6.10); RED CELL DISTRIBUTION WIDTH 17.4 % (11.6-14.8); WHITE BLOOD COUNT 11.8 K/UL (4.8-10.8)
[2018-08-22 07:44] LABS: ANION GAP 9 mmol/L (5-15); BLOOD UREA NITROGEN 13 mg/dL (7-18); CALCIUM 8.6 MG/DL (8.5-10.1); CARBON DIOXIDE 24 MMOL/L (21-32); CHLORIDE 111 MMOL/L (98-107); CREATININE 0.8 MG/DL (0.55-1.30); POTASSIUM 3.6 MMOL/L (3.5-5.1); SODIUM 144 MMOL/L (136-145)
--- NOTE | 2018-08-22 07:54 | Urology Progress Note ---
Assessment/Plan Assessment/Plan 1. Urinary retention. 2. Benign prostatic hypertrophy history. 3. Probable neurogenic bladder. 4. History of urethral stricture and difficult catheterization. 5. Proteinuria. 6. Hematuria. 7. Pyuria. monitor clinically hx of diff cath, requiring cysto keep buckner indwelling for now flomax and proscar added voiding trial later, preferably as outpt in the office abx as ordered f/u on blood cx Subjective Allergies: Coded Allergies: No Known Allergies (Unverified , 08/14/18) Subjective all noted, looks comfortable Objective Last 24 Hour Vital Signs Date Time Temp Pulse Resp B/P (MAP) Pulse Ox O2 Delivery O2 Flow Rate FiO2 08/22/18 04:00 98.6 93 20 108/72 (84) 96 08/22/18 00:00 98.4 90 20 116/78 (91) 99 08/21/18 21:00 Nasal Cannula 2.0 08/21/18 20:16 97 Nasal Cannula 2.0 28 08/21/18 20:16 88 20 Nasal Cannula 2.0 28 08/21/18 20:16 Nasal Cannula 2.0 28 08/21/18 20:00 97.4 93 16 129/75 (93) 98 08/21/18 17:06 86 131/70 08/21/18 16:53 131/70 08/21/18 16:00 98.5 86 19 131/70 (90) 96 08/21/18 12:00 97.9 81 20 130/62 (84) 95 08/21/18 09:00 Nasal Cannula 3.0 08/21/18 08:52 86 140/70 08/21/18 08:35 86 20 Nasal Cannula 2.0 28 08/21/18 08:30 96 Nasal Cannula 2.0 28 08/21/18 08:30 Nasal Cannula 2.0 28 08/21/18 08:00 97.9 86 19 140/70 (93) 96 Intake and Output 08/21/18 08/22/18 19:00 07:00 Intake Total 825 ml 605 ml Output Total 1700 ml Balance 825 ml -1095 ml IV Total 825 ml 605 ml Output Urine Total 1700 ml # Bowel Movements 2 Microbiology Date/Time Source Procedure Growth Status 08/17/18 03:45 Blood Blood Culture - Preliminary NO GROWTH AFTER 4 DAYS Resulted 08/18/18 03:10 Sputum Gram Stain - Final Complete 08/18/18 03:10 Sputum Culture - Final Klebsiella Pneumoniae Usual Respiratory Yoselin Complete 08/20/18 20:00 Stool Clostridium difficile Toxin Assay - Final Complete 08/18/18 18:00 Indwelling Cath Urine Culture - Final Theresa Glabrata Complete 08/14/18 22:35 Rectum VRE Culture - Final NO VANCOMYCIN RESISTANT ENTEROCOCCUS ... Complete Current Medications Medications (Trade) Dose Ordered Sig/Jese Route PRN Reason Start Time Stop Time Status Last Admin Dose Admin Acetaminophen (Tylenol) 650 mg Q4H PRN ORAL fever 08/19/18 13:11 09/13/18 13:10 Albuterol/ Ipratropium (Albuterol/ Ipratropium) 3 ml Q4H PRN HHN Shortness of Breath 08/19/18 13:12 08/22/18 13:11 08/20/18 20:57 Amlodipine Besylate (Norvasc) 5 mg BID NG 08/19/18 18:00 09/15/18 17:59 08/21/18 17:06 Ceftriaxone Sodium 1 gm/ Dextrose 55 ml @ 110 mls/hr Q24H IVPB 08/20/18 20:00 08/27/18 19:59 08/21/18 20:36 Clonazepam (KlonoPIN) 0.5 mg BEDTIME ORAL 08/20/18 21:00 08/27/18 20:59 08/21/18 20:36 Clonazepam (KlonoPIN) 0.5 mg DAILY ORAL 08/22/18 09:00 08/29/18 08:59 Dextrose 1,000 ml @ 50 mls/hr Q20H IV 08/20/18 21:30 09/19/18 21:29 08/21/18 17:58 Dextrose (Dextrose 50%) 25 ml Q30M PRN IV Hypoglycemia 08/19/18 13:00 09/16/18 10:29 Dextrose (Dextrose 50%) 50 ml Q30M PRN IV Hypoglycemia 08/19/18 13:00 09/16/18 10:29 Diphenoxylate HCl/ Atropine (Lomotil) 2.5 mg Q4H PRN ORAL Diarrhea 08/20/18 13:45 09/19/18 13:44 08/22/18 06:15 Finasteride (Proscar) 5 mg DAILY ORAL 08/20/18 09:00 09/19/18 08:59 08/21/18 08:51 Insulin Aspart (NovoLOG) BEFORE MEALS AND HS SUBQ 08/19/18 16:30 09/16/18 11:29 08/22/18 05:59 Loperamide HCl (Imodium) 2 mg Q4H PRN ORAL Diarrhea 08/21/18 10:45 09/20/18 10:44 Nitroglycerin (Ntg) 1 patch Q24H TDERMAL 08/19/18 16:00 09/15/18 15:59 08/21/18 16:53 Ondansetron HCl (Zofran) 4 mg Q6H PRN IVP Nausea & Vomiting 08/19/18 16:30 09/13/18 22:29 Pantoprazole (Protonix) 40 mg DAILY ORAL 08/22/18 09:00 09/21/18 08:59 Potassium Chloride (K-Dur) 20 meq THREE TIMES A DAY NG 08/19/18 18:00 09/16/18 17:59 08/21/18 17:06 Promethazine HCl/ Codeine (Phenergan with Codeine) 5 ml Q6H PRN ORAL For Cough 08/20/18 21:45 09/19/18 21:44 Quetiapine Fumarate (SEROquel) 25 mg Q6H PRN ORAL agitation 08/20/18 11:00 09/19/18 10:59 08/21/18 12:17 Quetiapine Fumarate (SEROquel) 50 mg BEDTIME ORAL 08/20/18 21:00 09/19/18 20:59 08/21/18 20:36 Tamsulosin HCl (Flomax) 0.4 mg BEDTIME ORAL 08/20/18 21:00 09/19/18 20:59 08/21/18 20:36 Laboratory Tests 08/22/18 05:26: White Blood Count 11.8H, Red Blood Count 3.19L, Hemoglobin 9.1L, Hematocrit 29.0L, Mean Corpuscular Volume 91, Mean Corpuscular Hemoglobin 28.7, Mean Corpuscular Hemoglobin Concent 31.5L, Red Cell Distribution Width 17.4H, Platelet Count 220, Mean Platelet Volume 6.8, Neutrophils (%) (Auto) 69.0, Lymphocytes (%) (Auto) 20.4, Monocytes (%) (Auto) 5.9, Eosinophils (%) (Auto) 4.3H, Basophils (%) (Auto) 0.5, Sodium Level 144, Potassium Level 3.6, Chloride Level 111H, Carbon Dioxide Level 24, Anion Gap 9, Blood Urea Nitrogen 13, Creatinine 0.8, Estimat Glomerular Filtration Rate , Glucose Level 145H, Calcium Level 8.6 Height (Feet): 5 Height (Inches): 7.00 Weight (Pounds): 149 Objective exam stable, urine venu Salbador Yanez MD Aug 22, 2018 07:54
[2018-08-22 08:00] VITALS: BP 128/70
--- NOTE | 2018-08-22 08:00 | NUR ---
NURSE NOTES: Received patient in bed, resting and responsive to name. FLACC score 0. No signs of respiratory distress. IV intact running IV fluids. Bed in lowest position, call light within reach. Will continue to monitor.
[2018-08-22] MEDS: clonazePAM 0.5mg tab ORAL SCH ×2 (08:31→21:15)
--- NOTE | 2018-08-22 09:30 | NUR ---
NURSE NOTES: Dr. Juarez notified regarding patient's son wanting to talk with him and discuss plan of care/imaging studies. Dr. Juarez given son Grover Hartley's phone number [phone].
--- NOTE | 2018-08-22 11:03 | General Progress Note ---
Assessment/Plan Problem List: (1) Acute metabolic encephalopathy ICD Codes: G93.41 - Metabolic encephalopathy SNOMED: 05581920, 254527575 (2) Major depressive disorder, recurrent ICD Codes: F33.9 - Major depressive disorder, recurrent, unspecified SNOMED: 13632293 (3) Anxiety disorder ICD Codes: F41.9 - Anxiety disorder, unspecified SNOMED: 870921781 Status: progressing Assessment/Plan Klonopin .5mg po qhs Klonopin .5mg po qam Seroquel 50mg po qhs will restart ad when pts ms is improved dw rn and Subjective Neurologic/Psychiatric: Reports: anxiety Allergies: Coded Allergies: No Known Allergies (Unverified , 08/14/18) Subjective the at bedside the pt is more alert the pt was less agitated klonopin was increased yesterday the pt was able to eat well dec bm Objective Last 24 Hour Vital Signs Date Time Temp Pulse Resp B/P (MAP) Pulse Ox O2 Delivery O2 Flow Rate FiO2 08/22/18 09:43 Nasal Cannula 2.0 28 08/22/18 09:43 87 20 Nasal Cannula 2.0 28 08/22/18 09:43 97 Nasal Cannula 2.0 28 08/22/18 09:00 Room Air 08/22/18 08:33 86 128/70 08/22/18 08:00 98.9 86 20 128/70 (89) 98 08/22/18 04:00 98.6 93 20 108/72 (84) 96 08/22/18 00:00 98.4 90 20 116/78 (91) 99 08/21/18 21:00 Nasal Cannula 2.0 08/21/18 20:16 97 Nasal Cannula 2.0 28 08/21/18 20:16 88 20 Nasal Cannula 2.0 28 08/21/18 20:16 Nasal Cannula 2.0 28 08/21/18 20:00 97.4 93 16 129/75 (93) 98 08/21/18 17:06 86 131/70 08/21/18 16:53 131/70 08/21/18 16:00 98.5 86 19 131/70 (90) 96 08/21/18 12:00 97.9 81 20 130/62 (84) 95 Intake and Output 08/21/18 08/22/18 19:00 07:00 Intake Total 825 ml 605 ml Output Total 1700 ml Balance 825 ml -1095 ml IV Total 825 ml 605 ml Output Urine Total 1700 ml # Bowel Movements 2 Laboratory Tests 08/22/18 05:26: White Blood Count 11.8H, Red Blood Count 3.19L, Hemoglobin 9.1L, Hematocrit 29.0L, Mean Corpuscular Volume 91, Mean Corpuscular Hemoglobin 28.7, Mean Corpuscular Hemoglobin Concent 31.5L, Red Cell Distribution Width 17.4H, Platelet Count 220, Mean Platelet Volume 6.8, Neutrophils (%) (Auto) 69.0, Lymphocytes (%) (Auto) 20.4, Monocytes (%) (Auto) 5.9, Eosinophils (%) (Auto) 4.3H, Basophils (%) (Auto) 0.5, Sodium Level 144, Potassium Level 3.6, Chloride Level 111H, Carbon Dioxide Level 24, Anion Gap 9, Blood Urea Nitrogen 13, Creatinine 0.8, Estimat Glomerular Filtration Rate , Glucose Level 145H, Calcium Level 8.6 Height (Feet): 5 Height (Inches): 7.00 Weight (Pounds): 149 General Appearance: WD/WN, no apparent distress, alert, confused Jorge Mars MD Aug 22, 2018 11:03
--- NOTE | 2018-08-22 11:24 | GI Progress Note ---
Assessment/Plan Problems: (1) GI bleed ICD Codes: K92.2 - Gastrointestinal hemorrhage, unspecified SNOMED: 12208906 (2) Anemia ICD Codes: D64.9 - Anemia, unspecified SNOMED: 776585802 Status: stable, unchanged Status Narrative Discussed with Dr. Og. Assessment/Plan anemia work up reviewed patient removed NGT stable H&H family Refused EGD C. difficile negative advanced to puree diet, tolerating monitor H&H, prn transfusions bowel regime ppi Imodium as needed fu labs The patient was seen and examined at bedside and all new and available data was reviewed in the patients chart. I agree with the above findings, impression and plan. (Patient seen earlier today. Signature stamp does not reflect patient encounter time.). - Antony Og MD Subjective Subjective Tolerating pured diet Objective Last 24 Hour Vital Signs Date Time Temp Pulse Resp B/P (MAP) Pulse Ox O2 Delivery O2 Flow Rate FiO2 08/22/18 09:43 Nasal Cannula 2.0 08/22/18 09:43 87 20 Nasal Cannula 2.0 28 08/22/18 09:43 97 Nasal Cannula 2.0 28 08/22/18 09:00 Room Air 08/22/18 08:33 86 128/70 08/22/18 08:00 98.9 86 20 128/70 (89) 98 08/22/18 04:00 98.6 93 20 108/72 (84) 96 08/22/18 00:00 98.4 90 20 116/78 (91) 99 08/21/18 21:00 Nasal Cannula 2.0 08/21/18 20:16 97 Nasal Cannula 2.0 28 08/21/18 20:16 88 20 Nasal Cannula 2.0 28 08/21/18 20:16 Nasal Cannula 2.0 28 08/21/18 20:00 97.4 93 16 129/75 (93) 98 08/21/18 17:06 86 131/70 08/21/18 16:53 131/70 08/21/18 16:00 98.5 86 19 131/70 (90) 96 08/21/18 12:00 97.9 81 20 130/62 (84) 95 Intake and Output 08/21/18 08/22/18 19:00 07:00 Intake Total 825 ml 605 ml Output Total 1700 ml Balance 825 ml -1095 ml IV Total 825 ml 605 ml Output Urine Total 1700 ml # Bowel Movements 2 Laboratory Tests Test 08/22/18 05:26 White Blood Count 11.8 K/UL (4.8-10.8) H Red Blood Count 3.19 M/UL (4.70-6.10) L Hemoglobin 9.1 G/DL (14.2-18.0) L Hematocrit 29.0 % (42.0-52.0) L Mean Corpuscular Volume 91 FL (80-99) Mean Corpuscular Hemoglobin 28.7 PG (27.0-31.0) Mean Corpuscular Hemoglobin Concent 31.5 G/DL (32.0-36.0) L Red Cell Distribution Width 17.4 % (11.6-14.8) H Platelet Count 220 K/UL (150-450) Mean Platelet Volume 6.8 FL (6.5-10.1) Neutrophils (%) (Auto) 69.0 % (45.0-75.0) Lymphocytes (%) (Auto) 20.4 % (20.0-45.0) Monocytes (%) (Auto) 5.9 % (1.0-10.0) Eosinophils (%) (Auto) 4.3 % (0.0-3.0) H Basophils (%) (Auto) 0.5 % (0.0-2.0) Sodium Level 144 MMOL/L (136-145) Potassium Level 3.6 MMOL/L (3.5-5.1) Chloride Level 111 MMOL/L (98-107) H Carbon Dioxide Level 24 MMOL/L (21-32) Anion Gap 9 mmol/L (5-15) Blood Urea Nitrogen 13 mg/dL (7-18) Creatinine 0.8 MG/DL (0.55-1.30) Estimat Glomerular Filtration Rate mL/min (>60) Glucose Level 145 MG/DL (74-106) H Calcium Level 8.6 MG/DL (8.5-10.1) Height (Feet): 5 Height (Inches): 7.00 Weight (Pounds): 149 General Appearance: WD/WN, no apparent distress, alert Cardiovascular: normal rate Respiratory/Chest: normal breath sounds, no respiratory distress Abdominal Exam: normal bowel sounds, non tender, soft Extremities: non-tender Lisa Young NP Aug 22, 2018 11:24
--- NOTE | 2018-08-22 11:57 | Pulmonology Progress Note ---
Assessment/Plan Problems: (1) Acute respiratory failure (2) Aspiration pneumonia (3) ATN (acute tubular necrosis) Assessment/Plan CT of head was negative bun/creatine decreasing, almost normal didn't pass swallow study continue NG tube feeding check electrolytes respiratory treatment check echocardiogram f/u troponin level failed swallow study, doesn't want Gtube eating, family wants oral feeding Subjective ROS Limited/Unobtainable: No Constitutional: Reports: no symptoms HEENT: Repors: no symptoms Respiratory: Reports: no symptoms Allergies: Coded Allergies: No Known Allergies (Unverified , 08/14/18) Objective Last 24 Hour Vital Signs Date Time Temp Pulse Resp B/P (MAP) Pulse Ox O2 Delivery O2 Flow Rate FiO2 08/22/18 09:43 Nasal Cannula 2.0 08/22/18 09:43 87 20 Nasal Cannula 2.0 28 08/22/18 09:43 97 Nasal Cannula 2.0 28 08/22/18 09:00 Room Air 08/22/18 08:33 86 128/70 08/22/18 08:00 98.9 86 20 128/70 (89) 98 08/22/18 04:00 98.6 93 20 108/72 (84) 96 08/22/18 00:00 98.4 90 20 116/78 (91) 99 08/21/18 21:00 Nasal Cannula 2.0 08/21/18 20:16 97 Nasal Cannula 2.0 28 08/21/18 20:16 88 20 Nasal Cannula 2.0 28 08/21/18 20:16 Nasal Cannula 2.0 28 08/21/18 20:00 97.4 93 16 129/75 (93) 98 08/21/18 17:06 86 131/70 08/21/18 16:53 131/70 08/21/18 16:00 98.5 86 19 131/70 (90) 96 08/21/18 12:00 97.9 81 20 130/62 (84) 95 Intake and Output 08/21/18 08/22/18 19:00 07:00 Intake Total 825 ml 605 ml Output Total 1700 ml Balance 825 ml -1095 ml IV Total 825 ml 605 ml Output Urine Total 1700 ml # Bowel Movements 2 Objective General Appearance: cachectic HEENT: normocephalic Respiratory/Chest: chest wall non-tender, lungs clear, normal breath sounds Breasts: no masses Cardiovascular: normal peripheral pulses, normal rate Abdomen: normal bowel sounds, soft, non tender Extremities: no cyanosis Skin: no rash Microbiology Date/Time Source Procedure Growth Status 08/20/18 20:00 Stool Clostridium difficile Toxin Assay - Final Complete Laboratory Tests 08/22/18 05:26: White Blood Count 11.8H, Red Blood Count 3.19L, Hemoglobin 9.1L, Hematocrit 29.0L, Mean Corpuscular Volume 91, Mean Corpuscular Hemoglobin 28.7, Mean Corpuscular Hemoglobin Concent 31.5L, Red Cell Distribution Width 17.4H, Platelet Count 220, Mean Platelet Volume 6.8, Neutrophils (%) (Auto) 69.0, Lymphocytes (%) (Auto) 20.4, Monocytes (%) (Auto) 5.9, Eosinophils (%) (Auto) 4.3H, Basophils (%) (Auto) 0.5, Sodium Level 144, Potassium Level 3.6, Chloride Level 111H, Carbon Dioxide Level 24, Anion Gap 9, Blood Urea Nitrogen 13, Creatinine 0.8, Estimat Glomerular Filtration Rate , Glucose Level 145H, Calcium Level 8.6 Current Medications Medications (Trade) Dose Ordered Sig/Jese Route PRN Reason Start Time Stop Time Status Last Admin Dose Admin Acetaminophen (Tylenol) 650 mg Q4H PRN ORAL fever 08/19/18 13:11 09/13/18 13:10 Albuterol/ Ipratropium (Albuterol/ Ipratropium) 3 ml Q4H PRN HHN Shortness of Breath 08/19/18 13:12 08/22/18 13:11 08/20/18 20:57 Amlodipine Besylate (Norvasc) 5 mg BID NG 08/19/18 18:00 09/15/18 17:59 08/22/18 08:33 Ceftriaxone Sodium 1 gm/ Dextrose 55 ml @ 110 mls/hr Q24H IVPB 08/20/18 20:00 08/27/18 19:59 08/21/18 20:36 Clonazepam (KlonoPIN) 0.5 mg BEDTIME ORAL 08/20/18 21:00 08/27/18 20:59 08/21/18 20:36 Clonazepam (KlonoPIN) 0.5 mg DAILY ORAL 08/22/18 09:00 08/29/18 08:59 08/22/18 08:31 Dextrose 1,000 ml @ 50 mls/hr Q20H IV 08/20/18 21:30 09/19/18 21:29 08/21/18 17:58 Dextrose (Dextrose 50%) 25 ml Q30M PRN IV Hypoglycemia 08/19/18 13:00 09/16/18 10:29 Dextrose (Dextrose 50%) 50 ml Q30M PRN IV Hypoglycemia 08/19/18 13:00 09/16/18 10:29 Diphenoxylate HCl/ Atropine (Lomotil) 2.5 mg Q4H PRN ORAL Diarrhea 08/20/18 13:45 09/19/18 13:44 08/22/18 06:15 Finasteride (Proscar) 5 mg DAILY ORAL 08/20/18 09:00 09/19/18 08:59 08/22/18 08:31 Insulin Aspart (NovoLOG) BEFORE MEALS AND HS SUBQ 08/19/18 16:30 09/16/18 11:29 08/22/18 05:59 Loperamide HCl (Imodium) 2 mg Q4H PRN ORAL Diarrhea 08/21/18 10:45 09/20/18 10:44 Nitroglycerin (Ntg) 1 patch Q24H TDERMAL 08/19/18 16:00 09/15/18 15:59 08/21/18 16:53 Ondansetron HCl (Zofran) 4 mg Q6H PRN IVP Nausea & Vomiting 08/19/18 16:30 09/13/18 22:29 Pantoprazole (Protonix) 40 mg DAILY ORAL 08/22/18 09:00 09/21/18 08:59 08/22/18 08:31 Potassium Chloride (K-Dur) 20 meq THREE TIMES A DAY NG 08/19/18 18:00 09/16/18 17:59 08/22/18 08:31 Promethazine HCl/ Codeine (Phenergan with Codeine) 5 ml Q6H PRN ORAL For Cough 08/20/18 21:45 09/19/18 21:44 Quetiapine Fumarate (SEROquel) 25 mg Q6H PRN ORAL agitation 08/20/18 11:00 09/19/18 10:59 08/21/18 12:17 Quetiapine Fumarate (SEROquel) 50 mg BEDTIME ORAL 08/20/18 21:00 09/19/18 20:59 08/21/18 20:36 Tamsulosin HCl (Flomax) 0.4 mg BEDTIME ORAL 08/20/18 21:00 09/19/18 20:59 08/21/18 20:36 Sade Morgan MD Aug 22, 2018 11:57
[2018-08-22 12:00] VITALS: BP 118/64
--- NOTE | 2018-08-22 13:44 | NUR ---
ST NOTES: WEEKLY SWALLOW/SPEECH THERAPY SUMMARY: SEEN FOR DYSPHAGIA, SEE SWALLOW EVAL AND MODIFIED BARIUM SWALLOW STUDY. 08/21/18 Procedure: CT Head no Contrast Indication: Headache Soft tissue and bone windows generated Findings: There is moderate to severe atrophy of the cerebrum and cerebellum characterized by prominence of the sulci ventricles and basal cisterns. In addition there is a focus of the cortical encephalomalacia in the left occipital lobe and subcortical encephalomalacia in the right frontal lobe and subcortical/cortical parenchymal loss in the left frontal lobe consistent with old infarcts. Extensive white matter low attenuation demonstrated throughout the brain. Suggestion of lacunar infarcts within the right basal ganglia and brainstem also demonstrated. There is no evidence of acute hemorrhage, mass effect or edema definitely seen. The bones are unremarkable. 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 Moderate to severe atrophy of the brain. Extensive white matter low-attenuation mainly periventricular in distribution consistent with chronic small vessel disease. GOAL FOR INTAKE NOT MET CONSISTENTLY, PRIOR DAYS 25-50 BUT MET RECENTLY 100% GOALS MET FOR STAFF AND HIS EDUCATED/TRAINED IN ASP PREC (IN VIDEO REPORT) REPOSTED ASPIRATION PRECAUTIONS. PATIENT NOT HUNGRY NOW FOR PO TRIALS. MOANING ALOUD NOT INTELLIGIBLE. PLAN: CONTINUE WITH DYSPHAGIA MANAGEMENT AND TX AND CURRENT DIET/LIQUIDS WILL CONSIDER AN UPGRADE OF DIET IF TOLERATED BY PRIMARY ST TOMORROW QUESTIONABLE IF ABLE TO LEARN SWALLOW EXERCISES D/W , RN/OTR FLATBED DRIVER NOT AVAIL
--- NOTE | 2018-08-22 14:59 | Nephrology Progress Note ---
Assessment/Plan Problem List: (1) ATN (acute tubular necrosis) Assessment: resolved (2) Acute respiratory failure (3) Diabetes mellitus (4) Parkinson disease (5) Respiratory distress (6) Aspiration pneumonia Assessment 88 Y old male, presents with resp distress and aspiration pneumonia Renal failure, Mainly dehydration resolving ? Underlying CKD Low K , Low Na , Low Alb Parkinsons DM Plan change IV to D5w , Na lower Uro eval and trial to DC buckner? repeat ua and u c/s discussed with NGT Hydrate 2D Echo Noted Antibiotics Avoid Nephrotoxics Per orders Subjective ROS Limited/Unobtainable: No Constitutional: Reports: malaise, weakness Objective Objective Last 24 Hour Vital Signs Date Time Temp Pulse Resp B/P (MAP) Pulse Ox O2 Delivery O2 Flow Rate FiO2 08/22/18 12:00 97.8 88 18 118/64 (82) 95 08/22/18 09:43 Nasal Cannula 2.0 28 08/22/18 09:43 87 20 Nasal Cannula 2.0 28 08/22/18 09:43 97 Nasal Cannula 2.0 28 08/22/18 09:00 Room Air 08/22/18 08:33 86 128/70 08/22/18 08:00 98.9 86 20 128/70 (89) 98 08/22/18 04:00 98.6 93 20 108/72 (84) 96 08/22/18 00:00 98.4 90 20 116/78 (91) 99 08/21/18 21:00 Nasal Cannula 2.0 08/21/18 20:16 97 Nasal Cannula 2.0 28 08/21/18 20:16 88 20 Nasal Cannula 2.0 28 08/21/18 20:16 Nasal Cannula 2.0 28 08/21/18 20:00 97.4 93 16 129/75 (93) 98 08/21/18 17:06 86 131/70 08/21/18 16:53 131/70 08/21/18 16:00 98.5 86 19 131/70 (90) 96 Intake and Output 08/21/18 08/22/18 19:00 07:00 Intake Total 825 ml 605 ml Output Total 1700 ml Balance 825 ml -1095 ml IV Total 825 ml 605 ml Output Urine Total 1700 ml # Bowel Movements 2 Laboratory Tests 08/22/18 05:26: White Blood Count 11.8H, Red Blood Count 3.19L, Hemoglobin 9.1L, Hematocrit 29.0L, Mean Corpuscular Volume 91, Mean Corpuscular Hemoglobin 28.7, Mean Corpuscular Hemoglobin Concent 31.5L, Red Cell Distribution Width 17.4H, Platelet Count 220, Mean Platelet Volume 6.8, Neutrophils (%) (Auto) 69.0, Lymphocytes (%) (Auto) 20.4, Monocytes (%) (Auto) 5.9, Eosinophils (%) (Auto) 4.3H, Basophils (%) (Auto) 0.5, Sodium Level 144, Potassium Level 3.6, Chloride Level 111H, Carbon Dioxide Level 24, Anion Gap 9, Blood Urea Nitrogen 13, Creatinine 0.8, Estimat Glomerular Filtration Rate , Glucose Level 145H, Calcium Level 8.6 Height (Feet): 5 Height (Inches): 7.00 Weight (Pounds): 149 Cardiovascular: normal rate Respiratory/Chest: decreased breath sounds Abdomen: soft Hudson Huntley MD Aug 22, 2018 14:59
[2018-08-22 16:00] VITALS: BP 121/69
[2018-08-22] MEDS: Nitroglycerin Patch 0.4mg TDERMAL SCH (16:20)
--- NOTE | 2018-08-22 17:08 | Infectious Diseases Prog Note ---
Assessment/Plan Assessment/Plan Assessment: Sepsis 2ry to PNA, ?FLu (despite neg screening test) -08/19 CXR: Patchy interstitial pneumonitis versus interstitial edema demonstrated. -CXR: Right basilar infiltrate, atelectasis, and likely pleural fluid -sp cx K.pna (R amp, otherwise S) -u/a wbc 10-15, nit neg, leuk +2; ucx Neg; 08/18 u/a wbc 20-40,nit neg, leuk +3 ; ucx NTD -influenza sc, legionella ag neg Gram positive bacteremia- likely contaminant = -08/14 Bcx 06/28 CONS; 08/16 NTD Fever, SP Leukocytosis, mild recurrent, increased, now improving -Cdiff neg TONIO, improving Hyponatremia/hypokalemia Dm2 CVA w/ R side deficit -CT head: Multiple old infarcts as described above. Moderate to severe atrophy of the brain. Extensive white matter low-attenuation mainly periventricular in distribution consistent with chronic small vessel disease. bedbound Parkinson's disease Plan: -Continue Ceftriaxone #3 (abx d#03/04) for K. pna PNA -08/20 SP Cefepime #7 -08/21 SP Flagyl #6, Azithromycin #7 -08/19 SP IV Vancomycin #6 , Tamiflu #5 -08/14 SP Flagyl x1 -f/u cx -Monitor CBC/CMP, temperatures -aspiration precautions Thank you for your consultation. Will continue to follow along with you. Discussed with RN. Subjective Allergies: Coded Allergies: No Known Allergies (Unverified , 08/14/18) Subjective afebrile leukocytosis imrpoving bacteremic CONS; repeat Bcx NTD Objective Vital Signs Last 24 Hour Vital Signs Date Time Temp Pulse Resp B/P (MAP) Pulse Ox O2 Delivery O2 Flow Rate FiO2 08/22/18 16:20 121/69 08/22/18 16:00 98.4 83 17 121/69 (86) 98 08/22/18 12:00 97.8 88 18 118/64 (82) 95 08/22/18 09:43 Nasal Cannula 2.0 28 08/22/18 09:43 87 20 Nasal Cannula 2.0 28 08/22/18 09:43 97 Nasal Cannula 2.0 28 08/22/18 09:00 Room Air 08/22/18 08:33 86 128/70 08/22/18 08:00 98.9 86 20 128/70 (89) 98 08/22/18 04:00 98.6 93 20 108/72 (84) 96 08/22/18 00:00 98.4 90 20 116/78 (91) 99 08/21/18 21:00 Nasal Cannula 2.0 08/21/18 20:16 97 Nasal Cannula 2.0 28 08/21/18 20:16 88 20 Nasal Cannula 2.0 28 08/21/18 20:16 Nasal Cannula 2.0 28 08/21/18 20:00 97.4 93 16 129/75 (93) 98 Height (Feet): 5 Height (Inches): 7.00 Weight (Pounds): 149 Objective General Appearance: alert, thin, Chronically Ill ENT: moist mucus membranes Neck: limited range of motion Respiratory: decreased breath sounds - left side, right side crackles Cardiovascular #1: normal inspection, normal peripheral pulses, regular rate, rhythm Musculoskeletal: decreased range of motion, other - motor weakness Neurologic: alert, motor weakness Psychiatric: depressed affect Skin: other Microbiology Date/Time Source Procedure Growth Status 08/20/18 20:00 Stool Clostridium difficile Toxin Assay - Final Complete Laboratory Tests Test 08/22/18 05:26 White Blood Count 11.8 K/UL (4.8-10.8) H Red Blood Count 3.19 M/UL (4.70-6.10) L Hemoglobin 9.1 G/DL (14.2-18.0) L Hematocrit 29.0 % (42.0-52.0) L Mean Corpuscular Volume 91 FL (80-99) Mean Corpuscular Hemoglobin 28.7 PG (27.0-31.0) Mean Corpuscular Hemoglobin Concent 31.5 G/DL (32.0-36.0) L Red Cell Distribution Width 17.4 % (11.6-14.8) H Platelet Count 220 K/UL (150-450) Mean Platelet Volume 6.8 FL (6.5-10.1) Neutrophils (%) (Auto) 69.0 % (45.0-75.0) Lymphocytes (%) (Auto) 20.4 % (20.0-45.0) Monocytes (%) (Auto) 5.9 % (1.0-10.0) Eosinophils (%) (Auto) 4.3 % (0.0-3.0) H Basophils (%) (Auto) 0.5 % (0.0-2.0) Sodium Level 144 MMOL/L (136-145) Potassium Level 3.6 MMOL/L (3.5-5.1) Chloride Level 111 MMOL/L (98-107) H Carbon Dioxide Level 24 MMOL/L (21-32) Anion Gap 9 mmol/L (5-15) Blood Urea Nitrogen 13 mg/dL (7-18) Creatinine 0.8 MG/DL (0.55-1.30) Estimat Glomerular Filtration Rate mL/min (>60) Glucose Level 145 MG/DL (74-106) H Calcium Level 8.6 MG/DL (8.5-10.1) Current Medications Medications (Trade) Dose Ordered Sig/Jese Route PRN Reason Start Time Stop Time Status Last Admin Dose Admin Acetaminophen (Tylenol) 650 mg Q4H PRN ORAL fever 08/19/18 13:11 09/13/18 13:10 Amlodipine Besylate (Norvasc) 5 mg BID NG 08/19/18 18:00 09/15/18 17:59 08/22/18 08:33 Ceftriaxone Sodium 1 gm/ Dextrose 55 ml @ 110 mls/hr Q24H IVPB 08/20/18 20:00 08/27/18 19:59 08/21/18 20:36 Clonazepam (KlonoPIN) 0.5 mg BEDTIME ORAL 08/20/18 21:00 08/27/18 20:59 08/21/18 20:36 Clonazepam (KlonoPIN) 0.5 mg DAILY ORAL 08/22/18 09:00 08/29/18 08:59 08/22/18 08:31 Dextrose 1,000 ml @ 50 mls/hr Q20H IV 08/20/18 21:30 09/19/18 21:29 08/22/18 14:09 Dextrose (Dextrose 50%) 25 ml Q30M PRN IV Hypoglycemia 08/19/18 13:00 09/16/18 10:29 Dextrose (Dextrose 50%) 50 ml Q30M PRN IV Hypoglycemia 08/19/18 13:00 09/16/18 10:29 Diphenoxylate HCl/ Atropine (Lomotil) 2.5 mg Q4H PRN ORAL Diarrhea 08/20/18 13:45 09/19/18 13:44 08/22/18 06:15 Finasteride (Proscar) 5 mg DAILY ORAL 08/20/18 09:00 09/19/18 08:59 08/22/18 08:31 Insulin Aspart (NovoLOG) BEFORE MEALS AND HS SUBQ 08/19/18 16:30 09/16/18 11:29 08/22/18 12:24 Loperamide HCl (Imodium) 2 mg Q4H PRN ORAL Diarrhea 08/21/18 10:45 09/20/18 10:44 Nitroglycerin (Ntg) 1 patch Q24H TDERMAL 08/19/18 16:00 09/15/18 15:59 08/22/18 16:20 Ondansetron HCl (Zofran) 4 mg Q6H PRN IVP Nausea & Vomiting 08/19/18 16:30 09/13/18 22:29 Pantoprazole (Protonix) 40 mg DAILY ORAL 08/22/18 09:00 09/21/18 08:59 08/22/18 08:31 Potassium Chloride (K-Dur) 20 meq THREE TIMES A DAY ORAL 08/22/18 18:00 09/21/18 17:59 Promethazine HCl/ Codeine (Phenergan with Codeine) 5 ml Q6H PRN ORAL For Cough 08/20/18 21:45 09/19/18 21:44 Quetiapine Fumarate (SEROquel) 25 mg Q6H PRN ORAL agitation 08/20/18 11:00 09/19/18 10:59 08/22/18 14:09 Quetiapine Fumarate (SEROquel) 50 mg BEDTIME ORAL 08/20/18 21:00 09/19/18 20:59 08/21/18 20:36 Tamsulosin HCl (Flomax) 0.4 mg BEDTIME ORAL 08/20/18 21:00 09/19/18 20:59 08/21/18 20:36 Nuria Marte M.D. Aug 22, 2018 17:08
--- NOTE | 2018-08-22 17:28 | Internal Med Progress Note ---
Subjective Date of Service: Aug 22, 2018 Physician Name Jeremi Haydne Attending Physician Madhu Juarez MD Current Medications Medications (Trade) Dose Ordered Sig/Jese Route PRN Reason Start Time Stop Time Status Last Admin Dose Admin Acetaminophen (Tylenol) 650 mg Q4H PRN ORAL fever 08/19/18 13:11 09/13/18 13:10 Amlodipine Besylate (Norvasc) 5 mg BID NG 08/19/18 18:00 09/15/18 17:59 08/22/18 17:21 Ceftriaxone Sodium 1 gm/ Dextrose 55 ml @ 110 mls/hr Q24H IVPB 08/20/18 20:00 08/27/18 19:59 08/21/18 20:36 Clonazepam (KlonoPIN) 0.5 mg BEDTIME ORAL 08/20/18 21:00 08/27/18 20:59 08/21/18 20:36 Clonazepam (KlonoPIN) 0.5 mg DAILY ORAL 08/22/18 09:00 08/29/18 08:59 08/22/18 08:31 Dextrose 1,000 ml @ 50 mls/hr Q20H IV 08/20/18 21:30 09/19/18 21:29 08/22/18 14:09 Dextrose (Dextrose 50%) 25 ml Q30M PRN IV Hypoglycemia 08/19/18 13:00 09/16/18 10:29 Dextrose (Dextrose 50%) 50 ml Q30M PRN IV Hypoglycemia 08/19/18 13:00 09/16/18 10:29 Diphenoxylate HCl/ Atropine (Lomotil) 2.5 mg Q4H PRN ORAL Diarrhea 08/20/18 13:45 09/19/18 13:44 08/22/18 06:15 Finasteride (Proscar) 5 mg DAILY ORAL 08/20/18 09:00 09/19/18 08:59 08/22/18 08:31 Insulin Aspart (NovoLOG) BEFORE MEALS AND HS SUBQ 08/19/18 16:30 09/16/18 11:29 08/22/18 17:25 Loperamide HCl (Imodium) 2 mg Q4H PRN ORAL Diarrhea 08/21/18 10:45 09/20/18 10:44 Nitroglycerin (Ntg) 1 patch Q24H TDERMAL 08/19/18 16:00 09/15/18 15:59 08/22/18 16:20 Ondansetron HCl (Zofran) 4 mg Q6H PRN IVP Nausea & Vomiting 08/19/18 16:30 09/13/18 22:29 Pantoprazole (Protonix) 40 mg DAILY ORAL 08/22/18 09:00 09/21/18 08:59 08/22/18 08:31 Potassium Chloride (K-Dur) 20 meq THREE TIMES A DAY ORAL 08/22/18 18:00 09/21/18 17:59 08/22/18 17:21 Promethazine HCl/ Codeine (Phenergan with Codeine) 5 ml Q6H PRN ORAL For Cough 08/20/18 21:45 09/19/18 21:44 Quetiapine Fumarate (SEROquel) 25 mg Q6H PRN ORAL agitation 08/20/18 11:00 09/19/18 10:59 08/22/18 14:09 Quetiapine Fumarate (SEROquel) 50 mg BEDTIME ORAL 08/20/18 21:00 09/19/18 20:59 08/21/18 20:36 Tamsulosin HCl (Flomax) 0.4 mg BEDTIME ORAL 08/20/18 21:00 09/19/18 20:59 08/21/18 20:36 Allergies: Coded Allergies: No Known Allergies (Unverified , 08/14/18) ROS Limited/Unobtainable: Yes Subjective 88 YO M admitted with shortness of breath. Now aspiration pneumonia. Cover for Int Med-Dr Juarez. Tolerating nasal canula Objective Last Vital Signs Date Time Temp Pulse Resp B/P (MAP) Pulse Ox O2 Delivery O2 Flow Rate FiO2 08/22/18 17:21 83 121/69 08/22/18 16:00 98.4 17 98 08/22/18 09:43 Nasal Cannula 2.0 28 Laboratory Tests Test 08/22/18 05:26 White Blood Count 11.8 K/UL (4.8-10.8) H Red Blood Count 3.19 M/UL (4.70-6.10) L Hemoglobin 9.1 G/DL (14.2-18.0) L Hematocrit 29.0 % (42.0-52.0) L Mean Corpuscular Volume 91 FL (80-99) Mean Corpuscular Hemoglobin 28.7 PG (27.0-31.0) Mean Corpuscular Hemoglobin Concent 31.5 G/DL (32.0-36.0) L Red Cell Distribution Width 17.4 % (11.6-14.8) H Platelet Count 220 K/UL (150-450) Mean Platelet Volume 6.8 FL (6.5-10.1) Neutrophils (%) (Auto) 69.0 % (45.0-75.0) Lymphocytes (%) (Auto) 20.4 % (20.0-45.0) Monocytes (%) (Auto) 5.9 % (1.0-10.0) Eosinophils (%) (Auto) 4.3 % (0.0-3.0) H Basophils (%) (Auto) 0.5 % (0.0-2.0) Sodium Level 144 MMOL/L (136-145) Potassium Level 3.6 MMOL/L (3.5-5.1) Chloride Level 111 MMOL/L (98-107) H Carbon Dioxide Level 24 MMOL/L (21-32) Anion Gap 9 mmol/L (5-15) Blood Urea Nitrogen 13 mg/dL (7-18) Creatinine 0.8 MG/DL (0.55-1.30) Estimat Glomerular Filtration Rate mL/min (>60) Glucose Level 145 MG/DL (74-106) H Calcium Level 8.6 MG/DL (8.5-10.1) Microbiology Date/Time Source Procedure Growth Status 08/20/18 20:00 Stool Clostridium difficile Toxin Assay - Final Complete Intake and Output 08/21/18 08/22/18 19:00 07:00 Intake Total 825 ml 605 ml Output Total 1700 ml Balance 825 ml -1095 ml IV Total 825 ml 605 ml Output Urine Total 1700 ml # Bowel Movements 2 Objective PHYSICAL EXAMINATION: GENERAL: The patient is well-developed and well-nourished thin-appearing white male, who is currently tolerating nasal canula. HEENT: Eyes - pupils are equal and responsive to light and accommodation. Extraocular movements are intact. NECK: Supple without lymphadenopathy. CHEST: Crackles bilaterally with expiratory wheezes. ABDOMEN: Soft, nontender, and nondistended. Positive bowel sounds. No evidence of hepatosplenomegaly. Currently, no rebound or guarding noted. EXTREMITIES: Negative for clubbing, cyanosis, or edema. RECTAL/GENITAL: Not performed. NEUROLOGIC: Cranial nerves II through XII are grossly intact without focal deficits. Assessment/Plan Assessment/Plan ASSESSMENT: This is an 88-year-old white male. 1. Right lower lobe pneumonia-klebsiella. 2. Shortness of breath. 3. Fever. 4. Cerebrovascular disease. 5. Diabetes. 6. Parkinson disease. 7. Renal failure 8. Sepsis-staph epi TREATMENT: 1. Right lower lobe pneumonia/shortness of breath. ?aspiration? A Pulmonary consultation has been obtained with Dr. Sade Morgan. Continue cefepime, flagyl and vancomycin per ID. See Infectious Disease consultation by Dr. Marte. 2. History of cerebrovascular disease. Continue aspirin as above. 3. Diabetes type 2. The patient has been started on NovoLog sliding scale. 4. Parkinson disease. Continue Sinemet as above. 5. See nephrology note. Jeremi Hayden MD Aug 22, 2018 17:28
--- NOTE | 2018-08-22 19:48 | NUR ---
NURSE NOTES: PATIENT IN BED, AWAKE, ALERT TO NAME. IV IN PLACE, RUNNING IV FLUIDS. ON LEFT SOFT WRIST RESTRAINT FOR PATIENT SAFETY. NO S/S RESPIRATORY DISTRESS NOTED. NO S/S PAIN PER FLACC SCALE. LANTIGUA IN PLACE. BED IN LOWEST POSITION, CALL LIGHT WITHIN REACH, BED ALARM ON. WILL CONTINUE TO MONITOR.
--- NOTE | 2018-08-22 19:48 | NUR ---
HAND-OFF: Report given to LIA Neal.
[2018-08-22 20:00] VITALS: BP 153/81
[2018-08-22] MEDS: Tamsulosin 0.4mg cap ORAL SCH (21:15)
[2018-08-22] MEDS: cefTRIAXone 1 GM in D5W 55 ML IVPB SCH (21:15)
[2018-08-23 00:21] VITALS: BP 133/75
[2018-08-23 04:38] VITALS: BP 145/78
--- NOTE | 2018-08-23 05:00 | NUR ---
NURSE NOTES: PATIENT ASLEEP, NO DISTRESS, V/S STABLE.
[2018-08-23] MEDS: NovoLOG Insulin Flexpen SUBQ SCH ×4 (05:43→20:59)
[2018-08-23 07:12] LABS: BASOPHILS % (AUTO) 0.5 % (0.0-2.0); EOSINOPHILS % (AUTO) 2.7 % (0.0-3.0); HEMATOCRIT 31.2 % (42.0-52.0); HEMOGLOBIN 9.7 G/DL (14.2-18.0); LYMPHOCYTES % (AUTO) 19.7 % (20.0-45.0); MEAN CORPUSCULAR VOLUME 91 FL (80-99); MONOCYTES % (AUTO) 6.7 % (1.0-10.0); NEUTROPHILS % (AUTO) 70.5 % (45.0-75.0); PLATELET COUNT 265 K/UL (150-450); RED BLOOD COUNT 3.44 M/UL (4.70-6.10); RED CELL DISTRIBUTION WIDTH 18.4 % (11.6-14.8); WHITE BLOOD COUNT 10.8 K/UL (4.8-10.8)
[2018-08-23 07:16] LABS: ANION GAP 7 mmol/L (5-15); BLOOD UREA NITROGEN 11 mg/dL (7-18); CALCIUM 9.1 MG/DL (8.5-10.1); CARBON DIOXIDE 27 MMOL/L (21-32); CHLORIDE 111 MMOL/L (98-107); CREATININE 0.9 MG/DL (0.55-1.30); POTASSIUM 4.3 MMOL/L (3.5-5.1); SODIUM 145 MMOL/L (136-145)
--- NOTE | 2018-08-23 07:22 | NUR ---
HAND-OFF: Report given to DAYTON Baker RN.
--- NOTE | 2018-08-23 07:30 | NUR ---
NURSE NOTES: Received pt from LIA MONAE. Pt is confused and orient x1. pt has NC 3LMP. pt has intact iv access RFA 24g is running well. pt has buckner cath in place is running well. all needs attended, bed is locked and is in the lowest position. call light within easy reach. will continue to monitor.
[2018-08-23 08:00] VITALS: BP 128/73
[2018-08-23] MEDS: clonazePAM 0.5mg tab ORAL SCH ×2 (08:24→20:53)
--- NOTE | 2018-08-23 09:30 | Urology Progress Note ---
Assessment/Plan Assessment/Plan 1. Urinary retention. 2. Benign prostatic hypertrophy history. 3. Probable neurogenic bladder. 4. History of urethral stricture and difficult catheterization. 5. Proteinuria. 6. Hematuria. 7. Pyuria. monitor clinically hx of diff cath, requiring cysto in the past keep buckner indwelling for now flomax and proscar added voiding trial later, preferably as outpt in the office or will consider while in the hospital abx as ordered f/u on blood cx d/w pt's extensively d/w Dr. Juarez Subjective Allergies: Coded Allergies: No Known Allergies (Unverified , 08/14/18) Subjective all noted, looks comfortable Objective Last 24 Hour Vital Signs Date Time Temp Pulse Resp B/P (MAP) Pulse Ox O2 Delivery O2 Flow Rate FiO2 08/23/18 08:29 93 128/73 08/23/18 08:25 95 Room Air 21 08/23/18 08:25 92 19 Room Air 21 08/23/18 08:25 Room Air 21 08/23/18 08:00 97.9 93 19 128/73 (91) 96 08/23/18 04:38 96.9 91 18 145/78 (100) 94 08/23/18 00:21 97.2 87 18 133/75 (94) 95 08/22/18 23:02 Room Air 08/22/18 20:00 98.8 93 17 153/81 (105) 96 08/22/18 19:36 Nasal Cannula 2.0 28 08/22/18 19:36 96 Nasal Cannula 2.0 28 08/22/18 19:36 84 20 Nasal Cannula 2.0 28 08/22/18 17:21 83 121/69 08/22/18 16:20 121/69 08/22/18 16:00 98.4 83 17 121/69 (86) 98 08/22/18 12:00 97.8 88 18 118/64 (82) 95 08/22/18 09:43 Nasal Cannula 2.0 28 08/22/18 09:43 87 20 Nasal Cannula 2.0 28 08/22/18 09:43 97 Nasal Cannula 2.0 28 Intake and Output 08/22/18 08/23/18 19:00 07:00 Intake Total 580 ml 405 ml Output Total 3200 ml Balance 580 ml -2795 ml Intake Oral 480 ml IV Total 100 ml 405 ml Output Urine Total 3200 ml # Bowel Movements 2 3 Microbiology Date/Time Source Procedure Growth Status 08/17/18 03:45 Blood Blood Culture - Preliminary NO GROWTH AFTER 4 DAYS Resulted 08/18/18 03:10 Sputum Gram Stain - Final Complete 08/18/18 03:10 Sputum Culture - Final Klebsiella Pneumoniae Usual Respiratory Yoselin Complete 08/20/18 20:00 Stool Clostridium difficile Toxin Assay - Final Complete 08/18/18 18:00 Indwelling Cath Urine Culture - Final Theresa Glabrata Complete 08/14/18 22:35 Rectum VRE Culture - Final NO VANCOMYCIN RESISTANT ENTEROCOCCUS ... Complete Current Medications Medications (Trade) Dose Ordered Sig/Jese Route PRN Reason Start Time Stop Time Status Last Admin Dose Admin Acetaminophen (Tylenol) 650 mg Q4H PRN ORAL fever 08/19/18 13:11 09/13/18 13:10 Amlodipine Besylate (Norvasc) 5 mg BID NG 08/19/18 18:00 09/15/18 17:59 08/23/18 08:29 Ceftriaxone Sodium 1 gm/ Dextrose 55 ml @ 110 mls/hr Q24H IVPB 08/20/18 20:00 08/27/18 19:59 08/22/18 21:15 Clonazepam (KlonoPIN) 0.5 mg BEDTIME ORAL 08/20/18 21:00 08/27/18 20:59 08/22/18 21:15 Clonazepam (KlonoPIN) 0.5 mg DAILY ORAL 08/22/18 09:00 08/29/18 08:59 08/23/18 08:24 Dextrose 1,000 ml @ 50 mls/hr Q20H IV 08/20/18 21:30 09/19/18 21:29 08/23/18 08:34 Dextrose (Dextrose 50%) 25 ml Q30M PRN IV Hypoglycemia 08/19/18 13:00 09/16/18 10:29 Dextrose (Dextrose 50%) 50 ml Q30M PRN IV Hypoglycemia 08/19/18 13:00 09/16/18 10:29 Diphenoxylate HCl/ Atropine (Lomotil) 2.5 mg Q4H PRN ORAL Diarrhea 08/20/18 13:45 09/19/18 13:44 08/22/18 06:15 Finasteride (Proscar) 5 mg DAILY ORAL 08/20/18 09:00 09/19/18 08:59 08/23/18 08:23 Insulin Aspart (NovoLOG) BEFORE MEALS AND HS SUBQ 08/19/18 16:30 09/16/18 11:29 08/23/18 05:43 Loperamide HCl (Imodium) 2 mg Q4H PRN ORAL Diarrhea 08/21/18 10:45 09/20/18 10:44 Nitroglycerin (Ntg) 1 patch Q24H TDERMAL 08/19/18 16:00 09/15/18 15:59 08/22/18 16:20 Ondansetron HCl (Zofran) 4 mg Q6H PRN IVP Nausea & Vomiting 08/19/18 16:30 09/13/18 22:29 Pantoprazole (Protonix) 40 mg DAILY ORAL 08/22/18 09:00 09/21/18 08:59 08/23/18 08:23 Potassium Chloride (K-Dur) 20 meq THREE TIMES A DAY ORAL 08/22/18 18:00 09/21/18 17:59 08/23/18 08:24 Promethazine HCl/ Codeine (Phenergan with Codeine) 5 ml Q6H PRN ORAL For Cough 08/20/18 21:45 09/19/18 21:44 Quetiapine Fumarate (SEROquel) 25 mg Q6H PRN ORAL agitation 08/20/18 11:00 09/19/18 10:59 08/23/18 08:23 Quetiapine Fumarate (SEROquel) 50 mg BEDTIME ORAL 08/20/18 21:00 09/19/18 20:59 08/22/18 21:15 Tamsulosin HCl (Flomax) 0.4 mg BEDTIME ORAL 08/20/18 21:00 09/19/18 20:59 08/22/18 21:15 Laboratory Tests 08/23/18 05:50: White Blood Count 10.8, Red Blood Count 3.44L, Hemoglobin 9.7L, Hematocrit 31.2L , Mean Corpuscular Volume 91, Mean Corpuscular Hemoglobin 28.3, Mean Corpuscular Hemoglobin Concent 31.3L, Red Cell Distribution Width 18.4H, Platelet Count 265, Mean Platelet Volume 8.2, Neutrophils (%) (Auto) 70.5, Lymphocytes (%) (Auto) 19.7L, Monocytes (%) (Auto) 6.7, Eosinophils (%) (Auto) 2.7, Basophils (%) (Auto) 0.5, Sodium Level 145, Potassium Level 4.3, Chloride Level 111H, Carbon Dioxide Level 27, Anion Gap 7, Blood Urea Nitrogen 11, Creatinine 0.9, Estimat Glomerular Filtration Rate , Glucose Level 131H, Calcium Level 9.1 Height (Feet): 5 Height (Inches): 7.00 Weight (Pounds): 149 Objective exam stable, urine venu Salbador Yanez MD Aug 23, 2018 09:30
--- NOTE | 2018-08-23 11:13 | General Progress Note ---
Assessment/Plan Problem List: (1) Acute metabolic encephalopathy ICD Codes: G93.41 - Metabolic encephalopathy SNOMED: 62913182, 133025801 (2) Major depressive disorder, recurrent ICD Codes: F33.9 - Major depressive disorder, recurrent, unspecified SNOMED: 77873533 (3) Anxiety disorder ICD Codes: F41.9 - Anxiety disorder, unspecified SNOMED: 581998849 Status: stable Assessment/Plan Klonopin .5mg po qhs Klonopin .5mg po qam Seroquel 50mg po qhs will restart ad when pts ms is improved dw rn and Subjective Neurologic/Psychiatric: Reports: anxiety Allergies: Coded Allergies: No Known Allergies (Unverified , 08/14/18) Subjective the at bedside the pt is more alert the pt was less agitated eating well improving . Objective Last 24 Hour Vital Signs Date Time Temp Pulse Resp B/P (MAP) Pulse Ox O2 Delivery O2 Flow Rate FiO2 08/23/18 09:00 Room Air 08/23/18 08:29 93 128/73 08/23/18 08:25 95 Room Air 21 08/23/18 08:25 92 19 Room Air 21 08/23/18 08:25 Room Air 21 08/23/18 08:00 97.9 93 19 128/73 (91) 96 08/23/18 04:38 96.9 91 18 145/78 (100) 94 08/23/18 00:21 97.2 87 18 133/75 (94) 95 08/22/18 23:02 Room Air 08/22/18 20:00 98.8 93 17 153/81 (105) 96 08/22/18 19:36 Nasal Cannula 2.0 28 08/22/18 19:36 96 Nasal Cannula 2.0 28 08/22/18 19:36 84 20 Nasal Cannula 2.0 28 08/22/18 17:21 83 121/69 08/22/18 16:20 121/69 08/22/18 16:00 98.4 83 17 121/69 (86) 98 08/22/18 12:00 97.8 88 18 118/64 (82) 95 Intake and Output 08/22/18 08/23/18 19:00 07:00 Intake Total 580 ml 405 ml Output Total 3200 ml Balance 580 ml -2795 ml Intake Oral 480 ml IV Total 100 ml 405 ml Output Urine Total 3200 ml # Bowel Movements 2 3 Laboratory Tests 08/23/18 05:50: White Blood Count 10.8, Red Blood Count 3.44L, Hemoglobin 9.7L, Hematocrit 31.2L , Mean Corpuscular Volume 91, Mean Corpuscular Hemoglobin 28.3, Mean Corpuscular Hemoglobin Concent 31.3L, Red Cell Distribution Width 18.4H, Platelet Count 265, Mean Platelet Volume 8.2, Neutrophils (%) (Auto) 70.5, Lymphocytes (%) (Auto) 19.7L, Monocytes (%) (Auto) 6.7, Eosinophils (%) (Auto) 2.7, Basophils (%) (Auto) 0.5, Sodium Level 145, Potassium Level 4.3, Chloride Level 111H, Carbon Dioxide Level 27, Anion Gap 7, Blood Urea Nitrogen 11, Creatinine 0.9, Estimat Glomerular Filtration Rate , Glucose Level 131H, Calcium Level 9.1 Height (Feet): 5 Height (Inches): 7.00 Weight (Pounds): 149 General Appearance: WD/WN, no apparent distress, alert, confused, agitated Jorge Mars MD Aug 23, 2018 11:13
--- NOTE | 2018-08-23 11:28 | GI Progress Note ---
Assessment/Plan Problems: (1) GI bleed ICD Codes: K92.2 - Gastrointestinal hemorrhage, unspecified SNOMED: 76969066 (2) Anemia ICD Codes: D64.9 - Anemia, unspecified SNOMED: 320535240 Status: stable Status Narrative Discussed with Dr. Og Assessment/Plan anemia work up reviewed patient removed NGT stable H&H family Refused EGD C. difficile negative advanced to puree diet, tolerating 100% diet monitor H&H, prn transfusions bowel regime ppi Imodium as needed fu labs DC planning The patient was seen and examined at bedside and all new and available data was reviewed in the patients chart. I agree with the above findings, impression and plan. (Patient seen earlier today. Signature stamp does not reflect patient encounter time.). - Antony Og MD Subjective Gastrointestinal/Abdominal: Reports: no symptoms Subjective Tolerating pured diet Objective Last 24 Hour Vital Signs Date Time Temp Pulse Resp B/P (MAP) Pulse Ox O2 Delivery O2 Flow Rate FiO2 08/23/18 09:00 Room Air 08/23/18 08:29 93 128/73 08/23/18 08:25 95 Room Air 21 08/23/18 08:25 92 19 Room Air 21 08/23/18 08:25 Room Air 21 08/23/18 08:00 97.9 93 19 128/73 (91) 96 08/23/18 04:38 96.9 91 18 145/78 (100) 94 08/23/18 00:21 97.2 87 18 133/75 (94) 95 08/22/18 23:02 Room Air 08/22/18 20:00 98.8 93 17 153/81 (105) 96 08/22/18 19:36 Nasal Cannula 2.0 28 08/22/18 19:36 96 Nasal Cannula 2.0 28 08/22/18 19:36 84 20 Nasal Cannula 2.0 28 08/22/18 17:21 83 121/69 08/22/18 16:20 121/69 08/22/18 16:00 98.4 83 17 121/69 (86) 98 08/22/18 12:00 97.8 88 18 118/64 (82) 95 Intake and Output 08/22/18 08/23/18 19:00 07:00 Intake Total 580 ml 405 ml Output Total 3200 ml Balance 580 ml -2795 ml Intake Oral 480 ml IV Total 100 ml 405 ml Output Urine Total 3200 ml # Bowel Movements 2 3 Laboratory Tests Test 08/23/18 05:50 White Blood Count 10.8 K/UL (4.8-10.8) Red Blood Count 3.44 M/UL (4.70-6.10) L Hemoglobin 9.7 G/DL (14.2-18.0) L Hematocrit 31.2 % (42.0-52.0) L Mean Corpuscular Volume 91 FL (80-99) Mean Corpuscular Hemoglobin 28.3 PG (27.0-31.0) Mean Corpuscular Hemoglobin Concent 31.3 G/DL (32.0-36.0) L Red Cell Distribution Width 18.4 % (11.6-14.8) H Platelet Count 265 K/UL (150-450) Mean Platelet Volume 8.2 FL (6.5-10.1) Neutrophils (%) (Auto) 70.5 % (45.0-75.0) Lymphocytes (%) (Auto) 19.7 % (20.0-45.0) L Monocytes (%) (Auto) 6.7 % (1.0-10.0) Eosinophils (%) (Auto) 2.7 % (0.0-3.0) Basophils (%) (Auto) 0.5 % (0.0-2.0) Sodium Level 145 MMOL/L (136-145) Potassium Level 4.3 MMOL/L (3.5-5.1) Chloride Level 111 MMOL/L (98-107) H Carbon Dioxide Level 27 MMOL/L (21-32) Anion Gap 7 mmol/L (5-15) Blood Urea Nitrogen 11 mg/dL (7-18) Creatinine 0.9 MG/DL (0.55-1.30) Estimat Glomerular Filtration Rate mL/min (>60) Glucose Level 131 MG/DL (74-106) H Calcium Level 9.1 MG/DL (8.5-10.1) Height (Feet): 5 Height (Inches): 7.00 Weight (Pounds): 149 General Appearance: WD/WN, no apparent distress, alert, thin Cardiovascular: normal rate Respiratory/Chest: normal breath sounds, no respiratory distress Abdominal Exam: normal bowel sounds, non tender, soft Extremities: non-tender Lisa Young NP Aug 23, 2018 11:28
[2018-08-23 12:00] VITALS: BP 116/70
--- NOTE | 2018-08-23 13:00 | NUR ---
RD ASSESSMENT & RECOMMENDATIONS SEE CARE ACTIVITY FOR COMPLETE ASSESSMENT DAILY ESTIMATED NEEDS: Needs based on Pulmonary, underweight 55.5kg 30-35 kcals/kg 2834-4895 total kcals 1-1.5 g protein/kg 56-83 g total protein 25-30ml/kcal mL/kg 4099-0902 total fluid mLs NUTRITION DIAGNOSIS: 1) Increased kcal and protein needs r/t underweight status as evidenced by pt w/ generalized moderate wasting, currently 82% of Idal Body Weight. 2) Swallowing difficulty r/t clinical status cardiac history as evidenced by pt w/ PNA, h/o CVA, seen by CONSULTING GROUP ANALYST w/ recs for temp non oral feeds, was on NGT feeding, s/p NGT self removal, now on pureed moist, HTL w/ good acceptance. 3) Altered nutrition related lab values R/T clinical condition, h/o DM as evidenced by elev Na (150-> wnl), elev BNP (34584), low phos (2.1-> wnl), low mag(1.7-> wnl), elev BGs (200's-> 131 145 improved). CURRENT DIET:CCHO MED, pureed moist HTL PO DIET RECOMMENDATIONS: Maintain CCHO MED/ texture per CONSULTING GROUP ANALYST ADDITIONAL RECOMMENDATIONS: 1) Weekly weights 2) Monitor PO intake and tolerance 3) Monitor lytes, replete as needed . . .
--- NOTE | 2018-08-23 15:38 | NUR ---
NURSE NOTES: pt has clear jelly discharge from rectum, ENVIRONMENTAL SERVICES LEAD MODESTO is aware ordered fat stool, noted and carried out. will continue to monitor.
--- NOTE | 2018-08-23 15:48 | NUR ---
NURSE NOTES: FINE ARTIST MODESTO called again and cancelled fat stool order and ordered culture stool and O&P. All orders noted and carried out. will continue to monitor.
[2018-08-23 16:00] VITALS: BP 121/69
[2018-08-23] MEDS: Nitroglycerin Patch 0.4mg TDERMAL SCH (16:17)
--- NOTE | 2018-08-23 17:18 | Pulmonology Progress Note ---
Assessment/Plan Problems: (1) Acute respiratory failure (2) Aspiration pneumonia (3) ATN (acute tubular necrosis) Assessment/Plan CT of head was negative bun/creatine decreasing, almost normal didn't pass swallow study continue NG tube feeding check electrolytes respiratory treatment check echocardiogram f/u troponin level failed swallow study, doesn't want Gtube eating, family wants oral feeding Subjective ROS Limited/Unobtainable: No Allergies: Coded Allergies: No Known Allergies (Unverified , 08/14/18) Objective Last 24 Hour Vital Signs Date Time Temp Pulse Resp B/P (MAP) Pulse Ox O2 Delivery O2 Flow Rate FiO2 08/23/18 16:17 121/69 08/23/18 16:00 98.4 89 19 121/69 (86) 97 08/23/18 14:40 97.9 08/23/18 12:00 97.7 92 17 116/70 (85) 97 08/23/18 09:00 Room Air 08/23/18 08:29 93 128/73 08/23/18 08:25 95 Room Air 21 08/23/18 08:25 92 19 Room Air 21 08/23/18 08:25 Room Air 21 08/23/18 08:00 97.9 93 19 128/73 (91) 96 08/23/18 04:38 96.9 91 18 145/78 (100) 94 08/23/18 00:21 97.2 87 18 133/75 (94) 95 08/22/18 23:02 Room Air 08/22/18 20:00 98.8 93 17 153/81 (105) 96 08/22/18 19:36 Nasal Cannula 2.0 28 08/22/18 19:36 96 Nasal Cannula 2.0 28 08/22/18 19:36 84 20 Nasal Cannula 2.0 28 08/22/18 17:21 83 121/69 Intake and Output 08/22/18 08/23/18 19:00 07:00 Intake Total 580 ml 405 ml Output Total 3200 ml Balance 580 ml -2795 ml Intake Oral 480 ml IV Total 100 ml 405 ml Output Urine Total 3200 ml # Bowel Movements 2 3 Objective General Appearance: cachectic HEENT: normocephalic Respiratory/Chest: chest wall non-tender, lungs clear, normal breath sounds Breasts: no masses Cardiovascular: normal peripheral pulses, normal rate Abdomen: normal bowel sounds, soft, non tender Extremities: no cyanosis Skin: no rash Microbiology Date/Time Source Procedure Growth Status 08/20/18 20:00 Stool Clostridium difficile Toxin Assay - Final Complete Laboratory Tests 08/23/18 05:50: White Blood Count 10.8, Red Blood Count 3.44L, Hemoglobin 9.7L, Hematocrit 31.2L , Mean Corpuscular Volume 91, Mean Corpuscular Hemoglobin 28.3, Mean Corpuscular Hemoglobin Concent 31.3L, Red Cell Distribution Width 18.4H, Platelet Count 265, Mean Platelet Volume 8.2, Neutrophils (%) (Auto) 70.5, Lymphocytes (%) (Auto) 19.7L, Monocytes (%) (Auto) 6.7, Eosinophils (%) (Auto) 2.7, Basophils (%) (Auto) 0.5, Sodium Level 145, Potassium Level 4.3, Chloride Level 111H, Carbon Dioxide Level 27, Anion Gap 7, Blood Urea Nitrogen 11, Creatinine 0.9, Estimat Glomerular Filtration Rate , Glucose Level 131H, Calcium Level 9.1 Current Medications Medications (Trade) Dose Ordered Sig/Jese Route PRN Reason Start Time Stop Time Status Last Admin Dose Admin Acetaminophen (Tylenol) 650 mg Q4H PRN ORAL fever 08/19/18 13:11 09/13/18 13:10 08/23/18 14:10 Amlodipine Besylate (Norvasc) 5 mg BID NG 08/19/18 18:00 09/15/18 17:59 08/23/18 08:29 Ceftriaxone Sodium 1 gm/ Dextrose 55 ml @ 110 mls/hr Q24H IVPB 08/20/18 20:00 08/27/18 19:59 08/22/18 21:15 Clonazepam (KlonoPIN) 0.5 mg BEDTIME ORAL 08/20/18 21:00 08/27/18 20:59 08/22/18 21:15 Clonazepam (KlonoPIN) 0.5 mg DAILY ORAL 08/22/18 09:00 08/29/18 08:59 08/23/18 08:24 Dextrose 1,000 ml @ 50 mls/hr Q20H IV 08/20/18 21:30 09/19/18 21:29 08/23/18 08:34 Dextrose (Dextrose 50%) 25 ml Q30M PRN IV Hypoglycemia 08/19/18 13:00 09/16/18 10:29 Dextrose (Dextrose 50%) 50 ml Q30M PRN IV Hypoglycemia 08/19/18 13:00 09/16/18 10:29 Diphenoxylate HCl/ Atropine (Lomotil) 2.5 mg Q4H PRN ORAL Diarrhea 08/20/18 13:45 09/19/18 13:44 08/22/18 06:15 Finasteride (Proscar) 5 mg DAILY ORAL 08/20/18 09:00 09/19/18 08:59 08/23/18 08:23 Insulin Aspart (NovoLOG) BEFORE MEALS AND HS SUBQ 08/19/18 16:30 09/16/18 11:29 08/23/18 12:00 Loperamide HCl (Imodium) 2 mg Q4H PRN ORAL Diarrhea 08/21/18 10:45 09/20/18 10:44 Nitroglycerin (Ntg) 1 patch Q24H TDERMAL 08/19/18 16:00 09/15/18 15:59 08/23/18 16:17 Ondansetron HCl (Zofran) 4 mg Q6H PRN IVP Nausea & Vomiting 08/19/18 16:30 09/13/18 22:29 Pantoprazole (Protonix) 40 mg DAILY ORAL 08/22/18 09:00 09/21/18 08:59 08/23/18 08:23 Potassium Chloride (K-Dur) 20 meq THREE TIMES A DAY ORAL 08/22/18 18:00 09/21/18 17:59 08/23/18 11:58 Promethazine HCl/ Codeine (Phenergan with Codeine) 5 ml Q6H PRN ORAL For Cough 08/20/18 21:45 09/19/18 21:44 Quetiapine Fumarate (SEROquel) 25 mg Q6H PRN ORAL agitation 08/20/18 11:00 09/19/18 10:59 08/23/18 08:23 Quetiapine Fumarate (SEROquel) 50 mg BEDTIME ORAL 08/20/18 21:00 09/19/18 20:59 08/22/18 21:15 Tamsulosin HCl (Flomax) 0.4 mg BEDTIME ORAL 08/20/18 21:00 09/19/18 20:59 08/22/18 21:15 Sade Morgan MD Aug 23, 2018 17:18
--- NOTE | 2018-08-23 17:23 | Infectious Diseases Prog Note ---
Assessment/Plan Assessment/Plan Assessment: Sepsis 2ry to PNA, ?FLu (despite neg screening test) -08/19 CXR: Patchy interstitial pneumonitis versus interstitial edema demonstrated. -CXR: Right basilar infiltrate, atelectasis, and likely pleural fluid -sp cx K.pna (R amp, otherwise S) -u/a wbc 10-15, nit neg, leuk +2; ucx Neg; 08/18 u/a wbc 20-40,nit neg, leuk +3 ; ucx NTD -influenza sc, legionella ag neg Gram positive bacteremia- likely contaminant = -08/14 Bcx 06/28 CONS; 08/16 Neg Fever, SP Leukocytosis, SP -Cdiff neg TONIO, improving Hyponatremia/hypokalemia Dm2 CVA w/ R side deficit -CT head: Multiple old infarcts as described above. Moderate to severe atrophy of the brain. Extensive white matter low-attenuation mainly periventricular in distribution consistent with chronic small vessel disease. bedbound Parkinson's disease Plan: -Continue Ceftriaxone #4 (abx d#04/03) for K. pna PNA -08/20 SP Cefepime #7 -08/21 SP Flagyl #6, Azithromycin #7 -08/19 SP IV Vancomycin #6 , Tamiflu #5 -08/14 SP Flagyl x1 -f/u cx -Monitor CBC/CMP, temperatures -aspiration precautions Thank you for your consultation. Will continue to follow along with you. Discussed with RN. Subjective Allergies: Coded Allergies: No Known Allergies (Unverified , 08/14/18) Subjective afebrile leukocytosis resolved bacteremic CONS; repeat Bcx Neg Objective Vital Signs Last 24 Hour Vital Signs Date Time Temp Pulse Resp B/P (MAP) Pulse Ox O2 Delivery O2 Flow Rate FiO2 08/23/18 16:17 121/69 08/23/18 16:00 98.4 89 19 121/69 (86) 97 08/23/18 14:40 97.9 08/23/18 12:00 97.7 92 17 116/70 (85) 97 08/23/18 09:00 Room Air 08/23/18 08:29 93 128/73 08/23/18 08:25 95 Room Air 21 08/23/18 08:25 92 19 Room Air 21 08/23/18 08:25 Room Air 21 08/23/18 08:00 97.9 93 19 128/73 (91) 96 08/23/18 04:38 96.9 91 18 145/78 (100) 94 08/23/18 00:21 97.2 87 18 133/75 (94) 95 08/22/18 23:02 Room Air 08/22/18 20:00 98.8 93 17 153/81 (105) 96 08/22/18 19:36 Nasal Cannula 2.0 28 08/22/18 19:36 96 Nasal Cannula 2.0 28 08/22/18 19:36 84 20 Nasal Cannula 2.0 28 Height (Feet): 5 Height (Inches): 7.00 Weight (Pounds): 149 Objective General Appearance: alert, thin, Chronically Ill ENT: moist mucus membranes Neck: limited range of motion Respiratory: decreased breath sounds - left side, right side crackles Cardiovascular #1: normal inspection, normal peripheral pulses, regular rate, rhythm Musculoskeletal: decreased range of motion, other - motor weakness Neurologic: alert, motor weakness Psychiatric: depressed affect Skin: other Microbiology Date/Time Source Procedure Growth Status 08/20/18 20:00 Stool Clostridium difficile Toxin Assay - Final Complete Laboratory Tests Test 08/23/18 05:50 White Blood Count 10.8 K/UL (4.8-10.8) Red Blood Count 3.44 M/UL (4.70-6.10) L Hemoglobin 9.7 G/DL (14.2-18.0) L Hematocrit 31.2 % (42.0-52.0) L Mean Corpuscular Volume 91 FL (80-99) Mean Corpuscular Hemoglobin 28.3 PG (27.0-31.0) Mean Corpuscular Hemoglobin Concent 31.3 G/DL (32.0-36.0) L Red Cell Distribution Width 18.4 % (11.6-14.8) H Platelet Count 265 K/UL (150-450) Mean Platelet Volume 8.2 FL (6.5-10.1) Neutrophils (%) (Auto) 70.5 % (45.0-75.0) Lymphocytes (%) (Auto) 19.7 % (20.0-45.0) L Monocytes (%) (Auto) 6.7 % (1.0-10.0) Eosinophils (%) (Auto) 2.7 % (0.0-3.0) Basophils (%) (Auto) 0.5 % (0.0-2.0) Sodium Level 145 MMOL/L (136-145) Potassium Level 4.3 MMOL/L (3.5-5.1) Chloride Level 111 MMOL/L (98-107) H Carbon Dioxide Level 27 MMOL/L (21-32) Anion Gap 7 mmol/L (5-15) Blood Urea Nitrogen 11 mg/dL (7-18) Creatinine 0.9 MG/DL (0.55-1.30) Estimat Glomerular Filtration Rate mL/min (>60) Glucose Level 131 MG/DL (74-106) H Calcium Level 9.1 MG/DL (8.5-10.1) Current Medications Medications (Trade) Dose Ordered Sig/Jese Route PRN Reason Start Time Stop Time Status Last Admin Dose Admin Acetaminophen (Tylenol) 650 mg Q4H PRN ORAL fever 08/19/18 13:11 09/13/18 13:10 08/23/18 14:10 Amlodipine Besylate (Norvasc) 5 mg BID NG 08/19/18 18:00 09/15/18 17:59 08/23/18 08:29 Ceftriaxone Sodium 1 gm/ Dextrose 55 ml @ 110 mls/hr Q24H IVPB 08/20/18 20:00 08/27/18 19:59 08/22/18 21:15 Clonazepam (KlonoPIN) 0.5 mg BEDTIME ORAL 08/20/18 21:00 08/27/18 20:59 08/22/18 21:15 Clonazepam (KlonoPIN) 0.5 mg DAILY ORAL 08/22/18 09:00 08/29/18 08:59 08/23/18 08:24 Dextrose 1,000 ml @ 50 mls/hr Q20H IV 08/20/18 21:30 09/19/18 21:29 08/23/18 08:34 Dextrose (Dextrose 50%) 25 ml Q30M PRN IV Hypoglycemia 08/19/18 13:00 09/16/18 10:29 Dextrose (Dextrose 50%) 50 ml Q30M PRN IV Hypoglycemia 08/19/18 13:00 09/16/18 10:29 Diphenoxylate HCl/ Atropine (Lomotil) 2.5 mg Q4H PRN ORAL Diarrhea 08/20/18 13:45 09/19/18 13:44 08/22/18 06:15 Finasteride (Proscar) 5 mg DAILY ORAL 08/20/18 09:00 09/19/18 08:59 08/23/18 08:23 Insulin Aspart (NovoLOG) BEFORE MEALS AND HS SUBQ 08/19/18 16:30 09/16/18 11:29 08/23/18 12:00 Loperamide HCl (Imodium) 2 mg Q4H PRN ORAL Diarrhea 08/21/18 10:45 09/20/18 10:44 Nitroglycerin (Ntg) 1 patch Q24H TDERMAL 08/19/18 16:00 09/15/18 15:59 08/23/18 16:17 Ondansetron HCl (Zofran) 4 mg Q6H PRN IVP Nausea & Vomiting 08/19/18 16:30 09/13/18 22:29 Pantoprazole (Protonix) 40 mg DAILY ORAL 08/22/18 09:00 09/21/18 08:59 08/23/18 08:23 Potassium Chloride (K-Dur) 20 meq THREE TIMES A DAY ORAL 08/22/18 18:00 09/21/18 17:59 08/23/18 11:58 Promethazine HCl/ Codeine (Phenergan with Codeine) 5 ml Q6H PRN ORAL For Cough 08/20/18 21:45 09/19/18 21:44 Quetiapine Fumarate (SEROquel) 25 mg Q6H PRN ORAL agitation 08/20/18 11:00 09/19/18 10:59 08/23/18 08:23 Quetiapine Fumarate (SEROquel) 50 mg BEDTIME ORAL 08/20/18 21:00 09/19/18 20:59 08/22/18 21:15 Tamsulosin HCl (Flomax) 0.4 mg BEDTIME ORAL 08/20/18 21:00 09/19/18 20:59 08/22/18 21:15 Nuria Marte M.D. Aug 23, 2018 17:23
--- NOTE | 2018-08-23 18:12 | Internal Med Progress Note ---
Subjective Physician Name Madhu Juarez Attending Physician Madhu Juarez MD Current Medications Medications (Trade) Dose Ordered Sig/Jese Route PRN Reason Start Time Stop Time Status Last Admin Dose Admin Acetaminophen (Tylenol) 650 mg Q4H PRN ORAL fever 08/19/18 13:11 09/13/18 13:10 08/23/18 14:10 Amlodipine Besylate (Norvasc) 5 mg BID NG 08/19/18 18:00 09/15/18 17:59 08/23/18 17:30 Ceftriaxone Sodium 1 gm/ Dextrose 55 ml @ 110 mls/hr Q24H IVPB 08/20/18 20:00 08/27/18 19:59 08/22/18 21:15 Clonazepam (KlonoPIN) 0.5 mg BEDTIME ORAL 08/20/18 21:00 08/27/18 20:59 08/22/18 21:15 Clonazepam (KlonoPIN) 0.5 mg DAILY ORAL 08/22/18 09:00 08/29/18 08:59 08/23/18 08:24 Dextrose 1,000 ml @ 50 mls/hr Q20H IV 08/20/18 21:30 09/19/18 21:29 08/23/18 08:34 Dextrose (Dextrose 50%) 25 ml Q30M PRN IV Hypoglycemia 08/19/18 13:00 09/16/18 10:29 Dextrose (Dextrose 50%) 50 ml Q30M PRN IV Hypoglycemia 08/19/18 13:00 09/16/18 10:29 Diphenoxylate HCl/ Atropine (Lomotil) 2.5 mg Q4H PRN ORAL Diarrhea 08/20/18 13:45 09/19/18 13:44 08/22/18 06:15 Finasteride (Proscar) 5 mg DAILY ORAL 08/20/18 09:00 09/19/18 08:59 08/23/18 08:23 Insulin Aspart (NovoLOG) BEFORE MEALS AND HS SUBQ 08/19/18 16:30 09/16/18 11:29 08/23/18 17:33 Loperamide HCl (Imodium) 2 mg Q4H PRN ORAL Diarrhea 08/21/18 10:45 09/20/18 10:44 Nitroglycerin (Ntg) 1 patch Q24H TDERMAL 08/19/18 16:00 09/15/18 15:59 08/23/18 16:17 Ondansetron HCl (Zofran) 4 mg Q6H PRN IVP Nausea & Vomiting 08/19/18 16:30 09/13/18 22:29 Pantoprazole (Protonix) 40 mg DAILY ORAL 08/22/18 09:00 09/21/18 08:59 08/23/18 08:23 Potassium Chloride (K-Dur) 20 meq THREE TIMES A DAY ORAL 08/22/18 18:00 09/21/18 17:59 08/23/18 17:30 Promethazine HCl/ Codeine (Phenergan with Codeine) 5 ml Q6H PRN ORAL For Cough 08/20/18 21:45 09/19/18 21:44 Quetiapine Fumarate (SEROquel) 25 mg Q6H PRN ORAL agitation 08/20/18 11:00 09/19/18 10:59 08/23/18 08:23 Quetiapine Fumarate (SEROquel) 50 mg BEDTIME ORAL 08/20/18 21:00 09/19/18 20:59 08/22/18 21:15 Tamsulosin HCl (Flomax) 0.4 mg BEDTIME ORAL 08/20/18 21:00 09/19/18 20:59 08/22/18 21:15 Allergies: Coded Allergies: No Known Allergies (Unverified , 08/14/18) Subjective Awake, responsive, no acute distress, is at the bedside, denies any chest pain, denies any shortness of breath. Objective Last Vital Signs Date Time Temp Pulse Resp B/P (MAP) Pulse Ox O2 Delivery O2 Flow Rate FiO2 08/23/18 17:30 89 121/69 08/23/18 16:00 98.4 19 97 08/23/18 09:00 Room Air 08/23/18 08:25 21 08/22/18 19:36 2.0 Laboratory Tests Test 08/23/18 05:50 White Blood Count 10.8 K/UL (4.8-10.8) Red Blood Count 3.44 M/UL (4.70-6.10) L Hemoglobin 9.7 G/DL (14.2-18.0) L Hematocrit 31.2 % (42.0-52.0) L Mean Corpuscular Volume 91 FL (80-99) Mean Corpuscular Hemoglobin 28.3 PG (27.0-31.0) Mean Corpuscular Hemoglobin Concent 31.3 G/DL (32.0-36.0) L Red Cell Distribution Width 18.4 % (11.6-14.8) H Platelet Count 265 K/UL (150-450) Mean Platelet Volume 8.2 FL (6.5-10.1) Neutrophils (%) (Auto) 70.5 % (45.0-75.0) Lymphocytes (%) (Auto) 19.7 % (20.0-45.0) L Monocytes (%) (Auto) 6.7 % (1.0-10.0) Eosinophils (%) (Auto) 2.7 % (0.0-3.0) Basophils (%) (Auto) 0.5 % (0.0-2.0) Sodium Level 145 MMOL/L (136-145) Potassium Level 4.3 MMOL/L (3.5-5.1) Chloride Level 111 MMOL/L (98-107) H Carbon Dioxide Level 27 MMOL/L (21-32) Anion Gap 7 mmol/L (5-15) Blood Urea Nitrogen 11 mg/dL (7-18) Creatinine 0.9 MG/DL (0.55-1.30) Estimat Glomerular Filtration Rate mL/min (>60) Glucose Level 131 MG/DL (74-106) H Calcium Level 9.1 MG/DL (8.5-10.1) Microbiology Date/Time Source Procedure Growth Status 08/20/18 20:00 Stool Clostridium difficile Toxin Assay - Final Complete Intake and Output 08/22/18 08/23/18 19:00 07:00 Intake Total 580 ml 405 ml Output Total 3200 ml Balance 580 ml -2795 ml Intake Oral 480 ml IV Total 100 ml 405 ml Output Urine Total 3200 ml # Bowel Movements 2 3 Objective General: No acute distress, awake and alert HEENT: NCAT, sclera anicteric, PERRL, EOMI. Neck: Supple, no significant jugular venous distention, Lungs: Fair inspiratory effort, decreased bilateral air entry in the bases, clear to auscultation bilaterally, no Wheeze or Rales. Heart: Regular rate and rhythm, normal S1/S2, no murmurs/gallops Abdomen: soft, nontender, nondistended. Normoactive bowel sounds. : Isaac cath Extremities: No Cyanosis, clubbing or edema. Neuro: A&O x 3, Able to move all extremities Skin: warm, no rashes. Assessment/Plan Assessment/Plan 1. Aspiration pneumonia with right lower lobe pneumonia. 2. Dehydration 3. Acute kidney injury 4. 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 5. Diabetes type II. 6. Parkinson disease. 7. History of C. diff colitis. 8. BPH. TREATMENT: 1. Right lower lobe pneumonia/Aspiration Pneumonia. A Pulmonary consultation has been obtained with Dr. Sade Morgan. Abx: Rocephin. An Infectious Disease consultation has been obtained with Dr. Marte. 2. History of cerebrovascular disease. Continue aspirin as above. 3. Diabetes type 2. The patient has been started on NovoLog sliding scale. 4. Parkinson disease. Continue Sinemet as above. The swallow study considered to start the patient on NG tube placement feeding, discussed with the extensively at the bedside. Will monitor laboratory as well as culture. CODE STATUS: full code, DVT prophylaxis heparin subcu. Discharge planning home with home health. Consider change Isaac catheter or removal prior to discharge. Madhu Juarez MD Aug 23, 2018 18:12
--- NOTE | 2018-08-23 18:36 | Nephrology Progress Note ---
Assessment/Plan Problem List: (1) ATN (acute tubular necrosis) Assessment: resolved (2) Acute respiratory failure (3) Diabetes mellitus (4) Parkinson disease (5) Respiratory distress (6) Aspiration pneumonia Assessment 88 Y old male, presents with resp distress and aspiration pneumonia Renal failure, Mainly dehydration resolving ? Underlying CKD Low K , Low Na , Low Alb Parkinsons DM Plan change IV to D5w , Na lower Uro eval and trial to DC buckner? repeat ua and u c/s discussed with NGT Hydrate 2D Echo Noted Antibiotics Avoid Nephrotoxics Per orders Subjective ROS Limited/Unobtainable: No Constitutional: Reports: malaise, weakness Objective Objective Last 24 Hour Vital Signs Date Time Temp Pulse Resp B/P (MAP) Pulse Ox O2 Delivery O2 Flow Rate FiO2 08/23/18 17:30 89 121/69 08/23/18 16:17 121/69 08/23/18 16:00 98.4 89 19 121/69 (86) 97 08/23/18 14:40 97.9 08/23/18 12:00 97.7 92 17 116/70 (85) 97 08/23/18 09:00 Room Air 08/23/18 08:29 93 128/73 08/23/18 08:25 95 Room Air 21 08/23/18 08:25 92 19 Room Air 21 08/23/18 08:25 Room Air 21 08/23/18 08:00 97.9 93 19 128/73 (91) 96 08/23/18 04:38 96.9 91 18 145/78 (100) 94 08/23/18 00:21 97.2 87 18 133/75 (94) 95 08/22/18 23:02 Room Air 08/22/18 20:00 98.8 93 17 153/81 (105) 96 08/22/18 19:36 Nasal Cannula 2.0 28 08/22/18 19:36 96 Nasal Cannula 2.0 28 08/22/18 19:36 84 20 Nasal Cannula 2.0 28 Intake and Output 08/22/18 08/23/18 19:00 07:00 Intake Total 580 ml 405 ml Output Total 3200 ml Balance 580 ml -2795 ml Intake Oral 480 ml IV Total 100 ml 405 ml Output Urine Total 3200 ml # Bowel Movements 2 3 Laboratory Tests 08/23/18 05:50: White Blood Count 10.8, Red Blood Count 3.44L, Hemoglobin 9.7L, Hematocrit 31.2L , Mean Corpuscular Volume 91, Mean Corpuscular Hemoglobin 28.3, Mean Corpuscular Hemoglobin Concent 31.3L, Red Cell Distribution Width 18.4H, Platelet Count 265, Mean Platelet Volume 8.2, Neutrophils (%) (Auto) 70.5, Lymphocytes (%) (Auto) 19.7L, Monocytes (%) (Auto) 6.7, Eosinophils (%) (Auto) 2.7, Basophils (%) (Auto) 0.5, Sodium Level 145, Potassium Level 4.3, Chloride Level 111H, Carbon Dioxide Level 27, Anion Gap 7, Blood Urea Nitrogen 11, Creatinine 0.9, Estimat Glomerular Filtration Rate , Glucose Level 131H, Calcium Level 9.1 Height (Feet): 5 Height (Inches): 7.00 Weight (Pounds): 149 General Appearance: no apparent distress, lethargic Cardiovascular: tachycardia Respiratory/Chest: decreased breath sounds Abdomen: distended Hudson Huntley MD Aug 23, 2018 18:36
--- NOTE | 2018-08-23 19:17 | NUR ---
CASE MANAGEMENT: REVIEW SI: ASPIRATION PNEUMONIA T 98.4 HR 92 RR 17 BP 116/70 SAT 97% ROOM AIR H/H 9.7/32.1 IS: CEFTRIAXONE IV Q24HR K-DUR PO TID D5W IVF @ 50ML/HR MED/SURG STATUS DCP: PATIENT IS FROM HOME
--- NOTE | 2018-08-23 19:45 | NUR ---
HAND-OFF: Report given to LIA METCALF.
--- NOTE | 2018-08-23 19:55 | NUR ---
NURSE NOTES: Received report from LIA Koch. Patient on room air, no signs of distress or labored breathing. IV intact, patent, and infusing IV fluids. Isaac intact, patent, and draining urine. Bed in lowest position with call light in reach. Will continue with plan of care.
[2018-08-23 20:00] VITALS: BP 110/66
[2018-08-23] MEDS: Tamsulosin 0.4mg cap ORAL SCH (20:54)
[2018-08-23] MEDS: cefTRIAXone 1 GM in D5W 55 ML IVPB SCH (21:46)
[2018-08-24] VITALS: BP 128/84
--- NOTE | 2018-08-24 02:45 | Consultation ---
DATE OF CONSULTATION: 08/23/2018 CONSULTING PHYSICIAN: Ilda Almanzar M.D. ATTENDING PHYSICIAN: Madhu Juarez M.D. HISTORY OF PRESENT ILLNESS: This is an 88-year-old gentleman who was admitted on 08/14/2018 for shortness of breath and fever. PAST MEDICAL HISTORY: Type 2 diabetes, Parkinson's, CVA. MEDICATIONS: The patient is on Sinemet, Celexa, Klonopin, gabapentin, Seroquel, venlafaxine. REVIEW OF SYSTEMS: CONSTITUTIONAL: The patient's was present in the room, but the patient was unable to participate in exam, but through interviewing her, the patient had no recent weight loss or weight gain, although she said that he has not been eating as much as possible. HEENT: The patient has no new headache, ear or throat pain. CARDIOVASCULAR: The patient's stated he complained of no new chest pain, cough, or congestion. GENITOURINARY: The patient has a Isaac. He is incontinent. NEUROMUSCULAR: The patient has generalized weakness. PHYSICAL EXAMINATION: VITAL SIGNS: The patient is afebrile with stable vitals. GENERAL: The patient was somnolent today, but was otherwise arousable. HEENT: The patient's extraocular movements intact. EXTREMITIES: No C/C/E. SKIN: I performed the exam and examined the patient. He had no pressure ulcers visible. ASSESSMENT: This is an 88-year-old male with pneumonia, recently admitted and being treated with cefepime, azithromycin, and vancomycin. The patient today was very somnolent. The patient's stated that he was sleeping more than normal. He is unable to turn himself. RECOMMENDATIONS: 1. Because the patient is incontinent, consider bowel and bladder program. Please apply barrier cream to buttocks. 2. Monitor for and manage friction and shear. 3. Perform weekly skin checks. 4. Please assess condition of mattress and pressure reduction of surface. 5. Please keep linens dry and wrinkle-free. 6. Nutrition consult to ensure adequate nutritional needs and monitor labs. 7. Moisturize skin daily. Ilda Almanzar M.D. DR: Bharat JOB#: [id number] CC: KEN
[2018-08-24 04:00] VITALS: BP 133/82
[2018-08-24] MEDS: NovoLOG Insulin Flexpen SUBQ SCH ×4 (06:34→20:18)
--- NOTE | 2018-08-24 06:57 | General Progress Note ---
Assessment/Plan Problem List: (1) Aspiration pneumonia ICD Codes: J69.0 - Pneumonitis due to inhalation of food and vomit SNOMED: 189503722 (2) Renal insufficiency ICD Codes: N28.9 - Disorder of kidney and ureter, unspecified SNOMED: 687318028, 414651362 (3) Parkinson disease ICD Codes: G20 - Parkinson's disease SNOMED: 22773714 (4) Diabetes mellitus ICD Codes: E11.9 - Type 2 diabetes mellitus without complications SNOMED: 77709542 (5) Anemia ICD Codes: D64.9 - Anemia, unspecified SNOMED: 403732732 Assessment/Plan anemia work up reviewed patient removed NGT stable H&H family Refused EGD C. difficile negative stool OB positive advanced to puree diet, tolerating 100% diet monitor H&H, prn transfusions bowel regime ppi fu labs abx DC planning Subjective ROS Limited/Unobtainable: No Allergies: Coded Allergies: No Known Allergies (Unverified , 08/14/18) Objective Last 24 Hour Vital Signs Date Time Temp Pulse Resp B/P (MAP) Pulse Ox O2 Delivery O2 Flow Rate FiO2 08/24/18 04:00 98.0 102 17 133/82 (99) 98 08/24/18 00:00 98.5 105 17 128/84 (99) 95 08/23/18 21:00 Room Air 08/23/18 20:00 98.1 94 18 110/66 (81) 97 08/23/18 17:30 89 121/69 08/23/18 16:17 121/69 08/23/18 16:00 98.4 89 19 121/69 (86) 97 08/23/18 14:40 97.9 08/23/18 12:00 97.7 92 17 116/70 (85) 97 08/23/18 09:00 Room Air 08/23/18 08:29 93 128/73 08/23/18 08:25 95 Room Air 21 08/23/18 08:25 92 19 Room Air 21 08/23/18 08:25 Room Air 21 08/23/18 08:00 97.9 93 19 128/73 (91) 96 Intake and Output 08/23/18 08/24/18 18:59 06:59 Intake Total 550 ml Output Total 850 ml Balance -300 ml IV Total 550 ml Output Urine Total 850 ml Height (Feet): 5 Height (Inches): 7.00 Weight (Pounds): 149 General Appearance: lethargic EENT: normal ENT inspection Neck: supple Cardiovascular: normal rate Respiratory/Chest: decreased breath sounds Abdomen: normal bowel sounds, non tender, soft Extremities: non-tender Antony Og MD Aug 24, 2018 06:57
[2018-08-24 08:00] VITALS: BP 130/79
[2018-08-24 08:01] LABS: BASOPHILS % (AUTO) 0.4 % (0.0-2.0); EOSINOPHILS % (AUTO) 2.3 % (0.0-3.0); HEMATOCRIT 31.4 % (42.0-52.0); HEMOGLOBIN 9.9 G/DL (14.2-18.0); LYMPHOCYTES % (AUTO) 15.9 % (20.0-45.0); MEAN CORPUSCULAR VOLUME 90 FL (80-99); MONOCYTES % (AUTO) 5.3 % (1.0-10.0); NEUTROPHILS % (AUTO) 76.2 % (45.0-75.0); PLATELET COUNT 263 K/UL (150-450); RED BLOOD COUNT 3.48 M/UL (4.70-6.10); RED CELL DISTRIBUTION WIDTH 17.8 % (11.6-14.8); WHITE BLOOD COUNT 10.1 K/UL (4.8-10.8)
[2018-08-24 08:22] LABS: ANION GAP 9 mmol/L (5-15); BLOOD UREA NITROGEN 14 mg/dL (7-18); CALCIUM 9.2 MG/DL (8.5-10.1); CARBON DIOXIDE 26 MMOL/L (21-32); CHLORIDE 108 MMOL/L (98-107); CREATININE 0.9 MG/DL (0.55-1.30); POTASSIUM 3.9 MMOL/L (3.5-5.1); SODIUM 143 MMOL/L (136-145)
--- NOTE | 2018-08-24 08:22 | NUR ---
HAND-OFF: Report given to KADEEM Cevallos.
[2018-08-24] MEDS: clonazePAM 0.5mg tab ORAL SCH ×2 (09:16→20:16)
--- NOTE | 2018-08-24 09:45 | NUR ---
NURSE NOTES: PATIENT IN BED, A/A/OX1. MOANS MOST OF THE TIME. REINSERTED IV ON RFA 24G, PATENT AND INTACT. INFUSING IVF. LEFT SOFT WRIST RESTRAINT APPLIED FOR REMOVING DEVICES. NO S/S RESPIRATORY DISTRESS NOTED. NO S/S PAIN PER FLACC SCALE. LANTIGUA IN PLACE AND DRAINING WELL. BED IN LOWEST POSITION, CALL LIGHT WITHIN REACH, BED ALARM ON. WILL CONTINUE TO MONITOR.
--- NOTE | 2018-08-24 10:43 | Urology Progress Note ---
Assessment/Plan Assessment/Plan 1. Urinary retention. 2. Benign prostatic hypertrophy history. 3. Probable neurogenic bladder. 4. History of urethral stricture and difficult catheterization. 5. Proteinuria. 6. Hematuria. 7. Pyuria. monitor clinically hx of diff cath, requiring cysto in the past keep buckner indwelling for now irrigated and patent flomax and proscar added extensive discussion with pt's son son did not want buckner removed yet voiding trial later, prob as outpt in the office abx as ordered d/w pt's extensively d/w Dr. Juarez Subjective Allergies: Coded Allergies: No Known Allergies (Unverified , 08/14/18) Subjective all noted, looks comfortable Objective Last 24 Hour Vital Signs Date Time Temp Pulse Resp B/P (MAP) Pulse Ox O2 Delivery O2 Flow Rate FiO2 08/24/18 09:20 99 130/79 08/24/18 09:00 Room Air 08/24/18 08:00 97.9 99 18 130/79 (96) 99 08/24/18 04:00 98.0 102 17 133/82 (99) 98 08/24/18 00:00 98.5 105 17 128/84 (99) 95 08/23/18 21:00 Room Air 08/23/18 20:00 98.1 94 18 110/66 (81) 97 08/23/18 17:30 89 121/69 08/23/18 16:17 121/69 08/23/18 16:00 98.4 89 19 121/69 (86) 97 08/23/18 14:40 97.9 08/23/18 12:00 97.7 92 17 116/70 (85) 97 Intake and Output 08/23/18 08/24/18 19:00 07:00 Intake Total 550 ml Output Total 850 ml 1200 ml Balance -300 ml -1200 ml IV Total 550 ml Output Urine Total 850 ml Stool Total 1200 ml Microbiology Date/Time Source Procedure Growth Status 08/17/18 03:45 Blood Blood Culture - Final NO GROWTH AFTER 5 DAYS Complete 08/18/18 03:10 Sputum Gram Stain - Final Complete 08/18/18 03:10 Sputum Culture - Final Klebsiella Pneumoniae Usual Respiratory Yoselin Complete 08/20/18 20:00 Stool Clostridium difficile Toxin Assay - Final Complete 08/18/18 18:00 Indwelling Cath Urine Culture - Final Theresa Glabrata Complete 08/14/18 22:35 Rectum VRE Culture - Final NO VANCOMYCIN RESISTANT ENTEROCOCCUS ... Complete Current Medications Medications (Trade) Dose Ordered Sig/Jese Route PRN Reason Start Time Stop Time Status Last Admin Dose Admin Acetaminophen (Tylenol) 650 mg Q4H PRN ORAL fever 08/19/18 13:11 09/13/18 13:10 08/23/18 14:10 Amlodipine Besylate (Norvasc) 5 mg BID NG 08/19/18 18:00 09/15/18 17:59 08/24/18 09:20 Ceftriaxone Sodium 1 gm/ Dextrose 55 ml @ 110 mls/hr Q24H IVPB 08/20/18 20:00 08/27/18 19:59 08/23/18 21:46 Clonazepam (KlonoPIN) 0.5 mg BEDTIME ORAL 08/20/18 21:00 08/27/18 20:59 08/23/18 20:53 Clonazepam (KlonoPIN) 0.5 mg DAILY ORAL 08/22/18 09:00 08/29/18 08:59 08/24/18 09:16 Dextrose 1,000 ml @ 50 mls/hr Q20H IV 08/20/18 21:30 09/19/18 21:29 08/24/18 06:19 Dextrose (Dextrose 50%) 25 ml Q30M PRN IV Hypoglycemia 08/19/18 13:00 09/16/18 10:29 Dextrose (Dextrose 50%) 50 ml Q30M PRN IV Hypoglycemia 08/19/18 13:00 09/16/18 10:29 Diphenoxylate HCl/ Atropine (Lomotil) 2.5 mg Q4H PRN ORAL Diarrhea 08/20/18 13:45 09/19/18 13:44 08/22/18 06:15 Finasteride (Proscar) 5 mg DAILY ORAL 08/20/18 09:00 09/19/18 08:59 08/24/18 09:17 Insulin Aspart (NovoLOG) BEFORE MEALS AND HS SUBQ 08/19/18 16:30 09/16/18 11:29 08/24/18 06:34 Loperamide HCl (Imodium) 2 mg Q4H PRN ORAL Diarrhea 08/21/18 10:45 09/20/18 10:44 Nitroglycerin (Ntg) 1 patch Q24H TDERMAL 08/19/18 16:00 09/15/18 15:59 08/23/18 16:17 Ondansetron HCl (Zofran) 4 mg Q6H PRN IVP Nausea & Vomiting 08/19/18 16:30 09/13/18 22:29 Pantoprazole (Protonix) 40 mg DAILY ORAL 08/22/18 09:00 09/21/18 08:59 08/24/18 09:16 Potassium Chloride (K-Dur) 20 meq THREE TIMES A DAY ORAL 08/22/18 18:00 09/21/18 17:59 08/24/18 09:17 Promethazine HCl/ Codeine (Phenergan with Codeine) 5 ml Q6H PRN ORAL For Cough 08/20/18 21:45 09/19/18 21:44 Quetiapine Fumarate (SEROquel) 25 mg Q6H PRN ORAL agitation 08/20/18 11:00 09/19/18 10:59 08/23/18 08:23 Quetiapine Fumarate (SEROquel) 50 mg BEDTIME ORAL 08/20/18 21:00 09/19/18 20:59 08/23/18 20:53 Tamsulosin HCl (Flomax) 0.4 mg BEDTIME ORAL 08/20/18 21:00 09/19/18 20:59 08/23/18 20:54 Laboratory Tests 08/24/18 05:20: White Blood Count 10.1, Red Blood Count 3.48L, Hemoglobin 9.9L, Hematocrit 31.4L , Mean Corpuscular Volume 90, Mean Corpuscular Hemoglobin 28.6, Mean Corpuscular Hemoglobin Concent 31.6L, Red Cell Distribution Width 17.8H, Platelet Count 263, Mean Platelet Volume 7.7, Neutrophils (%) (Auto) 76.2H, Lymphocytes (%) (Auto) 15.9L, Monocytes (%) (Auto) 5.3, Eosinophils (%) (Auto) 2.3, Basophils (%) (Auto) 0.4, Sodium Level 143, Potassium Level 3.9, Chloride Level 108H, Carbon Dioxide Level 26, Anion Gap 9, Blood Urea Nitrogen 14, Creatinine 0.9, Estimat Glomerular Filtration Rate , Glucose Level 157H, Calcium Level 9.2 Height (Feet): 5 Height (Inches): 7.00 Weight (Pounds): 149 Objective exam stable, urine venu Salbador Yanez MD Aug 24, 2018 10:43
--- NOTE | 2018-08-24 11:57 | Pulmonology Progress Note ---
Assessment/Plan Problems: (1) Acute respiratory failure (2) Aspiration pneumonia (3) ATN (acute tubular necrosis) Assessment/Plan improving bun/creatine decreasing, almost normal didn't pass swallow study continue NG tube feeding check electrolytes respiratory treatment check echocardiogram f/u troponin level failed swallow study, doesn't want Gtube eating, family wants oral feeding Subjective Constitutional: Reports: no symptoms HEENT: Repors: no symptoms Allergies: Coded Allergies: No Known Allergies (Unverified , 08/14/18) Objective Last 24 Hour Vital Signs Date Time Temp Pulse Resp B/P (MAP) Pulse Ox O2 Delivery O2 Flow Rate FiO2 08/24/18 09:20 99 130/79 08/24/18 09:00 Room Air 08/24/18 08:00 97.9 99 18 130/79 (96) 99 08/24/18 04:00 98.0 102 17 133/82 (99) 98 08/24/18 00:00 98.5 105 17 128/84 (99) 95 08/23/18 21:00 Room Air 08/23/18 20:00 98.1 94 18 110/66 (81) 97 08/23/18 17:30 89 121/69 08/23/18 16:17 121/69 08/23/18 16:00 98.4 89 19 121/69 (86) 97 08/23/18 14:40 97.9 08/23/18 12:00 97.7 92 17 116/70 (85) 97 Intake and Output 08/23/18 08/24/18 19:00 07:00 Intake Total 550 ml Output Total 850 ml 1200 ml Balance -300 ml -1200 ml IV Total 550 ml Output Urine Total 850 ml Stool Total 1200 ml Objective General Appearance: cachectic HEENT: normocephalic Respiratory/Chest: chest wall non-tender, lungs clear, normal breath sounds Breasts: no masses Cardiovascular: normal peripheral pulses, normal rate Abdomen: normal bowel sounds, soft, non tender Extremities: no cyanosis Skin: no rash Laboratory Tests 08/24/18 05:20: White Blood Count 10.1, Red Blood Count 3.48L, Hemoglobin 9.9L, Hematocrit 31.4L , Mean Corpuscular Volume 90, Mean Corpuscular Hemoglobin 28.6, Mean Corpuscular Hemoglobin Concent 31.6L, Red Cell Distribution Width 17.8H, Platelet Count 263, Mean Platelet Volume 7.7, Neutrophils (%) (Auto) 76.2H, Lymphocytes (%) (Auto) 15.9L, Monocytes (%) (Auto) 5.3, Eosinophils (%) (Auto) 2.3, Basophils (%) (Auto) 0.4, Sodium Level 143, Potassium Level 3.9, Chloride Level 108H, Carbon Dioxide Level 26, Anion Gap 9, Blood Urea Nitrogen 14, Creatinine 0.9, Estimat Glomerular Filtration Rate , Glucose Level 157H, Calcium Level 9.2 Current Medications Medications (Trade) Dose Ordered Sig/Jese Route PRN Reason Start Time Stop Time Status Last Admin Dose Admin Acetaminophen (Tylenol) 650 mg Q4H PRN ORAL fever 08/19/18 13:11 09/13/18 13:10 08/23/18 14:10 Amlodipine Besylate (Norvasc) 5 mg BID NG 08/19/18 18:00 09/15/18 17:59 08/24/18 09:20 Ceftriaxone Sodium 1 gm/ Dextrose 55 ml @ 110 mls/hr Q24H IVPB 08/20/18 20:00 08/27/18 19:59 08/23/18 21:46 Clonazepam (KlonoPIN) 0.5 mg BEDTIME ORAL 08/20/18 21:00 08/27/18 20:59 08/23/18 20:53 Clonazepam (KlonoPIN) 0.5 mg DAILY ORAL 08/22/18 09:00 08/29/18 08:59 08/24/18 09:16 Dextrose 1,000 ml @ 50 mls/hr Q20H IV 08/20/18 21:30 09/19/18 21:29 08/24/18 06:19 Dextrose (Dextrose 50%) 25 ml Q30M PRN IV Hypoglycemia 08/19/18 13:00 09/16/18 10:29 Dextrose (Dextrose 50%) 50 ml Q30M PRN IV Hypoglycemia 08/19/18 13:00 09/16/18 10:29 Diphenoxylate HCl/ Atropine (Lomotil) 2.5 mg Q4H PRN ORAL Diarrhea 08/20/18 13:45 09/19/18 13:44 08/22/18 06:15 Finasteride (Proscar) 5 mg DAILY ORAL 08/20/18 09:00 09/19/18 08:59 08/24/18 09:17 Insulin Aspart (NovoLOG) BEFORE MEALS AND HS SUBQ 08/19/18 16:30 09/16/18 11:29 08/24/18 11:48 Loperamide HCl (Imodium) 2 mg Q4H PRN ORAL Diarrhea 08/21/18 10:45 09/20/18 10:44 Nitroglycerin (Ntg) 1 patch Q24H TDERMAL 08/19/18 16:00 09/15/18 15:59 08/23/18 16:17 Ondansetron HCl (Zofran) 4 mg Q6H PRN IVP Nausea & Vomiting 08/19/18 16:30 09/13/18 22:29 Pantoprazole (Protonix) 40 mg DAILY ORAL 08/22/18 09:00 09/21/18 08:59 08/24/18 09:16 Potassium Chloride (K-Dur) 20 meq THREE TIMES A DAY ORAL 08/22/18 18:00 09/21/18 17:59 08/24/18 09:17 Promethazine HCl/ Codeine (Phenergan with Codeine) 5 ml Q6H PRN ORAL For Cough 08/20/18 21:45 09/19/18 21:44 Quetiapine Fumarate (SEROquel) 25 mg Q6H PRN ORAL agitation 08/20/18 11:00 09/19/18 10:59 08/23/18 08:23 Quetiapine Fumarate (SEROquel) 50 mg BEDTIME ORAL 08/20/18 21:00 09/19/18 20:59 08/23/18 20:53 Tamsulosin HCl (Flomax) 0.4 mg BEDTIME ORAL 08/20/18 21:00 09/19/18 20:59 08/23/18 20:54 Sade Morgan MD Aug 24, 2018 11:57
[2018-08-24 12:05] VITALS: BP 130/73
--- NOTE | 2018-08-24 12:40 | Infectious Diseases Prog Note ---
Assessment/Plan Assessment/Plan Assessment: Sepsis 2ry to PNA, ?FLu (despite neg screening test) -08/19 CXR: Patchy interstitial pneumonitis versus interstitial edema demonstrated. -CXR: Right basilar infiltrate, atelectasis, and likely pleural fluid -sp cx K.pna (R amp, otherwise S) -u/a wbc 10-15, nit neg, leuk +2; ucx Neg; 08/18 u/a wbc 20-40,nit neg, leuk +3 ; ucx NTD -influenza sc, legionella ag neg Gram positive bacteremia- likely contaminant = -08/14 Bcx 06/28 CONS; 08/16 Neg Fever, SP Leukocytosis, SP -Cdiff neg TONIO, improving Hyponatremia/hypokalemia DM-2 CVA w/ R side deficit -CT head: Multiple old infarcts as described above. Moderate to severe atrophy of the brain. Extensive white matter low-attenuation mainly periventricular in distribution consistent with chronic small vessel disease. bedbound Parkinson's disease Plan: will monitor pt off of AB Rx - DC Ceftriaxone # 5 (abx d#11) for K. pna PNA -08/20 SP Cefepime #7 -08/21 SP Flagyl #6, Azithromycin #7 -08/19 SP IV Vancomycin #6 , Tamiflu #5 -08/14 SP Flagyl x1 -f/u cx -Monitor CBC/CMP, temperatures -aspiration precautions Subjective Allergies: Coded Allergies: No Known Allergies (Unverified , 08/14/18) Subjective comfortable Objective Vital Signs Last 24 Hour Vital Signs Date Time Temp Pulse Resp B/P (MAP) Pulse Ox O2 Delivery O2 Flow Rate FiO2 08/24/18 12:05 97.9 90 20 130/73 (92) 97 08/24/18 09:20 99 130/79 08/24/18 09:00 Room Air 08/24/18 08:00 97.9 99 18 130/79 (96) 99 08/24/18 04:00 98.0 102 17 133/82 (99) 98 08/24/18 00:00 98.5 105 17 128/84 (99) 95 08/23/18 21:00 Room Air 08/23/18 20:00 98.1 94 18 110/66 (81) 97 08/23/18 17:30 89 121/69 08/23/18 16:17 121/69 08/23/18 16:00 98.4 89 19 121/69 (86) 97 08/23/18 14:40 97.9 Height (Feet): 5 Height (Inches): 7.00 Weight (Pounds): 149 HEENT: atraumatic Respiratory/Chest: lungs clear Cardiovascular: regular rhythm Abdomen: soft, non tender, no organomegaly Laboratory Tests Test 08/24/18 05:20 White Blood Count 10.1 K/UL (4.8-10.8) Red Blood Count 3.48 M/UL (4.70-6.10) L Hemoglobin 9.9 G/DL (14.2-18.0) L Hematocrit 31.4 % (42.0-52.0) L Mean Corpuscular Volume 90 FL (80-99) Mean Corpuscular Hemoglobin 28.6 PG (27.0-31.0) Mean Corpuscular Hemoglobin Concent 31.6 G/DL (32.0-36.0) L Red Cell Distribution Width 17.8 % (11.6-14.8) H Platelet Count 263 K/UL (150-450) Mean Platelet Volume 7.7 FL (6.5-10.1) Neutrophils (%) (Auto) 76.2 % (45.0-75.0) H Lymphocytes (%) (Auto) 15.9 % (20.0-45.0) L Monocytes (%) (Auto) 5.3 % (1.0-10.0) Eosinophils (%) (Auto) 2.3 % (0.0-3.0) Basophils (%) (Auto) 0.4 % (0.0-2.0) Sodium Level 143 MMOL/L (136-145) Potassium Level 3.9 MMOL/L (3.5-5.1) Chloride Level 108 MMOL/L (98-107) H Carbon Dioxide Level 26 MMOL/L (21-32) Anion Gap 9 mmol/L (5-15) Blood Urea Nitrogen 14 mg/dL (7-18) Creatinine 0.9 MG/DL (0.55-1.30) Estimat Glomerular Filtration Rate mL/min (>60) Glucose Level 157 MG/DL (74-106) H Calcium Level 9.2 MG/DL (8.5-10.1) Current Medications Medications (Trade) Dose Ordered Sig/Jese Route PRN Reason Start Time Stop Time Status Last Admin Dose Admin Acetaminophen (Tylenol) 650 mg Q4H PRN ORAL fever 08/19/18 13:11 09/13/18 13:10 08/23/18 14:10 Amlodipine Besylate (Norvasc) 5 mg BID NG 08/19/18 18:00 09/15/18 17:59 08/24/18 09:20 Ceftriaxone Sodium 1 gm/ Dextrose 55 ml @ 110 mls/hr Q24H IVPB 08/20/18 20:00 08/27/18 19:59 08/23/18 21:46 Clonazepam (KlonoPIN) 0.5 mg BEDTIME ORAL 08/20/18 21:00 08/27/18 20:59 08/23/18 20:53 Clonazepam (KlonoPIN) 0.5 mg DAILY ORAL 08/22/18 09:00 08/29/18 08:59 08/24/18 09:16 Dextrose 1,000 ml @ 50 mls/hr Q20H IV 08/20/18 21:30 09/19/18 21:29 08/24/18 06:19 Dextrose (Dextrose 50%) 25 ml Q30M PRN IV Hypoglycemia 08/19/18 13:00 09/16/18 10:29 Dextrose (Dextrose 50%) 50 ml Q30M PRN IV Hypoglycemia 08/19/18 13:00 09/16/18 10:29 Diphenoxylate HCl/ Atropine (Lomotil) 2.5 mg Q4H PRN ORAL Diarrhea 08/20/18 13:45 09/19/18 13:44 08/22/18 06:15 Finasteride (Proscar) 5 mg DAILY ORAL 08/20/18 09:00 09/19/18 08:59 08/24/18 09:17 Insulin Aspart (NovoLOG) BEFORE MEALS AND HS SUBQ 08/19/18 16:30 09/16/18 11:29 08/24/18 11:48 Loperamide HCl (Imodium) 2 mg Q4H PRN ORAL Diarrhea 08/21/18 10:45 09/20/18 10:44 Nitroglycerin (Ntg) 1 patch Q24H TDERMAL 08/19/18 16:00 09/15/18 15:59 08/23/18 16:17 Ondansetron HCl (Zofran) 4 mg Q6H PRN IVP Nausea & Vomiting 08/19/18 16:30 09/13/18 22:29 Pantoprazole (Protonix) 40 mg DAILY ORAL 08/22/18 09:00 09/21/18 08:59 08/24/18 09:16 Potassium Chloride (K-Dur) 20 meq THREE TIMES A DAY ORAL 08/22/18 18:00 09/21/18 17:59 08/24/18 09:17 Promethazine HCl/ Codeine (Phenergan with Codeine) 5 ml Q6H PRN ORAL For Cough 08/20/18 21:45 09/19/18 21:44 Quetiapine Fumarate (SEROquel) 25 mg Q6H PRN ORAL agitation 08/20/18 11:00 09/19/18 10:59 08/23/18 08:23 Quetiapine Fumarate (SEROquel) 50 mg BEDTIME ORAL 08/20/18 21:00 09/19/18 20:59 08/23/18 20:53 Tamsulosin HCl (Flomax) 0.4 mg BEDTIME ORAL 08/20/18 21:00 09/19/18 20:59 08/23/18 20:54 Elmer Robles MD Aug 24, 2018 12:40
[2018-08-24 16:00] VITALS: BP 145/76
--- NOTE | 2018-08-24 16:12 | NUR ---
NURSE NOTES: received call from Dr. Juarez for orders regarding resuming home meds. and informed Dr. Mars to not d/c seeing patient and not to recieve any orders from any MD but him. Made CN aware. will cont to monitor.
[2018-08-24] MEDS ORDERED: CELEXA20 MG ORAL (17:04)
[2018-08-24] MEDS ORDERED: GABAPENTIN600 MG ORAL (17:04)
[2018-08-24] MEDS ORDERED: AVAPRO300 MG ORAL (17:04)
[2018-08-24] MEDS ORDERED: QUETIAPINE FUMA50 MG ORAL (17:04)
[2018-08-24] MEDS ORDERED: METFORMIN HCL850 M1 ORAL (17:04)
[2018-08-24] MEDS: Levodopa/Carbidopa 25/100 tab ORAL SCH (17:33)
[2018-08-24] MEDS: Nitroglycerin Patch 0.4mg TDERMAL SCH (17:34)
--- NOTE | 2018-08-24 17:41 | Internal Med Progress Note ---
Subjective Date of Service: Aug 24, 2018 Physician Name Jeremi Hayden Attending Physician Madhu Juarez MD Current Medications Medications (Trade) Dose Ordered Sig/Jese Route PRN Reason Start Time Stop Time Status Last Admin Dose Admin Acetaminophen (Tylenol) 650 mg Q4H PRN ORAL fever 08/19/18 13:11 09/13/18 13:10 08/23/18 14:10 Amlodipine Besylate (Norvasc) 5 mg BID NG 08/19/18 18:00 09/15/18 17:59 08/24/18 09:20 Carbidopa/Levodopa (Sinemet ) 1 tab THREE TIMES A DAY ORAL 08/24/18 18:00 09/23/18 17:59 Clonazepam (KlonoPIN) 0.5 mg BEDTIME ORAL 08/20/18 21:00 08/27/18 20:59 08/23/18 20:53 Clonazepam (KlonoPIN) 0.5 mg DAILY ORAL 08/22/18 09:00 08/29/18 08:59 08/24/18 09:16 Dextrose 1,000 ml @ 50 mls/hr Q20H IV 08/20/18 21:30 09/19/18 21:29 08/24/18 06:19 Dextrose (Dextrose 50%) 25 ml Q30M PRN IV Hypoglycemia 08/19/18 13:00 09/16/18 10:29 Dextrose (Dextrose 50%) 50 ml Q30M PRN IV Hypoglycemia 08/19/18 13:00 09/16/18 10:29 Diphenoxylate HCl/ Atropine (Lomotil) 2.5 mg Q4H PRN ORAL Diarrhea 08/20/18 13:45 09/19/18 13:44 08/22/18 06:15 Finasteride (Proscar) 5 mg DAILY ORAL 08/20/18 09:00 09/19/18 08:59 08/24/18 09:17 Gabapentin (Neurontin) 600 mg EVERY 12 HOURS ORAL 08/24/18 21:00 09/23/18 20:59 Insulin Aspart (NovoLOG) BEFORE MEALS AND HS SUBQ 08/19/18 16:30 09/16/18 11:29 08/24/18 11:48 Irbesartan (Avapro) 300 mg DAILY ORAL 08/25/18 09:00 09/24/18 08:59 Loperamide HCl (Imodium) 2 mg Q4H PRN ORAL Diarrhea 08/21/18 10:45 09/20/18 10:44 Metformin HCl (Glucophage) 850 mg ACBREAKFAST ORAL 08/25/18 06:30 09/24/18 06:29 Nitroglycerin (Ntg) 1 patch Q24H TDERMAL 08/19/18 16:00 09/15/18 15:59 08/23/18 16:17 Ondansetron HCl (Zofran) 4 mg Q6H PRN IVP Nausea & Vomiting 08/19/18 16:30 09/13/18 22:29 Pantoprazole (Protonix) 40 mg DAILY ORAL 08/22/18 09:00 09/21/18 08:59 08/24/18 09:16 Potassium Chloride (K-Dur) 20 meq THREE TIMES A DAY ORAL 08/22/18 18:00 09/21/18 17:59 08/24/18 12:50 Promethazine HCl/ Codeine (Phenergan with Codeine) 5 ml Q6H PRN ORAL For Cough 08/20/18 21:45 09/19/18 21:44 Quetiapine Fumarate (SEROquel) 100 mg QHS ORAL 08/24/18 21:00 09/23/18 20:59 Tamsulosin HCl (Flomax) 0.4 mg BEDTIME ORAL 08/20/18 21:00 09/19/18 20:59 08/23/18 20:54 Venlafaxine HCl (Effexor-XR) 225 mg DAILY ORAL 08/25/18 09:00 09/24/18 08:59 Allergies: Coded Allergies: No Known Allergies (Unverified , 08/14/18) ROS Limited/Unobtainable: Yes Subjective 88 YO M admitted with shortness of breath. Now aspiration pneumonia. Cover for Int Med-Dr Juarez. Tolerating nasal canula Objective Last Vital Signs Date Time Temp Pulse Resp B/P (MAP) Pulse Ox O2 Delivery O2 Flow Rate FiO2 08/24/18 12:05 97.9 90 20 130/73 (92) 97 08/24/18 09:00 Room Air 08/24/18 07:00 21 08/22/18 19:36 2.0 Laboratory Tests Test 08/24/18 05:20 White Blood Count 10.1 K/UL (4.8-10.8) Red Blood Count 3.48 M/UL (4.70-6.10) L Hemoglobin 9.9 G/DL (14.2-18.0) L Hematocrit 31.4 % (42.0-52.0) L Mean Corpuscular Volume 90 FL (80-99) Mean Corpuscular Hemoglobin 28.6 PG (27.0-31.0) Mean Corpuscular Hemoglobin Concent 31.6 G/DL (32.0-36.0) L Red Cell Distribution Width 17.8 % (11.6-14.8) H Platelet Count 263 K/UL (150-450) Mean Platelet Volume 7.7 FL (6.5-10.1) Neutrophils (%) (Auto) 76.2 % (45.0-75.0) H Lymphocytes (%) (Auto) 15.9 % (20.0-45.0) L Monocytes (%) (Auto) 5.3 % (1.0-10.0) Eosinophils (%) (Auto) 2.3 % (0.0-3.0) Basophils (%) (Auto) 0.4 % (0.0-2.0) Sodium Level 143 MMOL/L (136-145) Potassium Level 3.9 MMOL/L (3.5-5.1) Chloride Level 108 MMOL/L (98-107) H Carbon Dioxide Level 26 MMOL/L (21-32) Anion Gap 9 mmol/L (5-15) Blood Urea Nitrogen 14 mg/dL (7-18) Creatinine 0.9 MG/DL (0.55-1.30) Estimat Glomerular Filtration Rate mL/min (>60) Glucose Level 157 MG/DL (74-106) H Calcium Level 9.2 MG/DL (8.5-10.1) Intake and Output 08/23/18 08/24/18 19:00 07:00 Intake Total 550 ml Output Total 850 ml 1200 ml Balance -300 ml -1200 ml IV Total 550 ml Output Urine Total 850 ml Stool Total 1200 ml Objective PHYSICAL EXAMINATION: GENERAL: The patient is well-developed and well-nourished thin-appearing white male, who is currently tolerating nasal canula. HEENT: Eyes - pupils are equal and responsive to light and accommodation. Extraocular movements are intact. NECK: Supple without lymphadenopathy. CHEST: Crackles bilaterally with expiratory wheezes. ABDOMEN: Soft, nontender, and nondistended. Positive bowel sounds. No evidence of hepatosplenomegaly. Currently, no rebound or guarding noted. EXTREMITIES: Negative for clubbing, cyanosis, or edema. RECTAL/GENITAL: Not performed. NEUROLOGIC: Cranial nerves II through XII are grossly intact without focal deficits. Assessment/Plan Assessment/Plan ASSESSMENT: This is an 88-year-old white male. 1. Right lower lobe pneumonia-klebsiella. 2. Shortness of breath. 3. Fever. 4. Cerebrovascular disease. 5. Diabetes. 6. Parkinson disease. 7. Renal failure 8. Sepsis-staph epi TREATMENT: 1. Right lower lobe pneumonia/shortness of breath. ?aspiration? A Pulmonary consultation has been obtained with Dr. Sade Morgan. Continue cefepime, flagyl and vancomycin per ID. See Infectious Disease consultation by Dr. Marte. 2. History of cerebrovascular disease. Continue aspirin as above. 3. Diabetes type 2. The patient has been started on NovoLog sliding scale. 4. Parkinson disease. Continue Sinemet as above. 5. See nephrology note. 6. Discharge planning Jeremi Hayden MD Aug 24, 2018 17:41
--- NOTE | 2018-08-24 17:42 | Nephrology Progress Note ---
Assessment/Plan Problem List: (1) ATN (acute tubular necrosis) Assessment: resolved (2) Acute respiratory failure (3) Diabetes mellitus (4) Parkinson disease (5) Respiratory distress (6) Aspiration pneumonia Assessment 88 Y old male, presents with resp distress and aspiration pneumonia Renal failure, Mainly dehydration resolving ? Underlying CKD Low K , Low Na , Low Alb Parkinsons DM Plan change IV to D5w , Na lower Uro eval and trial to DC buckner? repeat ua and u c/s discussed with NGT Hydrate 2D Echo Noted Antibiotics Avoid Nephrotoxics Per orders Subjective ROS Limited/Unobtainable: No Constitutional: Reports: malaise, weakness Objective Objective Last 24 Hour Vital Signs Date Time Temp Pulse Resp B/P (MAP) Pulse Ox O2 Delivery O2 Flow Rate FiO2 08/24/18 12:05 97.9 90 20 130/73 (92) 97 08/24/18 09:20 99 130/79 08/24/18 09:00 Room Air 08/24/18 08:00 97.9 99 18 130/79 (96) 99 08/24/18 07:00 Room Air 21 08/24/18 07:00 96 Room Air 21 08/24/18 04:00 98.0 102 17 133/82 (99) 98 08/24/18 00:00 98.5 105 17 128/84 (99) 95 08/23/18 21:00 Room Air 08/23/18 20:00 98.1 94 18 110/66 (81) 97 Intake and Output 08/23/18 08/24/18 19:00 07:00 Intake Total 550 ml Output Total 850 ml 1200 ml Balance -300 ml -1200 ml IV Total 550 ml Output Urine Total 850 ml Stool Total 1200 ml Laboratory Tests 08/24/18 05:20: White Blood Count 10.1, Red Blood Count 3.48L, Hemoglobin 9.9L, Hematocrit 31.4L , Mean Corpuscular Volume 90, Mean Corpuscular Hemoglobin 28.6, Mean Corpuscular Hemoglobin Concent 31.6L, Red Cell Distribution Width 17.8H, Platelet Count 263, Mean Platelet Volume 7.7, Neutrophils (%) (Auto) 76.2H, Lymphocytes (%) (Auto) 15.9L, Monocytes (%) (Auto) 5.3, Eosinophils (%) (Auto) 2.3, Basophils (%) (Auto) 0.4, Sodium Level 143, Potassium Level 3.9, Chloride Level 108H, Carbon Dioxide Level 26, Anion Gap 9, Blood Urea Nitrogen 14, Creatinine 0.9, Estimat Glomerular Filtration Rate , Glucose Level 157H, Calcium Level 9.2 Height (Feet): 5 Height (Inches): 7.00 Weight (Pounds): 149 General Appearance: no apparent distress, confused Cardiovascular: tachycardia Respiratory/Chest: decreased breath sounds Abdomen: distended Hudson Huntley MD Aug 24, 2018 17:42
--- NOTE | 2018-08-24 19:13 | NUR ---
HAND-OFF: Report given to John.
--- NOTE | 2018-08-24 19:13 | NUR ---
NURSE NOTES: Received patient on bed awake, no s/s of any distress. IV line patent and intact, FC patent and intact and draining to gravity. On soft Left wrist restraints, no redness or swelling noted around the area,Bed in low position and locked, will continue to monitor.
[2018-08-24 20:00] VITALS: BP 126/74
[2018-08-24] MEDS: Tamsulosin 0.4mg cap ORAL SCH (20:15)
--- NOTE | 2018-08-24 20:18 | General Progress Note ---
Assessment/Plan Problem List: (1) Acute metabolic encephalopathy ICD Codes: G93.41 - Metabolic encephalopathy SNOMED: 19732288, 191164711 (2) Major depressive disorder, recurrent ICD Codes: F33.9 - Major depressive disorder, recurrent, unspecified SNOMED: 13020343 (3) Anxiety disorder ICD Codes: F41.9 - Anxiety disorder, unspecified SNOMED: 201433447 Assessment/Plan Klonopin .5mg po qhs Klonopin .5mg po qam Seroquel 50mg po qhs will restart ad when pts ms is improved dw rn and Subjective Allergies: Coded Allergies: No Known Allergies (Unverified , 08/14/18) Subjective the at bedside the pt is more alert the pt was less agitated eating well improving . Objective Last 24 Hour Vital Signs Date Time Temp Pulse Resp B/P (MAP) Pulse Ox O2 Delivery O2 Flow Rate FiO2 08/24/18 17:34 145/76 08/24/18 17:33 82 145/76 08/24/18 16:00 98.2 82 18 145/76 (99) 97 08/24/18 12:05 97.9 90 20 130/73 (92) 97 08/24/18 09:20 99 130/79 08/24/18 09:00 Room Air 08/24/18 08:00 97.9 99 18 130/79 (96) 99 08/24/18 07:00 Room Air 21 08/24/18 07:00 96 Room Air 21 08/24/18 04:00 98.0 102 17 133/82 (99) 98 08/24/18 00:00 98.5 105 17 128/84 (99) 95 08/23/18 21:00 Room Air Intake and Output 08/23/18 08/24/18 19:00 07:00 Intake Total 550 ml Output Total 850 ml 1200 ml Balance -300 ml -1200 ml IV Total 550 ml Output Urine Total 850 ml Stool Total 1200 ml Laboratory Tests 08/24/18 05:20: White Blood Count 10.1, Red Blood Count 3.48L, Hemoglobin 9.9L, Hematocrit 31.4L , Mean Corpuscular Volume 90, Mean Corpuscular Hemoglobin 28.6, Mean Corpuscular Hemoglobin Concent 31.6L, Red Cell Distribution Width 17.8H, Platelet Count 263, Mean Platelet Volume 7.7, Neutrophils (%) (Auto) 76.2H, Lymphocytes (%) (Auto) 15.9L, Monocytes (%) (Auto) 5.3, Eosinophils (%) (Auto) 2.3, Basophils (%) (Auto) 0.4, Sodium Level 143, Potassium Level 3.9, Chloride Level 108H, Carbon Dioxide Level 26, Anion Gap 9, Blood Urea Nitrogen 14, Creatinine 0.9, Estimat Glomerular Filtration Rate , Glucose Level 157H, Calcium Level 9.2 Height (Feet): 5 Height (Inches): 7.00 Weight (Pounds): 149 Jorge Mars MD Aug 24, 2018 20:18
--- NOTE | 2018-08-24 20:21 | Cardiology Report ---
APPROVED REPORT EKG Measurement Heart [id number] Normal sinus rhythm Nonspecific ST and T wave abnormality Abnormal ECG
[2018-08-24] MEDS ORDERED: clonazePAM 0.5mg tab ORAL SCH (21:00)
[2018-08-24] MEDS ORDERED: QUEtiapine 200mg tab ORAL SCH (21:00)
[2018-08-25] VITALS: BP 106/66
[2018-08-25 04:00] VITALS: BP 107/67
[2018-08-25] MEDS: NovoLOG Insulin Flexpen SUBQ SCH ×4 (06:21→20:27)
--- NOTE | 2018-08-25 07:24 | NUR ---
HAND-OFF: Report given to Micki FITZGERALD.
[2018-08-25 08:00] VITALS: BP 104/70
[2018-08-25] MEDS: Irbesartan 150mg tablet ORAL SCH (09:00)
--- NOTE | 2018-08-25 09:18 | General Progress Note ---
Assessment/Plan Problem List: (1) Aspiration pneumonia ICD Codes: J69.0 - Pneumonitis due to inhalation of food and vomit SNOMED: 031734701 (2) Renal insufficiency ICD Codes: N28.9 - Disorder of kidney and ureter, unspecified SNOMED: 262614437, 196931206 (3) Parkinson disease ICD Codes: G20 - Parkinson's disease SNOMED: 69904219 (4) Diabetes mellitus ICD Codes: E11.9 - Type 2 diabetes mellitus without complications SNOMED: 01150340 (5) Anemia ICD Codes: D64.9 - Anemia, unspecified SNOMED: 652767276 Assessment/Plan anemia work up reviewed patient removed NGT stable H&H family Refused EGD C. difficile negative stool OB positive advanced to puree diet, tolerating 100% diet monitor H&H, prn transfusions bowel regime ppi fu labs abx DC planning Subjective ROS Limited/Unobtainable: No Allergies: Coded Allergies: No Known Allergies (Unverified , 08/14/18) Objective Last 24 Hour Vital Signs Date Time Temp Pulse Resp B/P (MAP) Pulse Ox O2 Delivery O2 Flow Rate FiO2 08/25/18 04:00 97.5 89 17 107/67 (80) 99 08/25/18 00:00 97.2 96 16 106/66 (79) 96 08/24/18 21:00 Room Air 08/24/18 20:30 Room Air 21 08/24/18 20:30 95 Room Air 21 08/24/18 20:00 97.0 70 18 126/74 (91) 100 08/24/18 17:34 145/76 08/24/18 17:33 82 145/76 08/24/18 16:00 98.2 82 18 145/76 (99) 97 08/24/18 12:05 97.9 90 20 130/73 (92) 97 08/24/18 09:20 99 130/79 Intake and Output 08/24/18 08/25/18 18:59 06:59 Intake Total 1320 ml 600 ml Output Total 1100 ml 725 ml Balance 220 ml -125 ml Intake Oral 720 ml IV Total 600 ml 600 ml Output Urine Total 1100 ml 725 ml # Bowel Movements 2 2 Height (Feet): 5 Height (Inches): 7.00 Weight (Pounds): 149 General Appearance: no apparent distress EENT: normal ENT inspection Neck: supple Cardiovascular: normal rate Respiratory/Chest: decreased breath sounds Abdomen: normal bowel sounds, non tender, soft Extremities: non-tender Antony Og MD Aug 25, 2018 09:17
[2018-08-25] MEDS: Levodopa/Carbidopa 25/100 tab ORAL SCH ×3 (09:49→18:06)
[2018-08-25] MEDS: clonazePAM 0.5mg tab ORAL SCH ×2 (09:49→20:26)
--- NOTE | 2018-08-25 09:49 | Urology Progress Note ---
Assessment/Plan Assessment/Plan 1. Urinary retention. 2. Benign prostatic hypertrophy history. 3. Probable neurogenic bladder. 4. History of urethral stricture and difficult catheterization. 5. Proteinuria. 6. Hematuria. 7. Pyuria. monitor clinically hx of diff cath, requiring cysto in the past keep buckner indwelling for now irrigated and patent, secured to pt's leg flomax and proscar added extensive discussion with pt's son son did not want buckner removed yet voiding trial later, prob as outpt in the office s/p abx d/w pt's extensively Subjective Allergies: Coded Allergies: No Known Allergies (Unverified , 08/14/18) Subjective all noted, looks comfortable Objective Last 24 Hour Vital Signs Date Time Temp Pulse Resp B/P (MAP) Pulse Ox O2 Delivery O2 Flow Rate FiO2 08/25/18 08:00 97.2 101 20 104/70 (81) 99 08/25/18 04:00 97.5 89 17 107/67 (80) 99 08/25/18 00:00 97.2 96 16 106/66 (79) 96 08/24/18 21:00 Room Air 08/24/18 20:30 Room Air 21 08/24/18 20:30 95 Room Air 21 08/24/18 20:00 97.0 70 18 126/74 (91) 100 08/24/18 17:34 145/76 08/24/18 17:33 82 145/76 08/24/18 16:00 98.2 82 18 145/76 (99) 97 08/24/18 12:05 97.9 90 20 130/73 (92) 97 Intake and Output 08/24/18 08/25/18 18:59 06:59 Intake Total 1320 ml 600 ml Output Total 1100 ml 725 ml Balance 220 ml -125 ml Intake Oral 720 ml IV Total 600 ml 600 ml Output Urine Total 1100 ml 725 ml # Bowel Movements 2 2 Microbiology Date/Time Source Procedure Growth Status 08/17/18 03:45 Blood Blood Culture - Final NO GROWTH AFTER 5 DAYS Complete 08/18/18 03:10 Sputum Gram Stain - Final Complete 08/18/18 03:10 Sputum Culture - Final Klebsiella Pneumoniae Usual Respiratory Yoselin Complete 08/20/18 20:00 Stool Clostridium difficile Toxin Assay - Final Complete 08/18/18 18:00 Indwelling Cath Urine Culture - Final Theresa Glabrata Complete 08/14/18 22:35 Rectum VRE Culture - Final NO VANCOMYCIN RESISTANT ENTEROCOCCUS ... Complete Current Medications Medications (Trade) Dose Ordered Sig/Jese Route PRN Reason Start Time Stop Time Status Last Admin Dose Admin Acetaminophen (Tylenol) 650 mg Q4H PRN ORAL fever 08/19/18 13:11 09/13/18 13:10 08/23/18 14:10 Amlodipine Besylate (Norvasc) 5 mg BID NG 08/19/18 18:00 09/15/18 17:59 08/24/18 17:33 Carbidopa/Levodopa (Sinemet ) 1 tab THREE TIMES A DAY ORAL 08/24/18 18:00 09/23/18 17:59 08/24/18 17:33 Clonazepam (KlonoPIN) 0.5 mg BEDTIME ORAL 08/20/18 21:00 08/27/18 20:59 08/24/18 20:16 Clonazepam (KlonoPIN) 0.5 mg DAILY ORAL 08/22/18 09:00 08/29/18 08:59 08/24/18 09:16 Dextrose 1,000 ml @ 50 mls/hr Q20H IV 08/20/18 21:30 09/19/18 21:29 08/25/18 01:58 Dextrose (Dextrose 50%) 25 ml Q30M PRN IV Hypoglycemia 08/19/18 13:00 09/16/18 10:29 Dextrose (Dextrose 50%) 50 ml Q30M PRN IV Hypoglycemia 08/19/18 13:00 09/16/18 10:29 Diphenoxylate HCl/ Atropine (Lomotil) 2.5 mg Q4H PRN ORAL Diarrhea 08/20/18 13:45 09/19/18 13:44 08/22/18 06:15 Finasteride (Proscar) 5 mg DAILY ORAL 08/20/18 09:00 09/19/18 08:59 08/24/18 09:17 Gabapentin (Neurontin) 600 mg EVERY 12 HOURS ORAL 08/24/18 21:00 09/23/18 20:59 08/24/18 20:16 Insulin Aspart (NovoLOG) BEFORE MEALS AND HS SUBQ 08/19/18 16:30 09/16/18 11:29 08/25/18 06:21 Irbesartan (Avapro) 300 mg DAILY ORAL 08/25/18 09:00 09/24/18 08:59 Loperamide HCl (Imodium) 2 mg Q4H PRN ORAL Diarrhea 08/21/18 10:45 09/20/18 10:44 Metformin HCl (Glucophage) 850 mg ACBREAKFAST ORAL 08/25/18 06:30 09/24/18 06:29 08/25/18 06:24 Nitroglycerin (Ntg) 1 patch Q24H TDERMAL 08/19/18 16:00 09/15/18 15:59 08/24/18 17:34 Ondansetron HCl (Zofran) 4 mg Q6H PRN IVP Nausea & Vomiting 08/19/18 16:30 09/13/18 22:29 Pantoprazole (Protonix) 40 mg DAILY ORAL 08/22/18 09:00 09/21/18 08:59 08/24/18 09:16 Potassium Chloride (K-Dur) 20 meq THREE TIMES A DAY ORAL 08/22/18 18:00 09/21/18 17:59 08/24/18 17:33 Promethazine HCl/ Codeine (Phenergan with Codeine) 5 ml Q6H PRN ORAL For Cough 08/20/18 21:45 09/19/18 21:44 Quetiapine Fumarate (SEROquel) 100 mg QHS ORAL 08/24/18 21:00 09/23/18 20:59 08/24/18 20:15 Tamsulosin HCl (Flomax) 0.4 mg BEDTIME ORAL 08/20/18 21:00 09/19/18 20:59 08/24/18 20:15 Venlafaxine HCl (Effexor-XR) 225 mg DAILY ORAL 08/25/18 09:00 09/24/18 08:59 Height (Feet): 5 Height (Inches): 7.00 Weight (Pounds): 149 Objective exam stable, urine venu Salbador Yanez MD Aug 25, 2018 09:49
[2018-08-25] MEDS: Venlafaxine XR 75mg cap ORAL SCH (09:53)
[2018-08-25 10:50] LABS: BASOPHILS % (AUTO) 0.9 % (0.0-2.0); EOSINOPHILS % (AUTO) 2.5 % (0.0-3.0); HEMATOCRIT 32.7 % (42.0-52.0); HEMOGLOBIN 10.2 G/DL (14.2-18.0); LYMPHOCYTES % (AUTO) 17.7 % (20.0-45.0); MEAN CORPUSCULAR VOLUME 91 FL (80-99); MONOCYTES % (AUTO) 7.3 % (1.0-10.0); NEUTROPHILS % (AUTO) 71.6 % (45.0-75.0); PLATELET COUNT 265 K/UL (150-450); RED CELL DISTRIBUTION WIDTH 17.6 % (11.6-14.8); WHITE BLOOD COUNT 10.6 K/UL (4.8-10.8)
[2018-08-25 10:59] LABS: ANION GAP 7 mmol/L (5-15); BLOOD UREA NITROGEN 14 mg/dL (7-18); CARBON DIOXIDE 26 MMOL/L (21-32); CHLORIDE 108 MMOL/L (98-107); CREATININE 0.9 MG/DL (0.55-1.30); POTASSIUM 4.1 MMOL/L (3.5-5.1); SODIUM 141 MMOL/L (136-145)
[2018-08-25 12:00] VITALS: BP 105/61
[2018-08-25] MEDS: Loperamide 2mg cap ORAL PRN (12:47)
--- NOTE | 2018-08-25 15:51 | Nephrology Progress Note ---
Assessment/Plan Problem List: (1) ATN (acute tubular necrosis) Assessment: resolved (2) Acute respiratory failure (3) Diabetes mellitus (4) Parkinson disease (5) Respiratory distress (6) Aspiration pneumonia Assessment 88 Y old male, presents with resp distress and aspiration pneumonia Renal failure, Mainly dehydration resolving ? Underlying CKD Low K , Low Na , Low Alb Parkinsons DM Plan change IV to D5w , Na lower Uro eval and trial to DC buckner? repeat ua and u c/s discussed with NGT Hydrate 2D Echo Noted Antibiotics Avoid Nephrotoxics Per orders Subjective ROS Limited/Unobtainable: No Constitutional: Reports: malaise, weakness Objective Objective Last 24 Hour Vital Signs Date Time Temp Pulse Resp B/P (MAP) Pulse Ox O2 Delivery O2 Flow Rate FiO2 08/25/18 12:00 97.3 96 22 105/61 (76) 96 08/25/18 09:00 Room Air 08/25/18 09:00 104/70 08/25/18 09:00 101 104/70 08/25/18 08:00 97.2 101 20 104/70 (81) 99 08/25/18 04:00 97.5 89 17 107/67 (80) 99 08/25/18 00:00 97.2 96 16 106/66 (79) 96 08/24/18 21:00 Room Air 08/24/18 20:30 Room Air 21 08/24/18 20:30 95 Room Air 21 08/24/18 20:00 97.0 70 18 126/74 (91) 100 08/24/18 17:34 145/76 08/24/18 17:33 82 145/76 08/24/18 16:00 98.2 82 18 145/76 (99) 97 Intake and Output 08/24/18 08/25/18 19:00 07:00 Intake Total 1320 ml 600 ml Output Total 1100 ml 725 ml Balance 220 ml -125 ml Intake Oral 720 ml IV Total 600 ml 600 ml Output Urine Total 1100 ml 725 ml # Bowel Movements 2 2 Laboratory Tests 08/25/18 10:20: White Blood Count 10.6, Red Blood Count 3.60L, Hemoglobin 10.2L, Hematocrit 32.7L, Mean Corpuscular Volume 91, Mean Corpuscular Hemoglobin 28.3, Mean Corpuscular Hemoglobin Concent 31.2L, Red Cell Distribution Width 17.6H, Platelet Count 265, Mean Platelet Volume 8.4, Neutrophils (%) (Auto) 71.6, Lymphocytes (%) (Auto) 17.7L, Monocytes (%) (Auto) 7.3, Eosinophils (%) (Auto) 2.5, Basophils (%) (Auto) 0.9, Sodium Level 141, Potassium Level 4.1, Chloride Level 108H, Carbon Dioxide Level 26, Anion Gap 7, Blood Urea Nitrogen 14, Creatinine 0.9, Estimat Glomerular Filtration Rate , Glucose Level 188H, Calcium Level 9.0 Height (Feet): 5 Height (Inches): 7.00 Weight (Pounds): 149 General Appearance: no apparent distress Cardiovascular: tachycardia Respiratory/Chest: decreased breath sounds Abdomen: soft Objective no change Hudson Huntley MD Aug 25, 2018 15:51
[2018-08-25 16:00] VITALS: BP 123/67
--- NOTE | 2018-08-25 16:13 | Pulmonology Progress Note ---
Assessment/Plan Problems: (1) Acute respiratory failure (2) Aspiration pneumonia (3) ATN (acute tubular necrosis) Assessment/Plan wants to get discharged in am improving bun/creatine decreasing, almost normal didn't pass swallow study continue NG tube feeding check electrolytes respiratory treatment check echocardiogram f/u troponin level failed swallow study, doesn't want Gtube eating, family wants oral feeding Subjective ROS Limited/Unobtainable: No Allergies: Coded Allergies: No Known Allergies (Unverified , 08/14/18) Objective Last 24 Hour Vital Signs Date Time Temp Pulse Resp B/P (MAP) Pulse Ox O2 Delivery O2 Flow Rate FiO2 08/25/18 12:00 97.3 96 22 105/61 (76) 96 08/25/18 09:00 Room Air 08/25/18 09:00 104/70 08/25/18 09:00 101 104/70 08/25/18 08:00 97.2 101 20 104/70 (81) 99 08/25/18 04:00 97.5 89 17 107/67 (80) 99 08/25/18 00:00 97.2 96 16 106/66 (79) 96 08/24/18 21:00 Room Air 08/24/18 20:30 Room Air 21 08/24/18 20:30 95 Room Air 21 08/24/18 20:00 97.0 70 18 126/74 (91) 100 08/24/18 17:34 145/76 08/24/18 17:33 82 145/76 Intake and Output 08/24/18 08/25/18 19:00 07:00 Intake Total 1320 ml 600 ml Output Total 1100 ml 725 ml Balance 220 ml -125 ml Intake Oral 720 ml IV Total 600 ml 600 ml Output Urine Total 1100 ml 725 ml # Bowel Movements 2 2 Objective General Appearance: cachectic HEENT: normocephalic Respiratory/Chest: chest wall non-tender, lungs clear, normal breath sounds Breasts: no masses Cardiovascular: normal peripheral pulses, normal rate Abdomen: normal bowel sounds, soft, non tender Extremities: no cyanosis Skin: no rash Laboratory Tests 08/25/18 10:20: White Blood Count 10.6, Red Blood Count 3.60L, Hemoglobin 10.2L, Hematocrit 32.7L, Mean Corpuscular Volume 91, Mean Corpuscular Hemoglobin 28.3, Mean Corpuscular Hemoglobin Concent 31.2L, Red Cell Distribution Width 17.6H, Platelet Count 265, Mean Platelet Volume 8.4, Neutrophils (%) (Auto) 71.6, Lymphocytes (%) (Auto) 17.7L, Monocytes (%) (Auto) 7.3, Eosinophils (%) (Auto) 2.5, Basophils (%) (Auto) 0.9, Sodium Level 141, Potassium Level 4.1, Chloride Level 108H, Carbon Dioxide Level 26, Anion Gap 7, Blood Urea Nitrogen 14, Creatinine 0.9, Estimat Glomerular Filtration Rate , Glucose Level 188H, Calcium Level 9.0 Current Medications Medications (Trade) Dose Ordered Sig/Jese Route PRN Reason Start Time Stop Time Status Last Admin Dose Admin Acetaminophen (Tylenol) 650 mg Q4H PRN ORAL fever 08/19/18 13:11 09/13/18 13:10 08/23/18 14:10 Amlodipine Besylate (Norvasc) 5 mg BID NG 08/19/18 18:00 09/15/18 17:59 08/24/18 17:33 Carbidopa/Levodopa (Sinemet ) 1 tab THREE TIMES A DAY ORAL 08/24/18 18:00 09/23/18 17:59 08/25/18 12:43 Clonazepam (KlonoPIN) 0.5 mg BEDTIME ORAL 08/20/18 21:00 08/27/18 20:59 08/24/18 20:16 Clonazepam (KlonoPIN) 0.5 mg DAILY ORAL 08/22/18 09:00 08/29/18 08:59 08/25/18 09:49 Dextrose 1,000 ml @ 50 mls/hr Q20H IV 08/20/18 21:30 09/19/18 21:29 08/25/18 01:58 Dextrose (Dextrose 50%) 25 ml Q30M PRN IV Hypoglycemia 08/19/18 13:00 09/16/18 10:29 Dextrose (Dextrose 50%) 50 ml Q30M PRN IV Hypoglycemia 08/19/18 13:00 09/16/18 10:29 Diphenoxylate HCl/ Atropine (Lomotil) 2.5 mg Q4H PRN ORAL Diarrhea 08/20/18 13:45 09/19/18 13:44 08/22/18 06:15 Finasteride (Proscar) 5 mg DAILY ORAL 08/20/18 09:00 09/19/18 08:59 08/25/18 09:49 Gabapentin (Neurontin) 600 mg EVERY 12 HOURS ORAL 08/24/18 21:00 09/23/18 20:59 08/25/18 09:49 Insulin Aspart (NovoLOG) BEFORE MEALS AND HS SUBQ 08/19/18 16:30 09/16/18 11:29 08/25/18 12:45 Irbesartan (Avapro) 300 mg DAILY ORAL 08/25/18 09:00 09/24/18 08:59 Loperamide HCl (Imodium) 2 mg Q4H PRN ORAL Diarrhea 08/21/18 10:45 09/20/18 10:44 08/25/18 12:47 Metformin HCl (Glucophage) 850 mg ACBREAKFAST ORAL 08/25/18 06:30 09/24/18 06:29 08/25/18 06:24 Nitroglycerin (Ntg) 1 patch Q24H TDERMAL 08/19/18 16:00 09/15/18 15:59 08/24/18 17:34 Ondansetron HCl (Zofran) 4 mg Q6H PRN IVP Nausea & Vomiting 08/19/18 16:30 09/13/18 22:29 Pantoprazole (Protonix) 40 mg DAILY ORAL 08/22/18 09:00 09/21/18 08:59 08/25/18 09:50 Potassium Chloride (K-Dur) 20 meq THREE TIMES A DAY ORAL 08/22/18 18:00 09/21/18 17:59 08/25/18 12:43 Promethazine HCl/ Codeine (Phenergan with Codeine) 5 ml Q6H PRN ORAL For Cough 08/20/18 21:45 09/19/18 21:44 Quetiapine Fumarate (SEROquel) 100 mg QHS ORAL 08/24/18 21:00 09/23/18 20:59 08/24/18 20:15 Tamsulosin HCl (Flomax) 0.4 mg BEDTIME ORAL 08/20/18 21:00 09/19/18 20:59 08/24/18 20:15 Venlafaxine HCl (Effexor-XR) 225 mg DAILY ORAL 08/25/18 09:00 09/24/18 08:59 08/25/18 09:53 Sade Morgan MD Aug 25, 2018 16:13
[2018-08-25] MEDS: Nitroglycerin Patch 0.4mg TDERMAL SCH (16:58)
--- NOTE | 2018-08-25 19:21 | NUR ---
HAND-OFF: Report given to LIA Carter.
[2018-08-25 20:00] VITALS: BP 127/74
[2018-08-25] MEDS: Tamsulosin 0.4mg cap ORAL SCH (20:26)
[2018-08-26] VITALS: BP 110/59
[2018-08-26 04:00] VITALS: BP 139/68
[2018-08-26] MEDS: NovoLOG Insulin Flexpen SUBQ SCH ×2 (06:01→12:47)
[2018-08-26 08:00] VITALS: BP 104/61
[2018-08-26] MEDS: Irbesartan 150mg tablet ORAL SCH (09:00)
[2018-08-26] MEDS: clonazePAM 0.5mg tab ORAL SCH (09:32)
[2018-08-26] MEDS: Levodopa/Carbidopa 25/100 tab ORAL SCH ×2 (09:32→12:09)
[2018-08-26] MEDS: Venlafaxine XR 75mg cap ORAL SCH (09:33)
--- NOTE | 2018-08-26 09:34 | Urology Progress Note ---
Assessment/Plan Assessment/Plan 1. Urinary retention. 2. Benign prostatic hypertrophy history. 3. Probable neurogenic bladder. 4. History of urethral stricture and difficult catheterization. 5. Proteinuria. 6. Hematuria. 7. Pyuria. monitor clinically hx of diff cath, requiring cysto in the past keep buckner indwelling for now flomax and proscar added extensive discussion with pt's son son did not want buckner removed yet voiding trial later, prob as outpt in the office s/p abx Subjective Allergies: Coded Allergies: No Known Allergies (Unverified , 08/14/18) Subjective all noted, looks comfortable Objective Last 24 Hour Vital Signs Date Time Temp Pulse Resp B/P (MAP) Pulse Ox O2 Delivery O2 Flow Rate FiO2 08/26/18 08:00 97.2 98 20 104/61 (75) 94 08/26/18 04:00 98.3 97 18 139/68 (91) 98 08/26/18 00:00 97.9 100 18 110/59 (76) 94 08/25/18 21:00 Room Air 08/25/18 20:33 96 Room Air 21 08/25/18 20:33 Room Air 21 08/25/18 20:00 98.2 96 18 127/74 (91) 94 08/25/18 18:06 100 123/67 08/25/18 16:58 123/67 08/25/18 16:00 98.2 100 18 123/67 (85) 98 08/25/18 12:00 97.3 96 22 105/61 (76) 96 08/25/18 10:18 Room Air 21 08/25/18 10:17 97 Room Air 21 Intake and Output 08/25/18 08/26/18 18:59 06:59 Intake Total 590 ml Output Total 1050 ml 300 ml Balance -1050 ml 290 ml Intake Oral 240 ml IV Total 350 ml Output Urine Total 1050 ml 300 ml # Bowel Movements 1 Microbiology Date/Time Source Procedure Growth Status 08/17/18 03:45 Blood Blood Culture - Final NO GROWTH AFTER 5 DAYS Complete 08/18/18 03:10 Sputum Gram Stain - Final Complete 08/18/18 03:10 Sputum Culture - Final Klebsiella Pneumoniae Usual Respiratory Yoselin Complete 08/20/18 20:00 Stool Clostridium difficile Toxin Assay - Final Complete 08/18/18 18:00 Indwelling Cath Urine Culture - Final Theresa Glabrata Complete 08/14/18 22:35 Rectum VRE Culture - Final NO VANCOMYCIN RESISTANT ENTEROCOCCUS ... Complete Current Medications Medications (Trade) Dose Ordered Sig/Jese Route PRN Reason Start Time Stop Time Status Last Admin Dose Admin Acetaminophen (Tylenol) 650 mg Q4H PRN ORAL fever 08/19/18 13:11 09/13/18 13:10 08/23/18 14:10 Amlodipine Besylate (Norvasc) 5 mg BID NG 08/19/18 18:00 09/15/18 17:59 08/25/18 18:06 Carbidopa/Levodopa (Sinemet ) 1 tab THREE TIMES A DAY ORAL 08/24/18 18:00 09/23/18 17:59 08/25/18 18:06 Clonazepam (KlonoPIN) 0.5 mg BEDTIME ORAL 08/20/18 21:00 08/27/18 20:59 08/25/18 20:26 Clonazepam (KlonoPIN) 0.5 mg DAILY ORAL 08/22/18 09:00 08/29/18 08:59 08/25/18 09:49 Dextrose 1,000 ml @ 50 mls/hr Q20H IV 08/20/18 21:30 09/19/18 21:29 08/25/18 20:26 Dextrose (Dextrose 50%) 25 ml Q30M PRN IV Hypoglycemia 08/19/18 13:00 09/16/18 10:29 Dextrose (Dextrose 50%) 50 ml Q30M PRN IV Hypoglycemia 08/19/18 13:00 09/16/18 10:29 Diphenoxylate HCl/ Atropine (Lomotil) 2.5 mg Q4H PRN ORAL Diarrhea 08/20/18 13:45 09/19/18 13:44 08/22/18 06:15 Finasteride (Proscar) 5 mg DAILY ORAL 08/20/18 09:00 09/19/18 08:59 08/25/18 09:49 Gabapentin (Neurontin) 600 mg EVERY 12 HOURS ORAL 08/24/18 21:00 09/23/18 20:59 08/25/18 20:26 Insulin Aspart (NovoLOG) BEFORE MEALS AND HS SUBQ 08/19/18 16:30 09/16/18 11:29 08/26/18 06:01 Irbesartan (Avapro) 300 mg DAILY ORAL 08/25/18 09:00 09/24/18 08:59 Loperamide HCl (Imodium) 2 mg Q4H PRN ORAL Diarrhea 08/21/18 10:45 09/20/18 10:44 08/25/18 12:47 Metformin HCl (Glucophage) 850 mg ACBREAKFAST ORAL 08/25/18 06:30 09/24/18 06:29 08/26/18 05:33 Nitroglycerin (Ntg) 1 patch Q24H TDERMAL 08/19/18 16:00 09/15/18 15:59 08/25/18 16:58 Ondansetron HCl (Zofran) 4 mg Q6H PRN IVP Nausea & Vomiting 08/19/18 16:30 09/13/18 22:29 Pantoprazole (Protonix) 40 mg DAILY ORAL 08/22/18 09:00 09/21/18 08:59 08/25/18 09:50 Potassium Chloride (K-Dur) 20 meq THREE TIMES A DAY ORAL 08/22/18 18:00 09/21/18 17:59 08/25/18 18:06 Promethazine HCl/ Codeine (Phenergan with Codeine) 5 ml Q6H PRN ORAL For Cough 08/20/18 21:45 09/19/18 21:44 Quetiapine Fumarate (SEROquel) 100 mg QHS ORAL 08/24/18 21:00 09/23/18 20:59 08/25/18 20:26 Tamsulosin HCl (Flomax) 0.4 mg BEDTIME ORAL 08/20/18 21:00 09/19/18 20:59 08/25/18 20:26 Venlafaxine HCl (Effexor-XR) 225 mg DAILY ORAL 08/25/18 09:00 09/24/18 08:59 08/25/18 09:53 Laboratory Tests 08/25/18 10:20: White Blood Count 10.6, Red Blood Count 3.60L, Hemoglobin 10.2L, Hematocrit 32.7L, Mean Corpuscular Volume 91, Mean Corpuscular Hemoglobin 28.3, Mean Corpuscular Hemoglobin Concent 31.2L, Red Cell Distribution Width 17.6H, Platelet Count 265, Mean Platelet Volume 8.4, Neutrophils (%) (Auto) 71.6, Lymphocytes (%) (Auto) 17.7L, Monocytes (%) (Auto) 7.3, Eosinophils (%) (Auto) 2.5, Basophils (%) (Auto) 0.9, Sodium Level 141, Potassium Level 4.1, Chloride Level 108H, Carbon Dioxide Level 26, Anion Gap 7, Blood Urea Nitrogen 14, Creatinine 0.9, Estimat Glomerular Filtration Rate , Glucose Level 188H, Calcium Level 9.0 Height (Feet): 5 Height (Inches): 7.00 Weight (Pounds): 149 Objective exam stable, urine venu Salbador Yanez MD Aug 26, 2018 09:34
--- NOTE | 2018-08-26 11:08 | GI Progress Note ---
Assessment/Plan Problems: (1) GI bleed ICD Codes: K92.2 - Gastrointestinal hemorrhage, unspecified SNOMED: 42963732 (2) Anemia ICD Codes: D64.9 - Anemia, unspecified SNOMED: 397661115 Status: stable Status Narrative Discussed with Dr. Og Assessment/Plan anemia work up reviewed patient removed NGT stable H&H family Refused EGD C. difficile negative stool OB positive advanced to puree diet, tolerating 100% diet monitor H&H, prn transfusions bowel regime ppi fu labs abx DC planning The patient was seen and examined at bedside and all new and available data was reviewed in the patients chart. I agree with the above findings, impression and plan. (Patient seen earlier today. Signature stamp does not reflect patient encounter time.). - Antony Og MD Subjective Subjective Tolerating pured diet Objective Last 24 Hour Vital Signs Date Time Temp Pulse Resp B/P (MAP) Pulse Ox O2 Delivery O2 Flow Rate FiO2 08/26/18 09:00 104/61 08/26/18 09:00 98 104/61 08/26/18 08:00 97.2 98 20 104/61 (75) 94 08/26/18 07:45 97 Room Air 21 08/26/18 07:45 Room Air 21 08/26/18 04:00 98.3 97 18 139/68 (91) 98 08/26/18 00:00 97.9 100 18 110/59 (76) 94 08/25/18 21:00 Room Air 08/25/18 20:33 96 Room Air 21 08/25/18 20:33 Room Air 21 08/25/18 20:00 98.2 96 18 127/74 (91) 94 08/25/18 18:06 100 123/67 08/25/18 16:58 123/67 08/25/18 16:00 98.2 100 18 123/67 (85) 98 08/25/18 12:00 97.3 96 22 105/61 (76) 96 Intake and Output 08/25/18 08/26/18 18:59 06:59 Intake Total 590 ml Output Total 1050 ml 300 ml Balance -1050 ml 290 ml Intake Oral 240 ml IV Total 350 ml Output Urine Total 1050 ml 300 ml # Bowel Movements 1 Height (Feet): 5 Height (Inches): 7.00 Weight (Pounds): 149 General Appearance: WD/WN, no apparent distress, alert Cardiovascular: normal rate Respiratory/Chest: normal breath sounds, no respiratory distress Abdominal Exam: normal bowel sounds, non tender, soft Extremities: non-tender Lisa Young NP Aug 26, 2018 11:08
[2018-08-26 12:00] VITALS: BP 119/65
--- NOTE | 2018-08-26 12:07 | Infectious Diseases Prog Note ---
Assessment/Plan Assessment/Plan Assessment: Sepsis 2ry to PNA, ?FLu (despite neg screening test) -08/19 CXR: Patchy interstitial pneumonitis versus interstitial edema demonstrated. -CXR: Right basilar infiltrate, atelectasis, and likely pleural fluid -sp cx K.pna (R amp, otherwise S) -u/a wbc 10-15, nit neg, leuk +2; ucx Neg; 08/18 u/a wbc 20-40,nit neg, leuk +3 ; ucx NTD -influenza sc, legionella ag neg Gram positive bacteremia- likely contaminant = -08/14 Bcx 06/28 CONS; 08/16 Neg Fever, SP Leukocytosis, SP -Cdiff neg TONIO, improving Hyponatremia/hypokalemia DM-2 CVA w/ R side deficit -CT head: Multiple old infarcts as described above. Moderate to severe atrophy of the brain. Extensive white matter low-attenuation mainly periventricular in distribution consistent with chronic small vessel disease. bedbound Parkinson's disease Plan: will monitor pt off of AB Rx - DC Ceftriaxone # 5 (abx d#11) for K. pna PNA -08/20 SP Cefepime #7 -08/21 SP Flagyl #6, Azithromycin #7 -08/19 SP IV Vancomycin #6 , Tamiflu #5 -08/14 SP Flagyl x1 -f/u cx -Monitor CBC/CMP, temperatures -aspiration precautions Subjective Allergies: Coded Allergies: No Known Allergies (Unverified , 08/14/18) Subjective afebrile no leukocytosis resolved off abx at RA Objective Vital Signs Last 24 Hour Vital Signs Date Time Temp Pulse Resp B/P (MAP) Pulse Ox O2 Delivery O2 Flow Rate FiO2 08/26/18 09:00 Room Air 08/26/18 09:00 104/61 08/26/18 09:00 98 104/61 08/26/18 08:00 97.2 98 20 104/61 (75) 94 08/26/18 07:45 97 Room Air 21 08/26/18 07:45 Room Air 21 08/26/18 04:00 98.3 97 18 139/68 (91) 98 08/26/18 00:00 97.9 100 18 110/59 (76) 94 08/25/18 21:00 Room Air 08/25/18 20:33 96 Room Air 21 08/25/18 20:33 Room Air 21 08/25/18 20:00 98.2 96 18 127/74 (91) 94 08/25/18 18:06 100 123/67 08/25/18 16:58 123/67 08/25/18 16:00 98.2 100 18 123/67 (85) 98 Height (Feet): 5 Height (Inches): 7.00 Weight (Pounds): 149 Objective General Appearance: alert, thin, Chronically Ill ENT: moist mucus membranes Neck: limited range of motion Respiratory: decreased breath sounds - left side, right side crackles Cardiovascular #1: normal inspection, normal peripheral pulses, regular rate, rhythm Musculoskeletal: decreased range of motion, other - motor weakness Neurologic: alert, motor weakness Psychiatric: depressed affect Skin: other Current Medications Medications (Trade) Dose Ordered Sig/Jese Route PRN Reason Start Time Stop Time Status Last Admin Dose Admin Acetaminophen (Tylenol) 650 mg Q4H PRN ORAL fever 08/19/18 13:11 09/13/18 13:10 08/23/18 14:10 Amlodipine Besylate (Norvasc) 5 mg BID NG 08/19/18 18:00 09/15/18 17:59 08/25/18 18:06 Carbidopa/Levodopa (Sinemet 25/) 1 tab THREE TIMES A DAY ORAL 08/24/18 18:00 09/23/18 17:59 08/26/18 09:32 Clonazepam (KlonoPIN) 0.5 mg BEDTIME ORAL 08/20/18 21:00 08/27/18 20:59 08/25/18 20:26 Clonazepam (KlonoPIN) 0.5 mg DAILY ORAL 08/22/18 09:00 08/29/18 08:59 08/26/18 09:32 Dextrose 1,000 ml @ 50 mls/hr Q20H IV 08/20/18 21:30 09/19/18 21:29 08/25/18 20:26 Dextrose (Dextrose 50%) 25 ml Q30M PRN IV Hypoglycemia 08/19/18 13:00 09/16/18 10:29 Dextrose (Dextrose 50%) 50 ml Q30M PRN IV Hypoglycemia 08/19/18 13:00 09/16/18 10:29 Diphenoxylate HCl/ Atropine (Lomotil) 2.5 mg Q4H PRN ORAL Diarrhea 08/20/18 13:45 09/19/18 13:44 08/22/18 06:15 Finasteride (Proscar) 5 mg DAILY ORAL 08/20/18 09:00 09/19/18 08:59 08/26/18 09:33 Gabapentin (Neurontin) 600 mg EVERY 12 HOURS ORAL 08/24/18 21:00 09/23/18 20:59 08/26/18 09:32 Insulin Aspart (NovoLOG) BEFORE MEALS AND HS SUBQ 08/19/18 16:30 09/16/18 11:29 08/26/18 06:01 Irbesartan (Avapro) 300 mg DAILY ORAL 08/25/18 09:00 09/24/18 08:59 Loperamide HCl (Imodium) 2 mg Q4H PRN ORAL Diarrhea 08/21/18 10:45 09/20/18 10:44 08/25/18 12:47 Metformin HCl (Glucophage) 850 mg ACBREAKFAST ORAL 08/25/18 06:30 09/24/18 06:29 08/26/18 05:33 Nitroglycerin (Ntg) 1 patch Q24H TDERMAL 08/19/18 16:00 09/15/18 15:59 08/25/18 16:58 Ondansetron HCl (Zofran) 4 mg Q6H PRN IVP Nausea & Vomiting 08/19/18 16:30 09/13/18 22:29 Pantoprazole (Protonix) 40 mg DAILY ORAL 08/22/18 09:00 09/21/18 08:59 08/26/18 09:33 Potassium Chloride (K-Dur) 20 meq THREE TIMES A DAY ORAL 08/22/18 18:00 09/21/18 17:59 08/26/18 09:32 Promethazine HCl/ Codeine (Phenergan with Codeine) 5 ml Q6H PRN ORAL For Cough 08/20/18 21:45 09/19/18 21:44 Quetiapine Fumarate (SEROquel) 100 mg QHS ORAL 08/24/18 21:00 09/23/18 20:59 08/25/18 20:26 Tamsulosin HCl (Flomax) 0.4 mg BEDTIME ORAL 08/20/18 21:00 09/19/18 20:59 08/25/18 20:26 Venlafaxine HCl (Effexor-XR) 225 mg DAILY ORAL 08/25/18 09:00 09/24/18 08:59 08/26/18 09:33 Nuria Marte M.D. Aug 26, 2018 12:07
[2018-08-26] MEDS: Loperamide 2mg cap ORAL PRN (12:08)
--- NOTE | 2018-08-26 14:24 | Pulmonology Progress Note ---
Assessment/Plan Problems: (1) Acute respiratory failure (2) Aspiration pneumonia (3) ATN (acute tubular necrosis) Assessment/Plan wants to get discharged in am improving bun/creatine decreasing, almost normal didn't pass swallow study continue NG tube feeding check electrolytes respiratory treatment check echocardiogram f/u troponin level failed swallow study, doesn't want Gtube eating, family wants oral feeding Subjective Allergies: Coded Allergies: No Known Allergies (Unverified , 08/14/18) Objective Last 24 Hour Vital Signs Date Time Temp Pulse Resp B/P (MAP) Pulse Ox O2 Delivery O2 Flow Rate FiO2 08/26/18 12:00 98.1 91 20 119/65 (83) 100 08/26/18 09:00 Room Air 08/26/18 09:00 104/61 08/26/18 09:00 98 104/61 08/26/18 08:00 97.2 98 20 104/61 (75) 94 08/26/18 07:45 97 Room Air 21 08/26/18 07:45 Room Air 21 08/26/18 04:00 98.3 97 18 139/68 (91) 98 08/26/18 00:00 97.9 100 18 110/59 (76) 94 08/25/18 21:00 Room Air 08/25/18 20:33 96 Room Air 21 08/25/18 20:33 Room Air 21 08/25/18 20:00 98.2 96 18 127/74 (91) 94 08/25/18 18:06 100 123/67 08/25/18 16:58 123/67 08/25/18 16:00 98.2 100 18 123/67 (85) 98 Intake and Output 08/25/18 08/26/18 18:59 06:59 Intake Total 590 ml Output Total 1050 ml 300 ml Balance -1050 ml 290 ml Intake Oral 240 ml IV Total 350 ml Output Urine Total 1050 ml 300 ml # Bowel Movements 1 Objective General Appearance: cachectic HEENT: normocephalic Respiratory/Chest: chest wall non-tender, lungs clear, normal breath sounds Breasts: no masses Cardiovascular: normal peripheral pulses, normal rate Abdomen: normal bowel sounds, soft, non tender Extremities: no cyanosis Skin: no rash Current Medications Medications (Trade) Dose Ordered Sig/Jese Route PRN Reason Start Time Stop Time Status Last Admin Dose Admin Acetaminophen (Tylenol) 650 mg Q4H PRN ORAL fever 08/19/18 13:11 09/13/18 13:10 08/23/18 14:10 Amlodipine Besylate (Norvasc) 5 mg BID NG 08/19/18 18:00 09/15/18 17:59 08/25/18 18:06 Carbidopa/Levodopa (Sinemet 25/100) 1 tab THREE TIMES A DAY ORAL 08/24/18 18:00 09/23/18 17:59 08/26/18 12:09 Clonazepam (KlonoPIN) 0.5 mg BEDTIME ORAL 08/20/18 21:00 08/27/18 20:59 08/25/18 20:26 Clonazepam (KlonoPIN) 0.5 mg DAILY ORAL 08/22/18 09:00 08/29/18 08:59 08/26/18 09:32 Dextrose 1,000 ml @ 50 mls/hr Q20H IV 08/20/18 21:30 09/19/18 21:29 08/25/18 20:26 Dextrose (Dextrose 50%) 25 ml Q30M PRN IV Hypoglycemia 08/19/18 13:00 09/16/18 10:29 Dextrose (Dextrose 50%) 50 ml Q30M PRN IV Hypoglycemia 08/19/18 13:00 09/16/18 10:29 Diphenoxylate HCl/ Atropine (Lomotil) 2.5 mg Q4H PRN ORAL Diarrhea 08/20/18 13:45 09/19/18 13:44 08/22/18 06:15 Finasteride (Proscar) 5 mg DAILY ORAL 08/20/18 09:00 09/19/18 08:59 08/26/18 09:33 Gabapentin (Neurontin) 600 mg EVERY 12 HOURS ORAL 08/24/18 21:00 09/23/18 20:59 08/26/18 09:32 Insulin Aspart (NovoLOG) BEFORE MEALS AND HS SUBQ 08/19/18 16:30 09/16/18 11:29 08/26/18 12:47 Irbesartan (Avapro) 300 mg DAILY ORAL 08/25/18 09:00 09/24/18 08:59 Loperamide HCl (Imodium) 2 mg Q4H PRN ORAL Diarrhea 08/21/18 10:45 09/20/18 10:44 08/26/18 12:08 Metformin HCl (Glucophage) 850 mg ACBREAKFAST ORAL 08/25/18 06:30 09/24/18 06:29 08/26/18 05:33 Nitroglycerin (Ntg) 1 patch Q24H TDERMAL 08/19/18 16:00 09/15/18 15:59 08/25/18 16:58 Ondansetron HCl (Zofran) 4 mg Q6H PRN IVP Nausea & Vomiting 08/19/18 16:30 09/13/18 22:29 Pantoprazole (Protonix) 40 mg DAILY ORAL 08/22/18 09:00 09/21/18 08:59 08/26/18 09:33 Potassium Chloride (K-Dur) 20 meq THREE TIMES A DAY ORAL 08/22/18 18:00 09/21/18 17:59 08/26/18 12:09 Promethazine HCl/ Codeine (Phenergan with Codeine) 5 ml Q6H PRN ORAL For Cough 08/20/18 21:45 09/19/18 21:44 Quetiapine Fumarate (SEROquel) 100 mg QHS ORAL 08/24/18 21:00 09/23/18 20:59 08/25/18 20:26 Tamsulosin HCl (Flomax) 0.4 mg BEDTIME ORAL 08/20/18 21:00 09/19/18 20:59 08/25/18 20:26 Venlafaxine HCl (Effexor-XR) 225 mg DAILY ORAL 08/25/18 09:00 09/24/18 08:59 08/26/18 09:33 Sade Morgan MD Aug 26, 2018 14:24
--- NOTE | 2018-08-26 14:54 | NUR ---
NURSE NOTES: patient has been discharged to home, accompanied by . Patient goes with [facility], report given to EMT Mele Dawson. No belongings on belonging list. IV access was dc'd, no bleeding noted after site compression. Patient leaves with Isaac catheter, and will have follow up with dr. Juarez and Soriano, office contact information provided on discharge packet. Also given medication reconciliation and pamphlet regarding patient condition and medication. Patient in stable condition and vvss. Addendum: 08/26/18 at 1937 by KARRIE MCMAHON RN no skin ulcer noted on scrotal area, witness. Documented and picture taken.
--- NOTE | 2018-08-26 16:06 | Nephrology Progress Note ---
Assessment/Plan Problem List: (1) ATN (acute tubular necrosis) Assessment: resolved (2) Acute respiratory failure (3) Diabetes mellitus (4) Parkinson disease (5) Respiratory distress (6) Aspiration pneumonia Assessment 88 Y old male, presents with resp distress and aspiration pneumonia Renal failure, Mainly dehydration resolving ? Underlying CKD Low K , Low Na , Low Alb Parkinsons DM Plan ? Dc Avoid Nephrotoxics Per orders Subjective ROS Limited/Unobtainable: No Interval Events/Complaints seen at 10 am Constitutional: Reports: malaise Objective Objective Last 24 Hour Vital Signs Date Time Temp Pulse Resp B/P (MAP) Pulse Ox O2 Delivery O2 Flow Rate FiO2 08/26/18 12:00 98.1 91 20 119/65 (83) 100 08/26/18 09:00 Room Air 08/26/18 09:00 104/61 08/26/18 09:00 98 104/61 08/26/18 08:00 97.2 98 20 104/61 (75) 94 08/26/18 07:45 97 Room Air 21 08/26/18 07:45 Room Air 21 08/26/18 04:00 98.3 97 18 139/68 (91) 98 08/26/18 00:00 97.9 100 18 110/59 (76) 94 08/25/18 21:00 Room Air 08/25/18 20:33 96 Room Air 21 08/25/18 20:33 Room Air 21 08/25/18 20:00 98.2 96 18 127/74 (91) 94 08/25/18 18:06 100 123/67 08/25/18 16:58 123/67 Intake and Output 08/25/18 08/26/18 19:00 07:00 Intake Total 590 ml Output Total 1050 ml 300 ml Balance -1050 ml 290 ml Intake Oral 240 ml IV Total 350 ml Output Urine Total 1050 ml 300 ml # Bowel Movements 1 Height (Feet): 5 Height (Inches): 7.00 Weight (Pounds): 149 General Appearance: no apparent distress Objective no change Hudson Huntley MD Aug 26, 2018 16:06
--- NOTE | 2018-08-28 08:04 | Discharge Summary ---
Discharge Summary Discharge Summary _ DATE OF ADMISSION: 08/14/2018 DATE OF DISCHARGE: 08/26/2018 DISCHARGED BY: Dr. 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 Patient had been having respiratory congestion for several days. Patient recently was discharged from the hospital after treatment for catheter associated urinary tract infection. Upon evaluation in the emergency department vital signs revealed fever 101.8 and tachycardia. Patient was hypoxic and required 100% nonrebreathing mask. Laboratory workup revealed leukocytosis WBC 11.3 ,anemia with hemoglobin 9.6 hematocrit 30.2. Lactic acid 1.4. BUN 89, creatinine 2.6. Glucose 189. Troponin- 0.128. Pro BNP 3210. EKG revealed sinus region no acute ischemic changes Albumin 2.2. Urinalysis revealed pyuria ,+3 protein and moderate bacteria Chest x-ray demonstrated right basilar infiltrate. Patient was placed on the BiPAP. ABG was stable on BiPAP. Patient was given IV fluids pancultured and started on empiric antibiotics. Rapid influenza screen test was negative. Patient was admitted for further management CONSULTANTS: pharmacy sales assistant Dr. Love pulmonary Dr. Morgan ID specialist Dr. Robles GI specialist Dr. Og mason helper Dr. Huntley urologist Dr. Yanez plastic surgeon Dr. Jain HOSPITAL COURSE: Patient admitted and started on empiric antibiotics and IV fluids, Supplemental oxygen titrated to keep pulse oximetry above 92%. Pulmonary toilet with bronchodilator provided. Patient was follow-up with chest x-rays. Echocardiogram revealed preserved ejection fraction of 60-65%, no evidence of wall motion abnormality. Mild to moderate left ventricular hypertrophy. Right ventricular systolic pressure of 23. Jewelry Estimator followed. Troponin trended; second troponin trending down, the last troponin negative. ECG revealed sinus rhythm, no acute ischemic changes. Per pharmacy sales assistant, elevated troponin was likely secondary to sepsis and renal insufficiency. Lipid panel was stable. Blood pressure was managed with calcium channel pablo and later angiotensin receptor pablo was added to improve blood pressure control. Blood pressures stabilized. Jewelry Estimator recommended antiplatelet therapy with aspirin and statin due to prior history of CVA. Banquet Manager and ID specialist closely followed. Urine culture was negative. Rapid influenza screen test was negative. Blood culture revealed Staphylococcus epidermidis. Repeated blood cultures were negative. Sputum culture revealed Klebsiella pneumonia. Stool for C. difficile was negative. Stool culture was negative. Per infectious disease specialist, patient had sepsis secondary to pneumonia and possible flu despite negative screening test. Gram-positive bacteremia was likely contaminant. Patient completed antibiotic course for aspiration pneumonia. Patient also received Tamiflu for 5 days . Leukocytosis and fevers resolved. Infectious disease doctor recommended to monitor patient off antibiotic. For fever leukocytosis resolved. As patient clinically improved, supplemental oxygen titrated down and prior to discharge pulse oximetry was stable on room air. Bedside swallow evaluation and video swallow evaluation were as done. Patient found to have a silent aspiration risk and dysphagia. Speech therapist recommended strict n.p.o. with oral care and nonoral feeding to meet nutritional and hydration needs. NG tube inserted, and patient started on NG tube feeding as per proteomics scientist recommendations with strict aspiration /reflux precautions. CT of the head revealed multiple old infarcts and severe atrophy of the brain. GI specialist followed. Family declined EGD and gastrostomy tube placement. Patient started on diet for quality of life with strict aspiration /reflux precaution and one-to-one feeding. Patient was able to tolerate diet. Bowel regimen instituted. GI prophylaxis provided Hemoglobin and hematocrit were closely monitored with goal to keep hemoglobin above 7, remained at the baseline. Stool for OB was positive. CEA elevated 3.9. Stable B12 and folate levels. As mentioned above family decline GI procedures. Renal parameters and electrolytes were closely monitored. Electrolytes corrected as needed. Nephrotoxins were avoided. According to mason helper, acute kidney injury was likely due to dehydration : creatinine from 2.6 down to 0.9 prior to discharge. Blood sugar was managed with metformin and sliding scale of insulin needed. Hemoglobin A1c- 6.0 at goal. Urologist followed. Patient had a difficult catheterization in the past and required cystoscopy in the past. Urologist had extensive discussion with patient's son. Son did not want Isaac to be removed. Urologist recommended to continue indwelling Isaac for now. Flomax and Proscar were added. Neurologist recommended voiding trial later probably as outpatient in the office. PSA undetectable. Sinemet continued. Plastic surgeon seen the patient for prevention of decubitus ulcers, since patient bound and unable to turn himself . Recommendations provided for preventive measures how to avoid skin breakdown and discussed extensively with the family. Supportive care provided. Pain management addressed as needed. 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 DISCHARGE INSTRUCTIONS: Patient was discharged home . Follow up with primary care provider in one week. I have been assigned to dictate discharge summary for this account. I was not involved in the patient's management. Keily Masters NP Aug 28, 2018 08:04
== END 2018-08-26 15:00 | disposition home or self-care (01) | DRG 871 ==
LOC: EDBD 20:34 → EMR 21:00 → 2W 22:33 → EDBEDREQSVC 22:38 → EDBEDREQ 23:34 → 2W 08-15 02:58 → 4E 08-19 13:06
DX: A41.59 Other Gram-negative sepsis (principal); J69.0 Pneumonitis due to inhalation of food and vomit; J96.00 Acute respiratory failure, unspecified whether with hypoxia or hypercapnia; N17.0 Acute kidney failure with tubular necrosis; J15.0 Pneumonia due to Klebsiella pneumoniae; G93.41 Metabolic encephalopathy; E87.1 Hypo-osmolality and hyponatremia; I69.951 Hemiplegia and hemiparesis following unspecified cerebrovascular disease affecting right dominant side; N39.0 Urinary tract infection, site not specified; F33.9 Major depressive disorder, recurrent, unspecified; K92.2 Gastrointestinal hemorrhage, unspecified; E11.9 Type 2 diabetes mellitus without complications; G20 Parkinson's disease; F02.80 Dementia in other diseases classified elsewhere, unspecified severity, without behavioral disturbance, psychotic disturbance, mood disturbance, and anxiety; Z74.01 Bed confinement status; R13.10 Dysphagia, unspecified; E86.0 Dehydration; E87.6 Hypokalemia; N40.1 Benign prostatic hyperplasia with lower urinary tract symptoms; R33.8 Other retention of urine; N31.9 Neuromuscular dysfunction of bladder, unspecified; R31.9 Hematuria, unspecified; F41.9 Anxiety disorder, unspecified; D64.9 Anemia, unspecified
CPT/HCPCS: 36415; 36600; 70450; 71045; 74018; 74230; 80048; 80053; 80061; 80069; 80202; 81001; 81003; 82043; 82140; 82164; 82270; 82378; 82533; 82550; 82553; 82570; 82607; 82746; 82803; 82962; 82977; 83036; 83540; 83550; 83605; 83615; 83735; 83880; 84100; 84133; 84153; 84300; 84443; 84484; 84550; 85007; 85025; 85044; 85060; 85610; 85651; 85730; 86140; 86710; 87040; 87045; 87070; 87081; 87086; 87181; 87205; 87324; 89050; 93005; 93306; 94640; 94660; 94664; 94760; 96365; 96368; 99285; J1815; J7620; J8499